=== PATIENT | male | born 1985 | race Caucasian/White ===

== ENCOUNTER → 2018-12-20 | Outpatient (CLI) | payer MEDICARE, MEDICAID ==
[~2018-12-20] MED LIST: ATEN25TA PO; CETI10TA17 PO; DEXL60CA5 PO; HYDR-3870 PO; HYDR-91 PO; ISOS30TA3 PO; LISI-556 PO; MELO-195 PO; METH-53 PO; NITR-33 PO; OLAN1CAP5 PO; ONDN4T PO; OXYC1CAP3 PO; TMSL.4C PO; ZLP5T PO
== END ==
LOC: ORTHO 08:40
PROVIDERS: ATTEND Orthopaedic Surgery
DX: S43.431A Superior glenoid labrum lesion of right shoulder, initial encounter (principal); F31.9 Bipolar disorder, unspecified
CPT/HCPCS: 99203

== ENCOUNTER 2019-09-23 09:41 | Outpatient (RCR) | payer MEDICARE, MEDICAID ==
[~2019-09-23] VITALS: Ht 180.3 cm; Wt 100.0 kg
[~2019-09-23 09:41] MED LIST changes: +ARPZ30T PO; +DEXL60CA PO; +INDO50CA82 PO; +PREG150C PO; +ZOLP10TA PO
== END 2019-09-23 15:07 | disposition home or self-care (01) ==
LOC: PREOP 09:41
PROVIDERS: ATTEND Otolaryngology Otolaryngology/Facial Plastic Surgery
DX: Z01.812 Encounter for preprocedural laboratory examination (principal); Z11.59 Encounter for screening for other viral diseases; J32.9 Chronic sinusitis, unspecified; J34.2 Deviated nasal septum; J34.3 Hypertrophy of nasal turbinates
CPT/HCPCS: 87635

== ENCOUNTER 2019-09-27 06:51 | Day surgery (SDC) | payer MEDICARE, MEDICAID ==
[2019-09-27] VITALS (11 sets, daily range): BP systolic 110–149; BP diastolic 72–97
[~2019-09-27] VITALS: Ht 180.3 cm; Wt 100.0 kg
[2019-09-27] MEDS ORDERED: LACTATED RINGERS 1,000 ML IV PRN (07:05)
--- NOTE | 2019-09-27 07:05 | Progress Note-Pre Operative ---
Pre-Operative Progress Note H&P Reviewed The H&P was reviewed, patient examined and no changes noted. Date Seen by Provider: September 27, 2019 Time Seen by Provider: 07:00 Date H&P Reviewed: September 27, 2019 Time H&P Reviewed: 07:00 Pre-Operative Diagnosis: Bilat Crhonic Sinusitis, Deviated Septum, Bilat Red ofInf Turbs FLASH DURÁN MD September 27, 2019 07:05
[2019-09-27] MEDS ORDERED: AMPICILLIN/SULBACTAM INJECTION 1.5 GM in NS (IVPB) 100 ML IV ONE (07:15)
[2019-09-27] MEDS ORDERED: MIDAZOLAM 2 MG/2 ML (VERSED) VIAL ONE ×2 (07:29→07:43)
[2019-09-27 07:31] LABS: BASOPHILS # (AUTO) 0.1 10^3/uL (0.0-0.1); BASOPHILS % (AUTO) 1 % (0-10); EOSINOPHILS # (AUTO) 0.4 10^3/uL (0.0-0.3); EOSINOPHILS % (AUTO) 8 % (0-10); HEMATOCRIT 43 % (40-54); HEMOGLOBIN 15.6 G/DL (13.3-17.7); LYMPHOCYTES # (AUTO) 1.9 X 10^3 (1.0-4.0); LYMPHOCYTES % (AUTO) 37 % (12-44); MEAN CORPUSCULAR HEMOGLOBIN 29 PG (25-34); MEAN CORPUSCULAR HGB CONC 36 G/DL (32-36); MEAN CORPUSCULAR VOLUME 80 FL (80-99); MEAN PLATELET VOLUME 9.8 FL (7.4-10.4); MONOCYTES # (AUTO) 0.4 X 10^3 (0.0-1.0); MONOCYTES % (AUTO) 8 % (0-12); NEUTROPHILS # (AUTO) 2.3 X 10^3 (1.8-7.8); NEUTROPHILS % (AUTO) 47 % (42-75); PLATELET COUNT 216 10^3/uL (130-400); RED CELL DISTRIBUTION WIDTH 13.1 % (10.0-14.5)
[2019-09-27 07:43] LABS: CHLORIDE 108 MMOL/L (98-107); POTASSIUM 4.1 MMOL/L (3.6-5.0); SODIUM 139 MMOL/L (135-145)
[2019-09-27] MEDS ORDERED: DEXAMETHASONE 10 MG/ML (DECADRON) 1 ML VIAL ONE (07:43)
[2019-09-27] MEDS ORDERED: LIDOCAINE PF 2% 5 ML (XYLOCAINE) VIAL ONE (07:43)
[2019-09-27] MEDS ORDERED: ONDANSETRON 4 MG/2 ML (SDV) Z0FRAN ONE (07:43)
[2019-09-27] MEDS ORDERED: fentaNYL INJECTION 100 MCG/2 ML AMP ONE (07:43)
[2019-09-27] MEDS ORDERED: ROCURONIUM 10 MG/ML 5 ML SYRINGE IV ONE (07:43)
[2019-09-27] MEDS ORDERED: SEVOFLURANE (ULTANE) 15 ML INHAL SOLN ONE ×2 (07:43→09:17)
[2019-09-27] MEDS ORDERED: proPOfol 200 MG/20 ML (DIPRIVAN) VIAL IV ONE (07:43)
[2019-09-27 07:44] LABS: CALCIUM 9.1 MG/DL (8.5-10.1)
[2019-09-27 07:45] LABS: GLUCOSE 133 MG/DL (70-105)
[2019-09-27 07:46] LABS: CARBON DIOXIDE 21 MMOL/L (21-32)
[2019-09-27 07:49] LABS: BUN/CREATININE RATIO 14; CREATININE SERUM 0.93 MG/DL (0.60-1.30); GFR ESTIMATED > 60
[2019-09-27] MEDS ORDERED: BSS 15 ML ONE (07:54)
[2019-09-27] MEDS ORDERED: PHENYLEPHRINE 0.5% NASAL SPR (NEO-SYNEPHRINE) REG ONE (07:54)
[2019-09-27] MEDS ORDERED: LIDOCAINE/EPI 1%-1:100,000 (XYLOCAINE) 20ML ONE (07:54)
[2019-09-27] MEDS ORDERED: COCAINE HCL 4% 2 ML SYR ONE (07:54)
[2019-09-27] MEDS ORDERED: PROM25TA14 PO (07:58)
[2019-09-27] MEDS ORDERED: RT-ALBUINH IH (07:58)
[2019-09-27] MEDS ORDERED: FLUT9.9S NS (07:58)
[2019-09-27] MEDS ORDERED: HYDROmorphone 2 MG/ML VIAL (DILAUDID) ONE (08:34)
[2019-09-27] MEDS ORDERED: GLYCOPYRROLATE 0.2 MG/ML (ROBINUL) 2 ML VIAL ONE (09:03)
[2019-09-27] MEDS ORDERED: NEOSTIGMINE 3 MG/3 ML VIAL ONE (09:03)
--- OUTSIDE RECORDS SUMMARY | 2019-09-27 09:04 | XMS REPORT | Clinical Summary ---
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 If you d o not see the information that you expected, contact Release of Information in [facility] [employer] Information Management department at [phone] for further assistan ce in locating additional records.[facility] Allergies Comments Active Allergy Reactions Severity Noted Date Prednisone AGITATION 04/16/2014 Medications End Date Status Medication Sig Dispensed Refills Start Date Active meloxicam (MOBIC) 7.5 mg Take 15 mg by 0 tablet mouth daily. Active atenolol (TENORMIN) 25 mg Take 25 mg by 0 tablet mouth daily. Active dexlansoprazole (+) Take 60 mg by 0 (DEXILANT) 60 mg capsule mouth daily. Active allopurinol (ZYLOPRIM) Take 100 mg 0 100 mg tablet by mouth daily. Active gabapentin (NEURONTIN) Take 300 mg 0 300 mg capsule by mouth three times daily. Active other medication 1 Dose twice 0 daily. Olanzaoine-fl uoxetine Active lisinopril (PRINIVIL; Take 5 mg by 0 ZESTRIL) 5 mg tablet mouth daily. Active metFORMIN (GLUCOPHAGE) Take 500 mg 0 500 mg tablet by mouth daily. Active isosorbide mononitrate SR Take 30 mg by 0 (IMDUR) 30 mg tablet mouth every morning. Active zolpidem (AMBIEN) 5 mg Take 5 mg by 0 tablet mouth at bedtime as needed. Active methocarbamol (ROBAXIN) Take 750 mg 0 750 mg tablet by mouth four times daily. Active tamsulosin (FLOMAX) 0.4 Take 0.4 mg 0 mg capsule by mouth daily. Active rizatriptan (MAXALT) 10 Take 10 mg by 0 mg tablet mouth once as needed. May repeat in 2 hours in needed Active cyclobenzaprine TAKE ONE 60 Tab 0 (FLEXERIL) 10 mg tablet TABLET BY 6 MOUTH THREE TIMES DAILY NEEDED Active Problems Not on file Social History Date Tobacco Use Types Packs/Day Years Used Never Assessed Sex Assigned at Date Recorded Not on file Industry Job Start Date Occupation Not on file Not on file Not on file Travel End Travel History Travel Start No recent travel history available. Last Filed Vital Signs Reading Time Taken Comments Vital Sign 122/70 06/18/2014 3:24 PM [employer] Blood Pressure 82 06/18/2014 3:24 PM [employer] Pulse 36.3 C (97.4 F) 06/18/2014 3:24 PM [employer]IL[employer] Temperature - - Respiratory Rate 97% 06/18/2014 3:24 PM [employer]IL[employer] Oxygen Saturation - - Inhaled Oxygen Concentration 98.4 kg (217 lb) 06/18/2014 1:43 PM [employer]IL[employer] Weight 182.9 cm (6') 06/18/2014 1:43 PM [employer]IL[employer] Height 29.43 06/18/2014 1:43 PM [employer]IL[employer] OFF[employer] Body Mass Index Plan of Treatment Health Maintenance Due Date Last Done Comments MEDICARE ANNUAL WELLNESS 1986 VISIT HIV SCREENING 2001 DTAP/TDAP VACCINES (1 - 2004 Tdap) HEPATITIS C SCREENING 2004 PHYSICAL (COMPREHENSIVE) 2004 EXAM INFLUENZA VACCINE 02/06/2020 Results Not on filefrom Last 3 Months Insurance Type Payer Benefit Subscriber ID Effective Phone Address Plan / Dates Group Medicare MEDICARE MEDICARE xxxxxxxxxx 2011-P PART A AND resent B Medicaid 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
--- OUTSIDE RECORDS SUMMARY | 2019-09-27 09:04 | XMS REPORT ---
Author Author [employer] court magistrate [email or web address] 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 Name Role Phone WANKER, MACK Unavailable Unavailable WANKER, MACK Unavailable HERBERTH OSBORNE Unavailable Unavailable NO, LOCAL PHYSICIAN Unavailable Unavailable INOCENCIA MORIN Unavailable Unavailable WANKER, MACK Unavailable WANKER, MACK Unavailable WANKER, MACK Unavailable WANKER, MACK Unavailable WANKER, MACK Unavailable WANKER, MACK Unavailable WANKER, MACK Unavailable WANKER, MACK Unavailable WANKER, MACK Unavailable WANKER, MACK Unavailable WANKER, MACK Unavailable WANKER, MACK Unavailable WANKER, MACK Unavailable WANKER, MACK Unavailable WANKER, MACK Unavailable APOORVA TAYLOR Unavailable WANKER, MACK Unavailable WANKER, MACK Unavailable WANKER, MACK Unavailable WANKER, MACK Unavailable WANKER, MACK Unavailable HANNY ALDANA Unavailable WANKER, MACK Unavailable WANKER, MACK Unavailable WANKER, MACK Unavailable WANKER, MACK Unavailable WANKER, MACK Unavailable WANKER, MACK Unavailable WANKER, MACK Unavailable WANKER, MACK Unavailable WANKER, MACK Unavailable WANKER, MACK Unavailable WANKER, MACK Unavailable WANKER, MACK Unavailable WANKER, MACK Unavailable WANKER, MACK Unavailable WANKER, MACK Unavailable WANKER, MACK Unavailable WANKER, MACK Unavailable WANKER, MACK Unavailable WANKER, MACK Unavailable WANKER, MACK Unavailable WANKER, MACK Unavailable MD Jaquan Woods MD Unavailable Unavailable Unavailable Unavailable WANKER, MACK J Unavailable Unavailable WANKER, MACK J Unavailable Unavailable WANKER, MACK Unavailable Toño Jiang Unavailable Unavailable Wanker, Mack J Unavailable Unavailable HANNY ALDANA Unavailable STEPHEN CEDILLO MD Unavailable Unavailable LEEANNA NICOLE, FLASH Elmore Unavailable Unavailable Unavailable Unavailable NO, LOCAL PHYSICIAN PCP Unavailable Unavailable Unavailable Unavailable Unavailable Unavailable Unavailable Unavailable Unavailable Unavailable Unavailable Unavailable Unavailable Unavailable Unavailable Unavailable Unavailable Unavailable Unavailable Allergies The data below is from unstructured sourcesNo Known Allergies No Known Allergies No Known Allergies No Known Allergies No Known Allergies No Known Allergies No Known Allergies Unknown Allergies Unknown AllergiesNo Known Allergies No Known Allergies No Known Allergies No Known Allergies No Known Allergies No Known Allergies No Known Allergies No Known Allergies No Known Allergies No Known Allergies No Known Allergies No Known Allergies No Known Allergies No Known Allergies No Known Allergies No Known Allergies No Known Allergies No Known Allergies No Known Allergies No Known Allergies No Known Allergies No Known Allergies No Known Allergies No Known Allergies No Known Allergies No Known Allergies No Known Allergies No Known Allergies No Known Allergies No Known Allergies No Known Allergies No Known Allergies No Known Allergies No Known Allergies No Known Allergies No Known Allergies No Known Allergies No Known Allergies No Known Allergies No Known Allergies No Known Allergies No Known Allergies No Information No Information No Information No Information No Information No Information No Information No Information No Information No Information No Information No Information No Information No Information No Information No Information No Information No Information No Information No Information No Information No Information No Information No Information No Information No Information No Information No Information No Information No Information No Information No Information No Information No Information No Information No Information No Information No Information No Information No Information No Information No Information No Information No Information No Information No Information No Information No Information No Information No Information No Information No Information No Information No Information No Information No Information No Information No Information No Information No Information No Information No Information No Information No Information No Information No Information No Information No Information No Information No Information No Information No Information Medications Current Medications Medication Ingredient Drug Dose Dates Status Sig Sig Care Class(es) (Normalized) (Original) Provid er ARIPiprazol ARIPiprazol Atypical Active no Aripiprazol e no e 30 mg e Antipsychot information Active 30 name oral tablet ic ORAL Daily (1 source.) no Diabetic no 12-20-19 Active no Diabetic no information Shoes information 18 information Shoes as name (2 directed 14 sources.) Dec, 2017 Active indomethaci Indomethaci Nonsteroida Active no Indometh acin no n 50 mg n l information Active 50 name oral Anti-inflam ORAL Daily capsule (1 matory Drug source.) pregabalin pregabalin no Active no Pregabalin no 150 mg oral information information Active 150 name capsule (1 ORAL Daily source.) QUEtiapine QUEtiapine Atypical 100 mg Active no Seroquel 100 no 100 mg oral Translation Antipsychot information MG Orally na me tablet (5 s: [ ic Once a day 1 sources.) Seroquel tablet 24h 100 MG, Active Seroquel 100 MG] suvorexant suvorexant Orexin 5 mg 03-15-20 Active no Belso mra 5 no 5 mg oral Translation Receptor 18 information mg Orally name tablet (1 s: [ Antagonist Once a day 1 source.) Belsomra 5 tablet at mg] bedtime as needed 24h Mar, 30 days Active no terbinafine Allylamine 1 % 04-28-20 Active no Lami carmen AT 1 no information Translation Antifungal 17 - information % Exter kamala name (1 source.) s: [ 05-26-19 Twice a day Lamisil AT 18 1 1 %] application to affected area 12h Apr, May, 14 days Active Completed/Discontinued Medications Medication Ingredient Drug Dose Dates Status Sig Sig Care Class(es) (Normalized) (Original) Provid er no Nitrofurant Nitrofuran 05-25-19 Complete no Nitrofura nto no information oin Antibacteri 16 d information in name (1 source.) al Macrocrystal s Discontinued 1 ORAL Twice A Day 7 May 25, 2015 no Olanzapine/ no 09-20-19 Complete no Olanzapine/F no information Fluoxetine information 20 d information pricila xetine name (1 source.) Hcl Hcl Discontinued 1 ORAL Bedtime September 20, 2019 no Oxycodone no 05-25-19 Complete no Oxycodone no information Hcl/Acetami information 16 d information Hc l/Acetamin name (1 source.) adilene navas Discontinued 1 ORAL As Needed May 25, 2015 FOR PAIN no TRUEresult no 08-13-19 no no TRUEresult no information Blood information 16 informat information Blood name (4 Glucose ion Glucose sources.) w/Device w/Device as Translation directed 24h s: [ Aug, TRUEresult Not-Taking Blood Glucose w/Device, TRUEresult Blood Glucose w/Device] Problems Problem Normalized Date Last Normalized Normalized Provider Fa cility Classification Problem(s) Recorded Problem Problem Sta tus Duration Other Bicipital Episodic Active MACK SAMANTHA Communi ty connective tendinitis, [address] [facility] tissue disease left shoulder of [facility] (20 sources.) Translations: [place] ([address]1004) [ - Biceps tendonitis on left M75.22, - Biceps tendonitis on left M75.22] Other upper Chronic 09-25-2019 - Chronic Active FLASH Ohara [facility] Via respiratory sinusitis, MD White infections (4 unspecified Hospital - sources.) Translations: [place] [ Chronic ([address]385) sinusitis] Other upper Deviated nasal 09-25-2019 - Episodic Active TIARRA DURÁN [facility] Via respiratory septum MD White disease (3 Hospital - sources.) [place] ([address]) Other upper Deviated nasal Episodic Active LOCAL NO Ascen kelsea Via respiratory septum Cindy disease (1 Hospital source.) (14784) Medical Encounter for Episodic Active MACK SINGH Com munity examination/ev general adult [address] [facility] aluation (11 medical of [facility] sources.) examination [place] ([address]84) without abnormal findings Translations: [ - Medicare annual wellness visit, initial Z00.00] Other skin Generalized Episodic Active MACK SINGH Comm unity disorders (20 hyperhidrosis [address] [facility] sources.) Translations: of [facility] [ - Excessive [place] (23632) sweating R61, - Excessive sweating R61] Other upper Hypertrophy of 09-24-2019 - Episodic Active GLORIALOLA DURÁN [facility] Via respiratory nasal , Cindy disease (3 turbinates Hospital - sources.) [place] ([address]) Other upper Hypertrophy of Episodic Active LOCAL NO Ascanthony kelsea Via respiratory nasal Cindy disease (1 turbinates Hospital source.) (42109) Other skin Ingrowing nail Episodic Active MACK SINGH C ommunity disorders (20 Translations: [address] Health Center sources.) [ - Ingrown of [place] nail L60.0, - [place] (59171) Ingrown nail of fifth toe of right foot L60.0, - Ingrown nail L60.0, - Ingrown nail of fifth toe of right foot L60.0] Other skin Nail disorder, Episodic Active MACK MCGRAWKER C ommunity disorders (20 unspecified [address] Health Center sources.) Translations: of [facility] [ - Nail [place] (26799) abnormality L60.9, - Nail abnormality L60.9] Other nervous Other chronic Chronic Active [employer] [facility] system pain [address] [place] [address] Center disorders (20 Translations: of [facility] sources.) [ - Other [place] (84434) chronic pain G89.29, - Other chronic pain G89.29] Other Pain in left Episodic Active MACK SINGH [facility] unity connective foot [id number] [place] [address] tissue disease Translations: of [facility] (20 sources.) [ - Pain of [place] (07634) left foot M79.672, - Pain of left foot M79.672] Other Pain in limb Episodic Active MACK MCGRAWPsychSignal Comm unity connective Translations: [address] [facility] tissue disease [ - Bilateral of [facility] (20 sources.) foot pain [place] (69826) 729.5, - Bilateral foot pain 729.5] Other Pain in right Episodic Active [employer] [facility] munity connective foot [address] [place] [address] tissue disease Translations: of [facility] (20 sources.) [ - Pain in [place] (81543) right foot M79.671, - Pain in right foot M79.671] Other Pain in right Episodic Active MACK MCGRAWKER [facility] munity non-traumatic hip [address] [facility] joint Translations: of [facility] disorders (20 [ - Right hip [place] (60861) sources.) pain M25.551, - Right hip pain M25.551] Other Pain in right Episodic Active MACK decker non-traumatic shoulder [address] [place] [address] Center joint Translations: [facility] disorders (20 [ - Right [place] (53683) sources.) anterior shoulder pain M25.511, - Right anterior shoulder pain M25.511, - Acute pain of right shoulder M25.511] Cardiac Palpitations Episodic Active MACK Mcdermott unity dysrhythmias Translations: [address] [place] [address] Center (20 sources.) [ - of [facility] Palpitation [place] (85715) R00.2, - Tachycardia R00.0, - Palpitation R00.2, - Tachycardia R00.0] Unclassified Primary Chronic Active MACK victoria (18 sources.) insomnia [address] [place] [address] Center Translations: [facility] [ Primary [place] (26243) insomnia, Primary insomnia] Diabetes Type 2 no information Active MACK decker mellitus with diabetes [address] [place] [address] complications mellitus with of [facility] (20 sources.) diabetic [place] (40556) neuropathy, unspecified Translations: [ - Type 2 diabetes mellitus with diabetic neuropathy, without long-term current use of insulin E11.40, - Type 2 diabetes mellitus with diabetic neuropathy, without long-term current use of insulin E11.40] Procedures Procedure Normalized Procedure Procedure Result Performer Facility Date 01-04-2018 Collection venous no information no name [facility] blood venipuncture [facility] ([id number]) 08-10-2017 Collection venous no information no name [facility] blood venipuncture [facility] (56484) 01-04-2018 Ecg routine ecg no information no name [facility] w/least 12 [facility] w/o i&r [place] (91570) 10-03-2017 Fall risk assessment no information no name [facility] (92255) 01-04-2018 FQHC visit, estab pt no information no name [facility] (56415) 09-04-2017 FQHC visit, estab pt no information no name [facility] (55074) 08-10-2017 FQHC visit, estab pt no information no name [facility] (94767) 04-28-2017 FQHC visit, estab pt no information no name [facility] (91122) 10-03-2017 FQ visit, IPPE or no information no name [facility] AWV [facility] (25006) 04-28-2017 Hemoglobin (HGB) no information no name [facility] (64474[facility] 01-04-2018 Hemoglobin no information no name [facility] glycosylated a1c [facility] (79195) 08-10-2017 Hemoglobin no information no name [facility] glycosylated a1c [facility] (77124) 01-04-2018 LAB NOT BILLED BY no information no name [facility] (54579) 08-10-2017 LAB NOT BILLED BY no information no name [facility] (48143) 10-03-2017 Pt tobacco screen rcvd no information no name [facility] tlk [facility] (91286) Immunizations Normalized Immunization Date Notes Care Provider Facili ty Immunization influenza, seasonal, 02-04-2019 no information no name [facility]able [facility] (59435) influenza, seasonal, 03-02-2018 no information no name [facility]able [facility] (66151) pneumococcal 03-05-2018 no information no name [facility] polysaccharide [facility] [address] ([address]) pneumococcal 03-02-2018 no information no name [facility] polysaccharide [facility] [address] ([address]) Results Test Name Value Interpretation Reference Range Date Time Fa cility (Normalized) (Normalized) (Medline Reference) not yet categorized on null no information (24260-2) Sex (no code) [facility] assigned at [facility] : Center (69920) NI~(NOEMAIL) : Unknown laboratory on 2019-09-23 Coronavirus Ab Negative (no code) 09-23-2019 PENDING LOC ATION Qn (S) 09:05-0400 [facility] (06354) not yet categorized on 2019-07-04 Control neg~valid (no code) [facility] (70580) Control pos~neg~valid (no code) [facility] (22039) Exp date 08/23/2021 (no code) [facility] (43630) Exp date 09/10/2021 (no code) [facility] (80247) Lot # [id number] (no code) [facility] (38509) Lot # [id number] (no code) [facility] (14446) laboratory on 2019-04-16 Basophils (Bld) 0.068 10*3/uL (N) 0 - 0.3 10*3/uL [facility] [#/Vol] [facility] (74966) Basophils/100 1.0 % (N) 0.5 - 1 % [facility] WBC (Bld) [facility] (74107) Eosinophils 0.102 10*3/uL (N) 0.05 - 0.5 [facility] He alth (Bld) [#/Vol] 10*3/uL [facility] (75155) Eosinophils/100 1.5 % (N) 1 - 4 % [facility] WBC (Bld) [facility] (86057) Erythrocyte 12.7 % (N) 11.6 - 14.6 % [facility] distribution [facility] (RBC) [facility] [Ratio] (61067) Hematocrit (Bld) 47.8 % (N) 36.1 - 50.3 % [facility] [Volume [facility]] [facility] (48093) Hemoglobin (Bld) 16.6 g/dL (N) 12.1 - 17.2 g/dL [facility] [Mass/Vol] [facility] (58526) Lymphocytes 1.931 10*3/uL (N) 0.9 - 2.9 [facility] He alth (Bld) [#/Vol] 10*3/uL [facility] (37660) Lymphocytes/100 28.4 % (N) 20 - 40 % [facility] Health WBC (Bld) [facility] (64559) MCH (RBC) 29.3 pg (N) 27 - 31 pg [facility] [Entitic mass] [facility] (62167) MCHC (RBC) 34.7 g/dL (N) 32 - 36 g/dL [facility] He alth [Mass/Vol] [facility] (88892) MCV (RBC) 84.3 fL (N) 80 - 100 fL [facility] Hea lth [Entitic vol] [facility] (13835) Monocytes (Bld) 0.422 10*3/uL (N) 0.3 - 0.9 [facility] Health [#/Vol] 10*3/uL [facility] (16952) Monocytes/100 6.2 % (N) 2 - 8 % [facility] He alth WBC (Bld) [facility] (80267) Natriuretic 20 pg/mL (N) 0 - 100 pg/mL [facility] ealth peptide B (Bld) [facility] [Mass/Vol] [facility] (22806) Neutrophils 4.277 10*3/uL (N) 1.7 - 7 10*3/uL [facility] Health (Bld) [#/Vol] [facility] (55878) Neutrophils/100 62.9 % (N) 40 - 60 % [facility] WBC (Bld) [facility] (51842) Platelet mean 10.5 fL (N) 7.2 - 11.7 fL [facility] Health volume (Bld) [facility] [Entitic vol] [facility] (76103) Platelets (Bld) 250 10*3/uL (N) 150 - 450 [facility] Health [#/Vol] 10*3/uL [facility] (12497) RBC (Bld) 5.67 10*6/uL (N) 4.2 - 6.1 [facility] Hea lth [#/Vol] 10*6/uL [facility] (95607) TSH Qn 2.50 m[IU]/L (N) 0.4 - 4 m[IU]/L [facility] (94492) WBC (Bld) 6.8 10*3/uL (N) 3.5 - 10.5 [facility] th [#/Vol] 10*3/uL [facility] (31738) not yet categorized on 2019-04-01 A:C (IN HOUSE) <30 (no code) [facility] (92190) CRE 10~200 (no code) [facility] (14547) Exp date 01/2021 (no code) [facility] (29528) Lot [id number] (no code) [facility] (95086) Lot # [id number] (no code) [facility] (15243) MICROALBUMIN normal (no code) [facility] (96179) laboratory on 2019-04-01 Color (U) 11/2019~clear~ye (no code) [facility] (68905) not yet categorized on 2018-12-05 Neurology Note NO SHOW for (no code) 12-05-2018 [facility] appt 09:53-5690 Clinic Neurology 12/04/18 3:20pm. (81005) sbm not yet categorized on 2018-10-25 Exp date 07/2020 (no code) [facility] (45781) Lot 5.8~6.1~[id number] (no code) [facility] (06535) thyroid on 2018-01-04 Thyrotropin Qn 2.36 m[IU]/L (N) 0.4 - 4 m[IU]/L [facility] (72388) other on 2018-01-04 ABSOLUTE 79 (H) no information METAMYELOCYTES Albumin/Globulin 1.8 (N) [facility] Hea lt mass ratio [facility] (87109) Globulin 2.6 (N) [facility] Calculated mass [facility] (S) [facility] (11842) metabolic panel on 2018-01-04 Albumin mass 4.7 g/dL (N) 3.4 - 5.4 g/dL [facility] (27776) ALP enzyme 50 U/L (N) 44 - 147 U/L [facility] act/[facility] (86625) ALT enzyme 12 U/L (N) 4 - 40 U/L [facility] act/[facility] (49975) AST enzyme 12 U/L (N) 10 - 34 U/L [facility] act/[facility] (58439) Bilirubin mass 0.6 mg/dL (N) 0.1 - 1.2 mg/dL [facility] (21797) Calcium mass 9.7 mg/dL (N) 8.5 - 10.2 mg/dL [facility] (01623) Chloride molar 101 mmol/L (N) 95 - 106 mmol/L [facility] (76691) CO2 molar conc 29 mmol/L (N) 23 - 29 mmol/L [facility] (40874) Creatinine mass 0.92 mg/dL (N) [facility] (00260) GFR/1.73 sq M 128 (N) 90 - 120 [facility] predicted among mL/min/{1.73_m2} mL/min/{1.73_m2} [place] [facility] MDRD [facility]/area (61810) (S/P/Bld) GFR/1.73 sq 110 (N) 90 - 120 [facility] M.predicted MDRD mL/min/{1.73_m2} mL/min/{1.73_m2} [facility] rate/[facility] (98210) Glucose mass 87 mg/dL (N) 60 - 125 mg/dL [facility] (48959) Hemoglobin 5.7 (H) no information A1c/Hemoglobin.t otal mass fraction (Bld) Potassium molar 4.2 mmol/L (N) 3.7 - 5.2 mmol/L [facility] (64350) Protein mass 7.3 g/dL (N) 6.4 - 8.3 g/dL [facility] (02335) Sodium molar 139 mmol/L (N) 135 - 145 mmol/L [facility] (22250) Urea nitrogen 13 mg/dL (N) 7 - 20 mg/dL [facility] (74351) Urea NOT APPLICABLE (no code) [facility] h nitrogen/Creatin [facility] (45443) hematology on 2018-01-04 Band form 0.237 10*3/uL (N) 0 - 0.75 10*3/uL no inf ormation neutrophils #/vol (Bld) Band form 3.0 % (N) 0 - 3 % no information neutrophils/100 WBC Manual cnt (Bld) Basophils Auto 0.079 10*3/uL (N) 0 - 0.3 10*3/uL no i nformation #/vol (Bld) Basophils/100 1.0 % (N) 0.5 - 1 % no informati on WBC Auto (Bld) Eosinophils Auto 0.079 10*3/uL (N) 0.05 - 0.5 no info rmation #/vol (Bld) 10*3/uL Eosinophils/100 1.0 % (N) 1 - 4 % no informa tion WBC Auto (Bld) Erythrocyte 12.8 % (N) 11.6 - 14.6 % no informat ion distribution width Auto Ratio (RBC) Hematocrit Auto 43.6 % (N) 36.1 - 50.3 % no info rmation Volume Fraction (Bld) Hemoglobin mass 15.3 g/dL (N) 12.1 - 17.2 g/dL no i nformation conc (Bld) Lymphocytes Auto 2.267 10*3/uL (N) 0.9 - 2.9 no info rmation #/vol (Bld) 10*3/uL Lymphocytes/100 28.7 % (N) 20 - 40 % no informa tion WBC Auto (Bld) MCH Auto Entitic 29.5 pg (N) 27 - 31 pg no inform ation mass (RBC) MCHC Auto mass 35.1 g/dL (N) 32 - 36 g/dL no inform ation conc (RBC) MCV Auto Entitic 84.0 fL (N) 80 - 100 fL no infor mation volume (RBC) Metamyelocytes/1 1.0 % (H) 0 - 0 % no inform ation 00 WBC Manual cnt (Bld) Monocytes Auto 0.308 10*3/uL (N) 0.3 - 0.9 no inform ation #/vol (Bld) 10*3/uL Monocytes/100 3.9 % (N) 2 - 8 % no informati on WBC Auto (Bld) Neutrophils Auto 4.851 10*3/uL (N) 1.7 - 7 10*3/uL no information #/vol (Bld) Neutrophils/100 61.4 % (N) 40 - 60 % no informa tion WBC Auto (Bld) Platelet mean 9.9 fL (N) 7.2 - 11.7 fL no inform ation volume Auto Entitic volume (Bld) Platelets Auto 239 10*3/uL (N) 150 - 450 no informat ion #/vol (Bld) 10*3/uL RBC Auto #/vol 5.19 10*6/uL (N) 4.2 - 6.1 no informa tion (Bld) 10*6/uL WBC Auto #/vol 7.9 10*3/uL (N) 3.5 - 10.5 no informat ion (Bld) 10*3/uL other on 2017-08-10 Albumin/Globulin 2.1 (N) On License Of [facility] lt mass ratio [facility] (53396) Globulin 2.3 (N) [facility] Calculated mass [facility] (S) [facility] (83506) Urate mass conc 7.0 mg/dL (N) 3.5 - 7.2 mg/dL [facility] (74485) metabolic panel on 2017-08-10 Albumin mass 4.8 g/dL (N) 3.4 - 5.4 g/dL [facility] (99557) ALP enzyme 50 U/L (N) 44 - 147 U/L [facility] He alth act/[facility] (01852) ALT enzyme 14 U/L (N) 4 - 40 U/L [facility] act/[facility] [facility] ([id number]) AST enzyme 22 U/L (N) 10 - 34 U/L [facility] He lt act/[facility] (88883) Bilirubin mass 0.8 mg/dL (N) 0.1 - 1.2 mg/dL [facility] (99594) Calcium mass 9.9 mg/dL (N) 8.5 - 10.2 mg/dL [facility] (53267) Chloride molar 104 mmol/L (N) 95 - 106 mmol/L [facility] (41413) CO2 molar conc 29 mmol/L (N) 23 - 29 mmol/L [facility] (62003) Creatinine mass 0.83 mg/dL (N) [facility] (12625) GFR/1.73 sq M 137 (N) 90 - 120 [facility] predicted among mL/min/{1.73_m2} mL/min/{1.73_m2} [facility] f [facility] MDRD [facility] rate/area (49670) (S/P/Bld) GFR/1.73 sq 118 (N) 90 - 120 [facility] M.predicted MDRD mL/min/{1.73_m2} mL/min/{1.73_m2} [facility] rate/[facility] (67754) Glucose mass 78 mg/dL (N) 60 - 125 mg/dL [facility] (66748) Hemoglobin 5.9 (H) [facility] h A1c/Hemoglobin.t [facility] fraction (Bld) (12576) Potassium molar 3.8 mmol/L (N) 3.7 - 5.2 mmol/L [facility] (97088) Protein mass 7.1 g/dL (N) 6.4 - 8.3 g/dL [facility] (79439) Sodium molar 141 mmol/L (N) 135 - 145 mmol/L [facility] (11790) Urea nitrogen 16 mg/dL (N) 7 - 20 mg/dL [facility] conc [facility] (42642) Urea NOT APPLICABLE (no code) [facility] Healt h nitrogen/Creatin [facility] mass ratio [facility] (95786) hematology on 2017-08-10 Basophils Auto 0.053 10*3/uL (N) 0 - 0.3 10*3/uL [facility] #/vol (Bld) [facility] (29704) Basophils/100 0.9 % (N) 0.5 - 1 % [facility] alth WBC Auto (Bld) [facility] (75575) Eosinophils Auto 0.142 10*3/uL (N) 0.05 - 0.5 [facility] #/vol (Bld) 10*3/uL [facility] (96484) Eosinophils/100 2.4 % (N) 1 - 4 % [facility] WBC Auto (Bld) [facility] (89815) Erythrocyte 14.4 % (N) 11.6 - 14.6 % [facility] ealth distribution [facility] Auto Ratio [facility] (RBC) (14199) Hematocrit Auto 41.0 % (N) 36.1 - 50.3 % [facility] Volume Fraction [facility] ([facility]) [facility] (79192) Hemoglobin mass 14.0 g/dL (N) 12.1 - 17.2 g/dL [facility] conc (Bld) [facility] (43467) Lymphocytes Auto 2.118 10*3/uL (N) 0.9 - 2.9 [facility] #/vol (Bld) 10*3/uL [facility] (94840) Lymphocytes/100 35.9 % (N) 20 - 40 % [facility] WBC Auto (Bld) [facility] (78692) MCH Auto Entitic 27.8 pg (N) 27 - 31 pg [facility] (RBC) [facility] (79044) MCHC Auto mass 34.1 g/dL (N) 32 - 36 g/dL [facility] Health conc (RBC) [facility] (83510) MCV Auto Entitic 81.5 fL (N) 80 - 100 fL [facility] volume (RBC) [facility] (05442) Monocytes Auto 0.319 10*3/uL (N) 0.3 - 0.9 [facility] Health #/vol (Bld) 10*3/uL [facility] (06551) Monocytes/100 5.4 % (N) 2 - 8 % [facility] WBC Auto (Bld) [facility] (55420) Neutrophils Auto 3.269 10*3/uL (N) 1.7 - 7 10*3/uL [facility] #/vol (Bld) [facility] (74769) Neutrophils/100 55.4 % (N) 40 - 60 % [facility] Health WBC Auto (Bld) [facility] (01520) Platelet mean 10.1 fL (N) 7.2 - 11.7 fL [facility] Health volume Auto [facility] Entitic volume [facility] (Bld) (96862) Platelets Auto 234 10*3/uL (N) 150 - 450 [facility] H ealth #/vol (Bld) 10*3/uL [facility] (55697) RBC Auto #/vol 5.03 10*6/uL (N) 4.2 - 6.1 [facility] Health (Bld) 10*6/uL [facility] (68356) WBC Auto #/vol 5.9 10*3/uL (N) 3.5 - 10.5 [facility] H ealth (Bld) 10*3/uL [facility] (52661) a1c (in house) on 2017-04-28 HbA1c 6.1 % (no code) 3.6 - 5.7 % 04-28-2017 [facility] Health 13:00-0500 [facility] (82550) HbA1c 7.1 % (no code) 3.6 - 5.7 % 04-28-2017 [facility] Health 13:00-0500 [facility] (95031) A1C (IN HOUSE) 0784 (no code) 04-28-2017 [facility] H ealth 13:00-0500 [facility] (92050) A1C (IN HOUSE) 02/2018 (no code) 04-28-2017 [facility] H ealt 13:00-0500 [facility] (98709) Vital Signs Vital Sign Value Interpretation Reference Date Time Care Prov ider Facility (Normalized) (Normalized) Range BMI (Body Mass 29.65 kg/m2 (no code) 15 - 25 kg/m2 01-04-2018 C KATARZYNAJASSI BembaFLORY Community Index) 15:40-0400 98027 [facility] (71800) BMI (Body Mass 29.3 kg/m2 (no code) 15 - 25 kg/m2 10-03-2017 MICHELLE MARILUZFLORY Community Index) 17:20-0400 06644 [facility] (04891) BMI (Body Mass 30.4 kg/m2 (no code) 15 - 25 kg/m2 09-04-2017 DINESH ALDANA Community Index) 17:40-0400 14342 [facility] (53119) BMI (Body Mass 29.83 kg/m2 (no code) 15 - 25 kg/m2 08-10-[address] [facility]) 17:00-0400 57163 [facility] (76619) BMI (Body Mass 30.46 kg/m2 (no code) 15 - 25 kg/m2 04-28-[address] [facility] Community Index) 15:20-0500 10982 [facility] (73439) Body 98.7 [degF] (no code) 97.8 - 99.0 01-04-2018 MACK CURRY Community Temperature [degF] 15:40-0400 42556 [facility] (47079) Body 98 [degF] (no code) 97.8 - 99.0 10-03-2017 MACK [facility] Community Temperature [degF] 17:20-0400 57350 [facility] (20308) Body 98.7 [degF] (no code) 97.8 - 99.0 09-04-2017 HANNY Mcghee Community Temperature [degF] 17:40-0400 73769 [facility] (02074) Body 98.2 [degF] (no code) 97.8 - 99.0 08-10-2017 [facility] Temperature [degF] 17:00-0400 06364 [facility] (68996) Height 180.34 cm (no code) cm 01-04-2018 MACK [facility] 15:400400 16170 [facility] (88385) Height 180.34 cm (no code) cm 10-03-2017 MACK [facility] 17:200400 23026 [facility] (20336) Height 180.34 cm (no code) cm 09-04-2017 HANNY Elise [facility] 17:400400 88079 [facility] (78876) Height 180.34 cm (no code) cm 08-10-2017 [facility] 17:000400 [id number] [place] [address] (49909) Height 180.34 cm (no code) cm 04-28-2017 MACK [facility] 15:200500 12882 [facility] (21042) Weight 96.44 kg (no code) kg 01-04-2018 MACK [facility] 15:40-0400 24844 [facility] (04708) Weight 95.3 kg (no code) kg 10-03-2017 [facility] 17:200400 [id number] [place] [address] (85173) Weight 98.88 kg (no code) kg 09-04-2017 HANNY Lewis [facility] 17:400400 03602 [facility] (77444) Weight 97.03 kg (no code) kg 08-10-2017 MACK [facility] 17:000400 19774 [facility] (25370) Weight 99.07 kg (no code) kg 04-28-2017 MACK [facility] 15:200500 [id number] [place] [address] (34660) Interventions No Information Plan of Treatment Normalized Care Care Detail Care Activity Date Care Provider F acility Activity (ACUTE) Acute Visit [facility] [address] [place] 05-09-2018 MACK SINGH [address] [facility] (29160) (SD) Same Day [facility] [address] [place] 03-07-2018 MACK SINGH 23760 [facility] (06711) Collection venous no information no information MACK SINGH 02092 [facility] blood venipuncture [facility] (57496) Coronavirus Ab Qn no information no information LOCAL NO As cension Via (S) [facility] (40605) Follow-up encounter [facility] [address] [place] 03-14-2018 MACK SINGH [address]27 [facility] (50576) Patient referral no information no information LOCAL NO Asc ension [facility] (73408) Goals Patient Goal Desired Goal no information no information Social History Normalized Code Original Code Date Value Tobacco smoking status Tobacco smoking status no information Never smoked tobacco NHIS NHIS (finding) no information no information 09-20-2019 Rarely Uses no information no information 05-25-2015 No no information no information 09-20-2019 Never a Smoker Sex Assigned At Sex Assigned At no information M rajesh Functional Status The data below is from unstructured sourcesNo functional status results.No Functional Status information availableNo Functional Status information available Mental Status The data below is from unstructured sourcesNo Mental Status Information Available Encounters Encounter Normalized Encounter Encounter Diagnosis Care Provi ugo Organization Date Type "" no information no name no organization name 01-04-2018 (ACUTE) Acute Visit Palpitations MACK SINGH (no [facility] [address] [place] (no phone) phone) 01-16-2018 ([facility]) Chronic Health no information MACK SINGH (no [facility] [address] [place] (no Maintenance phone) phone) 12-11-2017 [facility] no information [facility]INGH (no [facility] [place] ([facility] phone) phone) 11-20-2017 [facility] [place] no information [facility] SINGH (no [facility] (no phone) phone) 11-15-2017 [facility] [place] no information [facility]ACK SINGH (no [facility] (no phone) phone) 10-09-2017 [facility] [place] no information MACK SINGH (no [facility] (no phone) phone) 09-23-2019 Discharged Recurring no information (no phone) As cension Via [facility] (no phone) 09-23-2019 01-16-2018 Patient encounter no information no name no or ganization name 01-04-2018 Patient encounter no information no name no or ganization name 10-03-2017 Patient encounter no information no name no or ganization name 09-04-2017 Patient encounter no information no name no or ganization name 08-10-2017 Patient encounter no information no name no or ganization name 05-22-2017 Patient encounter no information no name no or ganization name Patient encounter no information no name no organizat ion name 09-27-2019 Patient encounter no information FLASH DURÁN MD (no [facility] procedure phone) [facility] (no phone) 09-23-2019 Patient encounter no information FLASH DURÁN MD (no [facility] - procedure phone) [facility] 09-23-2019 (no phone) 09-20-2019 Patient encounter no information FLASH DURÁN MD (no [facility] procedure phone) [facility] (no phone) 07-04-2019 Patient encounter no information MACK SINGH ( no [facility] phone) (no phone) [facility] (no phone) 06-17-2019 Patient encounter no information MACK SINGH ( no [facility] procedure phone) [facility] (no phone) 05-17-2019 Patient encounter no information no name no or ganization name procedure 05-09-2019 Patient encounter no information no name no or ganization name procedure 04-16-2019 Patient encounter no information no name no or ganization name procedure 04-01-2019 Patient encounter no information no name no or ganization name procedure 12-20-2018 Patient encounter no information no name no or ganization name procedure 12-20-2018 Patient encounter no information STEPHEN CEDILLO MD (no [facility] procedure phone) [facility] (no phone) 12-06-2018 Patient encounter no information no name no or ganization name procedure 11-23-2018 Patient encounter no information no name no or ganization name - procedure 11-24-2018 11-16-2018 Patient encounter no information no name no or ganization name procedure 11-06-2018 Patient encounter no information no name no or ganization name procedure 10-25-2018 Patient encounter no information no name no or ganization name procedure 10-25-2018 Patient encounter no information no name no or ganization name procedure 06-12-2018 Patient encounter no information no name no or ganization name - procedure 06-15-2018 05-17-2018 Patient encounter no information no name no or ganization name procedure 11-27-2017 Patient encounter no information no name no or ganization name - procedure 11-27-2017 05-25-2015 Patient encounter no information FLASH DURÁN MD (no [facility] phone) [facility] 05-25-2015 (no phone) 10-03-2017 [facility], initial visit no information no name no organization name 01-08-2018 Telephone encounter no information MACK SINGH ( no [facility] [place] (no phone) phone) 12-20-2017 Telephone encounter no information MACK SINGH ( no [facility] [address] [place] (no phone) phone) 12-19-2017 Telephone encounter Type 2 diabetes MACK SINGH (no [facility] [address] [place] (no mellitus with diabetic phone) phone) neuropathy, unspecified 12-15-2017 Telephone encounter no information MACK SINGH ( no [facility] [address] [place] (no phone) phone) no information Dental examination no name no organiza tion name no information Encounter for general no name no organ ization name adult medical examination without abnormal findings no information Encounter for no name (no phone) preprocedural laboratory examination Medical Equipment The data below is from unstructured sourcesNo Medical Equipment Information available Payers Normalized Payer Value Unknown no information [id number]) Private Health Insurance no information Evaluation note Note Type Note Facility Evaluation No Assessments Information Available A scension note [facility] ([id number]) Summary Purpose eClinicalWorks SubmissioneClinicalWorks SubmissioneClinicalWorks SubmissioneClinicalWorks SubmissioneClinicalWorks SubmissioneClinicalWorks SubmissioneClinicalWorks SubmissioneClinicalWorks SubmissioneClinicalWorks SubmissioneClinicalWorks SubmissioneClinicalWorks SubmissioneClinicalWorks SubmissioneClinicalWorks SubmissioneClinicalWorks SubmissioneClinicalWorks SubmissioneClinicalWorks SubmissioneClinicalWorks SubmissioneClinicalWorks SubmissioneClinicalWorks SubmissioneClinicalWorks SubmissioneClinicalWorks SubmissioneClinicalWorks SubmissioneClinicalWorks SubmissioneClinicalWorks SubmissioneClinicalWorks SubmissioneClinicalWorks Submission Advance Directives Directive Response Recor ded Date/Time Advance Directives Yes 0 05/25/15 7:00am Health Care Power of Brand Recorder No 05/25/15 7:00am Organ Donor Yes 05/25/15 7:00am Resuscitation Status Full Code 05/25/15 7:00am Advance Directive Response Recorded Date/Time Advance Directives No Jose [place] 2019 12:25pm Health Care Power of Brand Recorder No September 20, 2019 12:25pm Organ Donor Yes September 12:25pm Resuscitation Status Full Code September 20, 2019 12:25pm Discharge Instructions No hospital discharge instructions. Additional Source Comments This clinical document has been generated using [employer] software that has been certified by the Office of the National Coordinator for Health Information Technology (ONC 15.99.04.3023.Diam.31.00.0.747808) and the National Committee for Proof Tester (NCQA, as an eMeasure certified technology). FOR RECORDS PERTAINING TO PATIENTS WHO ARE OR HAVE BEEN ENROLLED IN A CHEMICAL D EPENDENCY/SUBSTANCE ABUSE PROGRAM, SOME INFORMATION MAY BE OMITTED. This clinica l summary was aggregated from multiple sources. Caution should be exercised in using it in the provision of clinical care. This summary normalizes information from multiple sources, and as a consequence, information in this document may ma terially change the coding, format and clinical context of patient data. In susannah tion, data may be omitted in some cases. CLINICAL DECISIONS SHOULD BE BASED ON T HE PRIMARY CLINICAL RECORDS. [employer] provides no warranty or guara ntee of the accuracy or completeness of information in this document.The followi ng information is based on time limited clinical information UNRECOGNIZED CONTENT PROVIDED BELOW FOR UNRECOGNIZED SECTION MEDICAL (GENERAL) HISTORY Type Description Date Medical History Hypertension Medical History Bipolar 1 disorder, manic, moderate Medical History Gout Medical History Diabetes Medical History GERD (gastroesophage al reflux disease) Surgical History Kidney stone removal Surgical History Nerve ending perera in jovanny k Surgical History lymphectomy Hospitalization History DM Hospitalization History Surgery(s) UNRECOGNIZED CONTENT PROVIDED BELOW FOR UNRECOGNIZED SECTION REASON FOR VISIT Medication refill requestRequests return calldiabetic shoesmy feetmy feetHeart r ate has been running high according to readins on watch-amorrisonlpndiabetic oli esRequests return calldo need to figure out something on my burgess Prior Authoriza tion RequestMedication questionNew Refill RequestRefill requestMedication refill requestmed refill
--- OUTSIDE RECORDS SUMMARY | 2019-09-27 09:05 | XMS REPORT ---
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 0710 Active 834305294 Problem Acute gout involving toe, unspecified cause, uns pecified laterality M10.9 Active 612320309 Problem Primary insomnia F51.01 Active 397 2004 Problem Type 2 diabetes mellitus wit h diabetic neuropathy, without long-term current use of insulin E11.40 Active 86001 006 Problem Bipolar II disorder F31.81 Active 02436920 ALLERGIES No Information ENCOUNTERS Encounter Location Date Diagnosis [facility] [address] [place] [address] [place] [phone] Dec, 19 Right anterior shoulder pain M25.511 [facility] [address] [place] [address] [place] [address] Nov, 19 [facility] [address] [place] [address] [place] [address] Nov, 19 Right anterior shoulder pain M25.511 [facility] [address] [place] [address] [place] [phone] Nov, 19 Right anterior shoulder pain M25.511 [facility] [address] [place] [address] [place] [phone] Nov, 19 Right anterior shoulder pain M25.511 [facility] [address] [place] [address] [place] [address] Nov, 19 Right anterior shoulder pain M25.511 [facility] [address] [place] [address] [place] [phone] 16 Nov, 19 [facility] [address] [place] [address] Nov, 20 19 Right anterior shoulder pain M25.511 [facility] [address] [place] [address] [place] [address] 11 Nov, 19 [facility] [address] [place] [address] [place] [address] 05 Nov, 19 Right anterior shoulder pain M25.511 [facility] [address] [place] [address] [place] [address] 02 Nov, 19 Acute pain of right shoulder M25.511 [facility] [address] [place] [address] [place] [phone] 24 Oct, 19 [facility] [address] [place] [address] [place] [address] 20 Oct, 19 Type 2 diabetes mellitus with diabetic neuropathy, without long-term current use of insulin E11.40 ; Bipolar II disorder F31.81 and Chronic gout of right foot, unspecified cause M1A.0710 [facility] [address] [place] [address] [place] [address] 12 Oct, 19 Acute gout involving toe, unspecified cause, unspecified laterality M10.9 [facility] [address] [facility] [address] [place] [phone] 16 September, 19 [facility] [address] [place] [phone] Aug, 19 [facility] [place] [address] [facility] [id number] [address] [place] [address] Jul, [facility] [address] [place] [phone] Jul, 19 [facility] [address] [place] [address] [place] [phone] Jul, 19 [facility] [address] [place] [address] [place] [address] Jun, 19 [facility] [address] [place] [address] [place] [address] Jun, 19 [facility] [address] [place] [address] [place] [address] Jun, 19 Type 2 diabetes mellitus with diabetic neuropathy, without long-term current use of insulin E11.40 [facility] [address] [place] [address] [place] [phone] Jun, 19 [facility] [address] [place] [address] May, [address] [address] May, 19 Type 2 diabetes mellitus with diabetic neuropathy, without long-term current use of insulin E11.40 and Bipolar II disorder F31.81 [facility] [address] [facility] [id number] [place] [address] Apr, [facility] [address] [facility] [id number] [address] [place] [phone] 14 Apr, [address] [address] 12 Apr, [address] [address] Apr, 18 Pain of left foot M79.672 and Pain in right foot M79.[address] [address] Apr, 18 Palpitation R00.2 [facility] [address] [place] [address] Mar, 18 [facility] [address] [place] [address] Mar, 18 Primary insomnia F51.[address] [address] 08 Mar, 18 [facility] [address] [place] [address] Mar, 18 [facility] [address] [place] [address] 07 Mar, 18 [facility] [address] [place] [address] 02 Mar, 18 Acute non- recurrent maxillary sinusitis J01.00 [facility] [address] [place] [phone] Feb, 18 [facility] [address] [place] [address] [place] [phone] 31 Oct, 20 18 Costochondritis M94.0 and Low thyroid stimulating hormone (TSH) level R79.89 [facility] [address] [place] [address] [place] [phone] 30 Feb, 20 18 [facility] [address] [place] [address] [place], [place] [address] 29 Feb, 20 18 Costochondritis M94.0 [facility] [place] [address] [place] [address] 26 Feb, 20 18 [facility] [place] [address] [place] [address] 24 Feb, 20 18 [facility] [address] [place] [address] [place] [address] 11 Feb, 20 18 [facility] [address] [place] [address] [place] [address] 11 Jan, 18 Tachycardia R00.0 [facility] [place] [address] [place] [address] 03 Jan, 18 [facility] [address] [place] [address] [place] [address] 30 Dec, 18 Palpitation R00.2 and Type 2 diabetes mellitus without complications E11.9 [facility] [address] [facility] [address] [place] [address] 15 Dec, 18 [facility] [place] [address] [place] [address] 14 Dec, 18 Type 2 diabetes mellitus with diabetic neuropathy, without long-term current use of insulin E11.40 [facility] [address] [place] [address] [place] [address] 10 Dec, 18 [facility] [place] [address] [place] [address] 06 Dec, 18 [facility] [place] [address] [place] [address] 06 Dec, 18 [facility] [place] [address] [place] [address] 16 Nov, 18 [facility] [place] [address] [place] [address] 11 Nov, 18 [facility] [place] [address] [place] [address] Oct, 18 [facility] [place] [address] [place] [address] September, 18 Medicare annual wellness visit, initial Z00.00 ; Type 2 diabetes mellitus without complication, without long-term current use of insulin E11.9 and Right anterior shoulder pain M25.511 [facility] [place] [address] [place] [address] September, 18 Primary insomnia F51.01 [facility] [place] [address] [place] [address] Aug, 18 Biceps tendonitis on left M75.22 [facility] [place] [address] [place] [address] Aug, 18 [facility] [place] [address] [place] [address] Aug, 18 [facility] [place] [address] [place] [address] Aug, 18 [facility] [place] [address] [place] [address] Aug, 18 Type 2 diabetes mellitus without complications E11.9 ; Pain of left foot M79.672 ; Pain in right foot M79.671 and Chronic gout involving toe without tophus, unspecified cause, unspecified laterality M1A.9XX0 [facility] [place] [address] [place] [address] Jun, 18 [facility] [place] [address] [place] [address] May, 18 [facility] [place] [address] [place] [address] May, 18 [facility] [place] [address] [place] [address] May, 18 [facility] [place] [address] [place] [address] May, 18 Right anterior shoulder pain M25.511 [facility] [place] [address] [place] [address] May, 18 [facility] [place] [address] [place] [address] May, 18 [facility] [address] [place] [address] Apr, Type 2 diabetes mellitus without complications E11.9 ; Costochondritis, acute M94.0 and Tinea pedis of both feet B35.3 [facility] [address] [place] [address] Mar, [address] [address] Mar, [address] [address] Feb, Acute upper respiratory infection, unspecified J06.9 ; Other viral agents as the cause of diseases classified elsewhere B97.89 and Aphthous ulcer of mouth K12.[address] [address] Jan, [address] [address] Jan, Right hip pain M25.[address] [address] Dec, Ingrown nail L60.0 ; Impetigo L01.00 and Irritant contact dermatitis due to plants, except food L24.7 [facility] [address] [place] [address] Dec, [address] [address] Dec, 17 Nail abnormality L60.9 and Ingrown nail of fifth toe of right foot L60.[address] [address] Nov, Type 2 diabetes mellitus without complications E11.[address] [address] Nov, Type 2 diabetes mellitus without complication, without long-term current use of insulin E11.9 [facility] [address] [place] [address] Nov, 17 [facility] [place] [address] [place] [address] Nov, 17 [facility] [place] [address] [place] [address] Oct, 17 [facility] [place] [address] [place] [address] 20 September, [address] [address] Aug, 17 Acute idiopathic gout of foot, unspecified laterality M10.079 [facility] [place] [address] [place] [address] Aug, 17 Acute idiopathic gout of foot, unspecified laterality M10.079 and Primary insomnia F51.[address] [address] [address] Jul, [address] [address] Jul, 17 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 [facility] [address] [address] 23 Jun, 17 [facility] [address] [address] 17 Jun, 17 Acute non- recurrent maxillary sinusitis J01.[address] [address] [address] 16 Jun, 17 Acute non- recurrent frontal sinusitis J01.[address] [address] 15 Jun, [address] [facility] [address] [address] 14 Jun, 17 Primary insomnia F51.01 [facility] [address] [address] 07 Jun, 17 Acute non- recurrent maxillary sinusitis J01.00 ; Excessive sweating R61 and 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 [facility] [address] [address] 02 Jun, 20 17 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 [facility] [place] [address] [place] [address] 10 May, 17 Type 2 diabetes mellitus without complications E11.9 ; Gout involving toe, unspecified cause, unspecified chronicity, unspecified laterality M10.9 and Primary insomnia F51.01 [facility] [place] [address] [place] [address] 27 Jan, 16 [facility] [place] [address] [place] [address] 14 Jan, 16 [facility] [place] [address] [place] [address] 13 Jan, 16 [facility] [place] [address] [place] [address] 30 Dec, 16 [facility] [place] [address] [place] [address] Dec, 16 [facility] [place] [address] [place] [address] Dec, 16 Sciatica of right side M54.31 and Acute bilateral low back pain without sciatica M54.5 [facility] [place] [address] [place] [address] Dec, 16 Type 2 diabetes mellitus without complications E11.9 [facility] [place] [address] [place] [address] Dec, 16 [facility]ila[facility] [place] [address] [place] [address] Dec, 16 [facility] [place] [address] [place] [address] Dec, 16 Sciatica of right side M54.31 ; Type 2 diabetes mellitus without complication, without long- term current use of insulin E11.9 ; Acute bilateral low back pain without sciatica M54.5 and Neuropathy G62.9 [facility] [place] [address] [place] [address] Dec, 16 Plantar fasciitis, right M72.2 and Sciatica of right side M54.31 [facility] [place] [address] [place] [address] Nov, 16 [facility] [place] [address] [place] [address] Oct, 16 Nail abnormality L60.9 [facility] [place] [address] [place] [address] 08 September, 16 [facility] [place] [address] [place] [address] Aug, 16 [facility] [place] [address] [place] [address] Aug, 16 Vertigo R42 ; Allergic rhinitis, unspecified allergic rhinitis type J30.9 and Anxiety F41.9 [facility] [place] [address] [place] [address] Aug, 16 [facility] [place] [address] [place] [address] Aug, 16 [facility] [place] [address] [place] [address] Aug, 16 [facility] [place] [address] [place] [address] Jul, 16 [facility] [place] [address] [place] [address] Jul, 16 [facility] [place] [address] [place] [address] Jul, 16 [facility] [place] [address] [place] [address] Jul, 16 [facility] [place] [address] [place] [address] Jul, 16 Lymphadenopathy R59.1 ; Type 2 diabetes mellitus without complications E11.9 ; Essential (primary) hypertension I10 and Bipolar disorder, current episode manic without psychotic features, moderate F31.12 [facility] [place] [address] [place] [address] 18 Jun, 16 [facility] [place] [address] [place] [address] 15 Jun, 16 [facility] [place] [address] [place] [address] Jun, 16 [facility] [place] [address] [place] [address] Jun, 16 [facility] [place] [address] [place] [address] May, 16 [facility] [place] [address] [place] [address] 14 May, 16 Lymphadenopathy R59.1 and Pharyngitis, acute J02.9 [facility] [place] [address] [place] [address] 11 May, 16 Pharyngitis, acute J02.9 and Eczema, unspecified type L30.9 [facility] [place] [address] [place] [address] May, 16 [facility] [place] [address] [place] [address] Apr, 15 [facility] [place] [address] [place] [address] Apr, 15 Neck strain, initial encounter S16.1XXA and Obstructive sleep apnea syndrome G47.33 [facility] [place] [address] [place] [address] 15 Apr, 15 [facility] [place] [address] [place] [address] Apr, 15 [facility] [place] [address] [place] [address] Apr, 15 [facility] [place] [address] [place] [address] Apr, 15 [facility] [place] [address] [place] [address] Mar, 15 [facility] [place] [address] [place] [address] Mar, 15 [facility] [place] [address] [place] [address] Mar, 15 Primary insomnia F51.01 [facility] [place] [address] [place] [address] Mar, 15 Primary insomnia F51.01 [facility] [place] [address] [place] [address] Mar, 15 Gout, unspecified M10.9 ; Other chronic pain G89.29 and Migraine with aura and without status migrainosus, not intractable G43.[address] [address] Mar, 15 [facility] [address] [address] Feb, 15 Restless legs syndrome G25.[address] [address] Feb, [address] [address] 16 Feb, 15 Gout, unspecified M10.9 ; Other dorsalgia M54.89 ; Restless legs syndrome G25.81 and Encounter for immunization Z23 [address] [address] Feb, [address] [address] Jan, 15 Bilateral foot pain 729.5 ; Type 2 diabetes mellitus without complications E11.9 and Gout 274.[address] [address] Jan, [address] [address] Jan, 15 DM w/o complication type II 250.[address] [address] 16 Jan, 15 Right hip pain 719.[address] [address] Dec, 15 Ins[address] [address] Dec, 15 Dysuria 788.1 and Frequency of urination 788.[address] [address] Dec, [address] [address] Dec, 15 [facility] [place] [address] [place] [address] Nov, 15 [facility] [address] [address] Nov, [address] [address] Nov, 15 Neck pain 723.[address] [address] Nov, [address] [address] Nov, [address] [address] Nov, 15 GERD (gastroesophageal reflux disease) 530.81 ; Hypertension 401.9 ; Bipolar 1 disorder, manic, moderate 296.42 ; Back pain 724.5 and Gout 274.[address] [address] Oct, 15 Dental examination V72.[address] [address] Oct, 15 Dental examination V72.[address] [address] September, 15 Dental examination V72.[address] [address] Jun, 15 [facility] [address] [facility] [id number] [place] [address] Jun, IMMUNIZATIONS No Known Immunizations SOCIAL HISTORY Never Assessed REASON FOR VISIT med refill PLAN OF CARE VITAL SIGNS MEDICATIONS Medication Instructions Dosage Frequency Start Date End Date Duration S tatus Cyclobenzaprine HCl 10MG Orally Three times a day 1 tablet 8h Active RESULTS No Results PROCEDURES No Known procedures INSTRUCTIONS MEDICATIONS ADMINISTERED No Known Medications MEDICAL (GENERAL) HISTORY Type Description Date Medical History Hypertension Medical History Bipolar 1 disorder, manic, moderate Medical History Gout Medical History Diabetes Medical History GERD (gastroesophageal reflux disease) Surgical History Kidney stone removal Surgical History Nerve ending perera in back Surgical History lymphectomy Hospitalization History DM Hospitalization History Surgery(s)
--- OUTSIDE RECORDS SUMMARY | 2019-09-27 09:05 | XMS REPORT ---
Author Author Henri SINGH Organization [facility] [address] [place] [address] Care Team Providers Care Luncheonette Operator Name Role Phone SAMANTHA ZORAIDA Unavailable PROBLEMS Type Condition ICD9-CM Code BXO22-XH Code Onset Dates Condition S tatus SNOMED Code Problem Type 2 diabetes mellitus wit h diabetic neuropathy, without long-term current use of insulin E11.40 Active 62957 006 Problem Type 2 diabetes mellitus wit hout complication, without long-term current use of insulin E11.9 Active [id number] Problem Primary insomnia F51.01 Active 397 2004 Problem Type 2 diabetes mellitus without complications E11 .9 Active [id number] ALLERGIES No Information ENCOUNTERS Encounter Location Date Diagnosis [facility] [address] [facility] [id number] [address] [place] [address] 14 Apr, 2018 [facility] [address] [place] [address] Apr, 18 [facility] [address] [place] [address] Apr, 18 Pain of left foot M79.672 and Pain in right foot M79.671 [facility] [address] [place] [address] 02 Apr, 18 Palpitation R00.2 [facility] [address] [place] [address] 16 Mar, 18 [facility] [address] [place] [address] 08 Mar, 18 Primary insomnia F51.01 [facility] [address] [place] [address] 08 Mar, 18 [facility] [address] [place] [address] 08 Mar, 18 [facility] [address] [place] [address] 07 Mar, 20 18 [facility] [address] [place] [address] 02 Mar, 20 18 Acute non- recurrent maxillary sinusitis J01.00 [facility] [address] [place] [id number] 31 Oct, 20 18 [facility] [address] [place] [address] 31 Feb, 20 18 Costochondritis M94.0 and Low thyroid stimulating hormone (TSH) level R79.89 [facility] [address] [place] [address] 30 Oct, 20 18 [facility] [address] [place] [address] 29 Oct, 20 18 Costochondritis M94.0 [facility] [place] [address] [place] [address] 26 Oct, 20 18 [facility] [place] [address] [place] [address] 24 Oct, 20 18 [facility] [address] [place] [address] 11 Feb, 20 18 [facility] [address] [place] [address] 11 Jan, 20 18 Tachycardia R00.0 [facility] [place] [address] [place] [address] 03 Jan, 18 [facility] [address] [place] [address] 30 Dec, 20 18 Palpitation R00.2 and Type 2 diabetes mellitus without complications E11.9 [facility] [address] [place] [address] 15 Dec, 20 18 [facility] [place] [address] [place] [address] 14 Dec, 20 18 Type 2 diabetes mellitus with diabetic neuropathy, without long-term current use of insulin E11.40 [facility] [address] [place] [address] 10 Dec, 20 18 [facility] [place] [address] [place] [address] 06 Dec, 20 18 [facility] [place] [address] [place] [address] Dec, 18 [facility] [place] [address] [place] [address] Nov, 18 [facility] [place] [address] [place] [address] Nov, 18 [facility] [place] [address] [place] [address] Oct, 18 [facility] [place] [address] [place] [address] September, 18 Medicare annual wellness visit, initial Z00.00 ; Type 2 diabetes mellitus without complication, without long-term current use of insulin E11.9 and Right anterior shoulder pain M25.511 [facility] [place] [address] [place] [address] September, 18 Primary insomnia F51.[address] [facility] [address] [address] 30 Aug, 18 Biceps tendonitis on left M75.22 [facility] [place] [address] [place] [address] Aug, 18 [facility] [place] [address] [place] [address] Aug, 18 [facility] [address] [place] [address] Aug, [address] [facility] [address] [address] Aug, 18 Type 2 diabetes mellitus without complications E11.9 ; Pain of left foot M79.672 ; Pain in right foot M79.671 and Chronic gout involving toe without tophus, unspecified cause, unspecified laterality M1A.9XX0 [facility] [place] [address] [place] [address] Jun, 18 [facility] [place] [address] [place] [address] May, 18 [facility] [place] [address] [place] [address] May, 18 [facility] [place] [address] [place] [address] 17 May, [address] [address] May, 18 Right anterior shoulder pain M25.[address] [address] 15 May, [address] [address] May, [address] [address] Apr, 17 Type 2 diabetes mellitus without complications E11.9 ; Costochondritis, acute M94.0 and Tinea pedis of both feet B35.[address] [address] 09 Mar, [address] [address] Mar, [address] [address] Feb, 17 Acute upper respiratory infection, unspecified J06.9 ; Other viral agents as the cause of diseases classified elsewhere B97.89 and Aphthous ulcer of mouth K12.[address] [address] 12 Jan, [address] [address] Jan, 17 Right hip pain M25.[address] [address] Dec, 17 Ingrown nail L60.0 ; Impetigo L01.00 and Irritant contact dermatitis due to plants, except food L24.[address] [address] Dec, [address] [address] Dec, 17 Nail abnormality L60.9 and Ingrown nail of fifth toe of right foot L60.0 [address] [place] [address] 17 Nov, 17 Type 2 diabetes mellitus without complications E11.9 [facility] [address] [place] [address] 17 Nov, 17 Type 2 diabetes mellitus without complication, without long-term current use of insulin E11.9 [facility] [address] [address] [place] [address] 12 Nov, 17 [facility] [place] [address] [place] [address] Nov, 17 [facility] [address] [place] [address] Oct, [address] [address] September, [address] [address] Aug, 17 Acute idiopathic gout of foot, unspecified laterality M10.079 [facility] [address] [place] [address] Aug, 17 Acute idiopathic gout of foot, unspecified laterality M10.079 and Primary insomnia F51.[address] [address] [address] Jul, [address] [address] Jul, 17 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 [address] [address] 23 Jun, [address] [facility] [address] [address] Jun, 17 Acute non- recurrent maxillary sinusitis J01.[address] [address] [address] 16 Jun, 17 Acute non- recurrent frontal sinusitis J01.10 [facility] [place] [address] [place] [address] 15 Jun, 17 [facility] [address] [address] [place] [address] 14 Jun, 17 Primary insomnia F51.01 [facility] [place] [address] [place] [address] 07 Jun, 17 Acute non- recurrent maxillary sinusitis J01.00 ; Excessive sweating R61 and 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 [facility] [address] [place] [address] 02 Jun, 17 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 [facility] [address] [place] [address] May, 17 Type 2 diabetes mellitus without complications E11.9 ; Gout involving toe, unspecified cause, unspecified chronicity, unspecified laterality M10.9 and Primary insomnia F51.01 [facility] [address] [address] 27 Jan, 16 [facility] [place] [address] [place] [address] 14 Jan, 16 [facility] [place] [address] [place] [address] 13 Jan, [address] [facility] [address] [address] [place] [address] 30 Dec, [address] [address] [address] Dec, [address] [address] Dec, 16 Sciatica of right side M54.31 and Acute bilateral low back pain without sciatica M54.5 [facility] [place] [address] [place] [address] Dec, 16 Type 2 diabetes mellitus without complications E11.9 [facility] [place] [address] [place] [address] Dec, 16 [facility] [address] [place] [address] Dec, 16 [facility] [address] [place] [address] Dec, 16 Sciatica of right side M54.31 ; Type 2 diabetes mellitus without complication, without long- term current use of insulin E11.9 ; Acute bilateral low back pain without sciatica M54.5 and Neuropathy G62.9 [facility] [place] [address] [place] [address] Dec, 16 Plantar fasciitis, right M72.2 and Sciatica of right side M54.31 [facility] [place] [address] [place] [address] Nov, 16 [facility] [place] [address] [place] [address] Oct, 16 Nail abnormality L60.9 [facility] [address] [place] [address] September, 16 [facility] [place] [address] [place] [address] Aug, 16 [facility] [place] [address] [place] [address] Aug, 16 Vertigo R42 ; Allergic rhinitis, unspecified allergic rhinitis type J30.9 and Anxiety F41.9 [facility] [place] [address] [place] [address] Aug, 16 [facility] [place] [address] [place] [address] Aug, 16 [facility] [place] [address] [place] [address] Aug, 16 [facility] [place] [address] [place] [address] Jul, 16 [facility] [place] [address] [place] [address] Jul, 16 [facility] [place] [address] [place] [address] Jul, 16 [facility] [place] [address] [place] [address] Jul, 16 [facility] [place] [address] [place] [address] Jul, 16 Lymphadenopathy R59.1 ; Type 2 diabetes mellitus without complications E11.9 ; Essential (primary) hypertension I10 and Bipolar disorder, current episode manic without psychotic features, moderate F31.12 [facility] [place] [address] [place] [address] 18 Jun, 16 [facility] [place] [address] [place] [address] 15 Jun, 16 [facility] [place] [address] [place] [address] Jun, 16 [facility] [place] [address] [place] [address] Jun, 16 [facility] [place] [address] [place] [address] May, 16 [facility] [address] [place] [address] May, 16 Lymphadenopathy R59.1 and Pharyngitis, acute J02.9 [facility] [address] [address] 11 May, 16 Pharyngitis, acute J02.9 and Eczema, unspecified type L30.9 [facility] [place] [address] [place] [address] May, 16 [facility] [place] [address] [place] [address] Apr, 15 [facility] [place] [address] [place] [address] Apr, 15 Neck strain, initial encounter S16.1XXA and Obstructive sleep apnea syndrome G47.33 [facility] [place] [address] [place] [address] 15 Apr, 15 [facility] [place] [address] [place] [address] Apr, 15 [facility] [place] [address] [place] [address] Apr, 15 [facility] [place] [address] [place] [address] Apr, 15 [facility] [place] [address] [place] [address] Mar, 15 [facility] [place] [address] [place] [address] 30 Mar, 15 [facility] [address] [place] [address] Mar, 15 [facility] insomnia F51.01 [facility] [address] [address] 24 Mar, 15 Primary insomnia F51.[address] [address] 09 Mar, 15 Gout, unspecified M10.9 ; Other chronic pain G89.29 and Migraine with aura and without status migrainosus, not intractable G43.[address] [address] Mar, 15 [facility] [address] [address] Feb, 15 Restless legs syndrome G25.[address] [address] 19 Feb, [address] [address] 16 Feb, 15 Gout, unspecified M10.9 ; Other dorsalgia M54.89 ; Restless legs syndrome G25.81 and Encounter for immunization Z23 [address] [address] 13 Feb, [address] [address] 29 Jan, 15 Bilateral foot pain 729.5 ; Type 2 diabetes mellitus without complications E11.9 and Gout 274.[address] [address] 25 Jan, 15 [facility] [address] [address] 24 Jan, 15 DM w/o complication type II 250.[address] [address] 16 Jan, 15 Right hip pain 719.[address] [address] Dec, 15 Insomnia 780.52 [facility] [address] [address] [place] [address] Dec, 15 Dysuria 788.1 and Frequency of urination 788.41 [facility] [place] [address] [place] [address] Dec, 15 [facility] [place] [address] [place] [address] Dec, 15 [facility] [place] [address] [place] [address] Nov, 15 [facility] [place] [address] [place] [address] Nov, 15 [facility] [address] [address] Nov, 15 Neck pain 723.1 [facility] [place] [address] [place] [address] Nov, 15 [facility] [address] [place] [address] Nov, 15 [facility] [address] [address] Nov, 15 GERD (gastroesophageal reflux disease) 530.81 ; Hypertension 401.9 ; Bipolar 1 disorder, manic, moderate 296.42 ; Back pain 724.5 and Gout 274.9 [facility] [address] [address] Oct, 15 Dental examination V72.[address] [address] Oct, 15 Dental examination V72.[address] [address] September, 15 Dental examination V72.[address] [address] Jun, 15 [facility] [address] [facility] [id number] [address] [place] [address] Jun, IMMUNIZATIONS No Known Immunizations SOCIAL HISTORY Never Assessed REASON FOR VISIT PLAN OF CARE VITAL SIGNS MEDICATIONS Unknown Medications RESULTS No Results PROCEDURES No Known procedures [...]
--- OUTSIDE RECORDS SUMMARY | 2019-09-27 09:05 | XMS REPORT ---
Author Author Henri SINGH [facility] [address] [place] [address] Care Team Providers Care Stonemason Helper Name Role Phone SAMANTHA ZORAIDA Unavailable PROBLEMS Type Condition ICD9-CM Code [id number] Code Onset Dates Condition S tatus SNOMED Code Problem Type 2 diabetes mellitus wit h diabetic neuropathy, without long-term current use of insulin E11.40 Active 04307 006 Problem Type 2 diabetes mellitus wit hout complication, without long-term current use of insulin E11.9 Active [id number] Problem Primary insomnia F51.01 Active 397 2004 Problem Type 2 diabetes mellitus without complications E11 .9 Active [id number] ALLERGIES No Information ENCOUNTERS Encounter Location Date Diagnosis [facility] [address] [place] [phone] May, 19 [facility] [address] [facility] [id number] [address] [place] [address] 14 Apr, 2018 [facility] [address] [place] [phone] Apr, 18 [facility] [address] [place] [phone] Apr, 18 Pain of left foot M79.672 and Pain in right foot M79.671 [facility] [address] [place] [phone] 02 Apr, 18 Palpitation R00.2 [facility] [address] [place] [id number] 16 Mar, 18 [facility] [address] [place] [phone] 08 Mar, 18 Primary insomnia F51.01 [facility] [address] [place] [id number] 08 Mar, 18 [facility] [address] [place] [phone] 08 Nov, 20 18 [facility] [address] [place] [phone] 07 Mar, 20 18 [facility] [address] [place] [phone] 02 Mar, 20 18 Acute non- recurrent maxillary sinusitis J01.00 [facility] [address] [place] [phone] 31 Oct, 20 18 [facility] [address] [place] [phone] 31 Oct, 20 18 Costochondritis M94.0 and Low thyroid stimulating hormone (TSH) level R79.89 [facility] [address] [place] [phone] 30 Oct, 20 18 [facility] [address] [place] [phone] 29 Feb, 20 18 Costochondritis M94.0 [facility] [place] [address] [place] [phone] 26 Oct, 20 18 [facility] [place] [address] [place] [phone] 24 Oct, 20 18 [facility] [place] [address] [place] [phone] 11 Feb, 20 18 [facility] [address] [address] 11 Jan, 20 18 Tachycardia R00.0 [facility] [place] [address] [place] [phone] 03 Jan, 18 [facility] [place] [address] [place] [phone] 30 Dec, 18 Palpitation R00.2 and Type 2 diabetes mellitus without complications E11.9 [facility] [address] [facility] [address] [place] [id number] 15 Dec, 18 [facility] [place] [address] [place], [place] [phone] 14 Dec, 20 18 Type 2 diabetes mellitus with diabetic neuropathy, without long-term current use of insulin E11.40 [facility] [place] [address] [place] [address] 10 Dec, 18 [facility] [place] [address] [place] [address] Dec, 18 [facility] [place] [address] [place] [phone] Dec, 18 [facility] [place] [address] [place] [phone] Nov, 18 [facility] [place] [address] [place] [phone] Nov, 18 [facility] [place] [address] [place] [address] Oct, 18 [facility] [address] [place] [id number] September, 18 Medicare annual wellness visit, initial Z00.00 ; Type 2 diabetes mellitus without complication, without long-term current use of insulin E11.9 and Right anterior shoulder pain M25.511 [facility] [address] [place] [phone] September, 18 Primary insomnia F51.[address] [address] 30 Aug, 18 Biceps tendonitis on left M75.22 [facility] [place] [address] [place] [address] Aug, [address] [address] Aug, [address] [facility] [address] [address] Aug, [address] [facility] [address] [address] Aug, 18 Type 2 diabetes mellitus without complications E11.9 ; Pain of left foot M79.672 ; Pain in right foot M79.671 and Chronic gout involving toe without tophus, unspecified cause, unspecified laterality M1A.9XX0 [facility] [place] [address] [place] [address] Jun, 18 [facility] [place] [address] [place] [address] May, 18 [facility] [address] [place] [address] May, 18 [facility] [address] [place] [address] May, [address] [address] May, 18 Right anterior shoulder pain M25.511 [facility] [address] [address] 15 May, [address] [address] May, [address] [address] Apr, Type 2 diabetes mellitus without complications E11.9 ; Costochondritis, acute M94.0 and Tinea pedis of both feet B35.[address] [address] 09 Mar, [address] [address] Mar, [address] [address] Feb, 17 Acute upper respiratory infection, unspecified J06.9 ; Other viral agents as the cause of diseases classified elsewhere B97.89 and Aphthous ulcer of mouth K12.[address] [address] 12 Jan, [address] [address] Jan, 17 Right hip pain M25.[address] [address] Dec, 17 Ingrown nail L60.0 ; Impetigo L01.00 and Irritant contact dermatitis due to plants, except food L24.[address] [address] Dec, [address] [address] Dec, 17 Nail abnormality L60.9 and Ingrown nail of fifth toe of right foot L60.0 nickPETE [address] [place] [address] Nov, 17 Type 2 diabetes mellitus without complications E11.9 [facility] [address] [address] Nov, 17 Type 2 diabetes mellitus without complication, without long-term current use of insulin E11.9 [facility] [place] [address] [place] [address] 12 Nov, [address] [address] Nov, [address] [address] Oct, 17 [facility] [address] [address] September, 17 [facility] [address] [address] Aug, 17 Acute idiopathic gout of foot, unspecified laterality M10.[address] [address] Aug, 17 Acute idiopathic gout of foot, unspecified laterality M10.079 and Primary insomnia F51.01 [facility] [address] [address] Jul, 17 [facility] [address] [address] Jul, 17 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 [facility] [address] [address] 23 Jun, 17 [facility] [address] [address] Jun, 17 Acute non- recurrent maxillary sinusitis J01.00 [facility] [address] [address] 16 Jun, 17 Acute non- recurrent frontal sinusitis J01.10 [facility] [address] [address] 15 Jun, 17 [facility] [place] [address] [place] [address] 14 Jun, 17 Primary insomnia F51.01 [facility] [place] [address] [place] [address] 07 Jun, 17 Acute non- recurrent maxillary sinusitis J01.00 ; Excessive sweating R61 and 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 [facility] [address] [place] [address] 02 Jun, 17 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 [facility] [address] [place] [address] 10 May, 17 Type 2 diabetes mellitus without complications E11.9 ; Gout involving toe, unspecified cause, unspecified chronicity, unspecified laterality M10.9 and Primary insomnia F51.01 [facility] [address] [place] [address] 27 Jan, 16 [facility] [place] [address] [place] [address] 14 Jan, 16 [facility] [place] [address] [place] [address] 13 Jan, 16 [facility] [place] [address] [place] [address] 30 Dec, 16 [facility] [place] [address] [place] [address] 26 Dec, 16 [facility] [place] [address] [place] [address] Dec, 16 Sciatica of right side M54.31 and Acute bilateral low back pain without sciatica M54.5 [facility] [place] [address] [place] [address] Dec, 16 Type 2 diabetes mellitus without complications E11.9 [facility] [place] [address] [place] [address] Dec, 16 [facility] [place] [address] [place] [address] 23 Dec, 16 [facility] [place] [address] [place] [address] Dec, 16 Sciatica of right side M54.31 ; Type 2 diabetes mellitus without complication, without long- term current use of insulin E11.9 ; Acute bilateral low back pain without sciatica M54.5 and Neuropathy G62.9 [facility] [place] [address] [place] [address] Dec, 16 Plantar fasciitis, right M72.2 and Sciatica of right side M54.31 [facility] [place] [address] [place] [address] Nov, 16 [facility] [place] [address] [place] [address] Oct, 16 Nail abnormality L60.9 [facility] [address] [place] [address] September, 16 [facility] [place] [address] [place] [address] Aug, 16 [facility] [place] [address] [place] [address] Aug, 16 Vertigo R42 ; Allergic rhinitis, unspecified allergic rhinitis type J30.9 and Anxiety F41.9 [facility] [place] [address] [place] [address] Aug, 16 [facility] [place] [address] [place] [address] Aug, 16 [facility] [place] [address] [place] [address] Aug, 16 [facility] [place] [address] [place] [address] Jul, 16 [facility] [place] [address] [place] [address] Jul, 16 [facility] [place] [address] [place] [address] Jul, 16 [facility] [place] [address] [place] [address] Jul, 16 [facility] [place] [address] [place] [address] Jul, 16 Lymphadenopathy R59.1 ; Type 2 diabetes mellitus without complications E11.9 ; Essential (primary) hypertension I10 and Bipolar disorder, current episode manic without psychotic features, moderate F31.12 [facility] [place] [address] [place] [address] 18 Jun, 16 [facility] [place] [address] [place] [address] 15 Jun, 16 [facility] [place] [address] [place] [address] Jun, 16 [facility] [place] [address] [place] [address] Jun, 16 [facility] [place] [address] [place] [address] May, 16 [facility] [place] [address] [place] [address] 14 May, 16 Lymphadenopathy R59.1 and Pharyngitis, acute J02.9 [facility] [address] [place] [address] 11 May, 16 Pharyngitis, acute J02.9 and Eczema, unspecified type L30.9 [facility] [place] [address] [place] [address] May, [address] [address] Apr, 15 [facility] [address] [address] Apr, 15 Neck strain, initial encounter S16.1XXA and Obstructive sleep apnea syndrome G47.33 [facility] [place] [address] [place] [address] Apr, [address] [address] Apr, 15 [facility] [address] [address] Apr, 15 [facility] [place] [address] [place] [address] Apr, 15 [facility] [place] [address] [place] [address] 30 Mar, 15 [facility] [address] [place] [address] Mar, 15 [facility] [address] [place] [address] Mar, 15 Primary insomnia F51.01 [facility] [address] [place] [address] 24 Mar, 15 Primary insomnia F51.[address] [address] Mar, 15 Gout, unspecified M10.9 ; Other chronic pain G89.29 and Migraine with aura and without status migrainosus, not intractable G43.[address] [address] Mar, [address] [address] 22 Feb, 15 Restless legs syndrome G25.81 [facility] [address] [place] [address] 19 Feb, [address] [address] 16 Feb, 15 Gout, unspecified M10.9 ; Other dorsalgia M54.89 ; Restless legs syndrome G25.81 and Encounter for immunization Z23 [address] [address] 13 Feb, [address] [address] 29 Jan, 20 15 Bilateral foot pain 729.5 ; Type 2 diabetes mellitus without complications E11.9 and Gout 274.[address] [address] 25 Jan, [address] [address] 24 Jan, 20 15 DM w/o complication type II 250.[address] [address] 16 Jan, 20 15 Right hip pain 719.45 [facility] [place] [address] [place] [address] Dec, 15 Insomnia 780.52 [facility] [place] [address] [place] [address] Dec, 15 Dysuria 788.1 and Frequency of urination 788.41 [facility] [place] [address] [place] [address] Dec, 15 [facility] [place] [address] [place] [address] Dec, 15 [facility] [place] [address] [place] [address] Nov, 15 [facility] [place] [address] [place] [address] Nov, 15 [facility] [address] [address] Nov, 15 Neck pain 723.1 [facility] [place] [address] [place] [address] Nov, 15 [facility] [place] [address] [place] [address] Nov, 15 [facility] [place] [address] [place] [address] Nov, 15 GERD (gastroesophageal reflux disease) 530.81 ; Hypertension 401.9 ; Bipolar 1 disorder, manic, moderate 296.42 ; Back pain 724.5 and Gout 274.9 [facility] [address] [place] [address] Oct, 15 Dental examination V72.2 [facility] [address] [place] [address] Oct, 15 Dental examination V72.2 [facility] [place] [address] [place] [address] September, 15 Dental examination V72.2 [facility] [place] [address] [place] [address] Jun, 15 [facility] [address] [facility] [id number] [address] [place] [phone] 13 Jun, 2014 IMMUNIZATIONS No Known Immunizations SOCIAL HISTORY Never Assessed REASON FOR VISIT Medication refill request PLAN OF CARE VITAL SIGNS MEDICATIONS Unknown [...]
--- OUTSIDE RECORDS SUMMARY | 2019-09-27 09:05 | XMS REPORT ---
Author Author Henri ALDANA Organization [facility] [address] Address [address] [place] [address] Care Team Providers Care Stock Control Clerk Name Role Phone HANNY ALDANA Unavailable PROBLEMS Type Condition ICD9-CM Code MZL26-AD Code Onset Dates Condition S tatus SNOMED Code Problem Acute gout involving toe, unspecified cause, uns pecified laterality M10.9 Active 333300333 Problem Obstructive sleep apnea syndrome G47.33 Active 90626185 Problem Primary insomnia F51.01 Active 397 2004 Problem Type 2 diabetes mellitus wit h diabetic neuropathy, without long-term current use of insulin E11.40 Active 96180 006 Problem Bipolar II disorder F31.81 Active 42514481 Problem Chronic gout of right foot, unspecified cause M1A. 0710 Active [id number] ALLERGIES No Information ENCOUNTERS Encounter Location Date Diagnosis [facility] [address] [place] [id number] 24 Jan, 201 9 [facility] [address] [place] [address] [id number] 17 Jan, 9 Type 2 diabetes mellitus with diabetic neuropathy, without long-term current use of insulin E11.40 [facility] [address] [place] [address] [id number] 16 Jan, 201 9 [facility] [address] [place] [address] [id number] 11 Jan, 201 9 [facility] [address] [place] [address] [id number] 10 Jan, 201 9 [facility] [address] [place] [id number] 10 Jan, 201 9 [facility] [address] [facility] [place] [address] [id number] 09 Jan, 201 9 Right anterior shoulder pain M25.511 [facility] [address] [place] [address] [id number] 03 Jan, 201 9 Tear of right glenoid labrum, subsequent encounter S43.431D [facility] [address] [place] [id number] Dec, 9 [facility] [address] [place] [id number] Dec, 9 [facility] [address] [place] [id number] Dec, 9 [facility] [address] [place] [id number] Dec, 9 Obstructive sleep apnea syndrome G47.33 [facility] [address] [place] [id number] 15 Dec, 9 [facility] [address] [place] [id number] Dec, 9 [facility] [address] [place] [id number] Dec, 9 Right anterior shoulder pain M25.511 [facility] [address] [facility] [id number] [address] [place] [address] Dec, Right anterior shoulder pain M25.511 [facility] [address] [place] [id number] Dec, 9 Right anterior shoulder pain M25.511 [facility] [address] [place] [id number] Nov, 9 [facility] [address] [place] [address] [id number] Nov, 9 Right anterior shoulder pain M25.511 [facility] [address] [place] [id number] Nov, 9 Right anterior shoulder pain M25.511 [facility] [address] [place] [id number] Nov, 9 Right anterior shoulder pain M25.511 [facility] [address] [place] [id number] Nov, 9 Right anterior shoulder pain M25.511 [facility] [address] [place] [id number] Nov, 9 [facility] [address] [place] [address] [id number] Nov, 9 Right anterior shoulder pain M25.511 [facility] [address] [place] [id number] Nov, 9 [facility] [address] [place] [id number] 05 Nov, 9 Right anterior shoulder pain M25.511 [facility] [address] [place] [id number] 02 Nov, 9 Acute pain of right shoulder M25.511 [facility] [address] [place] [id number] 24 Oct, 9 [facility] [address] [place] [id number] 20 Oct, 9 Type 2 diabetes mellitus with diabetic neuropathy, without long-term current use of insulin E11.40 ; Bipolar II disorder F31.81 and Chronic gout of right foot, unspecified cause M1A.0710 [facility] [address] [facility] [place] [address] [id number] 12 Oct, 9 Acute gout involving toe, unspecified cause, unspecified laterality M10.9 [facility] [address] [facility] [place] [address] [id number] 16 September, 9 [facility] [address] [facility] [place] [address] [id number] 12 Aug, 9 [facility] [address] [facility] [id number] [address] [place] [address] Jul, [facility] [address] [place] [address] [id number] 13 Jul, 9 [facility] [address] [place] [address] [id number] 12 Jul, 9 [facility] [address] [facility] [place] [address] [id number] Jun, 9 [facility] [address] [place] [address] [id number] Jun, 9 [facility] [address] [place] [id number] Jun, 9 Type 2 diabetes mellitus with diabetic neuropathy, without long-term current use of insulin E11.40 [facility] [address] [place] [address] [id number] 06 Jun, 9 [facility] [address] [place] [address] [id number] May, 9 [facility] [address] [place] [address] [id number] May, 9 Type 2 diabetes mellitus with diabetic neuropathy, without long-term current use of insulin E11.40 and Bipolar II disorder F31.81 [facility] [address] [facility] [id number] [address] [place] [phone] 27 Apr, 2018 [facility] [address] [facility] [id number] [address] [place] [phone] 14 Apr, 2018 [facility] [address] [place] [address] [id number] 12 Apr, 8 [facility] [address] [place] [address] [id number] 12 Apr, 8 Pain of left foot M79.672 and Pain in right foot M79.671 [facility] [address] [place] [address] 02 Apr, 18 Palpitation R00.2 [facility] [address] [place] [address] [id number] 16 Mar, 8 [facility] [address] [place] [address] [id number] Mar, 8 Primary insomnia F51.01 [facility] [address] [place] [id number] 08 Mar, 18 [facility] [address] [place] [address] [id number] Mar, 8 [facility] [address] [place] [address] [id number] Mar, 8 [facility] [address] [place] [address] [id number] Mar, 8 Acute non- recurrent maxillary sinusitis J01.00 [facility] [address] [place] [address] [id number] Feb, 8 [facility] [address] [place] [address] [id number] Feb, 8 Costochondritis M94.0 and Low thyroid stimulating hormone (TSH) level R79.89 [facility] [address] [place] [address] [id number] 30 Feb, 8 [facility] [address] [place] [address] [id number] 29 Feb, 8 Costochondritis M94.0 [facility] [place] [address] [place] [address] 26 Oct, 20 18 [facility] [place] [address] [place] [address] 24 Oct, 20 18 [facility] [address] [place] [address] [id number] 11 Feb, 201 8 [facility] [address] [place] [id number] 11 Jan, 8 Tachycardia R00.0 [facility] [place] [address] [place] [address] 03 Jan, 20 18 [facility] [address] [place] [address] [id number] 30 Dec, 8 Palpitation R00.2 and Type 2 diabetes mellitus without complications E11.9 [facility] [address] [place] [address] [id number] 15 Dec, 8 [facility] [address] [place] [address] [id number] 14 Dec, 8 Type 2 diabetes mellitus with diabetic neuropathy, without long-term current use of insulin E11.40 [facility] [address] [place] [address] [id number] 10 Dec, 8 [facility] [place] [address] [place] [address] 06 Dec, 18 [facility] [place] [address] [place] [address] 06 Dec, 20 18 [facility] [place] [address] [place] [address] 16 Nov, 18 [facility] [place] [address] [place] [address] 11 Nov, 18 [facility] [place] [address] [place] [address] 04 Oct, 18 [facility] [place] [address] [place] [address] 03 October, 18 Medicare annual wellness visit, initial Z00.00 ; Type 2 diabetes mellitus without complication, without long-term current use of insulin E11.9 and Right anterior shoulder pain M25.511 [facility] [place] [address] [place] [address] September, 18 Primary insomnia F51.01 [facility] [address] [place] [address] 30 Aug, 18 Biceps tendonitis on left M75.22 [facility] [address] [place] [id number] Aug, 18 [facility] [address] [place] [id number] Aug, 18 [facility] [address] [place] [address] Aug, 18 [facility] [address] [address] Aug, 18 Type 2 diabetes mellitus without complications E11.9 ; Pain of left foot M79.672 ; Pain in right foot M79.671 and Chronic gout involving toe without tophus, unspecified cause, unspecified laterality M1A.9XX0 [facility] [address] [address] Jun, 18 [facility] [address] [place] [address] May, 18 [facility] [address] [address] May, [address] [address] May, [address] [address] May, 18 Right anterior shoulder pain M25.511 [facility] [address] [place] [address] May, 18 [facility] [address] [place] [address] May, [address] [address] Apr, 17 Type 2 diabetes mellitus without complications E11.9 ; Costochondritis, acute M94.0 and Tinea pedis of both feet B35.3 [facility] [address] [place] [address] Mar, 17 [facility] [address] [address] Mar, [address] [address] Feb, Acute upper respiratory infection, unspecified J06.9 ; Other viral agents as the cause of diseases classified elsewhere B97.89 and Aphthous ulcer of mouth K12.[address] [address] Jan, [address] [address] Jan, Right hip pain M25.[address] [address] Dec, Ingrown nail L60.0 ; Impetigo L01.00 and Irritant contact dermatitis due to plants, except food L24.[address] [address] Dec, [address] [address] Dec, Nail abnormality L60.9 and Ingrown nail of fifth toe of right foot L60.[address] [address] Nov, Type 2 diabetes mellitus without complications E11.[address] [address] Nov, 17 Type 2 diabetes mellitus without complication, without long-term current use of insulin E11.[address] [address] Nov, [address] [address] Nov, [address] [address] Oct, [address] [address] September, [address] [address] 06 Aug, 17 Acute idiopathic gout of foot, unspecified laterality M10.[address] [address] Aug, 17 Acute idiopathic gout of foot, unspecified laterality M10.079 and Primary insomnia F51.[address] [address] Jul, [address] [address] Jul, 17 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 [address] 23 Jun, [address] [address] 17 Jun, 17 Acute non- recurrent maxillary sinusitis J01.[address] [address] 16 Jun, 17 Acute non- recurrent frontal sinusitis J01.[address] [address] 15 Jun, [address] [address] 14 Jun, 17 Primary insomnia F51.[address] [address] 07 Jun, 17 Acute non- recurrent maxillary sinusitis J01.00 ; Excessive sweating R61 and 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 [address] 02 Jun, 17 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 [address] 10 May, 17 Type 2 diabetes mellitus without complications E11.9 ; Gout involving toe, unspecified cause, unspecified chronicity, unspecified laterality M10.9 and Primary insomnia F51.[address] [address] 27 Jan, 16 [facility] [place] [address] [place] [address] 14 Jan, 16 [facility] [place] [address] [place] [address] 13 Jan, 16 [facility] [place] [address] [place] [address] Dec, 16 [facility] [place] [address] [place] [address] Dec, 16 [facility] [place] [address] [place] [address] Dec, 16 Sciatica of right side M54.31 and Acute bilateral low back pain without sciatica M54.5 [facility] [place] [address] [place] [address] Dec, 16 Type 2 diabetes mellitus without complications E11.9 [facility] [place] [address] [place] [address] Dec, 16 [facility] [place] [address] [place] [address] Dec, 16 [facility] [place] [address] [place] [address] Dec, 16 Sciatica of right side M54.31 ; Type 2 diabetes mellitus without complication, without long- term current use of insulin E11.9 ; Acute bilateral low back pain without sciatica M54.5 and Neuropathy G62.9 [facility] [place] [address] [place] [address] Dec, 16 Plantar fasciitis, right M72.2 and Sciatica of right side M54.31 [facility] [place] [address] [place] [address] Nov, 16 [facility] [place] [address] [place] [address] Oct, 16 Nail abnormality L60.9 [facility] [place] [address] [place] [address] 08 September, 16 [facility] [place] [address] [place] [address] Aug, 16 [facility] [place] [address] [place] [address] Aug, 16 Vertigo R42 ; Allergic rhinitis, unspecified allergic rhinitis type J30.9 and Anxiety F41.9 [facility] [place] [address] [place] [address] Aug, 16 [facility] [place] [address] [place] [address] Aug, 16 [facility] [place] [address] [place] [address] Aug, 16 [facility] [place] [address] [place] [address] Jul, 16 [facility] [place] [address] [place] [address] Jul, 16 [facility] [place] [address] [place] [address] Jul, 16 [facility] [place] [address] [place] [address] Jul, 16 [facility] [place] [address] [place] [address] Jul, 16 Lymphadenopathy R59.1 ; Type 2 diabetes mellitus without complications E11.9 ; Essential (primary) hypertension I10 and Bipolar disorder, current episode manic without psychotic features, moderate F31.12 [facility] [place] [address] [place] [address] 18 Jun, 16 [facility] [place] [address] [place] [address] Jun, 16 [facility] [place] [address] [place] [address] Jun, 16 [facility] [place] [address] [place] [address] Jun, 16 [facility] [place] [address] [place] [address] May, 16 [facility] [place] [address] [place] [address] May, 16 Lymphadenopathy R59.1 and Pharyngitis, acute J02.[address] [address] [place] [address] May, 16 Pharyngitis, acute J02.9 and Eczema, unspecified type L30.9 [facility] [place] [address] [place] [address] 05 May, 16 [facility] [place] [address] [place] [address] Apr, 15 [facility] [place] [place] [place] [address] [place] [address] Apr, 15 Neck strain, initial encounter S16.1XXA and Obstructive sleep apnea syndrome G47.33 [facility] [address] [place] [place] [address] 15 Apr, 15 [facility] [place] [address] [place] [address] Apr, 15 [facility] [address] [address] Apr, 15 [facility] [place] [address] [place] [address] Apr, 15 [facility] [address] [address] Mar, 15 [facility] [address] [address] Mar, 15 [facility] [place] [address] [place] [address] Mar, 15 Primary insomnia F51.01 [facility] [address] [place] [address] 24 Mar, 15 Primary insomnia F51.01 [facility] [place] [address] [place] [address] Mar, 15 Gout, unspecified M10.9 ; Other chronic pain G89.29 and Migraine with aura and without status migrainosus, not intractable G43.109 [facility] [address] [address] 04 Mar, 15 [facility] [place] [address] [place] [address] Feb, 15 Restless legs syndrome G25.81 [facility] [place] [address] [place] [address] 19 Feb, 15 [facility] [place] [address] [place] [address] 16 Feb, 15 Gout, unspecified M10.9 ; Other dorsalgia M54.89 ; Restless legs syndrome G25.81 and Encounter for immunization Z23 [facility] [place] [address] [place] [address] 13 Feb, [address] [facility] [address] [place] [address] 29 Jan, 15 Bilateral foot pain 729.5 ; Type 2 diabetes mellitus without complications E11.9 and Gout 274.9 [facility] [place] [address] [place] [address] 25 Jan, 15 [facility] [place] [address] [place] [address] 24 Jan, 15 DM w/o complication type II 250.00 [facility] [place] [address] [place] [address] 16 Jan, 15 Right hip pain 719.45 [facility] [place] [address] [place] [address] 24 Dec, 15 Insomnia 780.52 [facility] [place] [address] [place] [address] Dec, 15 Dysuria 788.1 and Frequency of urination 788.41 [facility] [place] [address] [place] [address] Dec, 15 [facility] [place] [address] [place] [address] Dec, 15 [facility] [place] [address] [place] [address] Nov, 15 [facility] [place] [address] [place] [address] Nov, 15 [facility] [place] [address] [place] [address] Nov, 15 Neck pain 723.1 [facility] [place] [address] [place] [address] Nov, 15 [facility] [address] [address] Nov, 15 [facility] [address] [address] Nov, 15 GERD (gastroesophageal reflux disease) 530.81 ; Hypertension 401.9 ; Bipolar 1 disorder, manic, moderate 296.42 ; Back pain 724.5 and Gout 274.[address] [address] Oct, 15 Dental examination V72.[address] [address] Oct, 15 Dental examination V72.[address] [address] September, 15 Dental examination V72.[address] [address] Jun, 15 [facility] [address] [facility] [id number] [address] [place] [address] Jun, IMMUNIZATIONS No Known Immunizations SOCIAL HISTORY [...]
--- OUTSIDE RECORDS SUMMARY | 2019-09-27 09:06 | XMS REPORT ---
Author Author Henri SINGH Organization [facility] [address] Address [address] [place] [address] Care Team Providers Care Outreach Worker Name Role Phone SAMANTHA ZORAIDA Unavailable PROBLEMS Type Condition ICD9-CM Code STZ52-JW Code Onset Dates Condition S tatus SNOMED Code Problem Type 2 diabetes mellitus wit h diabetic neuropathy, without long-term current use of insulin E11.40 Active 88824 006 Problem Type 2 diabetes mellitus wit hout complication, without long-term current use of insulin E11.9 Active 577770051 Problem Primary insomnia F51.01 Active 397 2004 Problem Type 2 diabetes mellitus without complications E11 .9 Active [id number] ALLERGIES No Information ENCOUNTERS Encounter Location Date Diagnosis [facility] [address] [facility] [id number] [address] [place] [address] 14 Apr, 2018 [facility] [address] [place] [phone] Apr, 18 [facility] [address] [place] [address] Apr, 18 Pain of left foot M79.672 and Pain in right foot M79.671 [facility] [address] [place] [address] 02 Apr, 18 Palpitation R00.2 [facility] [address] [place] [address] 16 Mar, 18 [facility] [address] [place] [address] 08 Mar, 18 Primary insomnia F51.01 [facility] [address] [place] [address] 08 Mar, 18 [facility] [address] [place] [address] 08 Mar, 18 [facility] [address] [place] [address] 07 Mar, 20 18 [facility] [address] [place] [address] [place] [address] 02 Mar, 20 18 Acute non- recurrent maxillary sinusitis J01.00 [facility] [address] [place] [address] 31 Oct, 20 18 [facility] [address] [place] [address] 31 Feb, 20 18 Costochondritis M94.0 and Low thyroid stimulating hormone (TSH) level R79.89 [facility] [address] [place] [address] 30 Oct, 20 18 [facility] [address] [place] [address] 29 Oct, 20 18 Costochondritis M94.0 [facility] [place] [address] [place] [address] 26 Oct, 20 18 [facility] [place] [address] [place] [address] 24 Oct, 20 18 [facility] [address] [place] [phone] 11 Feb, 20 18 [facility] [address] [place] [address] 11 Jan, 20 18 Tachycardia R00.0 [facility] [place] [address] [place] [address] 03 Jan, 18 [facility] [address] [place] [phone] 30 Dec, 20 18 Palpitation R00.2 and Type 2 diabetes mellitus without complications E11.9 [facility] [address] [address] [place] [phone] 15 Dec, 20 18 [facility] [place] [address] [place] [address] 14 Dec, 20 18 Type 2 diabetes mellitus with diabetic neuropathy, without long-term current use of insulin E11.40 [facility] [address] [address] [place] [phone] 10 Dec, 20 18 [facility] [place] [address] [place] [address] 06 Dec, 20 18 [facility] [place] [address] [place] [address] Dec, 18 [facility] [place] [address] [place] [address] Nov, 18 [facility] [place] [address] [place] [address] Nov, 18 [facility] [place] [address] [place] [address] Oct, 18 [facility] [place] [address] [place] [address] September, 18 Medicare annual wellness visit, initial Z00.00 ; Type 2 diabetes mellitus without complication, without long-term current use of insulin E11.9 and Right anterior shoulder pain M25.511 [facility] [place] [address] [place] [address] September, 18 Primary insomnia F51.[address] [facility] [address] [address] 30 Aug, 18 Biceps tendonitis on left M75.22 [facility] [place] [address] [place] [address] Aug, 18 [facility] [place] [address] [place] [address] Aug, 18 [facility] [place] [address] [place] [address] Aug, [address] [facility] [address] [address] Aug, 18 Type 2 diabetes mellitus without complications E11.9 ; Pain of left foot M79.672 ; Pain in right foot M79.671 and Chronic gout involving toe without tophus, unspecified cause, unspecified laterality M1A.9XX0 [facility] [place] [address] [place] [address] Jun, 18 [facility] [place] [address] [place] [address] May, 18 [facility] [place] [address] [place] [address] May, 18 [facility] [place] [address] [place] [address] 17 May, [address] [address] May, 18 Right anterior shoulder pain M25.[address] [address] 15 May, [address] [address] May, [address] [address] Apr, 17 Type 2 diabetes mellitus without complications E11.9 ; Costochondritis, acute M94.0 and Tinea pedis of both feet B35.[address] [address] 09 Mar, [address] [address] Mar, [address] [address] Feb, 17 Acute upper respiratory infection, unspecified J06.9 ; Other viral agents as the cause of diseases classified elsewhere B97.89 and Aphthous ulcer of mouth K12.[address] [address] 12 Jan, [address] [address] Jan, 17 Right hip pain M25.[address] [address] Dec, 17 Ingrown nail L60.0 ; Impetigo L01.00 and Irritant contact dermatitis due to plants, except food L24.[address] [address] Dec, [address] [address] Dec, 17 Nail abnormality L60.9 and Ingrown nail of fifth toe of right foot L60.0 [address] [place] [address] 17 Nov, 17 Type 2 diabetes mellitus without complications E11.9 [facility] [place] [address] [place] [address] 17 Nov, 17 Type 2 diabetes mellitus without complication, without long-term current use of insulin E11.9 [facility] [place] [address] [place] [address] 12 Nov, 17 [facility] [place] [address] [place] [address] Nov, 17 [facility] [address] [place] [address] Oct, [address] [address] [address] September, [address] [address] [address] Aug, 17 Acute idiopathic gout of foot, unspecified laterality M10.079 [facility] [address] [place] [address] Aug, 17 Acute idiopathic gout of foot, unspecified laterality M10.079 and Primary insomnia F51.[address] [facility] [address] [address] Jul, [address] [address] [address] Jul, 17 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 [facility] [address] [address] 23 Jun, 17 [facility] [address] [address] Jun, 17 Acute non- recurrent maxillary sinusitis J01.[address] [facility] [address] [address] 16 Jun, 17 Acute non- recurrent frontal sinusitis J01.10 [facility] [place] [address] [place] [address] 15 Jun, 17 [facility] [place] [address] [place] [address] 14 Jun, 17 Primary [facility] F51.01 [facility] [place] [address] [place] [address] 07 Jun, 17 Acute non- recurrent maxillary sinusitis J01.00 ; Excessive sweating R61 and 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 [facility] [place] [address] [place] [address] 02 Jun, 17 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 [facility] [address] [place] [address] May, 17 Type 2 diabetes mellitus without complications E11.9 ; Gout involving toe, unspecified cause, unspecified chronicity, unspecified laterality M10.9 and Primary insomnia F51.01 [facility] [address] [address] 27 Jan, 16 [facility] [place] [address] [place] [address] 14 Jan, 16 [facility] [place] [address] [place] [address] 13 Jan, 16 [facility] [place] [address] [place] [address] 30 Dec, [address] [address] [address] Dec, [address] [address] [address] Dec, 16 Sciatica of right side M54.31 and Acute bilateral low back pain without sciatica M54.5 [facility] [place] [address] [place] [address] Dec, 16 Type 2 diabetes mellitus without complications E11.9 [facility] [place] [address] [place] [address] Dec, 16 [facility] [address] [place] [address] Dec, 16 [facility] [address] [place] [address] Dec, 16 Sciatica of right side M54.31 ; Type 2 diabetes mellitus without complication, without long- term current use of insulin E11.9 ; Acute bilateral low back pain without sciatica M54.5 and Neuropathy G62.9 [facility] [place] [address] [place] [address] Dec, 16 Plantar fasciitis, right M72.2 and Sciatica of right side M54.31 [facility] [place] [address] [place] [address] Nov, 16 [facility] [place] [address] [place] [address] Oct, 16 Nail abnormality L60.9 [facility] [address] [place] [address] September, 16 [facility] [place] [address] [place] [address] Aug, 16 [facility] [place] [address] [place] [address] Aug, 16 Vertigo R42 ; Allergic rhinitis, unspecified allergic rhinitis type J30.9 and Anxiety F41.9 [facility] [place] [address] [place] [address] Aug, 16 [facility] [place] [address] [place] [address] Aug, 16 [facility] [place] [address] [place] [address] Aug, 16 [facility] [place] [address] [place] [address] Jul, 16 [facility] [place] [address] [place] [address] Jul, 16 [facility] [place] [address] [place] [address] Jul, 16 [facility] [place] [address] [place] [address] Jul, 16 [facility] [place] [address] [place] [address] Jul, 16 Lymphadenopathy R59.1 ; Type 2 diabetes mellitus without complications E11.9 ; Essential (primary) hypertension I10 and Bipolar disorder, current episode manic without psychotic features, moderate F31.12 [facility] [place] [address] [place] [address] 18 Jun, 16 [facility] [place] [address] [place] [address] 15 Jun, 16 [facility] [place] [address] [place] [address] Jun, 16 [facility] [place] [address] [place] [address] Jun, 16 [facility] [place] [address] [place] [address] May, 16 [facility] [place] [address] [place] [address] May, 16 Lymphadenopathy R59.1 and Pharyngitis, acute J02.9 [facility] [address] [address] 11 May, 16 Pharyngitis, acute J02.9 and Eczema, unspecified type L30.9 [facility] [place] [address] [place] [address] May, 16 [facility] [place] [address] [place] [address] Apr, 15 [facility] [place] [address] [place] [address] Apr, 15 Neck strain, initial encounter S16.1XXA and Obstructive sleep apnea syndrome G47.33 [facility] [place] [address] [place] [address] 15 Apr, 15 [facility] [place] [address] [place] [address] Apr, 15 [facility] [place] [address] [place] [address] Apr, 15 [facility] [place] [address] [place] [address] Apr, 15 [facility] [place] [address] [place] [address] Mar, 15 [facility] [place] [address] [place] [address] 30 Mar, 15 [facility] [place] [address] [place] [address] Mar, 15 Primary insomnia F51.01 [facility] [address] [address] 24 Mar, 15 Primary insomnia F51.[address] [address] 09 Mar, 15 Gout, unspecified M10.9 ; Other chronic pain G89.29 and Migraine with aura and without status migrainosus, not intractable G43.[address] [address] Mar, 15 [facility] [address] [address] Feb, 15 Restless legs syndrome G25.[address] [address] 19 Feb, [address] [address] 16 Feb, 15 Gout, unspecified M10.9 ; Other dorsalgia M54.89 ; Restless legs syndrome G25.81 and Encounter for immunization Z23 [address] [address] 13 Feb, [address] [address] 29 Jan, 15 Bilateral foot pain 729.5 ; Type 2 diabetes mellitus without complications E11.9 and Gout 274.[address] [address] 25 Jan, 15 [facility] [address] [address] 24 Jan, 15 DM w/o complication type II 250.[address] [address] 16 Jan, 15 Right hip pain 719.[address] [address] Dec, 15 Insomnia 780.52 [facility] [place] [address] [place] [address] Dec, 15 Dysuria 788.1 and Frequency of urination 788.41 [facility] [place] [address] [place] [address] Dec, 15 [facility] [place] [address] [place] [address] Dec, 15 [facility] [place] [address] [place] [address] Nov, 15 [facility] [place] [address] [place] [address] Nov, 15 [facility] [address] [address] Nov, 15 Neck pain 723.1 [facility] [place] [address] [place] [address] Nov, 15 [facility] [place] [address] [place] [address] Nov, 15 [facility] [address] [address] Nov, 15 GERD (gastroesophageal reflux disease) 530.81 ; Hypertension 401.9 ; Bipolar 1 disorder, manic, moderate 296.42 ; Back pain 724.5 and Gout 274.9 [facility] [address] [address] Oct, 15 Dental examination V72.2 [facility] [address] [place] [address] Oct, 15 Dental examination V72.[address] [address] September, 15 Dental examination V72.[address] [address] Jun, 15 [facility] [address] [facility] [id number] [address] [place] [address] Jun, IMMUNIZATIONS No Known Immunizations SOCIAL HISTORY Never Assessed REASON FOR VISIT Refill request PLAN OF CARE VITAL SIGNS MEDICATIONS [...]
--- OUTSIDE RECORDS SUMMARY | 2019-09-27 09:06 | XMS REPORT ---
Author Author Henri SINGH Organization [facility] [address] Address [address] [place] [address] Care Team Providers Care Putter In Name Role Phone SAMANTHA ZORAIDA Unavailable PROBLEMS Type Condition ICD9-CM Code [id number] Code Onset Dates Condition S tatus SNOMED Code Problem Type 2 diabetes mellitus wit h diabetic neuropathy, without long-term current use of insulin E11.40 Active 53608 006 Problem Type 2 diabetes mellitus wit hout complication, without long-term current use of insulin E11.9 Active 632932150 Problem Primary insomnia F51.01 Active 397 2004 Problem Type 2 diabetes mellitus without complications E11 .9 Active [id number] ALLERGIES No Information ENCOUNTERS Encounter Location Date Diagnosis [facility] [address] [place] [address] 08 Mar, 18 Primary insomnia F51.01 [facility] [address] [place] [address] 08 Mar, 18 [facility] [address] [place] [address] 08 Mar, 18 [facility] [address] [place] [address] 07 Mar, 18 [facility] [address] [place] [address] 02 Mar, 18 Acute non- recurrent maxillary sinusitis J01.00 [facility] [address] [place] [address] Feb, 18 [facility] [address] [place] [address] Feb, 18 Costochondritis M94.0 and Low thyroid stimulating hormone (TSH) level R79.89 [facility] [address] [place] [address] 30 Feb, 18 [facility] [address] [place] [address] 29 Feb, 20 18 Costochondritis M94.0 [facility] [place] [address] [place] [address] 26 Feb, 20 18 [facility] [place] [address] [place] [address] 24 Feb, 20 18 [facility] [place] [address] [place] [address] 11 Feb, 20 18 [facility] [address] [place] [address] [place] [address] 11 Jan, 18 Tachycardia R00.0 [facility] [place] [address] [place] [address] 03 Jan, 18 [facility] [address] [address] [place] [address] 30 Dec, 18 Palpitation R00.2 and Type 2 diabetes mellitus without complications E11.9 [facility] [address] [address] [place] [address] 15 Dec, 18 [facility] [address] [address] [place] [address] 14 Dec, 18 Type 2 diabetes mellitus with diabetic neuropathy, without long-term current use of insulin E11.40 [facility] [address] [place] [address] [place] [address] 10 Dec, 18 [facility] [place] [address] [place] [address] 06 Dec, 18 [facility] [place] [address] [place] [address] 06 Dec, 18 [facility] [place] [address] [place] [address] 16 Nov, 18 [facility] [place] [address] [place] [address] 11 Nov, 18 [facility] [place] [address] [place] [address] 04 Oct, 18 [facility] [place] [address] [place] [address] 03 October, 18 Medicare annual wellness visit, initial Z00.00 ; Type 2 diabetes mellitus without complication, without long-term current use of insulin E11.9 and Right anterior shoulder pain M25.511 [facility] [place] [address] [place] [address] September, 18 Primary insomnia F51.01 [facility] [address] [place] [address] 30 Aug, 18 Biceps tendonitis on left M75.22 [facility] [address] [place] [address] Aug, 18 [facility] [place] [address] [place] [address] Aug, 18 [facility] [address] [place] [address] Aug, 18 [facility] [address] [place] [address] Aug, 18 Type 2 diabetes mellitus without complications E11.9 ; Pain of left foot M79.672 ; Pain in right foot M79.671 and Chronic gout involving toe without tophus, unspecified cause, unspecified laterality M1A.9XX0 [facility] [address] [place] [address] Jun, 18 [facility] [place] [address] [place] [address] May, 18 [facility] [place] [address] [place] [address] May, 18 [facility] [address] [place] [address] May, 18 [facility] [place] [address] [place] [address] May, 18 Right anterior shoulder pain M25.511 [facility] [address] [place] [address] May, 18 [facility] [place] [address] [place] [address] May, 18 [facility] [place] [address] [place] [address] Apr, 17 Type 2 diabetes mellitus without complications E11.9 ; Costochondritis, acute M94.0 and Tinea pedis of both feet B35.[address] [address] Mar, [address] [address] Mar, [address] [address] Feb, Acute upper respiratory infection, unspecified J06.9 ; Other viral agents as the cause of diseases classified elsewhere B97.89 and Aphthous ulcer of mouth K12.[address] [address] Jan, [address] [address] Jan, Right hip pain M25.[address] [address] Dec, Ingrown nail L60.0 ; Impetigo L01.00 and Irritant contact dermatitis due to plants, except food L24.[address] [address] Dec, [address] [address] Dec, Nail abnormality L60.9 and Ingrown nail of fifth toe of right foot L60.[address] [address] Nov, Type 2 diabetes mellitus without complications E11.[address] [address] Nov, 17 Type 2 diabetes mellitus without complication, without long-term current use of insulin E11.[address] [address] Nov, [address] [address] Nov, [address] [address] Oct, [address] [address] 16 September, 17 [facility] [address] [place] [address] Aug, 17 Acute idiopathic gout of foot, unspecified laterality M10.[address] [address] Aug, 17 Acute idiopathic gout of foot, unspecified laterality M10.079 and Primary insomnia F51.[address] [address] Jul, [address] [address] Jul, 17 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 [address] 23 Jun, [address] [address] 17 Jun, 17 Acute non- recurrent maxillary sinusitis J01.[address] [address] 16 Jun, 17 Acute non- recurrent frontal sinusitis J01.[address] [address] 15 Jun, [address] [address] 14 Jun, 17 Primary insomnia F51.[address] [address] 07 Jun, 17 Acute non- recurrent maxillary sinusitis J01.00 ; Excessive sweating R61 and 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 [address] 02 Jun, 17 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 [address] May, 17 Type 2 diabetes mellitus without complications E11.9 ; Gout involving toe, unspecified cause, unspecified chronicity, unspecified laterality M10.9 and Primary insomnia F51.01 [facility] [place] [address] [place] [address] 27 Jan, 16 [facility] [place] [address] [place] [address] 14 Jan, 16 [facility] [place] [address] [place] [address] 13 Jan, 16 [facility] [place] [address] [place] [address] 30 Dec, 16 [facility] [place] [address] [place] [address] Dec, 16 [facility] [place] [address] [place] [address] Dec, 16 Sciatica of right side M54.31 and Acute bilateral low back pain without sciatica M54.5 [facility] [place] [address] [place] [address] Dec, 16 Type 2 diabetes mellitus without complications E11.9 [facility] [place] [address] [place] [address] Dec, 16 [facility] [place] [address] [place] [address] Dec, 16 [facility] [place] [address] [place] [address] Dec, 16 Sciatica of right side M54.31 ; Type 2 diabetes mellitus without complication, without long- term current use of insulin E11.9 ; Acute bilateral low back pain without sciatica M54.5 and Neuropathy G62.9 [facility] [place] [address] [place] [address] Dec, 16 Plantar fasciitis, right M72.2 and Sciatica of right side M54.31 [facility] [place] [address] [place] [address] Nov, 16 [facility] [place] [address] [place] [address] Oct, 16 Nail abnormality L60.9 [facility] [address] [place] [address] September, 16 [facility] [place] [address] [place] [address] Aug, 16 [facility] [place] [address] [place] [address] Aug, 16 Vertigo R42 ; Allergic rhinitis, unspecified allergic rhinitis type J30.9 and Anxiety F41.9 [facility] [place] [address] [place] [address] Aug, 16 [facility] [place] [address] [place] [address] Aug, 16 [facility] [place] [address] [place] [address] Aug, 16 [facility] [place] [address] [place] [address] Jul, 16 [facility] [place] [address] [place] [address] Jul, 16 [facility] [place] [address] [place] [address] Jul, 16 [facility] [place] [address] [place] [address] Jul, 16 [facility] [place] [address] [place] [address] Jul, 16 Lymphadenopathy R59.1 ; Type 2 diabetes mellitus without complications E11.9 ; Essential (primary) hypertension I10 and Bipolar disorder, current episode manic without psychotic features, moderate F31.12 [facility] [place] [address] [place] [address] Jun, 16 [facility] [place] [address] [place] [address] Jun, 16 [facility] [place] [address] [place] [address] Jun, 16 [facility] [place] [address] [place] [address] Jun, 16 [facility] [place] [address] [place] [address] May, 16 [facility] [place] [address] [place] [address] 14 May, 16 Lymphadenopathy R59.1 and Pharyngitis, acute J02.[address] [address] 11 May, 16 Pharyngitis, acute J02.9 and Eczema, unspecified type L30.9 [facility] [address] [place] [address] 05 May, 16 [facility] [address] [place] [address] Apr, [address] [address] 21 Apr, 15 Neck strain, initial encounter S16.1XXA and Obstructive sleep apnea syndrome G47.[address] [address] 15 Apr, [address] [address] 07 Apr, [address] [address] 03 Apr, [address] [address] Apr, [address] [address] Mar, [address] [address] 30 Mar, [address] [address] Mar, 15 Primary insomnia F51.[address] [address] 24 Mar, 15 Primary insomnia F51.[address] [address] Mar, 15 Gout, unspecified M10.9 ; Other chronic pain G89.29 and Migraine with aura and without status migrainosus, not intractable G43.[address] [address] Mar, 15 [facility] [place] [address] [place] [address] 22 Feb, 15 Restless legs syndrome G25.81 [facility] [place] [address] [place] [address] 19 Feb, 15 [facility] [place] [address] [place] [address] 16 Feb, 15 Gout, unspecified M10.9 ; Other dorsalgia M54.89 ; Restless legs syndrome G25.81 and Encounter for immunization Z23 [facility] [address] [place] [address] 13 Feb, 15 [facility] [address] [place] [address] 29 Jan, 15 Bilateral foot pain 729.5 ; Type 2 diabetes mellitus without complications E11.9 and Gout 274.9 [facility] [address] [place] [address] 25 Jan, 15 [facility] [address] [place] [address] 24 Jan, 15 DM w/o complication type II 250.00 [facility] [address] [place] [address] 16 Jan, 15 Right hip pain 719.45 [facility] [address] [place] [address] Dec, 15 Insomnia 780.52 [facility] [address] [place] [address] Dec, 15 Dysuria 788.1 and Frequency of urination 788.41 [facility] [address] [place] [address] Dec, 15 [facility] [place] [address] [place] [address] Dec, 15 [facility] [place] [address] [place] [address] Nov, 15 [facility] [address] [place] [address] Nov, 15 [facility] [address] [place] [address] Nov, 15 Neck pain 723.1 [facility] [address] [place] [address] Nov, 15 [facility] [address] [place] [address] Nov, [address] [address] Nov, 15 GERD (gastroesophageal reflux disease) 530.81 ; Hypertension 401.9 ; Bipolar 1 disorder, manic, moderate 296.42 ; Back pain 724.5 and Gout 274.[address] [address] Oct, 15 [facility] [address] [address] Oct, 15 Dental examination V72.[address] [address] September, 15 [facility]72.2 [facility] [address] [address] Jun, 15 [facility] [address] [facility] [id number] [place] [address] Jun, IMMUNIZATIONS No Known Immunizations SOCIAL HISTORY Never Assessed REASON FOR VISIT New Refill Request PLAN OF CARE VITAL SIGNS MEDICATIONS Unknown [...]
--- OUTSIDE RECORDS SUMMARY | 2019-09-27 09:06 | XMS REPORT ---
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 Name Role Phone SAMANTHA ZORAIDA Unavailable PROBLEMS Type Condition ICD9-CM Code EPB95-IB Code Onset Dates Condition S tatus SNOMED Code Problem Type 2 diabetes mellitus wit h diabetic neuropathy, without long-term current use of insulin E11.40 Active 82953 006 Problem Type 2 diabetes mellitus wit hout complication, without long-term current use of insulin E11.9 Active 071569842 Problem Primary insomnia F51.01 Active 397 2004 Problem Type 2 diabetes mellitus without complications E11 .9 Active [id number] ALLERGIES Substance Reaction Event Type Date Status PredniSONE aggitation Drug Allergy Feb, Active ENCOUNTERS Encounter Location Date Diagnosis [facility] [address] [place] [address] 08 Mar, 18 Primary insomnia F51.01 [facility] [place] [address] [place] [phone] Mar, 18 [facility] [address] [place] [phone] Mar, 18 [facility] [address] [place] [address] Mar, 18 [facility] [address] [place] [phone] Mar, 18 Acute non- recurrent maxillary sinusitis J01.00 [facility] [address] [place] [phone] Feb, 18 [facility] [address] [place] [phone] Feb, 18 Costochondritis M94.0 and Low thyroid stimulating hormone (TSH) level R79.89 [facility] [address] [place] [phone] 30 Feb, 18 [facility] [place] [address] [place] [address] 29 Oct, 20 18 Costochondritis M94.0 [facility] [place] [address] [place] [address] 26 Oct, 20 18 [facility] [place] [address] [place] [address] 24 Oct, 20 18 [facility] [address] [place] [address] [place] [phone] 11 Feb, 20 18 [facility] [address] [place] [address] [place] [address] 11 Jan, 20 18 Tachycardia R00.0 [facility] [place] [address] [place] [address] 03 Jan, 18 [facility] [address] [place] [address] [place] [address] 30 Dec, 18 Palpitation R00.2 and Type 2 diabetes mellitus without complications E11.9 [facility] [address] [place] [address] [place] [address] 15 Dec, 18 [facility] [address] [place] [address] [place] [address] 14 Dec, 18 Type 2 diabetes mellitus with diabetic neuropathy, without long-term current use of insulin E11.40 [facility] [address] [place] [address] [place] [address] 10 Dec, 18 [facility] [place] [address] [place] [address] 06 Dec, 18 [facility] [place] [address] [place] [address] 06 Dec, 18 [facility] [place] [address] [place] [address] 16 Nov, 18 [facility] [place] [address] [place] [address] 11 Nov, 18 [facility] [place] [address] [place] [address] Oct, 18 [facility] [place] [address] [place] [address] 03 October, 18 Medicare annual wellness visit, initial Z00.00 ; Type 2 diabetes mellitus without complication, without long-term current use of insulin E11.9 and Right anterior shoulder pain M25.511 [facility] [place] [address] [place] [phone] September, 18 Primary insomnia F51.01 [facility] [address] [place] [address] 30 Aug, 18 Biceps tendonitis on left M75.22 [facility] [place] [address] [place] [address] Aug, 18 [facility] [place] [address] [place] [address] Aug, 18 [facility] [place] [address] [place] [address] Aug, 18 [facility] [place] [address] [place] [address] Aug, 18 Type 2 diabetes mellitus without complications E11.9 ; Pain of left foot M79.672 ; Pain in right foot M79.671 and Chronic gout involving toe without tophus, unspecified cause, unspecified laterality M1A.9XX0 [facility] [place] [address] [place] [id number] Jun, 18 [facility] [place] [address] [place] [address] May, 18 [facility] [place] [address] [place] [address] May, 18 [facility] [place] [address] [place] [address] May, 18 [facility] [place] [address] [place] [address] May, 18 Right anterior shoulder pain M25.511 [facility] [address] [place] [id number] May, 18 [facility] [place] [address] [place] [address] May, 18 [facility] [place] [address] [place] [address] Apr, 17 Type 2 diabetes mellitus without complications E11.9 ; Costochondritis, acute M94.0 and Tinea pedis of both feet B35.[address] [address] Mar, [address] [address] Mar, [address] [address] Feb, Acute upper respiratory infection, unspecified J06.9 ; Other viral agents as the cause of diseases classified elsewhere B97.89 and Aphthous ulcer of mouth K12.[address] [address] Jan, [address] [address] Jan, Right hip pain M25.[address] [address] Dec, Ingrown nail L60.0 ; Impetigo L01.00 and Irritant contact dermatitis due to plants, except food L24.[address] [address] Dec, [address] [address] Dec, Nail abnormality L60.9 and Ingrown nail of fifth toe of right foot L60.[address] [address] Nov, Type 2 diabetes mellitus without complications E11.[address] [address] Nov, Type 2 diabetes mellitus without complication, without long-term current use of insulin E11.[address] [address] Nov, [address] [address] Nov, [address] [address] Oct, 17 [facility] [place] [address] [place] [id number] 20 September, 17 [facility] [address] [address] Aug, 17 Acute idiopathic gout of foot, unspecified laterality M10.079 [facility] [address] [address] Aug, 17 Acute idiopathic gout of foot, unspecified laterality M10.079 and Primary insomnia F51.01 [facility] [address] [address] Jul, 17 [facility] [address] [address] Jul, 17 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 [address] 23 Jun, 17 [facility] [address] [address] 17 Jun, 17 Acute non- recurrent maxillary sinusitis J01.[address] [address] 16 Jun, 17 Acute non- recurrent frontal sinusitis J01.[address] [address] 15 Jun, [address] [address] 14 Jun, 17 Primary insomnia F51.[address] [address] 07 Jun, 17 Acute non- recurrent maxillary sinusitis J01.00 ; Excessive sweating R61 and 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 [address] 02 Jun, 17 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 [address] May, 17 Type 2 diabetes mellitus without complications E11.9 ; Gout involving toe, unspecified cause, unspecified chronicity, unspecified laterality M10.9 and Primary insomnia F51.01 [facility] [place] [address] [place] [address] 27 Jan, 16 [facility] [place] [address] [place] [address] 14 Jan, 16 [facility] [place] [address] [place] [id number] 13 Jan, 16 [facility] [place] [address] [place] [address] 30 Dec, 16 [facility] [place] [address] [place] [address] Dec, 16 [facility] [place] [address] [place] [address] Dec, 16 Sciatica of right side M54.31 and Acute bilateral low back pain without sciatica M54.5 [facility] [place] [address] [place] [address] Dec, 16 Type 2 diabetes mellitus without complications E11.9 [facility] [place] [address] [place] [address] Dec, 16 [facility] [place] [address] [place] [address] Dec, 16 [facility] [place] [address] [place] [address] Dec, 16 Sciatica of right side M54.31 ; Type 2 diabetes mellitus without complication, without long- term current use of insulin E11.9 ; Acute bilateral low back pain without sciatica M54.5 and Neuropathy G62.9 [facility] [place] [address] [place] [address] Dec, 16 Plantar fasciitis, right M72.2 and Sciatica of right side M54.31 [facility] [place] [address] [place] [address] Nov, 16 [facility] [place] [address] [place] [address] Oct, 16 Nail abnormality L60.9 [facility] [address] [place] [address] September, 16 [facility] [place] [address] [place] [address] Aug, 16 [facility] [place] [address] [place] [address] Aug, 16 Vertigo R42 ; Allergic rhinitis, unspecified allergic rhinitis type J30.9 and Anxiety F41.9 [facility] [place] [address] [place] [address] Aug, 16 [facility] [place] [address] [place] [address] Aug, 16 [facility] [place] [address] [place] [address] Aug, 16 [facility] [place] [address] [place] [address] Jul, 16 [facility] [place] [address] [place] [address] Jul, 16 [facility] [place] [address] [place] [address] Jul, 16 [facility] [place] [address] [place] [address] Jul, 16 [facility] [place] [address] [place] [address] Jul, 16 Lymphadenopathy R59.1 ; Type 2 diabetes mellitus without complications E11.9 ; Essential (primary) hypertension I10 and Bipolar disorder, current episode manic without psychotic features, moderate F31.12 [facility] [place] [address] [place] [address] Jun, 16 [facility] [place] [address] [place] [address] Jun, 16 [facility] [place] [address] [place] [address] Jun, 16 [facility] [place] [address] [place] [address] Jun, 16 [facility] [place] [address] [place] [address] May, 16 [facility] [place] [address] [place] [address] 14 May, 16 Lymphadenopathy R59.1 and Pharyngitis, acute J02.[address] [address] 11 May, 16 Pharyngitis, acute J02.9 and Eczema, unspecified type L30.[address] [address] 05 May, 16 [facility] [place] [address] [place] [address] Apr, 15 [facility] [address] [address] Apr, 15 Neck strain, initial encounter S16.1XXA and Obstructive sleep apnea syndrome G47.[address] [address] 15 Apr, [address] [address] Apr, [address] [address] Apr, [address] [address] Apr, [address] [address] Mar, [address] [address] Mar, [address] [address] Mar, 15 Primary insomnia F51.[address] [address] 24 Mar, 15 Primary insomnia F51.[address] [address] Mar, 15 Gout, unspecified M10.9 ; Other chronic pain G89.29 and Migraine with aura and without status migrainosus, not intractable G43.[address] [place] [address] Mar, 15 [facility] [place] [address] [place] [address] Feb, 15 Restless legs syndrome G25.81 [facility] [place] [address] [place] [address] Feb, [address] [facility] [address] [address] Feb, 15 Gout, unspecified M10.9 ; Other dorsalgia M54.89 ; Restless legs syndrome G25.81 and Encounter for immunization Z23 [facility] [place] [address] [place] [address] Feb, 15 [facility] [address] [address] Jan, 15 Bilateral foot pain 729.5 ; Type 2 diabetes mellitus without complications E11.9 and Gout 274.9 [facility] [address] [address] Jan, 15 [facility] [address] [address] 24 Jan, 15 DM w/o complication type II 250.00 [facility] [address] [address] Jan, 15 Right hip pain 719.45 [facility] [address] [address] Dec, 15 Insomnia 780.52 [facility] [place] [address] [place] [address] Dec, 15 Dysuria 788.1 and Frequency of urination 788.41 [facility] [place] [address] [place] [address] Dec, 15 [facility] [place] [address] [place] [address] Dec, 15 [facility] [place] [address] [place] [address] Nov, 15 [facility] [place] [address] [place] [address] 17 Nov, [address] [address] 16 Nov, 15 Neck pain 723.[address] [address] Nov, [address] [address] Nov, [address] [address] Nov, 15 GERD (gastroesophageal reflux disease) 530.81 ; Hypertension 401.9 ; Bipolar 1 disorder, manic, moderate 296.42 ; Back pain 724.5 and Gout 274.[address] [address] Oct, 15 Dental examination V72.[address] [address] Oct, 15 Dental examination V72.[address] [address] September, 15 Dental examination V72.[address] [address] Jun, 15 [facility] [address] [facility] [id number] [address] [place] [address] Jun, IMMUNIZATIONS No Known Immunizations SOCIAL HISTORY Never Assessed REASON FOR VISIT dizziness; f/u, [facility] PLAN OF CARE Activity Details Follow Up prn Reason: VITAL SIGNS Height 71 in 2018-03-07 Weight 208.1 lbs 2018-03-07 Temperature 97.7 degrees Fahrenheit 2018-03-07 Heart Rate 79 bpm 2018-03-07 Respiratory Rate 16 2018-03-07 BMI 29.02 kg/m2 2018-03-07 Blood pressure systolic 122 mmHg 2018-03-07 Blood pressure diastolic 86 mmHg 2018-03-07 MEDICATIONS Medication Instructions Dosage Frequency Start Date End Date Duration S tatus Allopurinol 100MG TAKE TWO TABLETS BY MOUTH ONCE DAILY. Active Cyclobenzaprine HCl 10MG Orally Three times a day 1 tablet 8h Active Test strips ... as directed 24h Aug, Not-Taking Voltaren 1 % Transdermal 3 times a day to both toe joints 2 grams Aug, Not-Taking Indomethacin 50 mg Orally Twice a day 1 capsule with food or milk 12h 30 day(s) Active Gabapentin 600MG TAKE ONE TABLET BY MOUTH THREE TIMES DAILY Active Ambien 10MG Orally Once a day 1 tablet at bedtime 24h 30 Not-Taking Zolpidem Tartrate 10MG TAKE ONE TABLET BY MOUTH ONCE DAILY AT [facility] Active Diabetic Shoes as directed Dec, Active Lisinopril 5MG Orally Once a day 1 tablet 24h 90 Not-Taking Klonopin 1 MG Orally TID 1 tablet 8h Active Imdur 30 MG Orally Once a day 1 tablet 24h N ot-Taking Phenergan 25 MG 1 tablet May, No t-Taking TRUEresult Blood Glucose w/Device as directed 24h Aug, 16 Not-Taking Lancets ... as directed 24h Aug, Not -Taking Dexilant 60MG DR Orally Once a day 1 capsule 24h Active Olanzapine-Fluoxetine HCl 12-50 MG TAKE 1 CAPSULE BY MOUTH IN THE EVENING 30 Not-Taking Meloxicam 15MG 1 tablet by mouth 1 time a day 90 Not-Taking Abilify 30 MG Orally Once a day 1 tablet 24h Active Symbyax 12-50 MG Orally Once a day in the evening 1 capsule Not-Taking Isosorbide Mononitrate ER 30MG TAKE ONE TABLET BY MOUTH ONCE DAILY 90 days Active Atenolol 50 MG Orally Once a day 1 tablet 24h Active Seroquel 100 MG Orally Once a day 1 tablet 24h Active Flonase Allergy Relief 50 MCG/ACT Nasally Once a day 1 spray in each nostril 24h Aug, 30 day(s) Not-Taking RESULTS Name Result Date Reference Range TSH w/ FREE T4 2018-03-07 TSH 2.78 0.40-4.50 T4, FREE 1.4 0.8-1.8 CBC 2018-03-07 WHITE BLOOD CELL COUNT 6.3 3.8-10.8 RED BLOOD CELL COUNT 4.84 4.20-5.80 HEMOGLOBIN 14.1 13.2-17.1 HEMATOCRIT 40.4 38.5-50.0 MCV 83.5 80.0-100.0 MCH 29.1 27.0-33.0 MCHC 34.9 32.0-36.0 RDW 12.5 11.0-15.0 PLATELET COUNT 257 140-400 MPV 9.9 7.5-12.5 ABSOLUTE NEUTROPHILS [phone] ABSOLUTE LYMPHOCYTES 2199 850-3900 ABSOLUTE MONOCYTES 334 200-950 ABSOLUTE EOSINOPHILS 101 15-500 ABSOLUTE BASOPHILS 38 0-200 NEUTROPHILS 57.6 LYMPHOCYTES 34.9 MONOCYTES 5.3 EOSINOPHILS 1.6 BASOPHILS 0.6 PROCEDURES Procedure Date Ordered Result Body Site [facility] 2018 VENIPUNCT, ROUTINE* Mar 07, 2018 [facility] VISIT ESTABLISHED PATIENT Mar 07, 2018 INSTRUCTIONS MEDICATIONS ADMINISTERED No Known Medications MEDICAL (GENERAL) HISTORY Type Description Date Medical History Hypertension Medical History Bipolar 1 disorder, manic, moderate Medical History Gout Medical History Diabetes Medical History GERD (gastroesophageal reflux disease) Surgical History Kidney stone removal Surgical History Nerve ending perera in back Surgical History lymphectomy Hospitalization History DM Hospitalization History Surgery(s)
--- OUTSIDE RECORDS SUMMARY | 2019-09-27 09:06 | XMS REPORT ---
Author Author Henri SINGH Organization [facility] [address] [place] [address] Care Team Providers Care High Wire Artist Name Role Phone SAMANTHA ZORAIDA Unavailable PROBLEMS Type Condition ICD9-CM Code QPX35-QE Code Onset Dates Condition S tatus SNOMED Code Problem Type 2 diabetes mellitus wit h diabetic neuropathy, without long-term current use of insulin E11.40 Active 32978 006 Problem Type 2 diabetes mellitus wit hout complication, without long-term current use of insulin E11.9 Active 162229750 Problem Primary insomnia F51.01 Active 397 2004 Problem Type 2 diabetes mellitus without complications E11 .9 Active [id number] ALLERGIES No Information ENCOUNTERS Encounter Location Date Diagnosis [facility] [address] [place] [address] 08 Mar, 18 Primary insomnia F51.01 [facility] [address] [place] [address] 08 Mar, 18 [facility] [address] [place] [address] 08 Mar, 18 [facility] [address] [place] [address] 07 Mar, 18 [facility] [address] [place] [address] 02 Mar, 18 Acute non- recurrent maxillary sinusitis J01.00 [facility] [address] [place] [address] Feb, 18 [facility] [address] [place] [address] Feb, 18 Costochondritis M94.0 and Low thyroid stimulating hormone (TSH) level R79.89 [facility] [address] [place] [address] 30 Feb, 18 [facility] [address] [place] [address] 29 Feb, 20 18 Costochondritis M94.0 [facility] [place] [address] [place] [address] 26 Feb, 20 18 [facility] [place] [address] [place] [address] 24 Feb, 20 18 [facility] [place] [address] [place] [address] 11 Feb, 20 18 [facility] [address] [place] [address] [place] [address] 11 Jan, 18 Tachycardia R00.0 [facility] [place] [address] [place] [address] 03 Jan, 18 [facility] [address] [place] [address] 30 Dec, 18 Palpitation R00.2 and Type 2 diabetes mellitus without complications E11.9 [facility] [address] [place] [address] 15 Dec, 18 [facility] [address] [place] [address] 14 Dec, 18 Type 2 diabetes mellitus with diabetic neuropathy, without long-term current use of insulin E11.40 [facility] [address] [place] [address] 10 Dec, 18 [facility] [place] [address] [place] [address] 06 Dec, 18 [facility] [place] [address] [place] [address] 06 Dec, 18 [facility] [place] [address] [place] [address] 16 Nov, 18 [facility] [place] [address] [place] [address] 11 Nov, 18 [facility] [place] [address] [place] [address] 04 Oct, 18 [facility] [place] [address] [place] [address] 03 October, 18 Medicare annual wellness visit, initial Z00.00 ; Type 2 diabetes mellitus without complication, without long-term current use of insulin E11.9 and Right anterior shoulder pain M25.511 [facility] [place] [address] [place] [address] September, 18 Primary insomnia F51.01 [facility] [address] [place] [address] 30 Aug, 18 Biceps tendonitis on left M75.22 [facility] [address] [place] [address] Aug, 18 [facility] [place] [address] [place] [address] Aug, 18 [facility] [address] [place] [address] Aug, 18 [facility] [address] [place] [address] Aug, 18 Type 2 diabetes mellitus without complications E11.9 ; Pain of left foot M79.672 ; Pain in right foot M79.671 and Chronic gout involving toe without tophus, unspecified cause, unspecified laterality M1A.9XX0 [facility] [address] [place] [address] Jun, 18 [facility] [place] [address] [place] [address] May, 18 [facility] [place] [address] [place] [address] May, 18 [facility] [address] [place] [address] May, 18 [facility] [place] [address] [place] [address] May, 18 Right anterior shoulder pain M25.511 [facility] [address] [place] [address] May, 18 [facility] [place] [address] [place] [address] May, 18 [facility] [place] [address] [place] [address] Apr, 17 Type 2 diabetes mellitus without complications E11.9 ; Costochondritis, acute M94.0 and Tinea pedis of both feet B35.[address] [address] Mar, [address] [address] Mar, [address] [address] Feb, Acute upper respiratory infection, unspecified J06.9 ; Other viral agents as the cause of diseases classified elsewhere B97.89 and Aphthous ulcer of mouth K12.[address] [address] Jan, [address] [address] Jan, Right hip pain M25.[address] [address] Dec, Ingrown nail L60.0 ; Impetigo L01.00 and Irritant contact dermatitis due to plants, except food L24.[address] [address] Dec, [address] [address] Dec, Nail abnormality L60.9 and Ingrown nail of fifth toe of right foot L60.[address] [address] Nov, Type 2 diabetes mellitus without complications E11.[address] [address] Nov, 17 Type 2 diabetes mellitus without complication, without long-term current use of insulin E11.[address] [address] Nov, [address] [address] Nov, [address] [address] Oct, [facility] [address] 16 September, [address] [facility] [address] [place] [address] Aug, 17 Acute idiopathic gout of foot, unspecified laterality M10.[address] [address] Aug, 17 Acute idiopathic gout of foot, unspecified laterality M10.079 and Primary insomnia F51.[address] [address] Jul, [address] [address] Jul, 17 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 [address] 23 Jun, [address] [address] 17 Jun, 17 Acute non- recurrent maxillary sinusitis J01.[address] [address] 16 Jun, 17 Acute non- recurrent frontal sinusitis J01.[address] [address] 15 Jun, [address] [address] 14 Jun, 17 Primary insomnia F51.[address] [address] 07 Jun, 17 Acute non- recurrent maxillary sinusitis J01.00 ; Excessive sweating R61 and 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 [address] 02 Jun, 17 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 [address] May, 17 Type 2 diabetes mellitus without complications E11.9 ; Gout involving toe, unspecified cause, unspecified chronicity, unspecified laterality M10.9 and Primary insomnia F51.01 [facility] [place] [address] [place] [address] 27 Jan, 16 [facility] [place] [address] [place] [address] 14 Jan, 16 [facility] [place] [address] [place] [address] 13 Jan, 16 [facility] [place] [address] [place] [address] 30 Dec, 16 [facility] [place] [address] [place] [address] Dec, 16 [facility] [place] [address] [place] [address] Dec, 16 Sciatica of right side M54.31 and Acute bilateral low back pain without sciatica M54.5 [facility] [place] [address] [place] [address] Dec, 16 Type 2 diabetes mellitus without complications E11.9 [facility] [place] [address] [place] [address] Dec, 16 [facility] [place] [address] [place] [address] Dec, 16 [facility] [place] [address] [place] [address] Dec, 16 Sciatica of right side M54.31 ; Type 2 diabetes mellitus without complication, without long- term current use of insulin E11.9 ; Acute bilateral low back pain without sciatica M54.5 and Neuropathy G62.9 [facility] [place] [address] [place] [address] Dec, 16 Plantar fasciitis, right M72.2 and Sciatica of right side M54.31 [facility] [place] [address] [place] [address] Nov, 16 [facility] [place] [address] [place] [address] Oct, 16 Nail abnormality L60.9 [facility] [address] [place] [address] September, 16 [facility] [place] [address] [place] [address] Aug, 16 [facility] [place] [address] [place] [address] Aug, 16 Vertigo R42 ; Allergic rhinitis, unspecified allergic rhinitis type J30.9 and Anxiety F41.9 [facility] [place] [address] [place] [address] Aug, 16 [facility] [place] [address] [place] [address] Aug, 16 [facility] [place] [address] [place] [address] Aug, 16 [facility] [place] [address] [place] [address] Jul, 16 [facility] [place] [address] [place] [address] Jul, 16 [facility] [place] [address] [place] [address] Jul, 16 [facility] [place] [address] [place] [address] Jul, 16 [facility] [place] [address] [place] [address] Jul, 16 Lymphadenopathy R59.1 ; Type 2 diabetes mellitus without complications E11.9 ; Essential (primary) hypertension I10 and Bipolar disorder, current episode manic without psychotic features, moderate F31.12 [facility] [place] [address] [place] [address] Jun, 16 [facility] [place] [address] [place] [address] Jun, 16 [facility] [place] [address] [place] [address] Jun, 16 [facility] [place] [address] [place] [address] Jun, 16 [facility] [place] [address] [place] [address] May, 16 [facility] [place] [address] [place] [address] 14 May, 16 Lymphadenopathy R59.1 and Pharyngitis, acute J02.[address] [address] 11 May, 16 Pharyngitis, acute J02.9 and Eczema, unspecified type L30.[address] [facility] [address] [place] [address] 05 May, [address] [facility] [address] [place] [address] Apr, [address] [address] 21 Apr, 15 Neck strain, initial encounter S16.1XXA and Obstructive sleep apnea syndrome G47.[address] [address] 15 Apr, [address] [address] 07 Apr, [address] [address] 03 Apr, [address] [address] Apr, [address] [address] Mar, [address] [address] 30 Mar, [address] [address] Mar, 15 Primary insomnia F51.[address] [address] 24 Mar, 15 Primary insomnia F51.[address] [address] Mar, 15 Gout, unspecified M10.9 ; Other chronic pain G89.29 and Migraine with aura and without status migrainosus, not intractable G43.[address] [address] Mar, 15 [facility] [place] [address] [place] [address] 22 Feb, 15 Restless legs syndrome G25.81 [facility] [place] [address] [place] [address] 19 Feb, 15 [facility] [place] [address] [place] [address] 16 Feb, 15 Gout, unspecified M10.9 ; Other dorsalgia M54.89 ; Restless legs syndrome G25.81 and Encounter for immunization Z23 [facility] [address] [place] [address] 13 Feb, 15 [facility] [address] [place] [address] 29 Jan, 15 Bilateral foot pain 729.5 ; Type 2 diabetes mellitus without complications E11.9 and Gout 274.9 [facility] [address] [place] [address] 25 Jan, 15 [facility] [address] [place] [address] 24 Jan, 15 DM w/o complication type II 250.00 [facility] [place] [place] [address] 16 Jan, 15 Right hip pain 719.45 [facility] [address] [place] [address] Dec, 15 Insomnia 780.52 [facility] [address] [place] [address] Dec, 15 Dysuria 788.1 and Frequency of urination 788.41 [facility] [place] [place] [address] Dec, 15 [facility] [place] [address] [place] [address] Dec, 15 [facility] [place] [address] [place] [address] Nov, 15 [facility] [place] [place] [address] Nov, 15 [facility] [address] [place] [address] Nov, 15 Neck pain 723.1 [facility] [address] [place] [address] Nov, 15 [facility] [address] [place] [address] Nov, 15 [facility] [address] [address] Nov, 15 GERD (gastroesophageal reflux disease) 530.81 ; Hypertension 401.9 ; Bipolar 1 disorder, manic, moderate 296.42 ; Back pain 724.5 and Gout 274.9 [facility] [address] [address] Oct, 15 [facility]2 [facility] [address] [address] Oct, 15 Dental examination V72.[address] [address] September, 15 Dental examination V72.[address] [address] Jun, 15 [facility] [address] [facility] [id number] [address] [place] [address] Jun, IMMUNIZATIONS No Known Immunizations SOCIAL HISTORY Never Assessed REASON FOR VISIT Medication refill request PLAN OF CARE VITAL SIGNS MEDICATIONS Medication Instructions Dosage Frequency Start Date End Date Duration S tatus Zolpidem Tartrate 10MG TAKE ONE TABLET BY MOUTH ONCE DAILY AT DTIME Active RESULTS No Results PROCEDURES No Known [...]
--- OUTSIDE RECORDS SUMMARY | 2019-09-27 09:06 | XMS REPORT ---
Author Author Henri SINGH [facility] [address] Address [address] [place] [address] Care Team Providers Care Insurance Coder Name Role Phone SAMANTHA ZORAIDA Unavailable PROBLEMS Type Condition ICD9-CM Code [id number] Code Onset Dates Condition S tatus SNOMED Code Problem Type 2 diabetes mellitus wit h diabetic neuropathy, without long-term current use of insulin E11.40 Active 28445 006 Problem Type 2 diabetes mellitus wit hout complication, without long-term current use of insulin E11.9 Active [id number] Problem Primary insomnia F51.01 Active 397 2004 Problem Type 2 diabetes mellitus without complications E11 .9 Active [id number] ALLERGIES No Information ENCOUNTERS Encounter Location Date Diagnosis [facility] [address] [place] [address] 05 Apr, 18 [facility] [place] [address] [place] [address] Apr, 18 Palpitation R00.2 [facility] [address] [place] [address] [place] [phone] 16 Mar, 18 [facility] [address] [place] [address] [place] [id number] 08 Mar, 18 Primary insomnia F51.01 [facility] [address] [place] [id number] 08 Mar, 18 [facility] [address] [place] [id number] 08 Mar, 18 [facility] [address] [place] [address] 07 Mar, 18 [facility] [address] [place] [address] [place] [id number] 02 Mar, 18 Acute non- recurrent maxillary sinusitis J01.00 [facility] [address] [place] [address] [place] [phone] Feb, 18 [facility] [address] [place] [address] 31 Oct, 20 18 Costochondritis M94.0 and Low thyroid stimulating hormone (TSH) level R79.89 [facility] [address] [place] [phone] 30 Oct, 20 18 [facility] [address] [place] [id number] 29 Oct, 20 18 Costochondritis M94.0 [facility] [place] [address] [place] [id number] 26 Oct, 20 18 [facility] [place] [address] [place] [phone] 24 Oct, 20 18 [facility] [address] [place] [phone] 11 Feb, 20 18 [facility] [address] [place] [id number] 11 Jan, 20 18 Tachycardia R00.0 [facility] [place] [address] [place] [id number] 03 Jan, 18 [facility] [place] [address] [place] [id number] 30 Dec, 20 18 Palpitation R00.2 and Type 2 diabetes mellitus without complications E11.9 [facility] [address] [facility] [address] [place] [id number] 15 Dec, 20 18 [facility] [place] [address] [place] [phone] 14 Dec, 20 18 Type 2 diabetes mellitus with diabetic neuropathy, without long-term current use of insulin E11.40 [facility] [address] [address] [place] [id number] 10 Dec, 20 18 [facility] [place] [address] [place] [id number] 06 Dec, 18 [facility] [place] [address] [place] [address] 06 Dec, 18 [facility] [place] [address] [place] [phone] 16 Nov, 18 [facility] [place] [address] [place] [phone] Nov, 18 [facility] [place] [address] [place] [address] Oct, 18 [facility] [place] [address] [place] [id number] September, 18 Medicare annual wellness visit, initial Z00.00 ; Type 2 diabetes mellitus without complication, without long-term current use of insulin E11.9 and Right anterior shoulder pain M25.511 [facility] [place] [address] [place] [id number] September, 18 Primary insomnia F51.01 [facility] [address] [place] [id number] Aug, 18 Biceps tendonitis on left M75.22 [facility] [place] [address] [place] [id number] Aug, 18 [facility] [place] [address] [place] [phone] Aug, 18 [facility] [place] [address] [place] [address] Aug, 18 [facility] [place] [address] [place] [phone] Aug, 18 Type 2 diabetes mellitus without complications E11.9 ; Pain of left foot M79.672 ; Pain in right foot M79.671 and Chronic gout involving toe without tophus, unspecified cause, unspecified laterality M1A.9XX0 [facility] [place] [address] [place] [id number] Jun, 18 [facility] [place] [address] [place] [id number] May, 18 [facility] [place] [address] [place] [id number] May, 18 [facility] [place] [address] [place] [id number] May, 18 [facility] [place] [address] [place] [address] May, 18 Right anterior shoulder pain M25.511 [facility] [place] [address] [place] [address] May, [address] [address] May, [address] [address] Apr, Type 2 diabetes mellitus without complications E11.9 ; Costochondritis, acute M94.0 and Tinea pedis of both feet B35.[address] [address] 09 Mar, [address] [address] Mar, [address] [address] Feb, Acute upper respiratory infection, unspecified J06.9 ; Other viral agents as the cause of diseases classified elsewhere B97.89 and Aphthous ulcer of mouth K12.[address] [address] Jan, [address] [address] Jan, Right hip pain M25.[address] [address] Dec, Ingrown nail L60.0 ; Impetigo L01.00 and Irritant contact dermatitis due to plants, except food L24.[address] [address] Dec, [address] [address] Dec, Nail abnormality L60.9 and Ingrown nail of fifth toe of right foot L60.[address] [address] Nov, Type 2 diabetes mellitus without complications E11.[address] [address] Nov, Type 2 diabetes mellitus without complication, without long-term current use of insulin E11.9 [place] [address] [place] [address] Nov, 17 [facility] [place] [address] [place] [address] Nov, 17 [facility] [place] [address] [place] [phone] Oct, 17 [facility] [place] [address] [place] [phone] September, 17 [facility] [place] [address] [place] [address] Aug, 17 Acute idiopathic gout of foot, unspecified laterality M10.079 [facility] [place] [address] [place] [address] Aug, 17 Acute idiopathic gout of foot, unspecified laterality M10.079 and Primary insomnia F51.01 [facility] [place] [address] [place] [address] Jul, 17 [facility] [place] [address] [place] [address] Jul, 17 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 [facility] [place] [address] [place] [address] 23 Jun, 17 [facility] [place] [address] [place] [address] 17 Jun, 17 Acute non- recurrent maxillary sinusitis J01.00 [facility] [place] [address] [place] [address] 16 Jun, 17 Acute non- recurrent frontal sinusitis J01.10 [facility] [place] [address] [place] [id number] 15 Jun, 17 [facility] [place] [address] [place] [address] 14 Jun, 17 Primary insomnia F51.01 [facility] [place] [address] [place] [address] 07 Jun, 17 Acute non- recurrent maxillary sinusitis J01.00 ; Excessive sweating R61 and 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 [facility] [address] [place] [address] 02 Jun, 17 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 [facility] [place] [address] [place] [address] May, 17 Type 2 diabetes mellitus without complications E11.9 ; Gout involving toe, unspecified cause, unspecified chronicity, unspecified laterality M10.9 and Primary insomnia F51.01 [facility] [place] [address] [place] [address] 27 Jan, 16 [facility] [place] [address] [place] [address] 14 Jan, 16 [facility] [place] [address] [place] [address] 13 Jan, 16 [facility] [place] [address] [place] [address] 30 Dec, 16 [facility] [place] [address] [place] [address] Dec, 16 [facility] [place] [address] [place] [address] Dec, 16 Sciatica of right side M54.31 and Acute bilateral low back pain without sciatica M54.5 [facility] [place] [address] [place] [address] Dec, 16 Type 2 diabetes mellitus without complications E11.9 [facility] [place] [address] [place] [address] Dec, 16 [facility] [place] [address] [place] [address] Dec, 16 [facility] [place] [address] [place] [address] Dec, 16 Sciatica of right side M54.31 ; Type 2 diabetes mellitus without complication, without long- term current use of insulin E11.9 ; Acute bilateral low back pain without sciatica M54.5 and Neuropathy G62.9 [facility] [place] [address] [place] [address] Dec, 16 Plantar fasciitis, right M72.2 and Sciatica of right side M54.31 [facility] [address] [place] [address] Nov, 16 [facility] [place] [address] [place] [address] Oct, 16 Nail abnormality L60.9 [facility] [place] [address] [place] [address] 08 September, 16 [facility] [place] [address] [place] [address] Aug, 16 [facility] [place] [address] [place] [address] Aug, 16 Vertigo R42 ; Allergic rhinitis, unspecified allergic rhinitis type J30.9 and Anxiety F41.9 [facility] [address] [place] [address] Aug, 16 [facility] [place] [address] [place] [address] Aug, 16 [facility] [place] [address] [place] [address] Aug, 16 [facility] [place] [address] [place] [address] Jul, 16 [facility] [place] [address] [place] [address] Jul, 16 [facility] [place] [address] [place] [address] Jul, 16 [facility] [place] [address] [place] [address] Jul, 16 [facility] [place] [address] [place] [address] Jul, 16 Lymphadenopathy R59.1 ; Type 2 diabetes mellitus without complications E11.9 ; Essential (primary) hypertension I10 and Bipolar disorder, current episode manic without psychotic features, moderate F31.12 [facility] [place] [address] [place] [address] Jun, 16 [facility] [place] [address] [place] [address] Jun, 16 [facility] [place] [address] [place] [address] 03 Jun, 16 [facility] [address] [place] [address] Jun, 16 [facility] [address] [place] [address] May, 16 [facility] [place] [address] [place] [address] 14 May, 16 Lymphadenopathy R59.1 and Pharyngitis, acute J02.9 [facility] [address] [place] [address] 11 May, 16 Pharyngitis, acute J02.9 and Eczema, unspecified type L30.9 [facility] [address] [place] [address] May, 16 [facility] [address] [address] Apr, 15 [facility] [place] [address] [place] [address] Apr, 15 Neck strain, initial encounter S16.1XXA and Obstructive sleep apnea syndrome G47.[address] [address] Apr, [address] [address] Apr, [address] [address] Apr, 15 [facility] [address] [address] Apr, 15 [facility] [place] [address] [place] [address] Mar, 15 [facility] [address] [address] Mar, 15 [facility] [place] [address] [place] [address] Mar, 15 Primary insomnia F51.01 [facility] [place] [address] [place] [address] Mar, 15 Primary insomnia F51.01 [facility] [place] [address] [place] [address] 09 Mar, 15 Gout, unspecified M10.9 ; Other chronic pain G89.29 and Migraine with aura and without status migrainosus, not intractable G43.[address] [address] 04 Mar, [address] [address] Feb, 15 Restless legs syndrome G25.[address] [address] Feb, [address] [address] 16 Feb, 15 Gout, unspecified M10.9 ; Other dorsalgia M54.89 ; Restless legs syndrome G25.81 and Encounter for immunization Z23 [address] [address] Feb, [address] [address] Jan, 15 Bilateral foot pain 729.5 ; Type 2 diabetes mellitus without complications E11.9 and Gout 274.[address] [address] 25 Jan, [address] [address] 24 Jan, 15 DM w/o complication type II 250.[address] [address] 16 Jan, 15 Right hip pain 719.[address] [address] Dec, 15 Insomnia [address] [address] Dec, 15 Dysuria 788.1 and Frequency of urination 788.[address] [address] Dec, 15 [facility] [place] [address] [place] [address] Dec, 15 [facility] [address] [address] Nov, [address] [address] Nov, [address] [address] Nov, 15 Neck pain 723.1 [facility] [address] [place] [address] Nov, [address] [address] Nov, [address] [address] Nov, 15 GERD (gastroesophageal reflux disease) 530.81 ; Hypertension 401.9 ; Bipolar 1 disorder, manic, moderate 296.42 ; Back pain 724.5 and Gout 274.[address] [address] Oct, 15 Dental examination V72.[address] [address] Oct, 15 Dental examination V72.[address] [address] September, 15 Dental examination V72.[address] [address] Jun, 15 [facility] [address] [facility] [id number] [place] [address] Jun, IMMUNIZATIONS No Known Immunizations SOCIAL HISTORY Never Assessed REASON FOR VISIT New Refill Request PLAN OF CARE VITAL SIGNS MEDICATIONS Medication Instructions Dosage Frequency Start Date End Date Duration S tatus Atenolol 50 mg Orally Once a day 1 tablet 24h 90 day s Active RESULTS No Results PROCEDURES No Known [...]
--- OUTSIDE RECORDS SUMMARY | 2019-09-27 09:06 | XMS REPORT ---
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 Name Role Phone SAMANTHA ZORAIDA Unavailable PROBLEMS Type Condition ICD9-CM Code [id number] Code Onset Dates Condition S tatus SNOMED Code Problem Type 2 diabetes mellitus wit h diabetic neuropathy, without long-term current use of insulin E11.40 Active 88645 006 Problem Type 2 diabetes mellitus wit hout complication, without long-term current use of insulin E11.9 Active [id number] Problem Primary insomnia F51.01 Active 397 2004 Problem Type 2 diabetes mellitus without complications E11 .9 Active [id number] ALLERGIES No Information ENCOUNTERS Encounter Location Date Diagnosis [facility] [address] [place] [id number] 08 Mar, 18 Primary insomnia F51.01 [facility] [address] [place] [address] 08 Mar, 18 [facility] [address] [place] [phone] 08 Mar, 18 [facility] [address] [place] [phone] 07 Mar, 18 [facility] [address] [place] [phone] 02 Mar, 18 Acute non- recurrent maxillary sinusitis J01.00 [facility] [address] [place] [phone] Feb, 18 [facility] [address] [place] [phone] Feb, 18 Costochondritis M94.0 and Low thyroid stimulating hormone (TSH) level R79.89 [facility] [address] [place] [phone] 30 Feb, 18 [facility] [address] [place] [phone] 29 Feb, 20 18 Costochondritis M94.0 [facility] [place] [address] [place] [address] 26 Feb, 20 18 [facility] [place] [address] [place] [address] 24 Feb, 20 18 [facility] [place] [address] [place] [address] 11 Feb, 20 18 [facility] [address] [place] [address] [place] [address] 11 Jan, 18 Tachycardia R00.0 [facility] [place] [address] [place] [address] 03 Jan, 18 [facility] [address] [address] [place] [address] 30 Dec, 18 Palpitation R00.2 and Type 2 diabetes mellitus without complications E11.9 [facility] [address] [address] [place] [id number] 15 Dec, 18 [facility] [address] [place] [address] 14 Dec, 18 Type 2 diabetes mellitus with diabetic neuropathy, without long-term current use of insulin E11.40 [facility] [address] [place] [phone] 10 Dec, 18 [facility] [place] [address] [place] [address] 06 Dec, 18 [facility] [place] [address] [place] [address] 06 Dec, 18 [facility] [place] [address] [place] [address] 16 Nov, 18 [facility] [place] [address] [place] [address] 11 Nov, 18 [facility] [place] [address] [place] [address] 04 Oct, 18 [facility] [place] [address] [place] [address] 03 October, 18 Medicare annual wellness visit, initial Z00.00 ; Type 2 diabetes mellitus without complication, without long-term current use of insulin E11.9 and Right anterior shoulder pain M25.511 [facility] [place] [address] [place] [address] September, 18 Primary insomnia F51.01 [facility] [address] [place] [address] 30 Aug, 18 Biceps tendonitis on left M75.22 [facility] [address] [place] [phone] Aug, 18 [facility] [place] [address] [place] [address] Aug, 18 [facility] [address] [place] [address] Aug, 18 [facility] [address] [place] [address] Aug, 18 Type 2 diabetes mellitus without complications E11.9 ; Pain of left foot M79.672 ; Pain in right foot M79.671 and Chronic gout involving toe without tophus, unspecified cause, unspecified laterality M1A.9XX0 [facility] [address] [place] [address] Jun, 18 [facility] [place] [address] [place] [address] May, 18 [facility] [place] [address] [place] [address] May, 18 [facility] [address] [place] [address] May, 18 [facility] [place] [address] [place] [address] May, 18 Right anterior shoulder pain M25.511 [facility] [address] [place] [address] May, 18 [facility] [place] [address] [place] [address] May, 18 [facility] [place] [address] [place] [address] Apr, 17 Type 2 diabetes mellitus without complications E11.9 ; Costochondritis, acute M94.0 and Tinea pedis of both feet B35.[address] [address] Mar, [address] [address] Mar, [address] [address] Feb, Acute upper respiratory infection, unspecified J06.9 ; Other viral agents as the cause of diseases classified elsewhere B97.89 and Aphthous ulcer of mouth K12.[address] [address] Jan, [address] [address] Jan, Right hip pain M25.[address] [address] Dec, Ingrown nail L60.0 ; Impetigo L01.00 and Irritant contact dermatitis due to plants, except food L24.[address] [address] Dec, [address] [address] Dec, Nail abnormality L60.9 and Ingrown nail of fifth toe of right foot L60.[address] [address] Nov, Type 2 diabetes mellitus without complications E11.[address] [address] Nov, 17 Type 2 diabetes mellitus without complication, without long-term current use of insulin E11.[address] [address] Nov, [address] [address] Nov, [address] [address] Oct, [address] [address] 16 September, 17 [facility] [address] [place] [address] Aug, 17 Acute idiopathic gout of foot, unspecified laterality M10.[address] [address] Aug, 17 Acute idiopathic gout of foot, unspecified laterality M10.079 and Primary insomnia F51.[address] [address] Jul, [address] [address] Jul, 17 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 [address] 23 Jun, [address] [address] 17 Jun, 17 Acute non- recurrent maxillary sinusitis J01.[address] [address] 16 Jun, 17 Acute non- recurrent frontal sinusitis J01.[address] [address] 15 Jun, [address] [address] 14 Jun, 17 Primary insomnia F51.[address] [address] 07 Jun, 17 Acute non- recurrent maxillary sinusitis J01.00 ; Excessive sweating R61 and 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 [address] 02 Jun, 17 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 [address] May, 17 Type 2 diabetes mellitus without complications E11.9 ; Gout involving toe, unspecified cause, unspecified chronicity, unspecified laterality M10.9 and Primary insomnia F51.01 [facility] [place] [address] [place] [address] 27 Jan, 16 [facility] [place] [address] [place] [address] 14 Jan, 16 [facility] [place] [address] [place] [address] 13 Jan, 16 [facility] [place] [address] [place] [address] 30 Dec, 16 [facility] [place] [address] [place] [address] Dec, 16 [facility] [place] [address] [place] [address] Dec, 16 Sciatica of right side M54.31 and Acute bilateral low back pain without sciatica M54.5 [facility] [place] [address] [place] [address] Dec, 16 Type 2 diabetes mellitus without complications E11.9 [facility] [place] [address] [place] [address] Dec, 16 [facility] [place] [address] [place] [address] Dec, 16 [facility] [place] [address] [place] [address] Dec, 16 Sciatica of right side M54.31 ; Type 2 diabetes mellitus without complication, without long- term current use of insulin E11.9 ; Acute bilateral low back pain without sciatica M54.5 and Neuropathy G62.9 [facility] [place] [address] [place] [address] Dec, 16 Plantar fasciitis, right M72.2 and Sciatica of right side M54.31 [facility] [place] [address] [place] [address] Nov, 16 [facility] [place] [address] [place] [address] Oct, 16 Nail abnormality L60.9 [facility] [address] [place] [address] September, 16 [facility] [place] [address] [place] [address] Aug, 16 [facility] [place] [address] [place] [address] Aug, 16 Vertigo R42 ; Allergic rhinitis, unspecified allergic rhinitis type J30.9 and Anxiety F41.9 [facility] [place] [address] [place] [address] Aug, 16 [facility] [place] [address] [place] [address] Aug, 16 [facility] [place] [address] [place] [address] Aug, 16 [facility] [place] [address] [place] [address] Jul, 16 [facility] [place] [address] [place] [address] Jul, 16 [facility] [place] [address] [place] [address] Jul, 16 [facility] [place] [address] [place] [address] Jul, 16 [facility] [place] [address] [place] [address] Jul, 16 Lymphadenopathy R59.1 ; Type 2 diabetes mellitus without complications E11.9 ; Essential (primary) hypertension I10 and Bipolar disorder, current episode manic without psychotic features, moderate F31.12 [facility] [place] [address] [place] [address] Jun, 16 [facility] [place] [address] [place] [address] Jun, 16 [facility] [place] [address] [place] [address] Jun, 16 [facility] [place] [address] [place] [address] Jun, 16 [facility] [place] [address] [place] [address] May, 16 [facility] [place] [address] [place] [address] 14 May, 16 Lymphadenopathy R59.1 and Pharyngitis, acute J02.[address] [address] 11 May, 16 Pharyngitis, acute J02.9 and Eczema, unspecified type L30.9 [facility] [address] [place] [address] 05 May, 16 [facility] [address] [place] [address] Apr, [address] [address] 21 Apr, 15 Neck strain, initial encounter S16.1XXA and Obstructive sleep apnea syndrome G47.[address] [address] 15 Apr, [address] [address] 07 Apr, [address] [address] 03 Apr, [address] [address] Apr, [address] [address] Mar, [address] [address] 30 Mar, [address] [address] Mar, 15 Primary insomnia F51.[address] [address] 24 Mar, 15 Primary insomnia F51.[address] [address] Mar, 15 Gout, unspecified M10.9 ; Other chronic pain G89.29 and Migraine with aura and without status migrainosus, not intractable G43.[address] [address] Mar, 15 [facility] [place] [address] [place] [address] 22 Feb, 15 Restless legs syndrome G25.81 [facility] [place] [address] [place] [address] 19 Feb, 15 [facility] [place] [address] [place] [address] 16 Feb, 15 Gout, unspecified M10.9 ; Other dorsalgia M54.89 ; Restless legs syndrome G25.81 and Encounter for immunization Z23 [facility] [address] [place] [address] 13 Feb, 15 [facility] [address] [place] [address] 29 Jan, 15 Bilateral foot pain 729.5 ; Type 2 diabetes mellitus without complications E11.9 and Gout 274.9 [facility] [address] [place] [address] 25 Jan, 15 [facility] [address] [place] [address] 24 Jan, 15 DM w/o complication type II 250.00 [facility] [address] [place] [address] 16 Jan, 15 Right hip pain 719.45 [facility] [address] [place] [address] Dec, 15 Insomnia 780.52 [facility] [address] [place] [address] Dec, 15 Dysuria 788.1 and Frequency of urination 788.41 [facility] [address] [place] [address] Dec, 15 [facility] [place] [address] [place] [address] Dec, 15 [facility] [place] [address] [place] [address] Nov, 15 [facility] [address] [place] [address] Nov, 15 [facility] [address] [place] [address] Nov, 15 Neck pain 723.1 [facility] [address] [place] [address] Nov, [address] [address] [place] [address] Nov, 15 [facility] [address] [address] Nov, 15 GERD (gastroesophageal reflux disease) 530.81 ; Hypertension 401.9 ; Bipolar 1 disorder, manic, moderate 296.42 ; Back pain 724.5 and Gout 274.9 [facility] [address] [address] Oct, 15 [facility].2 [facility] [address] [address] Oct, 15 Dental examination V72.2 [facility] [address] [address] September, 15 [facility] examination V72.2 [facility] [address] [address] Jun, 15 [facility] [address] [facility] [id number] [address] [place] [address] Jun, IMMUNIZATIONS No Known Immunizations SOCIAL HISTORY Never Assessed REASON FOR VISIT PLAN OF CARE VITAL SIGNS MEDICATIONS Medication Instructions Dosage Frequency Start Date End Date Duration S tatus Belsomra 5 mg Orally Once a day 1 tablet at bedtime as needed 24h Mar, 30 days Active RESULTS No Results PROCEDURES No Known [...]
--- OUTSIDE RECORDS SUMMARY | 2019-09-27 09:07 | XMS REPORT ---
Author Author Henri SINGH Organization [facility] [address] [place] [address] Care Team Providers Care Customer Technical Services Manager Name Role Phone MARILUZZORAIDA RUTH Unavailable PROBLEMS Type Condition ICD9-CM Code IIG15-[place] Code Onset Dates Condition S tatus SNOMED Code Problem Type 2 diabetes mellitus wit h diabetic neuropathy, without long-term current use of insulin E11.40 Active 98169 006 Problem Type 2 diabetes mellitus wit hout complication, without long-term current use of insulin E11.9 Active 402925251 Problem Primary insomnia F51.01 Active 397 2004 Problem Type 2 diabetes mellitus without complications E11 .9 Active [id number] ALLERGIES No Information ENCOUNTERS Encounter Location Date Diagnosis [facility] [address] [place] [address] 07 Mar, 20 18 [facility] [address] [place] [address] 31 Feb, 20 18 [facility] [address] [place] [address] 30 Feb, 20 18 [facility] [address] [place] [address] 29 Oct, 20 18 Costochondritis M94.0 [facility] [address] [place] [address] 26 Oct, 20 18 [facility] [address] [place] [address] 24 Oct, 20 18 [facility] [address] [place] [address] 11 Feb, 20 18 [facility] [address] [place] [address] 11 Sep, 20 18 Tachycardia R00.[address] [facility] [address] [place] [address] 03 Jan, 20 18 [facility] [address] [place] [address] 30 Dec, 18 Palpitation R00.2 and Type 2 diabetes mellitus without complications E11.9 [facility] [address] [place] [address] 15 Dec, 18 [facility] [address] [place] [address] 14 Dec, 18 Type 2 diabetes mellitus with diabetic neuropathy, without long-term current use of insulin E11.40 [facility] [address] [place] [address] 10 Dec, 18 [facility] [address] [place] [address] 06 Dec, 18 [facility] [address] [place] [address] Dec, 18 [facility] [address] [place] [address] 16 Nov, 18 [facility] [address] [place] [address] Nov, 18 [facility] [address] [place] [address] 04 Oct, 18 [facility] [address] [place] [address] September, 18 Medicare annual wellness visit, initial Z00.00 ; Type 2 diabetes mellitus without complication, without long-term current use of insulin E11.9 and Right anterior shoulder pain M25.511 [facility] [address] [place] [address] September, 18 Primary insomnia F51.01 [facility] [address] [place] [address] 30 Aug, 18 Biceps tendonitis on left M75.22 [facility] [address] [place] [address] 25 Aug, 18 [facility] [address] [place] [address] 20 Aug, 18 [facility] [address] [place] [address] 13 Aug, 18 [facility] [address] [place] [address] 05 Aug, 18 Type 2 diabetes mellitus without complications E11.9 ; Pain of left foot M79.672 ; Pain in right foot M79.671 and Chronic gout involving toe without tophus, unspecified cause, unspecified laterality M1A.9XX0 [facility] [address] [place] [address] 08 Jun, 18 [facility] [address] [place] [address] May, 18 [facility] [place] [place] [address] [place] [address] May, 18 [facility] [address] [address] May, 18 [facility] [place] [address] [place] [address] May, 18 Right anterior shoulder pain M25.511 [facility] [place] [address] [place] [address] May, [address] [address] May, [address] [address] Apr, 17 Type 2 diabetes mellitus without complications E11.9 ; Costochondritis, acute M94.0 and Tinea pedis of both feet B35.[address] [address] 09 Mar, [address] [address] Mar, [address] [address] Feb, 17 Acute upper respiratory infection, unspecified J06.9 ; Other viral agents as the cause of diseases classified elsewhere B97.89 and Aphthous ulcer of mouth K12.0 [facility] [place] [address] [place] [address] Jan, [address] [address] Jan, 17 Right hip pain M25.[address] [address] Dec, Ingrown nail L60.0 ; Impetigo L01.00 and Irritant contact dermatitis due to plants, except food L24.7 [facility] [place] [address] [place] [address] Dec, [address] [address] Dec, Nail abnormality L60.9 and Ingrown nail of fifth toe of right foot L60.0 [facility] [address] [address] Nov, Type 2 diabetes mellitus without complications E11.9 [facility] [address] [address] Nov, Type 2 diabetes mellitus without complication, without long-term current use of insulin E11.[address] [address] Nov, [address] [address] Nov, [address] [address] Oct, 17 [facility] [address] [address] September, [address] [address] Aug, 17 Acute idiopathic gout of foot, unspecified laterality M10.[address] [address] Aug, 17 Acute idiopathic gout of foot, unspecified laterality M10.079 and Primary insomnia F51.[address] [address] Jul, [address] [address] Jul, 17 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 [facility] [place] [address] [place] [address] 23 Jun, 17 [facility] [place] [address] [place] [address] 17 Jun, 17 Acute non- recurrent maxillary sinusitis J01.00 [facility] [address] [place] [address] 16 Jun, 17 Acute non- recurrent frontal sinusitis J01.10 [facility] [address] [place] [address] 15 Jun, 17 [facility] [place] [address] [place] [address] 14 Jun, 17 Primary insomnia F51.01 [facility] [place] [address] [place] [address] 07 Jun, 17 Acute non- recurrent maxillary sinusitis J01.00 ; Excessive sweating R61 and 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 [facility] [place] [address] [place] [address] 02 Jun, 17 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 [facility] [address] [place] [address] May, 17 Type 2 diabetes mellitus without complications E11.9 ; Gout involving toe, unspecified cause, unspecified chronicity, unspecified laterality M10.9 and Primary insomnia F51.01 [facility] [place] [address] [place] [address] Jan, 16 [facility] [place] [address] [place] [address] 14 Jan, 16 [facility] [place] [address] [place] [address] Jan, 16 [facility] [place] [address] [place] [address] Dec, 16 [facility] [address] [place] [address] Dec, 16 [facility] [address] [place] [address] Dec, 16 Sciatica of right side M54.31 and Acute bilateral low back pain without sciatica M54.5 [facility] [address] [place] [address] Dec, 16 Type 2 diabetes mellitus without complications E11.9 [facility] [address] [place] [address] Dec, 16 [facility] [address] [place] [address] Dec, 16 [facility] [place] [address] [place] [address] Dec, 16 Sciatica of right side M54.31 ; Type 2 diabetes mellitus without complication, without long- term current use of insulin E11.9 ; Acute bilateral low back pain without sciatica M54.5 and Neuropathy G62.9 [facility] [place] [address] [place] [address] Dec, 16 Plantar fasciitis, right M72.2 and Sciatica of right side M54.31 [facility] [place] [address] [place] [address] Nov, 16 [facility] [place] [address] [place] [address] Oct, 16 Nail abnormality L60.9 [facility] [address] [place] [address] 08 September, 16 [facility] [place] [address] [place] [address] Aug, 16 [facility] [place] [address] [place] [address] Aug, 16 Vertigo R42 ; Allergic rhinitis, unspecified allergic rhinitis type J30.9 and Anxiety F41.9 [facility] [place] [address] [place] [address] Aug, 16 [facility] [place] [address] [place] [address] Aug, 16 [facility] [place] [address] [place] [address] Aug, 16 [facility] [place] [address] [place] [address] 21 Jul, 16 [facility] [address] [place] [address] Jul, 16 [facility] [place] [address] [place] [address] Jul, 16 [facility] [place] [address] [place] [address] Jul, 16 [facility] [place] [address] [place] [address] Jul, 16 Lymphadenopathy R59.1 ; Type 2 diabetes mellitus without complications E11.9 ; Essential (primary) hypertension I10 and Bipolar disorder, current episode manic without psychotic features, moderate F31.12 [facility] [place] [address] [place] [address] 18 Jun, 16 [facility] [place] [address] [place] [address] Jun, 16 [facility] [address] [address] Jun, 16 [facility] [address] [address] Jun, 16 [facility] [address] [address] May, [address] [address] [address] May, 16 Lymphadenopathy R59.1 and Pharyngitis, acute J02.9 [facility] [address] [address] May, 16 Pharyngitis, acute J02.9 and Eczema, unspecified type L30.9 [facility] [place] [address] [place] [address] May, 16 [facility] [address] [address] Apr, [address] [address] Apr, 15 Neck strain, initial encounter S16.1XXA and Obstructive sleep apnea syndrome G47.33 [facility] [place] [place] [address] 15 Apr, 15 [facility] [place] [address] [place] [address] 07 Apr, 15 [facility] [place] [address] [place] [address] 03 Apr, 15 [facility] [place] [address] [place] [address] Apr, 15 [facility] [place] [address] [place] [address] Mar, 15 [facility] [address] [place] [address] Mar, 15 [facility] [address] [place] [address] Mar, 15 Primary insomnia F51.01 [facility] [place] [address] [place] [address] 24 Mar, 15 Primary insomnia F51.01 [facility] [address] [place] [address] Mar, 15 Gout, unspecified M10.9 ; Other chronic pain G89.29 and Migraine with aura and without status migrainosus, not intractable G43.109 [facility] [place] [address] [place] [address] 04 Mar, 15 [facility] [place] [address] [place] [address] 22 Feb, 20 15 Restless legs syndrome G25.81 [facility] [place] [address] [place] [address] 19 Feb, 20 15 [facility] [place] [address] [place] [address] 16 Feb, 20 15 Gout, unspecified M10.9 ; Other dorsalgia M54.89 ; Restless legs syndrome G25.81 and Encounter for immunization Z23 [facility] [place] [address] [place] [address] 13 Feb, 20 15 [facility] [place] [address] [place] [address] 29 Jan, 15 Bilateral foot pain 729.5 ; Type 2 diabetes mellitus without complications E11.9 and [facility] 274.9 [facility] [address] [address] 25 Jan, 15 [facility] [place] [address] [place] [address] 24 Jan, 15 DM w/o complication type II 250.00 [facility] [place] [address] [place] [address] 16 Jan, 15 Right hip pain 719.45 [facility] [place] [address] [place] [address] Dec, 15 Insomnia 780.52 [facility] [address] [address] Dec, 15 Dysuria 788.1 and Frequency of urination 788.41 [facility] [address] [address] Dec, 15 [facility] [address] [address] Dec, 15 [facility] [address] [address] Nov, 15 [facility] [address] [address] Nov, 15 [facility] [address] [address] 16 Nov, 15 Neck pain 723.1 [facility] [address] [address] Nov, [address] [address] [address] Nov, [address] [address] [address] Nov, 15 GERD (gastroesophageal reflux disease) 530.81 ; Hypertension 401.9 ; Bipolar 1 disorder, manic, moderate 296.42 ; Back pain 724.5 and Gout 274.9 [facility] [place] [address] [place] [address] Oct, 15 Dental examination V72.2 [facility] [place] [address] [place] [address] Oct, 15 Dental examination V72.2 [facility] [address] [place] [address] September, 15 Dental examination V72.2 [facility] [address] [place] [address] Jun, 15 [facility] [address] [facility] [id number] [place] [address] Jun, IMMUNIZATIONS No Known Immunizations SOCIAL HISTORY Never Assessed REASON FOR VISIT Prior Authorization Request PLAN OF CARE VITAL SIGNS MEDICATIONS [...]
--- OUTSIDE RECORDS SUMMARY | 2019-09-27 09:07 | XMS REPORT ---
Author Author Henri SINGH Organization [facility] [address] Address [address] [place] [address] Care Team Providers Care Ear Specialist Name Role Phone SAMANTHAZORAIDA Unavailable PROBLEMS Type Condition ICD9-CM Code KTY22-WN Code Onset Dates Condition S tatus SNOMED Code Problem Type 2 diabetes mellitus wit h diabetic neuropathy, without long-term current use of insulin E11.40 Active 14233 006 Problem Type 2 diabetes mellitus wit hout complication, without long-term current use of insulin E11.9 Active 307948740 Problem Primary insomnia F51.01 Active 397 2004 Problem Type 2 diabetes mellitus without complications E11 .9 Active [id number] ALLERGIES No Information ENCOUNTERS Encounter Location Date Diagnosis [facility] [address] [place] [phone] 07 Mar, 18 [facility] [address] [place] [address] 31 Feb, 20 18 [facility] [address] [place] [address] 29 Feb, 18 [facility] [place] [address] [place] [address] 26 Feb, 20 18 [facility] [place] [address] [place] [address] 24 Feb, 20 18 [facility] [address] [place] [address] 11 Feb, 20 18 [facility] [address] [place] [address] 11 Jan, 18 Tachycardia R00.0 [facility] [place] [address] [place] [address] 03 Jan, 18 [facility] [address] [place] [address] 30 Dec, 20 18 Palpitation R00.2 and Type 2 diabetes mellitus without complications E11.9 [facility] [address] [place] [address] 15 Dec, 18 [facility] [address] [place] [address] 14 Dec, 18 Type 2 diabetes mellitus with diabetic neuropathy, without long-term current use of insulin E11.40 [facility] [address] [place] [address] 10 Dec, 18 [facility] [place] [address] [place] [address] Dec, 18 [facility] [place] [address] [place] [address] Dec, 18 [facility] [place] [address] [place] [address] Nov, 18 [facility] [place] [address] [place] [address] Nov, 18 [facility] [place] [address] [place] [address] Oct, 18 [facility] [place] [address] [place] [address] 03 October, 18 Medicare annual wellness visit, initial Z00.00 ; Type 2 diabetes mellitus without complication, without long-term current use of insulin E11.9 and Right anterior shoulder pain M25.511 [facility] [place] [address] [place] [address] 07 September, 18 Primary insomnia F51.01 [facility] [place] [address] [place] [address] 30 Aug, 18 Biceps tendonitis on left M75.22 [facility] [place] [address] [place] [address] 25 Aug, 18 [facility] [place] [address] [place] [address] Aug, 18 [facility] [place] [address] [place] [address] 13 Aug, 18 [facility] [place] [address] [place] [address] 05 Aug, 18 Type 2 diabetes mellitus without complications E11.9 ; Pain of left foot M79.672 ; Pain in right foot M79.671 and Chronic gout involving toe without tophus, unspecified cause, unspecified laterality M1A.9XX0 [facility] [address] [place] [address] 08 Jun, 18 [facility] [address] [address] May, [address] [address] May, 18 [facility] [address] [place] [address] May, [address] [address] May, 18 Right anterior shoulder pain M25.[address] [address] May, [address] [address] May, [address] [address] Apr, 17 Type 2 diabetes mellitus without complications E11.9 ; Costochondritis, acute M94.0 and Tinea pedis of both feet B35.[address] [address] 09 Mar, [address] [address] Mar, [address] [address] Feb, 17 Acute upper respiratory infection, unspecified J06.9 ; Other viral agents as the cause of diseases classified elsewhere B97.89 and Aphthous ulcer of mouth K12.[address] [address] Jan, [address] [address] Jan, 17 Right hip pain M25.[address] [address] Dec, Ingrown nail L60.0 ; Impetigo L01.00 and Irritant contact dermatitis due to plants, except food L24.7 [facility] [address] [place] [address] Dec, 17 [facility] [address] [address] Dec, Nail abnormality L60.9 and Ingrown nail of fifth toe of right foot L60.0 [facility] [place] [address] [place] [address] Nov, Type 2 diabetes mellitus without complications E11.9 [facility] [address] [address] Nov, Type 2 diabetes mellitus without complication, without long-term current use of insulin E11.[address] [address] Nov, 17 [facility] [address] [address] Nov, 17 [facility] [address] [address] Oct, [address] [address] September, 17 [facility] [address] [address] Aug, 17 Acute idiopathic gout of foot, unspecified laterality M10.[address] [address] Aug, 17 Acute idiopathic gout of foot, unspecified laterality M10.079 and Primary insomnia F51.[address] [address] Jul, 17 [facility] [address] [address] Jul, 17 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 [address] Jun, 17 [address] [place] [address] 17 Jun, 17 Acute non- recurrent maxillary sinusitis J01.00 [facility] [place] [address] [place] [address] 16 Jun, 17 Acute non- recurrent frontal sinusitis J01.10 [facility] [address] [place] [address] 15 Jun, 17 [facility] [place] [address] [place] [address] 14 Jun, 17 Primary insomnia F51.01 [facility] [place] [address] [place] [address] 07 Jun, 17 Acute non- recurrent maxillary sinusitis J01.00 ; Excessive sweating R61 and 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 [facility] [address] [place] [address] 02 Jun, 17 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 [address] May, 17 Type 2 diabetes mellitus without complications E11.9 ; Gout involving toe, unspecified cause, unspecified chronicity, unspecified laterality M10.9 and Primary insomnia F51.01 [facility] [address] [address] 27 Jan, 16 [facility] [place] [address] [place] [address] 14 Jan, 16 [facility] [place] [address] [place] [address] 13 Jan, 16 [facility] [place] [address] [place] [address] 30 Dec, 16 [facility] [address] [address] Dec, 16 [facility] [place] [address] [place] [address] 25 Dec, 16 Sciatica of right side M54.31 and Acute bilateral low back pain without sciatica M54.5 [facility] [address] [place] [address] Dec, 16 Type 2 diabetes mellitus without complications E11.9 [facility] [place] [address] [place] [address] Dec, 16 [facility] [place] [address] [place] [address] Dec, 16 [facility] [place] [address] [place] [address] Dec, 16 Sciatica of right side M54.31 ; Type 2 diabetes mellitus without complication, without long- term current use of insulin E11.9 ; Acute bilateral low back pain without sciatica M54.5 and Neuropathy G62.9 [facility] [address] [place] [address] Dec, 16 Plantar fasciitis, right M72.2 and Sciatica of right side M54.31 [facility] [place] [address] [place] [address] Nov, 16 [facility] [place] [address] [place] [address] Oct, 16 Nail abnormality L60.9 [facility] [address] [place] [address] September, 16 [facility] [place] [address] [place] [address] Aug, 16 [facility] [place] [address] [place] [address] Aug, 16 Vertigo R42 ; Allergic rhinitis, unspecified allergic rhinitis type J30.9 and Anxiety F41.9 [facility] [place] [address] [place] [address] Aug, 16 [facility] [place] [address] [place] [address] Aug, 16 [facility] [place] [address] [place] [address] Aug, 16 [facility] [place] [address] [place] [address] Jul, 16 [facility] [place] [address] [place] [address] Jul, 16 [facility] [place] [address] [place] [address] Jul, 16 [facility] [place] [address] [place] [address] Jul, 16 [facility] [address] [address] Jul, 16 Lymphadenopathy R59.1 ; Type 2 diabetes mellitus without complications E11.9 ; Essential (primary) hypertension I10 and Bipolar disorder, current episode manic without psychotic features, moderate F31.12 [facility] [place] [address] [place] [address] 18 Jun, 16 [facility] [place] [address] [place] [address] Jun, 16 [facility] [address] [address] Jun, 16 [facility] [place] [address] [place] [address] Jun, 16 [facility] [address] [address] May, 16 [facility] [place] [address] [place] [address] May, 16 Lymphadenopathy R59.1 and Pharyngitis, acute J02.[address] [address] May, 16 Pharyngitis, acute J02.9 and Eczema, unspecified type L30.9 [facility] [place] [address] [place] [address] May, [address] [facility] [address] [address] Apr, 15 [facility] [address] [address] Apr, 15 Neck strain, initial encounter S16.1XXA and Obstructive sleep apnea syndrome G47.[address] [address] Apr, 15 [facility] [address] [place] [address] 07 Apr, 15 [facility] [address] [place] [address] 03 Apr, 15 [facility] [place] [address] [place] [address] Apr, 15 [facility] [place] [address] [place] [address] Mar, 15 [facility] [place] [address] [place] [address] Mar, 15 [facility] [place] [address] [place] [address] Mar, 15 Primary insomnia F51.01 [facility] [address] [place] [address] 24 Mar, 15 Primary insomnia F51.01 [facility] [address] [address] Mar, 15 Gout, unspecified M10.9 ; Other chronic pain G89.29 and Migraine with aura and without status migrainosus, not intractable G43.109 [facility] [address] [place] [address] 04 Mar, 15 [facility] [address] [address] 22 Feb, 15 Restless legs syndrome G25.[address] [address] 19 Feb, 15 [facility] [address] [address] 16 Feb, 20 15 Gout, unspecified M10.9 ; Other dorsalgia M54.89 ; Restless legs syndrome G25.81 and Encounter for immunization Z23 [facility] [address] [place] [address] 13 Feb, 15 [facility] [place] [address] [place] [address] 29 Jan, 20 15 Bilateral foot pain 729.5 ; Type 2 diabetes mellitus without complications E11.9 and Gout 274.9 [facility] [place] [address] [place] [address] 25 Jan, 15 [facility] [address] [place] [address] 24 Jan, 15 DM w/o complication type II 250.00 [facility] [place] [address] [place] [address] 16 Jan, 15 Right hip pain 719.45 [facility] [place] [address] [place] [address] Dec, 15 Insomnia 780.52 [facility] [address] [address] Dec, 15 Dysuria 788.1 and Frequency of urination 788.41 [facility] [address] [address] Dec, 15 [facility] [address] [address] Dec, [address] [address] Nov, [address] [address] Nov, [address] [address] 16 Nov, 15 Neck pain 723.1 [facility] [address] [address] Nov, 15 [facility] [address] [address] Nov, [address] [address] Nov, 15 GERD (gastroesophageal reflux disease) 530.81 ; Hypertension 401.9 ; Bipolar 1 disorder, manic, moderate 296.42 ; Back pain 724.5 and Gout 274.9 [facility] [address] [address] Oct, 15 Dental examination V72.2 [facility] [address] [address] Oct, Dental examination V72.2 [facility] [address] [place] [address] September, Dental examination V72.2 [facility] [place] [address] [place] [address] Jun, 15 [facility] [address] [facility] [id number] [place] [address] Jun, IMMUNIZATIONS No Known Immunizations SOCIAL HISTORY Never Assessed REASON FOR VISIT New Refill Request PLAN OF CARE VITAL SIGNS MEDICATIONS Medication Instructions Dosage Frequency Start Date End Date Duration S tatus Allopurinol 100MG TAKE TWO TABLETS BY MOUTH ONCE DAILY. Active RESULTS No Results PROCEDURES No Known [...]
--- OUTSIDE RECORDS SUMMARY | 2019-09-27 09:07 | XMS REPORT ---
Author Author Henri SINGH Organization [facility] [address] Address [address] [place] [address] Care Team Providers Care Net Mender Name Role Phone SAMANTHAZORAIDA Unavailable PROBLEMS Type Condition ICD9-CM Code [id number] Code Onset Dates Condition S tatus SNOMED Code Problem Type 2 diabetes mellitus wit h diabetic neuropathy, without long-term current use of insulin E11.40 Active 66208 006 Problem Type 2 diabetes mellitus wit hout complication, without long-term current use of insulin E11.9 Active 407562612 Problem Primary insomnia F51.01 Active 397 2004 Problem Type 2 diabetes mellitus without complications E11 .9 Active [id number] ALLERGIES No Information ENCOUNTERS Encounter Location Date Diagnosis [facility] [address] [place] [phone] 07 Mar, 18 [facility] [address] [place] [address] 31 Feb, 18 [facility] [address] [place] [phone] 31 Feb, 20 18 Costochondritis M94.0 and Low thyroid stimulating hormone (TSH) level R79.89 [facility] [address] [place] [phone] 30 Feb, 18 [facility] [address] [place] [phone] 29 Feb, 20 18 Costochondritis M94.0 [facility] [address] [place] [address] 26 Feb, 20 [facility] [address] [place] [address] 24 Feb, 20 18 [facility] [address] [place] [address] 11 Feb, 20 18 [facility] [address] [place] [address] 11 Jan, 18 Tachycardia R00.0 [facility] [address] [place] [address] 03 Jan, 18 [facility] [address] [place] [address] 30 Dec, 18 Palpitation R00.2 and Type 2 diabetes mellitus without complications E11.9 [facility] [address] [place] [address] 15 Dec, 18 [facility] [address] [place] [address] 14 Dec, 18 Type 2 diabetes mellitus with diabetic neuropathy, without long-term current use of insulin E11.40 [facility] [address] [place] [address] 10 Dec, 18 [facility] [address] [place] [address] 06 Dec, 18 [facility] [address] [place] [address] Dec, 18 [facility] [address] [place] [address] Nov, 18 [facility] [address] [place] [address] Nov, 18 [facility] [address] [place] [address] Oct, 18 [facility] [address] [place] [address] 03 October, 18 Medicare annual wellness visit, initial Z00.00 ; Type 2 diabetes mellitus without complication, without long-term current use of insulin E11.9 and Right anterior shoulder pain M25.511 [facility] [address] [place] [address] 07 September, 18 Primary insomnia F51.01 [facility] [address] [place] [address] Aug, 18 Biceps tendonitis on left M75.22 [facility] [address] [place] [address] Aug, 18 [facility] [address] [place] [address] Aug, 18 [facility] [address] [place] [address] Aug, 18 [facility] [address] [place] [address] Aug, 18 Type 2 diabetes mellitus without complications E11.9 ; Pain of left foot M79.672 ; Pain in right foot M79.671 and Chronic gout involving toe without tophus, unspecified cause, unspecified laterality M1A.9XX0 [facility] [address] [place] [address] 08 Jun, 18 [facility] [address] [address] [place] [address] May, 18 [facility] [address] [place] [address] May, 18 [facility] [address] [place] [address] May, 18 [facility] [address] [place] [address] May, 18 Right anterior shoulder pain M25.511 [facility] [address] [place] [address] May, 18 [facility] [address] [place] [phone] May, 18 [facility] [address] [place] [address] Apr, 17 Type 2 diabetes mellitus without complications E11.9 ; Costochondritis, acute M94.0 and Tinea pedis of both feet B35.3 [facility] [address] [place] [address] 09 Mar, 17 [facility] [address] [address] Mar, 17 [facility] [address] [address] Feb, 17 Acute upper respiratory infection, unspecified J06.9 ; Other viral agents as the cause of diseases classified elsewhere B97.89 and Aphthous ulcer of mouth K12.0 [facility] [address] [address] [place] [address] 12 Jan, 17 [facility] [address] [address] 11 Jan, 17 Right hip pain M25.551 [facility] [address] [address] [place] [address] Dec, 17 Ingrown nail L60.0 ; Impetigo L01.00 and Irritant contact dermatitis due to plants, except food L24.7 [facility] [address] [address] [place] [address] Dec, 17 [facility] [address] [address] Dec, 17 Nail abnormality L60.9 and Ingrown nail of fifth toe of right foot L60.0 [facility] [address] [address] [place] [address] Nov, 17 Type 2 diabetes mellitus without complications E11.9 [facility] [address] [address] [place] [address] Nov, 17 Type 2 diabetes mellitus without complication, without long-term current use of insulin E11.[address] [address] Nov, 17 [facility] [address] [address] Nov, 17 [facility] [address] [address] Oct, 17 [facility] [address] [address] September, 17 [facility] [address] [address] Aug, 17 Acute idiopathic gout of foot, unspecified laterality M10.[address] [address] Aug, 17 Acute idiopathic gout of foot, unspecified laterality M10.079 and Primary insomnia F51.[address] [address] 20 Jul, 17 [facility] [address] [place] [address] Jul, 17 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 [facility] [address] [place] [address] 23 Jun, 17 [facility] [address] [place] [address] 17 Jun, 17 Acute non- recurrent maxillary sinusitis J01.00 [facility] [address] [place] [address] 16 Jun, 17 Acute non- recurrent frontal sinusitis J01.10 [facility] [address] [place] [address] 15 Jun, 17 [facility] [address] [address] [place] [address] 14 Jun, 17 Primary insomnia F51.01 [facility] [address] [place] [address] 07 Jun, 17 Acute non- recurrent maxillary sinusitis J01.00 ; Excessive sweating R61 and 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 [facility] [address] [place] [address] 02 Jun, 17 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 [facility] [address] [address] [place] [address] May, 17 Type 2 diabetes mellitus without complications E11.9 ; Gout involving toe, unspecified cause, unspecified chronicity, unspecified laterality M10.9 and Primary insomnia F51.01 [facility] [address] [place] [address] 27 Jan, 16 [facility] [address] [place] [address] 14 Jan, 16 [facility] [address] [place] [address] 13 Jan, 16 [facility] [address] [place] [address] Dec, 16 [facility] [address] [place] [address] Dec, 16 [facility] [address] [place] [address] Dec, 16 Sciatica of right side M54.31 and Acute bilateral low back pain without sciatica M54.5 [facility] [place] [address] [place] [address] Dec, 16 Type 2 diabetes mellitus without complications E11.9 [facility] [address] [place] [address] Dec, 16 [facility] [address] [place] [address] Dec, 16 [facility] [address] [place] [address] Dec, 16 Sciatica of right side M54.31 ; Type 2 diabetes mellitus without complication, without long- term current use of insulin E11.9 ; Acute bilateral low back pain without sciatica M54.5 and Neuropathy G62.9 [facility] [address] [place] [address] Dec, 16 Plantar fasciitis, right M72.2 and Sciatica of right side M54.31 [facility] [address] [place] [address] Nov, 16 [facility] [address] [place] [address] Oct, 16 Nail abnormality L60.9 [facility] [address] [place] [address] September, 16 [facility] [address] [place] [address] Aug, 16 [facility] [place] [address] [place] [address] Aug, 16 Vertigo R42 ; Allergic rhinitis, unspecified allergic rhinitis type J30.9 and Anxiety F41.9 [facility] [place] [address] [place] [address] Aug, 16 [facility] [place] [address] [place] [address] Aug, 16 [facility] [address] [place] [address] Aug, 16 [facility] [address] [place] [address] Jul, 16 [facility] [address] [place] [address] Jul, 16 [facility] [address] [place] [address] Jul, 16 [facility] [address] [place] [address] Jul, 16 [facility] [address] [place] [address] Jul, 16 Lymphadenopathy R59.1 ; Type 2 diabetes mellitus without complications E11.9 ; Essential (primary) hypertension I10 and Bipolar disorder, current episode manic without psychotic features, moderate F31.12 [facility] [address] [place] [address] 18 Jun, 16 [facility] [address] [place] [address] 15 Jun, 16 [facility] [address] [place] [address] Jun, 16 [facility] [address] [place] [address] Jun, 16 [facility] [address] [place] [address] May, 16 [facility] [address] [place] [address] May, 16 Lymphadenopathy R59.1 and Pharyngitis, acute J02.9 [facility] [address] [place] [address] 11 May, 16 Pharyngitis, acute J02.9 and Eczema, unspecified type L30.9 [facility] [place] [address] [place] [address] 05 May, 16 [facility] [place] [address] [place] [address] 29 Dec, 20 15 [facility] [address] [place] [address] 21 Apr, 20 15 Neck strain, initial encounter S16.1XXA and Obstructive sleep apnea syndrome G47.[address] [address] 15 Dec, [address] [address] 07 Dec, [address] [address] 03 Apr, [address] [address] Apr, [address] [address] Mar, [address] [address] 30 Mar, [address] [address] Mar, 15 Primary insomnia F51.[address] [address] 24 Mar, 15 Primary insomnia F51.[address] [address] Mar, 15 Gout, unspecified M10.9 ; Other chronic pain G89.29 and Migraine with aura and without status migrainosus, not intractable G43.[address] [address] 04 Mar, [address] [address] 22 Feb, 20 15 Restless legs syndrome G25.[address] [address] 19 Feb, [address] [address] 16 Feb, 20 15 Gout, unspecified M10.9 ; Other dorsalgia M54.89 ; Restless legs syndrome G25.81 and Encounter for immunization Z23 [facility] [address] [place] [address] Feb, 15 [facility] [place] [address] [place] [address] Jan, 15 Bilateral foot pain 729.5 ; Type 2 diabetes mellitus without complications E11.9 and Gout 274.[address] [facility] [address] [address] Jan, 15 [facility] [address] [place] [address] Jan, 15 DM w/o complication type II 250.[address] [facility] [address] [address] Jan, 15 Right hip pain 719.45 [facility] [address] [place] [address] Dec, 15 Insomnia 780.[address] [facility] [address] [address] Dec, 15 Dysuria 788.1 and Frequency of urination 788.41 [facility] [address] [address] Dec, 15 [facility] [address] [place] [address] Dec, 15 [facility] [address] [place] [address] Nov, [address] [facility] [address] [address] Nov, 15 [facility] [address] [place] [address] Nov, 15 Neck pain 723.1 [facility] [address] [place] [address] Nov, 15 [facility] [address] [place] [address] Nov, 15 [facility] [address] [place] [address] Nov, 15 GERD (gastroesophageal reflux disease) 530.81 ; Hypertension 401.9 ; Bipolar 1 disorder, manic, moderate 296.42 ; Back pain 724.5 and Gout 274.9 [facility] [address] [place] [address] Oct, 15 Dental examination V72.2 [facility] [address] [place] [address] Oct, 15 Dental examination V72.2 [facility] [address] [place] [address] September, 15 Dental examination V72.2 [facility] [address] [place] [address] Jun, 15 [facility] [address] [facility] [id number] [address] [place] [address] Jun, IMMUNIZATIONS No Known Immunizations SOCIAL HISTORY [...]
--- OUTSIDE RECORDS SUMMARY | 2019-09-27 09:07 | XMS REPORT ---
Author Author Henri SINGH Organization [facility] [address] Address [address] [place] [address] Care Team Providers Care Body Team Member Name Role Phone SAMANTHA ZORAIDA Unavailable PROBLEMS Type Condition ICD9-CM Code [id number] Code Onset Dates Condition S tatus SNOMED Code Problem Type 2 diabetes mellitus wit h diabetic neuropathy, without long-term current use of insulin E11.40 Active 29419 006 Problem Type 2 diabetes mellitus wit hout complication, without long-term current use of insulin E11.9 Active [id number] Problem Primary insomnia F51.01 Active 397 2004 Problem Type 2 diabetes mellitus without complications E11 .9 Active [id number] ALLERGIES No Information ENCOUNTERS Encounter Location Date Diagnosis [facility] [address] [place] [phone] 07 Mar, 18 [facility] [address] [place] [address] 02 Mar, 18 Acute non- recurrent maxillary sinusitis J01.00 [facility] [address] [address] 31 Feb, 20 18 [facility] [address] [place] [phone] 31 Feb, 20 18 Costochondritis M94.0 and Low thyroid stimulating hormone (TSH) level R79.89 [facility] [address] [place] [phone] 30 Feb, 20 18 [facility] [address] [place] [address] 29 Feb, 20 18 [facility]94.0 [facility] [address] [place] [address] 26 Oct, 20 18 [facility] [address] [place] [address] 24 Feb, 20 18 [facility] [address] [place] [phone] 11 Feb, 18 [facility] [address] [place] [address] 11 Jan, 18 Tachycardia R00.0 [facility] [place] [address] [place] [address] 03 Jan, 18 [facility] [address] [place] [address] [place] [address] 30 Dec, 18 Palpitation R00.2 and Type 2 diabetes mellitus without complications E11.9 [facility] [address] [place] [address] 15 Dec, 18 [facility] [address] [place] [address] 14 Dec, 18 Type 2 diabetes mellitus with diabetic neuropathy, without long-term current use of insulin E11.40 [facility] [address] [place] [address] 10 Dec, 18 [facility] [place] [address] [place] [address] 06 Dec, 18 [facility] [place] [address] [place] [address] 06 Dec, 18 [facility] [place] [address] [place] [address] 16 Nov, 18 [facility] [place] [address] [place] [address] 11 Nov, 18 [facility] [place] [address] [place] [address] Oct, 18 [facility] [place] [address] [place] [address] September, 18 Medicare annual wellness visit, initial Z00.00 ; Type 2 diabetes mellitus without complication, without long-term current use of insulin E11.9 and Right anterior shoulder pain M25.[address] [facility] [address] [address] 07 September, 18 Primary insomnia F51.01 [facility] [place] [address] [place] [address] 30 Aug, 18 Biceps tendonitis on left M75.22 [facility] [place] [address] [place] [address] 25 Aug, 18 [facility] [place] [address] [place] [address] Aug, 18 [facility] [place] [address] [place] [address] Aug, 18 [facility] [place] [address] [place] [address] Aug, 18 Type 2 diabetes mellitus without complications E11.9 ; Pain of left foot M79.672 ; Pain in right foot M79.671 and Chronic gout involving toe without tophus, unspecified cause, unspecified laterality M1A.9XX0 [facility] [place] [address] [place] [address] 08 Jun, 18 [facility] [place] [address] [place] [address] May, 18 [facility] [place] [address] [place] [address] May, 18 [facility] [place] [address] [place] [address] May, 18 [facility] [place] [address] [place] [address] May, 18 Right anterior shoulder pain M25.511 [facility] [place] [address] [place] [address] May, 18 [facility] [place] [address] [place] [address] May, 18 [facility] [place] [address] [place] [address] Apr, 17 Type 2 diabetes mellitus without complications E11.9 ; Costochondritis, acute M94.0 and Tinea pedis of both feet B35.3 [facility] [place] [address] [place] [address] Mar, 17 [facility] [place] [address] [place] [address] Mar, 17 [facility] [place] [address] [place] [address] Feb, 17 Acute upper respiratory infection, unspecified J06.9 ; Other viral agents as the cause of diseases classified elsewhere B97.89 and Aphthous ulcer of mouth K12.[address] [address] Jan, 17 [facility] [address] [address] Jan, 17 Right hip pain M25.[address] [address] Dec, 17 Ingrown nail L60.0 ; Impetigo L01.00 and Irritant contact dermatitis due to plants, except food L24.[address] [address] Dec, [address] [address] Dec, 17 Nail abnormality L60.9 and Ingrown nail of fifth toe of right foot L60.[address] [address] Nov, 17 Type 2 diabetes mellitus without complications E11.[address] [address] Nov, 17 Type 2 diabetes mellitus without complication, without long-term current use of insulin E11.[address] [address] Nov, [address] [address] Nov, [address] [address] Oct, [address] [address] September, [address] [address] Aug, 17 Acute idiopathic gout of foot, unspecified laterality M10.[address] [address] Aug, 17 Acute idiopathic gout of foot, unspecified laterality M10.079 and Primary insomnia F51.01 [facility] [address] [place] [address] Jul, 17 [facility] [address] [place] [address] Jul, 17 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 [facility] [address] [place] [address] 23 Jun, [address] [address] 17 Jun, 17 Acute non- recurrent maxillary sinusitis J01.00 [facility] [address] [address] 16 Jun, 17 Acute non- recurrent frontal sinusitis J01.[address] [address] 15 Jun, [address] [address] 14 Jun, 17 Primary insomnia F51.[address] [address] 07 Jun, 17 Acute non- recurrent maxillary sinusitis J01.00 ; Excessive sweating R61 and 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 [address] 02 Jun, 17 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 [address] May, 17 Type 2 diabetes mellitus without complications E11.9 ; Gout involving toe, unspecified cause, unspecified chronicity, unspecified laterality M10.9 and Primary insomnia F51.01 [facility] [address] [place] [address] 27 Jan, 16 [facility] [address] [address] 14 Jan, [address] [address] Jan, 16 [facility] [place] [address] [place] [address] Dec, 16 [facility] [place] [address] [place] [address] Dec, 16 [facility] [place] [address] [place] [address] Dec, 16 Sciatica of right side M54.31 and Acute bilateral low back pain without sciatica M54.5 [facility] [place] [address] [place] [address] Dec, 16 Type 2 diabetes mellitus without complications E11.9 [facility] [place] [address] [place] [address] Dec, 16 [facility] [place] [address] [place] [address] Dec, 16 [facility] [place] [address] [place] [address] Dec, 16 Sciatica of right side M54.31 ; Type 2 diabetes mellitus without complication, without long- term current use of insulin E11.9 ; Acute bilateral low back pain without sciatica M54.5 and Neuropathy G62.9 [facility] [address] [address] [place] [address] Dec, 16 Plantar fasciitis, right M72.2 and Sciatica of right side M54.31 [facility] [place] [address] [place] [address] Nov, 16 [facility] [place] [address] [place] [address] Oct, 16 Nail abnormality L60.9 [facility] [address] [place] [address] September, 16 [facility] [place] [address] [place] [address] Aug, 16 [facility] [place] [address] [place] [address] Aug, 16 Vertigo R42 ; Allergic rhinitis, unspecified allergic rhinitis type J30.9 and Anxiety F41.9 [facility] [address] [place] [address] Aug, 16 [facility] [place] [address] [place] [address] Aug, 16 [facility] [place] [address] [place] [address] Aug, 16 [facility] [place] [address] [place] [address] Jul, 16 [facility] [place] [address] [place] [address] Jul, 16 [facility] [place] [address] [place] [address] Jul, 16 [facility] [place] [address] [place] [address] Jul, 16 [facility] [place] [address] [place] [address] Jul, 16 Lymphadenopathy R59.1 ; Type 2 diabetes mellitus without complications E11.9 ; Essential (primary) hypertension I10 and Bipolar disorder, current episode manic without psychotic features, moderate F31.12 [facility] [place] [address] [place] [address] 18 Jun, 16 [facility] [place] [address] [place] [address] 15 Jun, 16 [facility] [place] [address] [place] [address] Jun, 16 [facility] [place] [address] [place] [address] Jun, 16 [facility] [place] [address] [place] [address] May, 16 [facility] [place] [address] [place] [address] May, 16 Lymphadenopathy R59.1 and Pharyngitis, acute J02.9 [facility] [place] [address] [place] [address] 11 May, 16 Pharyngitis, acute J02.9 and Eczema, unspecified type L30.9 [facility] [place] [address] [place] [address] 05 May, 16 [facility] [place] [address] [place] [address] Apr, 15 [facility] [address] [place] [address] 21 Apr, 20 15 Neck strain, initial encounter S16.1XXA and Obstructive sleep apnea syndrome G47.33 [facility] [address] [address] [place] [address] 15 Apr, 15 [facility] [place] [address] [place] [address] 07 Apr, [address] [facility] [address] [address] Apr, [address] [facility] [address] [address] Apr, [address] [facility] [address] [address] Mar, 15 [facility] [place] [address] [place] [address] 30 Mar, 15 [facility] [address] [address] [place] [address] Mar, 15 [facility] F51.01 [facility] [address] [place] [address] 24 Mar, 15 Primary insomnia F51.[address] [address] Mar, 15 Gout, unspecified M10.9 ; Other chronic pain G89.29 and Migraine with aura and without status migrainosus, not intractable G43.109 [facility] [address] [address] [place] [address] 04 Mar, 15 [facility] [place] [address] [place] [address] 22 Feb, 20 15 Restless legs syndrome G25.81 [facility] [address] [place] [address] 19 Feb, 15 [facility] [place] [address] [place] [address] 16 Feb, 15 Gout, unspecified M10.9 ; Other dorsalgia M54.89 ; Restless legs syndrome G25.81 and Encounter for immunization Z23 [facility] [place] [address] [place] [address] 13 Feb, 15 [facility] [place] [address] [place] [address] 29 Jan, 15 Bilateral foot pain 729.5 ; Type 2 diabetes mellitus without complications E11.9 and Gout 274.9 [facility] [place] [address] [place] [address] Jan, 15 [facility] [address] [place] [address] 24 Jan, 15 DM w/o complication type II 250.00 [facility] [place] [address] [place] [address] Jan, 15 Right hip pain 719.45 [facility] [place] [address] [place] [address] Dec, 15 Insomnia 780.52 [facility] [address] [place] [address] Dec, 15 Dysuria 788.1 and Frequency of urination 788.41 [facility] [address] [place] [address] Dec, 15 [facility] [place] [address] [place] [address] Dec, 15 [facility] [place] [address] [place] [address] Nov, 15 [facility] [place] [address] [place] [address] Nov, 15 [facility] [place] [address] [place] [address] Nov, 15 Neck pain 723.1 [facility] [place] [address] [place] [address] Nov, 15 [facility] [place] [address] [place] [address] Nov, 15 [facility] [place] [address] [place] [address] Nov, 15 GERD (gastroesophageal reflux disease) 530.81 ; Hypertension 401.9 ; Bipolar 1 disorder, manic, moderate 296.42 ; Back pain 724.5 and Gout 274.9 [facility] [address] [place] [address] Oct, 15 Dental examination V72.[address] [address] Oct, 15 Dental examination V72.[address] [address] September, 15 Dental examination V72.[address] [address] Jun, 15 [facility] [address] [facility] [id number] [place] [address] Jun, IMMUNIZATIONS No Known Immunizations SOCIAL HISTORY Never Assessed REASON FOR VISIT Medication question PLAN OF CARE VITAL SIGNS MEDICATIONS Medication Instructions Dosage Frequency Start Date End Date Duration S tatus Amoxicillin 500 mg Orally every 8 hrs 2 capsules 8h Mar, 8 Mar, 10 day(s) Active RESULTS No Results PROCEDURES No Known [...]
--- OUTSIDE RECORDS SUMMARY | 2019-09-27 09:07 | XMS REPORT ---
Author Author Henri SINGH Organization [facility] [address] Address [address] [place] [address] Care Team Providers Care Business And Financial Counsel Name Role Phone SAMANTHA ZORAIDA Unavailable PROBLEMS Type Condition ICD9-CM Code JPD84-EO Code Onset Dates Condition S tatus SNOMED Code Problem Type 2 diabetes mellitus wit h diabetic neuropathy, without long-term current use of insulin E11.40 Active 60730 006 Problem Type 2 diabetes mellitus wit hout complication, without long-term current use of insulin E11.9 Active 551547150 Problem Primary insomnia F51.01 Active 397 2004 Problem Type 2 diabetes mellitus without complications E11 .9 Active [id number] ALLERGIES No Information ENCOUNTERS Encounter Location Date Diagnosis [facility] [address] [place] [id number] 08 Mar, 18 Primary insomnia F51.01 [facility] [address] [place] [address] 08 Mar, 18 [facility] [address] [place] [address] 08 Mar, 18 [facility] [address] [place] [address] 07 Mar, 18 [facility] [address] [place] [address] 02 Mar, 18 Acute non- recurrent maxillary sinusitis J01.00 [facility] [address] [place] [address] Feb, 18 [facility] [address] [place] [address] Feb, 18 Costochondritis M94.0 and Low thyroid stimulating hormone (TSH) level R79.89 [facility] [address] [place] [address] 30 Feb, 18 [facility] [address] [place] [address] 29 Feb, 20 18 Costochondritis M94.0 [facility] [place] [address] [place] [address] 26 Feb, 20 18 [facility] [place] [address] [place] [address] 24 Feb, 20 18 [facility] [place] [address] [place] [address] 11 Feb, 20 18 [facility] [address] [place] [address] [place] [address] 11 Jan, 18 Tachycardia R00.0 [facility] [place] [address] [place] [address] 03 Jan, 18 [facility] [address] [address] [place] [address] 30 Dec, 18 Palpitation R00.2 and Type 2 diabetes mellitus without complications E11.9 [facility] [address] [place] [address] 15 Dec, 18 [facility] [address] [place] [address] 14 Dec, 18 Type 2 diabetes mellitus with diabetic neuropathy, without long-term current use of insulin E11.40 [facility] [address] [place] [address] 10 Dec, 18 [facility] [place] [address] [place] [address] 06 Dec, 18 [facility] [place] [address] [place] [address] 06 Dec, 18 [facility] [place] [address] [place] [address] 16 Nov, 18 [facility] [place] [address] [place] [address] 11 Nov, 18 [facility] [place] [address] [place] [address] 04 Oct, 18 [facility] [place] [address] [place] [address] 03 October, 18 Medicare annual wellness visit, initial Z00.00 ; Type 2 diabetes mellitus without complication, without long-term current use of insulin E11.9 and Right anterior shoulder pain M25.511 [facility] [place] [address] [place] [address] September, 18 Primary insomnia F51.01 [facility] [address] [place] [address] 30 Aug, 18 Biceps tendonitis on left M75.22 [facility] [address] [place] [address] Aug, 18 [facility] [place] [address] [place] [address] Aug, 18 [facility] [address] [place] [address] Aug, 18 [facility] [address] [place] [address] Aug, 18 Type 2 diabetes mellitus without complications E11.9 ; Pain of left foot M79.672 ; Pain in right foot M79.671 and Chronic gout involving toe without tophus, unspecified cause, unspecified laterality M1A.9XX0 [facility] [address] [place] [address] Jun, 18 [facility] [place] [address] [place] [address] May, 18 [facility] [place] [address] [place] [address] May, 18 [facility] [address] [place] [address] May, 18 [facility] [place] [address] [place] [address] May, 18 Right anterior shoulder pain M25.511 [facility] [address] [place] [address] May, 18 [facility] [place] [address] [place] [address] May, 18 [facility] [place] [address] [place] [address] Apr, 17 Type 2 diabetes mellitus without complications E11.9 ; Costochondritis, acute M94.0 and Tinea pedis of both feet B35.[address] [address] Mar, [address] [address] Mar, [address] [address] Feb, Acute upper respiratory infection, unspecified J06.9 ; Other viral agents as the cause of diseases classified elsewhere B97.89 and Aphthous ulcer of mouth K12.[address] [address] Jan, [address] [address] Jan, Right hip pain M25.[address] [address] Dec, Ingrown nail L60.0 ; Impetigo L01.00 and Irritant contact dermatitis due to plants, except food L24.[address] [address] Dec, [address] [address] Dec, Nail abnormality L60.9 and Ingrown nail of fifth toe of right foot L60.[address] [address] Nov, Type 2 diabetes mellitus without complications E11.[address] [address] Nov, 17 Type 2 diabetes mellitus without complication, without long-term current use of insulin E11.[address] [address] Nov, [address] [address] Nov, [address] [address] Oct, [facility] [address] 16 September, 17 [facility] [address] [place] [address] Aug, 17 Acute idiopathic gout of foot, unspecified laterality M10.[address] [address] Aug, 17 Acute idiopathic gout of foot, unspecified laterality M10.079 and Primary insomnia F51.[address] [address] Jul, [address] [address] Jul, 17 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 [address] 23 Jun, [address] [address] 17 Jun, 17 Acute non- recurrent maxillary sinusitis J01.[address] [address] 16 Jun, 17 Acute non- recurrent frontal sinusitis J01.[address] [address] 15 Jun, [address] [address] 14 Jun, 17 Primary insomnia F51.[address] [address] 07 Jun, 17 Acute non- recurrent maxillary sinusitis J01.00 ; Excessive sweating R61 and 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 [address] 02 Jun, 17 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 [address] May, 17 Type 2 diabetes mellitus without complications E11.9 ; Gout involving toe, unspecified cause, unspecified chronicity, unspecified laterality M10.9 and Primary insomnia F51.01 [facility] [place] [address] [place] [address] 27 Jan, 16 [facility] [place] [address] [place] [address] 14 Jan, 16 [facility] [place] [address] [place] [address] 13 Jan, 16 [facility] [place] [address] [place] [address] 30 Dec, 16 [facility] [place] [address] [place] [address] Dec, 16 [facility] [place] [address] [place] [address] Dec, 16 Sciatica of right side M54.31 and Acute bilateral low back pain without sciatica M54.5 [facility] [place] [address] [place] [address] Dec, 16 Type 2 diabetes mellitus without complications E11.9 [facility] [place] [address] [place] [address] Dec, 16 [facility] [place] [address] [place] [address] Dec, 16 [facility] [place] [address] [place] [address] Dec, 16 Sciatica of right side M54.31 ; Type 2 diabetes mellitus without complication, without long- term current use of insulin E11.9 ; Acute bilateral low back pain without sciatica M54.5 and Neuropathy G62.9 [facility] [place] [address] [place] [address] Dec, 16 Plantar fasciitis, right M72.2 and Sciatica of right side M54.31 [facility] [place] [address] [place] [address] Nov, 16 [facility] [place] [address] [place] [address] Oct, 16 Nail abnormality L60.9 [facility] [address] [place] [address] September, 16 [facility] [place] [address] [place] [address] Aug, 16 [facility] [place] [address] [place] [address] Aug, 16 Vertigo R42 ; Allergic rhinitis, unspecified allergic rhinitis type J30.9 and Anxiety F41.9 [facility] [place] [address] [place] [address] Aug, 16 [facility] [place] [address] [place] [address] Aug, 16 [facility] [place] [address] [place] [address] Aug, 16 [facility] [place] [address] [place] [address] Jul, 16 [facility] [place] [address] [place] [address] Jul, 16 [facility] [place] [address] [place] [address] Jul, 16 [facility] [place] [address] [place] [address] Jul, 16 [facility] [place] [address] [place] [address] Jul, 16 Lymphadenopathy R59.1 ; Type 2 diabetes mellitus without complications E11.9 ; Essential (primary) hypertension I10 and Bipolar disorder, current episode manic without psychotic features, moderate F31.12 [facility] [place] [address] [place] [address] Jun, 16 [facility] [place] [address] [place] [address] Jun, 16 [facility] [place] [address] [place] [address] Jun, 16 [facility] [place] [address] [place] [address] Jun, 16 [facility] [place] [address] [place] [address] May, 16 [facility] [place] [address] [place] [address] 14 May, 16 Lymphadenopathy R59.1 and Pharyngitis, acute J02.[address] [address] 11 May, 16 Pharyngitis, acute J02.9 and Eczema, unspecified type L30.9 [facility] [address] [place] [address] 05 May, 16 [facility] [address] [place] [address] Apr, [address] [address] 21 Apr, 15 Neck strain, initial encounter S16.1XXA and Obstructive sleep apnea syndrome G47.[address] [address] 15 Apr, [address] [address] 07 Apr, [address] [address] 03 Apr, [address] [address] Apr, [address] [address] Mar, [address] [address] 30 Mar, [address] [address] Mar, 15 Primary insomnia F51.[address] [address] 24 Mar, 15 Primary insomnia F51.[address] [address] Mar, 15 Gout, unspecified M10.9 ; Other chronic pain G89.29 and Migraine with aura and without status migrainosus, not intractable G43.[address] [address] Mar, 15 [facility] [place] [address] [place] [address] 22 Feb, 15 Restless legs syndrome G25.81 [facility] [place] [address] [place] [address] 19 Feb, 15 [facility] [place] [address] [place] [address] 16 Feb, 15 Gout, unspecified M10.9 ; Other dorsalgia M54.89 ; Restless legs syndrome G25.81 and Encounter for immunization Z23 [facility] [address] [place] [address] 13 Feb, 15 [facility] [address] [place] [address] 29 Jan, 15 Bilateral foot pain 729.5 ; Type 2 diabetes mellitus without complications E11.9 and Gout 274.9 [facility] [address] [place] [address] 25 Jan, 15 [facility] [address] [place] [address] 24 Jan, 15 DM w/o complication type II 250.00 [facility] [address] [place] [address] 16 Jan, 15 Right hip pain 719.45 [facility] [address] [place] [address] Dec, 15 Insomnia 780.52 [facility] [address] [place] [address] Dec, 15 Dysuria 788.1 and Frequency of urination 788.41 [facility] [address] [place] [address] Dec, 15 [facility] [place] [address] [place] [address] Dec, 15 [facility] [place] [address] [place] [address] Nov, 15 [facility] [address] [place] [address] Nov, 15 [facility] [address] [place] [address] Nov, 15 Neck pain 723.1 [facility] [address] [place] [address] Nov, 15 [facility] [address] [place] [address] Nov, [address] [address] Nov, 15 GERD (gastroesophageal reflux disease) 530.81 ; Hypertension 401.9 ; Bipolar 1 disorder, manic, moderate 296.42 ; Back pain 724.5 and Gout 274.[address] [address] Oct, 15 Dental examination V72.2 [facility] [address] [address] Oct, 15 [facility]72.2 [facility] [address] [address] September, 15 Dental examination V72.2 [facility] [address] [address] Jun, 15 [facility] [address] [facility] [id number] [address] [place] [address] Jun, IMMUNIZATIONS No Known Immunizations SOCIAL HISTORY Never Assessed REASON FOR VISIT Requests return call PLAN OF CARE VITAL SIGNS MEDICATIONS Unknown [...]
--- OUTSIDE RECORDS SUMMARY | 2019-09-27 09:07 | XMS REPORT ---
Author Author Henri SINGH Organization [facility] [address] Address [address] [place] [address] Care Team Providers Care Business Process Modeler Name Role Phone SAAMNTHAZORAIDA Unavailable PROBLEMS Type Condition ICD9-CM Code [id number] Code Onset Dates Condition S tatus SNOMED Code Problem Type 2 diabetes mellitus wit h diabetic neuropathy, without long-term current use of insulin E11.40 Active 41428 006 Problem Type 2 diabetes mellitus wit hout complication, without long-term current use of insulin E11.9 Active 081521210 Problem Primary insomnia F51.01 Active 397 2004 Problem Type 2 diabetes mellitus without complications E11 .9 Active [id number] ALLERGIES No Information ENCOUNTERS Encounter Location Date Diagnosis [facility] [address] [place] [phone] 07 Mar, 18 [facility] [address] [place] [phone] 31 Feb, 20 18 [facility] [address] [place] [phone] 29 Feb, 18 [facility] [address] [address] [place] [phone] 26 Feb, 20 18 [facility] [place] [address] [place] [address] 24 Feb, 20 18 [facility] [address] [place] [phone] 11 Feb, 20 18 [facility] [address] [place] [address] 11 Jan, 18 Tachycardia R00.0 [facility] [place] [address] [place] [address] 03 Jan, 18 [facility] [address] [place] [address] 30 Dec, 20 18 Palpitation R00.2 and Type 2 diabetes mellitus without complications E11.9 [facility] [address] [place] [address] 15 Dec, 18 [facility] [address] [place] [address] 14 Dec, 18 Type 2 diabetes mellitus with diabetic neuropathy, without long-term current use of insulin E11.40 [facility] [address] [place] [address] 10 Dec, 18 [facility] [address] [address] [place] [address] Dec, 18 [facility] [place] [address] [place] [address] Dec, 18 [facility] [place] [address] [place] [address] Nov, 18 [facility] [place] [address] [place] [address] Nov, 18 [facility] [place] [address] [place] [address] Oct, 18 [facility] [place] [address] [place] [phone] 03 October, 18 Medicare annual wellness visit, initial Z00.00 ; Type 2 diabetes mellitus without complication, without long-term current use of insulin E11.9 and Right anterior shoulder pain M25.511 [facility] [address] [address] [place] [address] 07 September, 18 Primary insomnia F51.01 [facility] [place] [address] [place] [address] 30 Aug, 18 Biceps tendonitis on left M75.22 [facility] [place] [address] [place] [address] 25 Aug, 18 [facility] [place] [address] [place] [address] Aug, 18 [facility] [place] [address] [place] [address] 13 Aug, 18 [facility] [place] [address] [place] [address] 05 Aug, 18 Type 2 diabetes mellitus without complications E11.9 ; Pain of left foot M79.672 ; Pain in right foot M79.671 and Chronic gout involving toe without tophus, unspecified cause, unspecified laterality M1A.9XX0 [facility] [address] [place] [address] 08 Jun, 18 [facility] [address] [address] May, [address] [address] May, 18 [facility] [address] [place] [address] May, [address] [address] May, 18 Right anterior shoulder pain M25.[address] [address] May, [address] [address] May, [address] [address] Apr, 17 Type 2 diabetes mellitus without complications E11.9 ; Costochondritis, acute M94.0 and Tinea pedis of both feet B35.[address] [address] 09 Mar, [address] [address] Mar, [address] [address] Feb, 17 Acute upper respiratory infection, unspecified J06.9 ; Other viral agents as the cause of diseases classified elsewhere B97.89 and Aphthous ulcer of mouth K12.[address] [address] Jan, [address] [address] Jan, 17 Right hip pain M25.[address] [address] Dec, Ingrown nail L60.0 ; Impetigo L01.00 and Irritant contact dermatitis due to plants, except food L24.7 [facility] [address] [place] [address] Dec, 17 [facility] [address] [address] Dec, Nail abnormality L60.9 and Ingrown nail of fifth toe of right foot L60.0 [facility] [address] [place] [address] Nov, Type 2 diabetes mellitus without complications E11.9 [facility] [address] [address] Nov, Type 2 diabetes mellitus without complication, without long-term current use of insulin E11.[address] [address] Nov, 17 [facility] [address] [address] Nov, 17 [facility] [address] [address] Oct, [address] [address] September, 17 [facility] [address] [address] Aug, 17 Acute idiopathic gout of foot, unspecified laterality M10.[address] [address] Aug, 17 Acute idiopathic gout of foot, unspecified laterality M10.079 and Primary insomnia F51.[address] [address] Jul, 17 [facility] [address] [address] Jul, 17 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 [address] Jun, 17 [address] [place] [address] 17 Jun, 17 Acute non- recurrent maxillary sinusitis J01.00 [facility] [address] [place] [address] 16 Jun, 17 Acute non- recurrent frontal sinusitis J01.10 [facility] [address] [place] [address] 15 Jun, 17 [facility] [address] [place] [address] 14 Jun, 17 Primary insomnia F51.01 [facility] [address] [place] [address] 07 Jun, 17 Acute non- recurrent maxillary sinusitis J01.00 ; Excessive sweating R61 and 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 [facility] [address] [place] [address] 02 Jun, 17 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 [address] May, 17 Type 2 diabetes mellitus without complications E11.9 ; Gout involving toe, unspecified cause, unspecified chronicity, unspecified laterality M10.9 and Primary insomnia F51.01 [facility] [address] [address] 27 Jan, 16 [facility] [address] [place] [address] 14 Jan, 16 [facility] [address] [place] [address] 13 Jan, 16 [facility] [address] [place] [address] 30 Dec, 16 [facility] [address] [address] Dec, 16 [facility] [address] [address] [place] [address] 25 Dec, 16 Sciatica of right side M54.31 and Acute bilateral low back pain without sciatica M54.5 [facility] [address] [place] [address] Dec, 16 Type 2 diabetes mellitus without complications E11.9 [facility] [place] [address] [place] [address] Dec, 16 [facility] [place] [address] [place] [address] Dec, 16 [facility] [place] [address] [place] [address] Dec, 16 Sciatica of right side M54.31 ; Type 2 diabetes mellitus without complication, without long- term current use of insulin E11.9 ; Acute bilateral low back pain without sciatica M54.5 and Neuropathy G62.9 [facility] [address] [place] [address] Dec, 16 Plantar fasciitis, right M72.2 and Sciatica of right side M54.31 [facility] [place] [address] [place] [address] Nov, 16 [facility] [place] [address] [place] [address] Oct, 16 Nail abnormality L60.9 [facility] [address] [place] [address] September, 16 [facility] [place] [address] [place] [address] Aug, 16 [facility] [place] [address] [place] [address] Aug, 16 Vertigo R42 ; Allergic rhinitis, unspecified allergic rhinitis type J30.9 and Anxiety F41.9 [facility] [place] [address] [place] [address] Aug, 16 [facility] [place] [address] [place] [address] Aug, 16 [facility] [place] [address] [place] [address] Aug, 16 [facility] [place] [address] [place] [address] Jul, 16 [facility] [place] [address] [place] [address] Jul, 16 [facility] [address] [place] [address] Jul, [address] [facility] [address] [place] [address] Jul, 16 [facility] [address] [address] Jul, 16 Lymphadenopathy R59.1 ; Type 2 diabetes mellitus without complications E11.9 ; Essential (primary) hypertension I10 and Bipolar disorder, current episode manic without psychotic features, moderate F31.12 [facility] [address] [place] [address] 18 Jun, 16 [facility] [address] [address] [place] [address] Jun, 16 [facility] [address] [address] Jun, 16 [facility] [address] [address] [place] [address] Jun, [address] [facility] [address] [address] May, 16 [facility] [address] [address] [place] [address] May, 16 Lymphadenopathy R59.1 and Pharyngitis, acute J02.[address] [address] May, 16 Pharyngitis, acute J02.9 and Eczema, unspecified type L30.9 [facility] [address] [address] [place] [address] May, [address] [facility] [address] [address] Apr, 15 [facility] [address] [address] Apr, 15 Neck strain, initial encounter S16.1XXA and Obstructive sleep apnea syndrome G47.[address] [address] Apr, 15 [facility] [address] [place] [address] 07 Apr, [address] [facility] [place] [address] [place] [address] 03 Apr, [address] [facility] [place] [address] [place] [address] Apr, [address] [facility] [place] [address] [place] [address] Mar, 15 [facility] [address] [address] [place] [address] Mar, [address] [facility] [place] [address] [place] [address] Mar, 15 Primary insomnia F51.01 [facility] [address] [place] [address] 24 Mar, 15 Primary insomnia F51.01 [facility] [address] [address] Mar, 15 Gout, unspecified M10.9 ; Other chronic pain G89.29 and Migraine with aura and without status migrainosus, not intractable G43.109 [facility] [place] [address] [place] [address] 04 Mar, 15 [facility] [address] [address] 22 Feb, 15 Restless legs syndrome G25.[address] [address] 19 Feb, 15 [facility] [address] [address] 16 Feb, 20 15 Gout, unspecified M10.9 ; Other dorsalgia M54.89 ; Restless legs syndrome G25.81 and Encounter for immunization Z23 [facility] [address] [place] [address] 13 Feb, 15 [facility] [place] [address] [place] [address] 29 Jan, 20 15 Bilateral foot pain 729.5 ; Type 2 diabetes mellitus without complications E11.9 and Gout 274.9 [facility] [address] [place] [address] 25 Jan, 15 [facility] [address] [address] [place] [address] 24 Jan, 15 DM w/o complication type II 250.[address] [facility] [place] [address] [place] [address] 16 Jan, 15 Right hip pain 719.45 [facility] [address] [place] [address] Dec, 15 Insomnia 780.52 [facility] [address] [address] Dec, 15 Dysuria 788.1 and Frequency of urination 788.41 [facility] [address] [address] Dec, 15 [facility] [address] [address] Dec, [address] [address] Nov, [address] [address] Nov, [address] [address] 16 Nov, 15 Neck pain 723.1 [facility] [address] [address] Nov, 15 [facility] [address] [address] Nov, [address] [address] Nov, 15 GERD (gastroesophageal reflux disease) 530.81 ; Hypertension 401.9 ; Bipolar 1 disorder, manic, moderate 296.42 ; Back pain 724.5 and Gout 274.9 [facility] [address] [address] Oct, 15 Dental examination V72.2 [facility] [address] [address] Oct, 15 Dental examination V72.2 [facility] [address] [place] [address] September, 15 Dental examination V72.2 [facility] [place] [address] [place] [address] Jun, 15 [facility] [address] [facility] [id number] [place] [address] Jun, IMMUNIZATIONS No Known Immunizations SOCIAL HISTORY Never Assessed REASON FOR VISIT do need to figure out something on my [place] PLAN OF CARE VITAL SIGNS MEDICATIONS Unknown [...]
--- OUTSIDE RECORDS SUMMARY | 2019-09-27 09:08 | XMS REPORT ---
Author Author Henri SINGH Organization [facility] [address] [place] [address] Care Team Providers Care Nurse Private Duty Name Role Phone SAMANTHA ZORAIDA Unavailable PROBLEMS Type Condition ICD9-CM Code CUE62-XM Code Onset Dates Condition S tatus SNOMED Code Problem Type 2 diabetes mellitus wit h diabetic neuropathy, without long-term current use of insulin E11.40 Active 15461 006 Problem Type 2 diabetes mellitus wit hout complication, without long-term current use of insulin E11.9 Active [id number] Problem Primary insomnia F51.01 Active 397 2004 Problem Type 2 diabetes mellitus without complications E11 .9 Active [id number] ALLERGIES No Information ENCOUNTERS Encounter Location Date Diagnosis [facility] [address] [place] [address] 11 Jan, 18 Tachycardia R00.0 [facility] [address] [address] [place] [address] 03 Jan, 18 [facility] [address] [place] [address] 30 Dec, 18 Palpitation R00.2 and Type 2 diabetes mellitus without complications E11.9 [facility] [address] [place] [address] 15 Dec, 18 [facility] [address] [place] [address] 14 Dec, 18 Type 2 diabetes mellitus with diabetic neuropathy, without long-term current use of insulin E11.40 [facility] [address] [place] [address] 10 Dec, 18 [facility] [place] [address] [place] [address] 06 Dec, 18 [facility] [place] [address] [place] [address] 06 Dec, 18 [facility] [place] [address] [place] [address] Nov, 18 [facility] [place] [address] [place] [address] Nov, 18 [facility] [address] [address] [place] [address] Oct, 18 [facility] [place] [address] [place] [address] 03 October, 18 Medicare annual wellness visit, initial Z00.00 ; Type 2 diabetes mellitus without complication, without long-term current use of insulin E11.9 and Right anterior shoulder pain M25.511 [facility] [address] [place] [address] September, 18 Primary insomnia F51.01 [facility] [address] [place] [address] Aug, 18 Biceps tendonitis on left M75.22 [facility] [place] [address] [place] [address] Aug, 18 [facility] [place] [address] [place] [address] Aug, 18 [facility] [place] [address] [place] [address] Aug, 18 [facility] [place] [address] [place] [address] Aug, 18 Type 2 diabetes mellitus without complications E11.9 ; Pain of left foot M79.672 ; Pain in right foot M79.671 and Chronic gout involving toe without tophus, unspecified cause, unspecified laterality M1A.9XX0 [facility] [place] [address] [place] [address] Jun, 18 [facility] [place] [address] [place] [address] May, 18 [facility] [place] [address] [place] [address] May, 18 [facility] [place] [address] [place] [address] May, 18 [facility] [place] [address] [place] [address] 15 May, 18 Right anterior shoulder pain M25.511 [facility] [address] [place] [address] May, 18 [facility] [address] [place] [address] May, 18 [facility] [address] [place] [address] Apr, Type 2 diabetes mellitus without complications E11.9 ; Costochondritis, acute M94.0 and Tinea pedis of both feet B35.3 [facility] [address] [place] [address] 09 Mar, [facility] [address] [address] Mar, [facility] [address] [address] Feb, Acute upper respiratory infection, unspecified J06.9 ; Other viral agents as the cause of diseases classified elsewhere B97.89 and Aphthous ulcer of mouth K12.0 [facility] [address] [place] [address] Jan, [address] [address] Jan, 17 Right hip pain M25.551 [facility] [address] [address] Dec, 17 Ingrown nail L60.0 ; Impetigo L01.00 and Irritant contact dermatitis due to plants, except food L24.7 [facility] [address] [place] [address] Dec, [address] [address] Dec, 17 Nail abnormality L60.9 and Ingrown nail of fifth toe of right foot L60.0 [facility] [address] [address] Nov, 17 Type 2 diabetes mellitus without complications E11.9 [place] [place] [address] 17 Nov, 17 Type 2 diabetes mellitus without complication, without long-term current use of insulin E11.9 [facility] [address] [place] [address] 12 Nov, 17 [facility] [address] [place] [address] Nov, [address] [address] Oct, 17 [facility] [address] [place] [address] September, 17 [facility] [address] [address] Aug, 17 Acute idiopathic gout of foot, unspecified laterality M10.079 [facility] [address] [address] [address] Aug, 17 Acute idiopathic gout of foot, unspecified laterality M10.079 and Primary insomnia F51.01 [facility] [address] [address] Jul, [address] [address] Jul, 17 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 [address] 23 Jun, [address] [address] 17 Jun, 17 Acute non- recurrent maxillary sinusitis J01.00 [facility] [address] [address] 16 Jun, 17 Acute non- recurrent frontal sinusitis J01.[address] [address] 15 Jun, [address] [address] 14 Jun, 17 Primary insomnia F51.01 [facility] [address] [address] 07 Jun, 17 Acute non- recurrent maxillary sinusitis J01.00 ; Excessive sweating R61 and 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 [facility] [address] [place] [address] 02 Jun, 17 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 [facility] [address] [address] May, 17 Type 2 diabetes mellitus without complications E11.9 ; Gout involving toe, unspecified cause, unspecified chronicity, unspecified laterality M10.9 and Primary insomnia F51.01 [facility] [address] [place] [address] 27 Jan, 16 [facility] [place] [place] [address] 14 Jan, 16 [facility] [address] [address] [place] [address] 13 Jan, 16 [facility] [address] [place] [address] 30 Dec, 16 [facility] [place] [address] [place] [address] Dec, [address] [address] Dec, 16 Sciatica of right side M54.31 and Acute bilateral low back pain without sciatica M54.5 [facility] [address] [place] [address] Dec, 16 Type 2 diabetes mellitus without complications E11.9 [facility] [place] [address] [place] [address] Dec, 16 [facility] [place] [address] [place] [address] Dec, 16 [facility] [place] [address] [place] [address] Dec, 16 Sciatica of right side M54.31 ; Type 2 diabetes mellitus without complication, without long- term current use of insulin E11.9 ; Acute bilateral low back pain without sciatica M54.5 and Neuropathy G62.9 [facility] [address] [place] [address] Dec, 16 Plantar fasciitis, right M72.2 and Sciatica of right side M54.31 [facility] [place] [address] [place] [address] Nov, 16 [facility] [place] [address] [place] [address] Oct, 16 Nail abnormality L60.9 [facility] [place] [address] [place] [address] September, 16 [facility] [place] [address] [place] [address] Aug, 16 [facility] [place] [address] [place] [address] Aug, 16 Vertigo R42 ; Allergic rhinitis, unspecified allergic rhinitis type J30.9 and Anxiety F41.9 [facility] [place] [place] [address] Aug, 16 [facility] [place] [address] [place] [address] Aug, 16 [facility] [place] [address] [place] [address] Aug, 16 [facility] [place] [address] [place] [address] Jul, 16 [facility] [place] [address] [place] [address] Jul, 16 [facility] [place] [address] [place] [address] Jul, 16 [facility] [place] [address] [place] [address] Jul, 16 [facility] [place] [address] [place] [address] Jul, 16 Lymphadenopathy R59.1 ; Type 2 diabetes mellitus without complications E11.9 ; Essential (primary) hypertension I10 and Bipolar disorder, current episode manic without psychotic features, moderate F31.12 [facility] [place] [address] [place] [address] Jun, 16 [facility] [place] [address] [place] [address] 15 Jun, 16 [facility] [place] [address] [place] [address] Jun, 16 [facility] [place] [address] [place] [address] Jun, 16 [facility] [place] [address] [place] [address] May, 16 [facility] [place] [address] [place] [address] 14 May, 16 Lymphadenopathy R59.1 and Pharyngitis, acute J02.9 [facility] [address] [place] [address] May, 16 Pharyngitis, acute J02.9 and Eczema, unspecified type L30.9 [facility] [place] [address] [place] [address] May, 16 [facility] [place] [address] [place] [address] Apr, 15 [facility] [place] [address] [place] [address] Apr, 15 Neck strain, initial encounter S16.1XXA and Obstructive sleep apnea syndrome G47.33 [facility] [address] [place] [address] Apr, 15 [facility] [place] [address] [place] [address] Apr, 15 [facility] [place] [address] [place] [address] Apr, 15 [facility] [place] [address] [place] [address] Apr, 15 [facility] [place] [address] [place] [address] Mar, 15 [facility] [place] [address] [place] [address] Mar, 15 [facility] [place] [address] [place] [address] Mar, 15 Primary insomnia F51.01 [facility] [address] [place] [address] 24 Mar, 15 Primary insomnia F51.[address] [address] Mar, 15 Gout, unspecified M10.9 ; Other chronic pain G89.29 and Migraine with aura and without status migrainosus, not intractable G43.[address] [address] Mar, 15 [facility] [address] [address] Feb, 15 Restless legs syndrome G25.[address] [address] Feb, [address] [address] Feb, 15 Gout, unspecified M10.9 ; Other dorsalgia M54.89 ; Restless legs syndrome G25.81 and Encounter for immunization Z23 [address] [address] Feb, [address] [address] Jan, 15 Bilateral foot pain 729.5 ; Type 2 diabetes mellitus without complications E11.9 and Gout 274.[address] [address] Jan, [address] [address] Jan, 15 DM w/o complication type II 250.[address] [address] 16 Jan, 15 Right hip pain 719.[address] [address] Dec, 15 Insomnia [address] [address] 19 Dec, 15 Dysuria 788.1 and Frequency of urination 788.41 [facility] [address] [place] [address] Dec, 15 [facility] [address] [place] [address] Dec, 15 [facility]E [address] [place] [address] Nov, 15 [facility] [address] [place] [address] Nov, 15 [facility] [address] [address] Nov, 15 Neck pain 723.1 [facility] [address] [place] [address] Nov, 15 [facility] [address] [address] Nov, 15 [facility] [address] [address] Nov, 15 GERD (gastroesophageal reflux disease) 530.81 ; Hypertension 401.9 ; Bipolar 1 disorder, manic, moderate 296.42 ; Back pain 724.5 and Gout 274.[address] [address] Oct, 15 Dental examination V72.[address] [address] Oct, 15 Dental examination V72.[address] [address] September, 15 Dental examination V72.[address] [address] Jun, 15 [facility] [address] [facility] [id number] [address] [place] [address] Jun, IMMUNIZATIONS No Known Immunizations SOCIAL HISTORY Never Assessed REASON FOR VISIT diabetic shoes PLAN OF CARE VITAL SIGNS MEDICATIONS Unknown [...]
--- OUTSIDE RECORDS SUMMARY | 2019-09-27 09:08 | XMS REPORT ---
Author Author Henri SINGH Organization [facility] [address] Address [address] [place] [address] Care Team Providers Care Professor Of German Name Role Phone SAMANTHA ZORAIDA Unavailable PROBLEMS Type Condition ICD9-CM Code PLC09-KK Code Onset Dates Condition S tatus SNOMED Code Problem Type 2 diabetes mellitus wit h diabetic neuropathy, without long-term current use of insulin E11.40 Active 26651 006 Problem Type 2 diabetes mellitus wit hout complication, without long-term current use of insulin E11.9 Active [id number] Problem Primary insomnia F51.01 Active 397 2004 Problem Type 2 diabetes mellitus without complications E11 .9 Active [id number] ALLERGIES No Information ENCOUNTERS Encounter Location Date Diagnosis [facility] [address] [place] [address] 11 Jan, 18 Tachycardia R00.0 [facility] [address] [place] [address] 03 Jan, 18 [facility] [address] [place] [address] 30 Dec, 18 Palpitation R00.2 and Type 2 diabetes mellitus without complications E11.9 [facility] [address] [place] [address] 15 Dec, 18 [facility] [address] [place] [address] 14 Dec, 18 Type 2 diabetes mellitus with diabetic neuropathy, without long-term current use of insulin E11.40 [facility] [address] [place] [address] 10 Dec, 18 [facility] [address] [place] [address] 06 Dec, 18 [facility] [address] [place] [address] 06 Dec, 18 [facility] [address] [place] [address] Nov, 18 [facility] [address] [place] [address] Nov, 18 [facility] [address] [place] [address] Oct, 18 [facility] [address] [place] [address] 03 October, 18 Medicare annual wellness visit, initial Z00.00 ; Type 2 diabetes mellitus without complication, without long-term current use of insulin E11.9 and Right anterior shoulder pain M25.511 [facility] [address] [place] [address] September, 18 Primary insomnia F51.01 [facility] [address] [place] [address] Aug, 18 Biceps tendonitis on left M75.22 [facility] [address] [place] [address] Aug, 18 [facility] [address] [place] [address] Aug, 18 [facility] [address] [place] [address] Aug, 18 [facility] [address] [place] [address] Aug, 18 Type 2 diabetes mellitus without complications E11.9 ; Pain of left foot M79.672 ; Pain in right foot M79.671 and Chronic gout involving toe without tophus, unspecified cause, unspecified laterality M1A.9XX0 [facility] [address] [place] [address] Jun, 18 [facility] [address] [place] [address] May, 18 [facility] [address] [place] [address] May, 18 [facility] [address] [place] [address] May, 18 [facility] [address] [place] [address] 15 May, 18 Right anterior shoulder pain M25.511 [facility] [address] [address] [place] [address] May, 18 [facility] [address] [place] [address] May, 18 [facility] [address] [address] [place] [address] Apr, Type 2 diabetes mellitus without complications E11.9 ; Costochondritis, acute M94.0 and Tinea pedis of both feet B35.3 [facility] [address] [place] [address] 09 Mar, [facility] [address] [address] Mar, [facility] [address] [address] Feb, Acute upper respiratory infection, unspecified J06.9 ; Other viral agents as the cause of diseases classified elsewhere B97.89 and Aphthous ulcer of mouth K12.0 [facility] [address] [place] [address] Jan, [address] [address] Jan, 17 Right hip pain M25.551 [facility] [address] [address] Dec, 17 Ingrown nail L60.0 ; Impetigo L01.00 and Irritant contact dermatitis due to plants, except food L24.7 [facility] [address] [place] [address] Dec, [address] [address] Dec, 17 Nail abnormality L60.9 and Ingrown nail of fifth toe of right foot L60.0 [facility] [address] [address] Nov, 17 Type 2 diabetes mellitus without complications E11.9 [address] [place] [address] 17 Nov, 17 Type 2 diabetes mellitus without complication, without long-term current use of insulin E11.9 [facility] [address] [place] [address] 12 Nov, 17 [facility] [address] [place] [address] Nov, [address] [address] Oct, 17 [facility] [address] [place] [address] September, 17 [facility] [address] [address] Aug, 17 Acute idiopathic gout of foot, unspecified laterality M10.079 [facility] [address] [address] Aug, 17 Acute idiopathic gout of foot, unspecified laterality M10.079 and Primary insomnia F51.01 [facility] [address] [address] Jul, [address] [address] [address] Jul, 17 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 [facility] [address] [address] 23 Jun, [address] [address] 17 Jun, 17 Acute non- recurrent maxillary sinusitis J01.00 [facility] [address] [address] 16 Jun, 17 Acute non- recurrent frontal sinusitis J01.[address] [address] [address] 15 Jun, [address] [address] 14 Jun, 17 Primary insomnia F51.01 [facility] [address] [address] 07 Jun, 17 Acute non- recurrent maxillary sinusitis J01.00 ; Excessive sweating R61 and 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 [facility] [address] [place] [address] 02 Jun, 17 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 [facility] [address] [address] May, 17 Type 2 diabetes mellitus without complications E11.9 ; Gout involving toe, unspecified cause, unspecified chronicity, unspecified laterality M10.9 and Primary insomnia F51.01 [facility] [address] [place] [address] 27 Jan, 16 [facility] [place] [address] 14 Jan, 16 [facility] [address] [place] [address] 13 Jan, 16 [facility] [address] [place] [address] 30 Dec, 16 [facility] [address] [place] [address] Dec, [address] [address] [address] Dec, 16 Sciatica of right side M54.31 and Acute bilateral low back pain without sciatica M54.5 [facility] [address] [place] [address] Dec, 16 Type 2 diabetes mellitus without complications E11.9 [facility] [address] [place] [address] Dec, 16 [facility] [address] [place] [address] Dec, 16 [facility] [address] [place] [address] Dec, 16 Sciatica of right side M54.31 ; Type 2 diabetes mellitus without complication, without long- term current use of insulin E11.9 ; Acute bilateral low back pain without sciatica M54.5 and Neuropathy G62.9 [facility] [address] [place] [address] Dec, 16 Plantar fasciitis, right M72.2 and Sciatica of right side M54.31 [facility] [place] [address] [place] [address] Nov, 16 [facility] [address] [address] [place] [address] Oct, 16 Nail abnormality L60.9 [facility] [place] [address] [place] [address] September, 16 [facility] [address] [place] [address] Aug, 16 [facility] [address] [place] [address] Aug, 16 Vertigo R42 ; Allergic rhinitis, unspecified allergic rhinitis type J30.9 and Anxiety F41.9 [facility] [address] [place] [address] Aug, 16 [facility] [address] [place] [address] Aug, 16 [facility] [address] [address] [place] [address] Aug, 16 [facility] [address] [place] [address] Jul, 16 [facility] [address] [address] [place] [address] Jul, 16 [facility] [address] [place] [address] Jul, 16 [facility] [address] [place] [address] Jul, 16 [facility] [address] [place] [address] Jul, 16 Lymphadenopathy R59.1 ; Type 2 diabetes mellitus without complications E11.9 ; Essential (primary) hypertension I10 and Bipolar disorder, current episode manic without psychotic features, moderate F31.12 [facility] [address] [place] [address] Jun, 16 [facility] [address] [place] [address] 15 Jun, 16 [facility] [address] [place] [address] Jun, 16 [facility] [address] [place] [address] Jun, 16 [facility] [address] [place] [address] May, 16 [facility] [address] [place] [address] 14 May, 16 Lymphadenopathy R59.1 and Pharyngitis, acute J02.9 [facility] [address] [place] [address] May, 16 Pharyngitis, acute J02.9 and Eczema, unspecified type L30.9 [facility] [address] [place] [address] May, 16 [facility] [address] [place] [address] Apr, 15 [facility] [address] [place] [address] Apr, 15 Neck strain, initial encounter S16.1XXA and Obstructive sleep apnea syndrome G47.33 [facility] [address] [place] [address] Apr, 15 [facility] [address] [place] [address] Apr, 15 [facility] [address] [place] [address] Apr, 15 [facility] [address] [place] [address] Apr, 15 [facility] [address] [place] [address] Mar, 15 [facility] [address] [place] [address] Mar, 15 [facility] [address] [place] [address] Mar, 15 Primary insomnia F51.01 [facility] [address] [address] [place] [address] 24 Mar, 15 Primary insomnia F51.[address] [address] Mar, 15 Gout, unspecified M10.9 ; Other chronic pain G89.29 and Migraine with aura and without status migrainosus, not intractable G43.[address] [address] Mar, 15 [facility] [address] [address] Feb, 15 Restless legs syndrome G25.[address] [address] Feb, [address] [address] Feb, 15 Gout, unspecified M10.9 ; Other dorsalgia M54.89 ; Restless legs syndrome G25.81 and Encounter for immunization Z23 [address] [address] Feb, [address] [address] Jan, 15 Bilateral foot pain 729.5 ; Type 2 diabetes mellitus without complications E11.9 and Gout 274.[address] [address] Jan, [address] [address] Jan, 15 DM w/o complication type II 250.[address] [address] 16 Jan, 15 Right hip pain 719.[address] [address] Dec, 15 Insomnia [address] [address] 19 Dec, 15 Dysuria 788.1 and Frequency of urination 788.41 [facility] [address] [place] [address] Dec, 15 [facility] [address] [place] [address] Dec, 15 [facility] [address] [place] [address] Nov, 15 [facility] [address] [place] [address] Nov, 15 [facility] [address] [address] Nov, 15 Neck pain 723.1 [facility] [address] [place] [address] Nov, [address] [address] Nov, 15 [facility] [address] [address] Nov, 15 GERD (gastroesophageal reflux disease) 530.81 ; Hypertension 401.9 ; Bipolar 1 disorder, manic, moderate 296.42 ; Back pain 724.5 and Gout 274.9 [facility] [address] [address] Oct, 15 Dental examination V72.[address] [address] Oct, 15 Dental examination V72.[address] [address] September, 15 Dental examination V72.[address] [address] Jun, 15 [facility] [address] [facility] [id number] [place] [address] Jun, IMMUNIZATIONS No Known Immunizations SOCIAL HISTORY [...]
--- OUTSIDE RECORDS SUMMARY | 2019-09-27 09:08 | XMS REPORT ---
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 Name Role Phone SAMANTHA ZORAIDA Unavailable PROBLEMS Type Condition ICD9-CM Code IAT17-GS Code Onset Dates Condition S tatus SNOMED Code Problem Type 2 diabetes mellitus wit h diabetic neuropathy, without long-term current use of insulin E11.40 Active 38900 006 Problem Type 2 diabetes mellitus wit hout complication, without long-term current use of insulin E11.9 Active [id number] Problem Primary insomnia F51.01 Active 397 2004 Problem Type 2 diabetes mellitus without complications E11 .9 Active [id number] ALLERGIES No Information ENCOUNTERS Encounter Location Date Diagnosis [facility] [address] [place] [address] 11 Jan, 18 Tachycardia R00.0 [facility] [address] [place] [address] 03 Jan, 18 [facility] [address] [place] [address] 30 Dec, 18 Palpitation R00.2 and Type 2 diabetes mellitus without complications E11.9 [facility] [address] [place] [address] 15 Dec, 18 [facility] [address] [place] [address] 14 Dec, 18 Type 2 diabetes mellitus with diabetic neuropathy, without long-term current use of insulin E11.40 [facility] [address] [place] [address] 10 Dec, 18 [facility] [place] [address] [place] [address] 06 Dec, 18 [facility] [place] [address] [place] [address] 06 Dec, 18 [facility] [place] [address] [place] [address] Nov, 18 [facility] [place] [address] [place] [address] Nov, 18 [facility] [place] [address] [place] [address] Oct, 18 [facility] [place] [address] [place] [address] 03 October, 18 Medicare annual wellness visit, initial Z00.00 ; Type 2 diabetes mellitus without complication, without long-term current use of insulin E11.9 and Right anterior shoulder pain M25.511 [facility] [address] [place] [address] September, 18 Primary insomnia F51.01 [facility] [address] [place] [address] Aug, 18 Biceps tendonitis on left M75.22 [facility] [address] [place] [address] Aug, 18 [facility] [place] [address] [place] [address] Aug, 18 [facility] [place] [address] [place] [address] Aug, 18 [facility] [place] [address] [place] [address] Aug, 18 Type 2 diabetes mellitus without complications E11.9 ; Pain of left foot M79.672 ; Pain in right foot M79.671 and Chronic gout involving toe without tophus, unspecified cause, unspecified laterality M1A.9XX0 [facility] [place] [address] [place] [address] Jun, 18 [facility] [place] [address] [place] [address] May, 18 [facility] [place] [address] [place] [address] May, 18 [facility] [place] [address] [place] [address] May, 18 [facility] [place] [address] [place] [address] 15 May, 18 Right anterior shoulder pain M25.511 [facility] [address] [place] [address] May, 18 [facility] [address] [place] [address] May, 18 [facility] [address] [place] [address] Apr, Type 2 diabetes mellitus without complications E11.9 ; Costochondritis, acute M94.0 and Tinea pedis of both feet B35.3 [facility] [address] [place] [address] 09 Mar, [facility] [address] [address] Mar, [facility] [address] [address] Feb, Acute upper respiratory infection, unspecified J06.9 ; Other viral agents as the cause of diseases classified elsewhere B97.89 and Aphthous ulcer of mouth K12.0 [facility] [address] [place] [address] Jan, [address] [address] Jan, 17 Right hip pain M25.551 [facility] [address] [address] Dec, 17 Ingrown nail L60.0 ; Impetigo L01.00 and Irritant contact dermatitis due to plants, except food L24.7 [facility] [address] [place] [address] Dec, [address] [address] Dec, 17 Nail abnormality L60.9 and Ingrown nail of fifth toe of right foot L60.0 [facility] [address] [address] Nov, 17 Type 2 diabetes mellitus without complications E11.9 [place] [place] [address] 17 Nov, 17 Type 2 diabetes mellitus without complication, without long-term current use of insulin E11.9 [facility] [address] [place] [address] 12 Nov, 17 [facility] [address] [place] [address] Nov, [address] [address] Oct, 17 [facility] [address] [place] [address] September, 17 [facility] [address] [address] Aug, 17 Acute idiopathic gout of foot, unspecified laterality M10.079 Maria EGLAD[facility] [address] [address] Aug, 17 Acute idiopathic gout of foot, unspecified laterality M10.079 and Primary insomnia F51.01 [facility] [address] [address] Jul, [address] [address] [address] Jul, 17 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 [facility] [address] [address] 23 Jun, [address] [address] 17 Jun, 17 Acute non- recurrent maxillary sinusitis J01.00 [facility] [address] [address] 16 Jun, 17 Acute non- recurrent frontal sinusitis J01.[address] [address] 15 Jun, [address] [address] 14 Jun, 17 Primary insomnia F51.01 [facility] [address] [address] 07 Jun, 17 Acute non- recurrent maxillary sinusitis J01.00 ; Excessive sweating R61 and 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 [facility] [address] [place] [address] 02 Jun, 17 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 [facility] [address] [address] May, 17 Type 2 diabetes mellitus without complications E11.9 ; Gout involving toe, unspecified cause, unspecified chronicity, unspecified laterality M10.9 and Primary insomnia F51.01 [facility] [address] [place] [address] 27 Jan, 16 [facility] [address] [place] [address] 14 Jan, 16 [facility] [address] [place] [address] 13 Jan, 16 [facility] [address] [place] [address] 30 Dec, 16 [facility] [place] [address] [place] [address] Dec, [address] [address] Dec, 16 Sciatica of right side M54.31 and Acute bilateral low back pain without sciatica M54.5 [facility] [address] [place] [address] Dec, 16 Type 2 diabetes mellitus without complications E11.9 [facility] [address] [place] [address] Dec, 16 [facility] [place] [address] [place] [address] Dec, 16 [facility] [place] [address] [place] [address] Dec, 16 Sciatica of right side M54.31 ; Type 2 diabetes mellitus without complication, without long- term current use of insulin E11.9 ; Acute bilateral low back pain without sciatica M54.5 and Neuropathy G62.9 [facility] [address] [place] [address] Dec, 16 Plantar fasciitis, right M72.2 and Sciatica of right side M54.31 [facility] [place] [address] [place] [address] Nov, 16 [facility] [place] [address] [place] [address] Oct, 16 Nail abnormality L60.9 [facility] [place] [address] [place] [address] September, 16 [facility] [place] [address] [place] [address] Aug, 16 [facility] [place] [address] [place] [address] Aug, 16 Vertigo R42 ; Allergic rhinitis, unspecified allergic rhinitis type J30.9 and Anxiety F41.9 [facility] [address] [place] [address] Aug, 16 [facility] [place] [address] [place] [address] Aug, 16 [facility] [place] [address] [place] [address] Aug, 16 [facility] [place] [address] [place] [address] Jul, 16 [facility] [place] [address] [place] [address] Jul, 16 [facility] [place] [address] [place] [address] Jul, 16 [facility] [place] [address] [place] [address] Jul, 16 [facility] [place] [address] [place] [address] Jul, 16 Lymphadenopathy R59.1 ; Type 2 diabetes mellitus without complications E11.9 ; Essential (primary) hypertension I10 and Bipolar disorder, current episode manic without psychotic features, moderate F31.12 [facility] [place] [address] [place] [address] Jun, 16 [facility] [place] [address] [place] [address] 15 Jun, 16 [facility] [place] [address] [place] [address] Jun, 16 [facility] [place] [address] [place] [address] Jun, 16 [facility] [place] [address] [place] [address] May, 16 [facility] [place] [address] [place] [address] 14 May, 16 Lymphadenopathy R59.1 and Pharyngitis, acute J02.9 [facility] [address] [place] [address] May, 16 Pharyngitis, acute J02.9 and Eczema, unspecified type L30.9 [facility] [place] [address] [place] [address] May, 16 [facility] [place] [address] [place] [address] Apr, 15 [facility] [place] [address] [place] [address] Apr, 15 Neck strain, initial encounter S16.1XXA and Obstructive sleep apnea syndrome G47.33 [facility] [address] [place] [address] Apr, 15 [facility] [place] [address] [place] [address] Apr, 15 [facility] [place] [address] [place] [address] Apr, 15 [facility] [place] [address] [place] [address] Apr, 15 [facility] [place] [address] [place] [address] Mar, 15 [facility] [place] [address] [place] [address] Mar, 15 [facility] [place] [address] [place] [address] Mar, 15 Primary insomnia F51.01 [facility] [address] [place] [address] 24 Mar, 15 Primary insomnia F51.[address] [address] Mar, 15 Gout, unspecified M10.9 ; Other chronic pain G89.29 and Migraine with aura and without status migrainosus, not intractable G43.[address] [address] Mar, 15 [facility] [address] [address] Feb, 15 Restless legs syndrome G25.[address] [address] Feb, [address] [address] Feb, 15 Gout, unspecified M10.9 ; Other dorsalgia M54.89 ; Restless legs syndrome G25.81 and Encounter for immunization Z23 [address] [address] Feb, [address] [address] Jan, 15 Bilateral foot pain 729.5 ; Type 2 diabetes mellitus without complications E11.9 and Gout 274.[address] [address] Jan, [address] [address] Jan, 15 DM w/o complication type II 250.[address] [address] 16 Jan, 15 Right hip pain 719.[address] [address] Dec, 15 Insomnia [address] [address] 19 Dec, 15 Dysuria 788.1 and Frequency of urination 788.41 [facility] [address] [place] [address] 17 Dec, 15 [facility] [address] [place] [address] Dec, 15 nickPETE [address] [place] [address] Nov, 15 [facility] [address] [place] [address] Nov, 15 [facility] [address] [address] Nov, 15 Neck pain 723.1 [facility] [address] [place] [address] Nov, 15 [facility] [address] [address] Nov, 15 [facility] [address] [address] Nov, 15 GERD (gastroesophageal reflux disease) 530.81 ; Hypertension 401.9 ; Bipolar 1 disorder, manic, moderate 296.42 ; Back pain 724.5 and Gout 274.[address] [address] Oct, 15 Dental examination V72.[address] [address] Oct, 15 Dental examination V72.[address] [address] September, 15 Dental examination V72.[address] [address] Jun, 15 [facility] [address] [facility] [id number] [place] [address] Jun, IMMUNIZATIONS No Known Immunizations SOCIAL HISTORY Never Assessed REASON FOR VISIT PLAN OF CARE VITAL SIGNS MEDICATIONS Medication Instructions Dosage Frequency Start Date End Date Duration S tatus Diabetic Shoes as directed Dec, Active RESULTS No Results PROCEDURES No Known [...]
--- OUTSIDE RECORDS SUMMARY | 2019-09-27 09:08 | XMS REPORT ---
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 Name Role Phone SAMANTHA ZORAIDA Unavailable PROBLEMS Type Condition ICD9-CM Code AQV16-CX Code Onset Dates Condition S tatus SNOMED Code Problem Type 2 diabetes mellitus wit h diabetic neuropathy, without long-term current use of insulin E11.40 Active 89394 006 Problem Type 2 diabetes mellitus wit hout complication, without long-term current use of insulin E11.9 Active [id number] Problem Primary insomnia F51.01 Active 397 2004 Problem Type 2 diabetes mellitus without complications E11 .9 Active [id number] ALLERGIES No Information ENCOUNTERS Encounter Location Date Diagnosis [facility] [address] [place] [address] 11 Jan, 18 Tachycardia R00.0 [facility] [place] [address] [place] [address] 03 Jan, 18 [facility] [address] [place] [address] 30 Dec, 18 Palpitation R00.2 and Type 2 diabetes mellitus without complications E11.9 [facility] [address] [place] [address] 15 Dec, 18 [facility] [address] [place] [address] 14 Dec, 18 Type 2 diabetes mellitus with diabetic neuropathy, without long-term current use of insulin E11.40 [facility] [address] [place] [address] 10 Dec, 18 [facility] [place] [address] [place] [address] 06 Dec, 18 [facility] [place] [address] [place] [address] 06 Dec, 18 [facility] [place] [address] [place] [address] Nov, 18 [facility] [place] [address] [place] [address] Nov, 18 [facility] [place] [address] [place] [address] Oct, 18 [facility] [place] [address] [place] [address] 03 October, 18 Medicare annual wellness visit, initial Z00.00 ; Type 2 diabetes mellitus without complication, without long-term current use of insulin E11.9 and Right anterior shoulder pain M25.511 [facility] [address] [place] [address] September, 18 Primary insomnia F51.01 [facility] [address] [place] [address] Aug, 18 Biceps tendonitis on left M75.22 [facility] [place] [address] [place] [address] Aug, 18 [facility] [place] [address] [place] [address] Aug, 18 [facility] [place] [address] [place] [address] Aug, 18 [facility] [place] [address] [place] [address] Aug, 18 Type 2 diabetes mellitus without complications E11.9 ; Pain of left foot M79.672 ; Pain in right foot M79.671 and Chronic gout involving toe without tophus, unspecified cause, unspecified laterality M1A.9XX0 [facility] [place] [address] [place] [address] Jun, 18 [facility] [place] [address] [place] [address] May, 18 [facility] [place] [address] [place] [address] May, 18 [facility] [place] [address] [place] [address] May, 18 [facility] [place] [address] [place] [address] 15 May, 18 Right anterior shoulder pain M25.511 [facility] [place] [address] [place] [address] May, 18 [facility] [place] [address] [place] [address] May, 18 [facility] [place] [address] [place] [address] Apr, Type 2 diabetes mellitus without complications E11.9 ; Costochondritis, acute M94.0 and Tinea pedis of both feet B35.3 [facility] [place] [address] [place] [address] 09 Mar, [facility] [address] [address] Mar, [facility] [address] [address] Feb, Acute upper respiratory infection, unspecified J06.9 ; Other viral agents as the cause of diseases classified elsewhere B97.89 and Aphthous ulcer of mouth K12.0 [facility] [address] [place] [address] Jan, [address] [address] Jan, 17 Right hip pain M25.551 [facility] [address] [address] Dec, 17 Ingrown nail L60.0 ; Impetigo L01.00 and Irritant contact dermatitis due to plants, except food L24.7 [facility] [address] [place] [address] Dec, [address] [address] Dec, 17 Nail abnormality L60.9 and Ingrown nail of fifth toe of right foot L60.0 [facility] [address] [address] Nov, 17 Type 2 diabetes mellitus without complications E11.[address] [place] [place] [address] 17 Nov, 17 Type 2 diabetes mellitus without complication, without long-term current use of insulin E11.9 [facility] [place] [address] [place] [address] 12 Nov, 17 [facility] [place] [address] [place] [address] Nov, [address] [address] Oct, 17 [facility] [place] [address] [place] [address] September, 17 [facility] [address] [address] Aug, 17 Acute idiopathic gout of foot, unspecified laterality M10.079 [facility] [address] [address] Aug, 17 Acute idiopathic gout of foot, unspecified laterality M10.079 and Primary insomnia F51.01 [facility] [address] [address] Jul, [address] [facility] [address] [address] Jul, 17 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 [facility] [address] [address] 23 Jun, [address] [address] 17 Jun, 17 Acute non- recurrent maxillary sinusitis J01.00 [facility] [address] [address] 16 Jun, 17 Acute non- recurrent frontal sinusitis J01.[address] [address] [address] 15 Jun, [address] [address] 14 Jun, 17 Primary insomnia F51.01 [facility] [address] [address] 07 Jun, 17 Acute non- recurrent maxillary sinusitis J01.00 ; Excessive sweating R61 and 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 [facility] [place] [address] [place] [address] 02 Jun, 17 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 [facility] [address] [address] May, 17 Type 2 diabetes mellitus without complications E11.9 ; Gout involving toe, unspecified cause, unspecified chronicity, unspecified laterality M10.9 and Primary insomnia F51.01 [facility] [place] [address] [place] [address] 27 Jan, 16 [facility] [place] [address] [place] [address] 14 Jan, 16 [facility] [place] [address] [place] [address] 13 Jan, 16 [facility] [place] [address] [place] [address] 30 Dec, 16 [facility] [place] [address] [place] [address] Dec, [address] [address] [address] Dec, 16 Sciatica of right side M54.31 and Acute bilateral low back pain without sciatica M54.5 [facility] [place] [address] [place] [address] Dec, 16 Type 2 diabetes mellitus without complications E11.9 [facility] [place] [address] [place] [address] Dec, 16 [facility] [place] [address] [place] [address] Dec, 16 [facility] [place] [address] [place] [address] Dec, 16 Sciatica of right side M54.31 ; Type 2 diabetes mellitus without complication, without long- term current use of insulin E11.9 ; Acute bilateral low back pain without sciatica M54.5 and Neuropathy G62.9 [facility] [place] [address] [place] [address] Dec, 16 Plantar fasciitis, right M72.2 and Sciatica of right side M54.31 [facility] [place] [address] [place] [address] Nov, 16 [facility] [place] [address] [place] [address] Oct, 16 Nail abnormality L60.9 [facility] [place] [address] [place] [address] September, 16 [facility] [place] [address] [place] [address] Aug, 16 [facility] [place] [address] [place] [address] Aug, 16 Vertigo R42 ; Allergic rhinitis, unspecified allergic rhinitis type J30.9 and Anxiety F41.9 [facility] [place] [address] [place] [address] Aug, 16 [facility] [place] [address] [place] [address] Aug, 16 [facility] [place] [address] [place] [address] Aug, 16 [facility] [place] [address] [place] [address] Jul, 16 [facility] [place] [address] [place] [address] Jul, 16 [facility] [place] [address] [place] [address] Jul, 16 [facility] [place] [address] [place] [address] Jul, 16 [facility] [place] [address] [place] [address] Jul, 16 Lymphadenopathy R59.1 ; Type 2 diabetes mellitus without complications E11.9 ; Essential (primary) hypertension I10 and Bipolar disorder, current episode manic without psychotic features, moderate F31.12 [facility] [place] [address] [place] [address] Jun, 16 [facility] [place] [address] [place] [address] 15 Jun, 16 [facility] [place] [address] [place] [address] Jun, 16 [facility] [place] [address] [place] [address] Jun, 16 [facility] [place] [address] [place] [address] May, 16 [facility] [place] [address] [place] [address] 14 May, 16 Lymphadenopathy R59.1 and Pharyngitis, acute J02.9 [facility] [address] [place] [address] May, 16 Pharyngitis, acute J02.9 and Eczema, unspecified type L30.9 [facility] [place] [address] [place] [address] May, 16 [facility] [place] [address] [place] [address] Apr, 15 [facility] [place] [address] [place] [address] Apr, 15 Neck strain, initial encounter S16.1XXA and Obstructive sleep apnea syndrome G47.33 [facility] [address] [place] [address] Apr, 15 [facility] [place] [address] [place] [address] Apr, 15 [facility] [place] [address] [place] [address] Apr, 15 [facility] [place] [address] [place] [address] Apr, 15 [facility] [place] [address] [place] [address] Mar, 15 [facility] [place] [address] [place] [address] Mar, 15 [facility] [place] [address] [place] [address] Mar, 15 Primary insomnia F51.01 [facility] [place] [address] [place] [address] 24 Mar, 15 Primary insomnia F51.[address] [address] Mar, 15 Gout, unspecified M10.9 ; Other chronic pain G89.29 and Migraine with aura and without status migrainosus, not intractable G43.[address] [address] Mar, 15 [facility] [address] [address] Feb, 15 Restless legs syndrome G25.[address] [address] Feb, [address] [address] Feb, 15 Gout, unspecified M10.9 ; Other dorsalgia M54.89 ; Restless legs syndrome G25.81 and Encounter for immunization Z23 [address] [address] Feb, [address] [address] Jan, 15 Bilateral foot pain 729.5 ; Type 2 diabetes mellitus without complications E11.9 and Gout 274.[address] [address] Jan, [address] [address] Jan, 15 DM w/o complication type II 250.[address] [address] 16 Jan, 15 Right hip pain 719.[address] [address] Dec, 15 Insomnia [address] [address] 19 Dec, 15 Dysuria 788.1 and Frequency [facility]ination [facility]88.41 [facility] [place] [address] [place] [address] Dec, 15 [facility] [place] [address] [place] [address] Dec, 15 [facility] [place] [address] [place] [address] Nov, 15 [facility] [place] [address] [place] [address] Nov, 15 [facility] [address] [address] Nov, 15 Neck pain 723.1 [facility] [place] [address] [place] [address] Nov, 15 [facility] [address] [address] Nov, 15 [facility] [address] [address] Nov, 15 GERD (gastroesophageal reflux disease) 530.81 ; Hypertension 401.9 ; Bipolar 1 disorder, manic, moderate 296.42 ; Back pain 724.5 and Gout 274.[address] [address] Oct, 15 Dental examination V72.[address] [address] Oct, 15 Dental examination V72.[address] [address] September, 15 Dental examination V72.[address] [address] Jun, 15 [facility] [address] [facility] [id number] [place] [address] Jun, IMMUNIZATIONS No Known Immunizations SOCIAL HISTORY [...]
--- OUTSIDE RECORDS SUMMARY | 2019-09-27 09:08 | XMS REPORT ---
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 Name Role Phone SAMANTHA ZORAIDA Unavailable PROBLEMS Type Condition ICD9-CM Code [id number] Code Onset Dates Condition S tatus SNOMED Code Problem Type 2 diabetes mellitus wit h diabetic neuropathy, without long-term current use of insulin E11.40 Active 05788 006 Problem Type 2 diabetes mellitus wit hout complication, without long-term current use of insulin E11.9 Active [id number] Problem Primary insomnia F51.01 Active 397 2004 Problem Type 2 diabetes mellitus without complications E11 .9 Active [id number] ALLERGIES Substance Reaction Event Type Date Status PredniSONE aggitation Drug Allergy Dec, Active ENCOUNTERS Encounter Location Date Diagnosis [facility] [address] [place] [phone] 11 Jan, 18 Tachycardia R00.0 [facility] [address] [address] [place] [address] 03 Jan, 18 [facility] [address] [place] [phone] 30 Dec, 18 Palpitation R00.2 and Type 2 diabetes mellitus without complications E11.9 [facility] [address] [place] [phone] 15 Dec, 18 [facility] [address] [place] [address] 14 Dec, 18 Type 2 diabetes mellitus with diabetic neuropathy, without long-term current use of insulin E11.40 [facility] [address] [place] [address] 10 Dec, 18 [facility] [address] [place] [address] Dec, 18 [facility] [address] [place] [address] Dec, 18 [facility] [place] [address] [place] [address] Nov, 18 [facility] [place] [address] [place] [address] Nov, 18 [facility] [place] [address] [place] [address] Oct, 18 [facility] [place] [address] [place] [address] September, 18 Medicare annual wellness visit, initial Z00.00 ; Type 2 diabetes mellitus without complication, without long-term current use of insulin E11.9 and Right anterior shoulder pain M25.511 [facility] [place] [address] [place] [address] September, 18 Primary insomnia F51.01 [facility] [place] [address] [place] [address] 30 Aug, 18 Biceps tendonitis on left M75.22 [facility] [place] [address] [place] [address] Aug, 18 [facility] [place] [address] [place] [address] Aug, 18 [facility] [place] [address] [place] [address] Aug, 18 [facility] [place] [address] [place] [address] Aug, 18 Type 2 diabetes mellitus without complications E11.9 ; Pain of left foot M79.672 ; Pain in right foot M79.671 and Chronic gout involving toe without tophus, unspecified cause, unspecified laterality M1A.9XX0 [facility] [place] [address] [place] [address] Jun, 18 [facility] [place] [address] [place] [address] May, 18 [facility] [place] [address] [place] [address] May, 18 [facility] [place] [address] [place] [address] May, 18 [facility] [place] [address] [place] [address] May, 18 Right anterior shoulder pain M25.[address] [address] May, [address] [address] May, 18 [facility] [address] [address] Apr, Type 2 diabetes mellitus without complications E11.9 ; Costochondritis, acute M94.0 and Tinea pedis of both feet B35.3 [facility] [address] [address] Mar, 17 [facility] [address] [address] Mar, 17 [facility] [address] [address] Feb, 17 Acute upper respiratory infection, unspecified J06.9 ; Other viral agents as the cause of diseases classified elsewhere B97.89 and Aphthous ulcer of mouth K12.0 [facility] [address] [address] Jan, [address] [address] Jan, 17 Right hip pain M25.551 [facility] [address] [address] Dec, 17 Ingrown nail L60.0 ; Impetigo L01.00 and Irritant contact dermatitis due to plants, except food L24.[address] [address] Dec, [address] [address] Dec, 17 Nail abnormality L60.9 and Ingrown nail of fifth toe of right foot L60.0 [facility] [address] [address] Nov, 17 Type 2 diabetes mellitus without complications E11.9 [facility] [address] [place] [address] Nov, 17 Type 2 diabetes mellitus without complication, without long-term current use of insulin E11.9 [facility] [address] [place] [address] 12 Nov, 17 [facility] [address] [address] [place] [address] Nov, 17 [facility] [address] [place] [address] Oct, 17 [facility] [address] [place] [address] September, 17 [facility] [address] [place] [address] Aug, 17 Acute idiopathic gout of foot, unspecified laterality M10.079 [facility] [address] [place] [address] Aug, 17 Acute idiopathic gout of foot, unspecified laterality M10.079 and Primary insomnia F51.01 [facility] [address] [place] [address] Jul, 17 [facility] [address] [address] Jul, 17 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 [address] 23 Jun, 17 [facility] [address] [place] [address] 17 Jun, 17 Acute non- recurrent maxillary sinusitis J01.00 [facility] [address] [place] [address] 16 Jun, 17 Acute non- recurrent frontal sinusitis J01.10 [facility] [address] [address] [place] [address] 15 Jun, 17 [facility] [address] [address] [place] [address] 14 Jun, 17 Primary insomnia F51.01 [facility] [address] [address] 07 Jun, 17 Acute non- recurrent maxillary sinusitis J01.00 ; Excessive sweating R61 and 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 [facility] [address] [address] 02 Jun, 17 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 [address] May, 17 Type 2 diabetes mellitus without complications E11.9 ; Gout involving toe, unspecified cause, unspecified chronicity, unspecified laterality M10.9 and Primary insomnia F51.01 [facility] [address] [address] 27 Jan, 16 [facility] [address] [address] 14 Jan, [address] [address] 13 Jan, 16 [facility] [address] [address] 30 Dec, [address] [address] Dec, [address] [address] Dec, 16 Sciatica of right side M54.31 and Acute bilateral low back pain without sciatica M54.[address] [address] Dec, 16 Type 2 diabetes mellitus without complications E11.9 [facility] [address] [address] [place] [address] Dec, 16 [facility] [address] [address] Dec, [address] [address] Dec, 16 Sciatica of right side M54.31 ; Type 2 diabetes mellitus without complication, without long- term current use of insulin E11.9 ; Acute bilateral low back pain without sciatica M54.5 and Neuropathy G62.9 [facility] [place] [address] [place] [address] Dec, 16 Plantar fasciitis, right M72.2 and Sciatica of right side M54.31 [facility] [place] [address] [place] [address] Nov, 16 [facility] [place] [address] [place] [address] Oct, 16 Nail abnormality L60.9 [facility] [place] [address] [place] [address] September, 16 [facility] [place] [address] [place] [address] Aug, 16 [facility] [place] [address] [place] [address] Aug, 16 Vertigo R42 ; Allergic rhinitis, unspecified allergic rhinitis type J30.9 and Anxiety F41.9 [facility] [address] [place] [address] Aug, 16 [facility] [place] [address] [place] [address] Aug, 16 [facility] [place] [address] [place] [address] Aug, 16 [facility] [place] [address] [place] [address] Jul, 16 [facility] [place] [address] [place] [address] Jul, 16 [facility] [place] [address] [place] [address] Jul, 16 [facility] [place] [address] [place] [address] Jul, 16 [facility] [place] [address] [place] [address] Jul, 16 Lymphadenopathy R59.1 ; Type 2 diabetes mellitus without complications E11.9 ; Essential (primary) hypertension I10 and Bipolar disorder, current episode manic without psychotic features, moderate F31.12 [facility] [place] [address] [place] [address] 18 Jun, 16 [facility] [place] [address] [place] [address] 15 Jun, 16 [facility] [place] [address] [place] [address] Jun, 16 [facility] [place] [address] [place] [address] 02 Jun, 16 [facility] [place] [address] [place] [address] May, 16 [facility] [place] [address] [place] [address] 14 May, 16 Lymphadenopathy R59.1 and Pharyngitis, acute J02.9 [facility] [address] [place] [address] May, 16 Pharyngitis, acute J02.9 and Eczema, unspecified type L30.9 [facility] [place] [address] [place] [address] May, 16 [facility] [place] [address] [place] [address] Apr, 15 [facility] [place] [address] [place] [address] Apr, 15 Neck strain, initial encounter S16.1XXA and Obstructive sleep apnea syndrome G47.33 [facility] [place] [address] [place] [address] 15 Apr, 15 [facility] [place] [address] [place] [address] Apr, 15 [facility] [place] [address] [place] [address] Apr, 15 [facility] [place] [address] [place] [address] Apr, 15 [facility] [place] [address] [place] [address] Mar, 15 [facility] [place] [address] [place] [address] Mar, 15 [facility] [place] [address] [place] [address] 25 Mar, 15 [facility] F51.01 [facility] [address] [address] 24 Mar, 15 Primary insomnia F51.[address] [address] Mar, 15 Gout, unspecified M10.9 ; Other chronic pain G89.29 and Migraine with aura and without status migrainosus, not intractable G43.109 [facility] [address] [address] 04 Mar, 15 [facility] [address] [address] Feb, 15 Restless legs syndrome G25.[address] [address] Feb, 15 [facility] [address] [address] 16 Feb, 15 Gout, unspecified M10.9 ; Other dorsalgia M54.89 ; Restless legs syndrome G25.81 and Encounter for immunization Z23 [address] [address] 13 Feb, [address] [address] Jan, 15 Bilateral foot pain 729.5 ; Type 2 diabetes mellitus without complications E11.9 and Gout 274.[address] [address] Jan, 15 [facility] [address] [address] 24 Jan, 15 DM w/o complication type II 250.[address] [address] 16 Jan, 15 Right hip pain 719.45 [facility] [address] [address] Dec, 15 Insomnia [address] [address] Dec, 15 Dysuria 788.1 and Frequency of urination 788.41 [facility] [address] [place] [address] Dec, 15 [facility] [address] [place] [address] Dec, 15 [facility] [address] [address] [place] [address] Nov, 15 [facility] [address] [place] [address] Nov, 15 [facility] [address] [place] [address] Nov, 15 Neck pain 723.1 [facility] [address] [place] [address] Nov, 15 [facility] [address] [address] [place] [address] Nov, 15 [facility] [address] [address] Nov, 15 GERD (gastroesophageal reflux disease) 530.81 ; Hypertension 401.9 ; Bipolar 1 disorder, manic, moderate 296.42 ; Back pain 724.5 and Gout 274.9 [facility] [address] [address] Oct, 15 Dental examination V72.[address] [address] Oct, 15 Dental examination V72.2 [facility] [address] [place] [address] September, 15 Dental examination V72.2 [facility] [address] [place] [address] Jun, 15 [facility] [address] [facility] [id number] [place] [address] Jun, IMMUNIZATIONS No Known Immunizations SOCIAL HISTORY Never Assessed REASON FOR VISIT Heart rate has been running high according to readins on watch-amorrisonlpn PLAN OF CARE Activity Details Follow Up prn Reason: Future/Pending Procedure EVENT MONITOR VITAL SIGNS Height 71 in 2018-01-04 Weight 212.6 lbs 2018-01-04 Temperature 98.7 degrees Fahrenheit 2018-01-04 Heart Rate 76 bpm 2018-01-04 Respiratory Rate 16 2018-01-04 BMI 29.65 kg/m2 2018-01-04 Blood pressure systolic 122 mmHg 2018-01-04 Blood pressure diastolic 70 mmHg 2018-01-04 MEDICATIONS Medication Instructions Dosage Frequency Start Date End Date Duration S tatus Diabetic Shoes as directed Dec, Active Phenergan 25 MG 1 tablet May, Ac tive Olanzapine-Fluoxetine HCl 12-50 MG TAKE 1 CAPSULE BY MOUTH IN THE EVENING 30 Not-Taking Test strips ... as directed 24h Aug, Not-Taking Zolpidem Tartrate 10MG TAKE ONE TABLET BY MOUTH ONCE DAILY AT DTIVA Active Dexilant 60MG DR Orally Once a day 1 capsule 24h Active Flonase Allergy Relief 50 MCG/ACT Nasally Once a day 1 spray in each nostril 24h Aug, 30 day(s) Not-Taking Cyclobenzaprine HCl 10MG Orally Three times a day 1 tablet 8h Active Gabapentin 600MG TAKE ONE TABLET BY MOUTH THREE TIMES DAILY Active Tizanidine HCl 2 MG TAKE 1 TABLET BY MOUTH 3 TIMES DAILY NEED ED 15 Active Atenolol 50 MG Orally Once a day 1 tablet 24h Active Imdur 30 MG Orally Once a day 1 tablet 24h N ot-Taking Symbyax 12-50 MG Orally Once a day in the evening 1 capsule Not-Taking TRUEresult Blood Glucose w/Device as directed 24h Aug, 16 Not-Taking Klonopin 2 MG Orally Twice a day 1 tablet 12h Active Meloxicam 15MG 1 tablet by mouth 1 time a day 90 Active Lancets ... as directed 24h Aug, Not -Taking Isosorbide Mononitrate ER 30MG TAKE ONE TABLET BY MOUTH ONCE DAILY 90 days Active Seroquel 100 MG Orally Once a day 1 tablet 24h Active Voltaren 1 % Transdermal 3 times a day to both toe joints 2 grams Aug, Active Allopurinol 100MG TAKE TWO TABLETS BY MOUTH ONCE DAILY. Active Lisinopril 5MG Orally Once a day 1 tablet 24h 90 Not-Taking RESULTS No Results PROCEDURES Procedure Date Ordered Result Body Site ELECTROCARDIOGRAM, TRACING Jan 04, 2018 LAB NOT BILLED BY [facility] Jan 04, 2018 [facility] VISIT ESTABLISHED PATIENT Jan 04, 2018 Hemoglobin Test Send Out 0 dollar Jan 04, 2018 VENIPUNCT, ROUTINE* Jan 04, 2018 INSTRUCTIONS MEDICATIONS ADMINISTERED No Known Medications MEDICAL (GENERAL) HISTORY Type Description Date Medical History Hypertension Medical History Bipolar 1 disorder, manic, moderate Medical History Gout Medical History Diabetes Medical History GERD (gastroesophageal reflux disease) Surgical History Kidney stone removal Surgical History Nerve ending perera in back Surgical History lymphectomy Hospitalization History DM Hospitalization History Surgery(s)
--- OUTSIDE RECORDS SUMMARY | 2019-09-27 09:08 | XMS REPORT ---
Author Author Henri SINGH Organization [facility] [address] Address [address] [place] [address] Care Team Providers Care Branch Specialist Name Role Phone SAMANTHA ZORAIDA Unavailable PROBLEMS Type Condition ICD9-CM Code ILL38-GM Code Onset Dates Condition S tatus SNOMED Code Problem Type 2 diabetes mellitus wit h diabetic neuropathy, without long-term current use of insulin E11.40 Active 43215 006 Problem Type 2 diabetes mellitus wit hout complication, without long-term current use of insulin E11.9 Active 944664748 Problem Primary insomnia F51.01 Active 397 2004 Problem Type 2 diabetes mellitus without complications E11 .9 Active [id number] ALLERGIES No Information ENCOUNTERS Encounter Location Date Diagnosis [facility] [address] [place] [address] 11 Jan, 18 Tachycardia R00.0 [facility] [place] [address] [place] [address] 03 Jan, 18 [facility] [address] [place] [address] 30 Dec, 18 Palpitation R00.2 and Type 2 diabetes mellitus without complications E11.9 [facility] [address] [place] [address] 15 Dec, 18 [facility] [address] [address] [place] [address] 14 Dec, 18 Type 2 diabetes mellitus with diabetic neuropathy, without long-term current use of insulin E11.40 [facility] [address] [place] [address] 10 Dec, 18 [facility] [place] [address] [place] [address] 06 Dec, 18 [facility] [place] [address] [place] [address] 06 Dec, 18 [facility] [place] [address] [place] [address] Nov, 18 [facility] [place] [address] [place] [address] Nov, 18 [facility] [place] [address] [place] [address] Oct, 18 [facility] [place] [address] [place] [address] 03 October, 18 Medicare annual wellness visit, initial Z00.00 ; Type 2 diabetes mellitus without complication, without long-term current use of insulin E11.9 and Right anterior shoulder pain M25.511 [facility] [address] [place] [address] September, 18 Primary insomnia F51.01 [facility] [address] [place] [address] Aug, 18 Biceps tendonitis on left M75.22 [facility] [place] [address] [place] [address] Aug, 18 [facility] [place] [address] [place] [address] Aug, 18 [facility] [place] [address] [place] [address] Aug, 18 [facility] [place] [address] [place] [address] Aug, 18 Type 2 diabetes mellitus without complications E11.9 ; Pain of left foot M79.672 ; Pain in right foot M79.671 and Chronic gout involving toe without tophus, unspecified cause, unspecified laterality M1A.9XX0 [facility] [place] [address] [place] [address] Jun, 18 [facility] [place] [address] [place] [address] May, 18 [facility] [place] [address] [place] [address] May, 18 [facility] [place] [address] [place] [address] May, 18 [facility] [place] [address] [place] [address] 15 May, 18 Right anterior shoulder pain M25.511 [facility] [address] [place] [address] May, 18 [facility] [address] [place] [address] May, 18 [facility] [address] [place] [address] Apr, Type 2 diabetes mellitus without complications E11.9 ; Costochondritis, acute M94.0 and Tinea pedis of both feet B35.3 [facility] [address] [place] [address] 09 Mar, [facility] [address] [address] Mar, [facility] [address] [address] Feb, Acute upper respiratory infection, unspecified J06.9 ; Other viral agents as the cause of diseases classified elsewhere B97.89 and Aphthous ulcer of mouth K12.0 [facility] [address] [place] [address] Jan, [address] [address] Jan, 17 Right hip pain M25.551 [facility] [address] [address] Dec, 17 Ingrown nail L60.0 ; Impetigo L01.00 and Irritant contact dermatitis due to plants, except food L24.7 [facility] [address] [place] [address] Dec, [address] [address] Dec, 17 Nail abnormality L60.9 and Ingrown nail of fifth toe of right foot L60.0 [facility] [address] [address] Nov, 17 Type 2 diabetes mellitus without complications E11.9 [place] [place] [address] 17 Nov, 17 Type 2 diabetes mellitus without complication, without long-term current use of insulin E11.9 [facility] [place] [address] [place] [address] 12 Nov, 17 [facility] [place] [address] [place] [address] Nov, [address] [address] Oct, 17 [facility] [place] [address] [place] [address] September, 17 zMaria [facility]AD[facility] [address] [address] Aug, 17 Acute idiopathic gout of foot, unspecified laterality M10.079 Maria EGLAD[facility] [address] [address] Aug, 17 Acute idiopathic gout of foot, unspecified laterality M10.079 and Primary insomnia F51.01 [facility] [address] [address] Jul, [address] [address] Jul, 17 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 [facility] [address] [address] 23 Jun, [address] [address] 17 Jun, 17 Acute non- recurrent maxillary sinusitis J01.00 [facility] [address] [address] 16 Jun, 17 Acute non- recurrent frontal sinusitis J01.[address] [address] 15 Jun, [address] [address] 14 Jun, 17 Primary insomnia F51.01 [facility] [address] [address] 07 Jun, 17 Acute non- recurrent maxillary sinusitis J01.00 ; Excessive sweating R61 and 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 [facility] [address] [place] [address] 02 Jun, 17 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 [facility] [address] [address] May, 17 Type 2 diabetes mellitus without complications E11.9 ; Gout involving toe, unspecified cause, unspecified chronicity, unspecified laterality M10.9 and Primary insomnia F51.01 [facility] [place] [address] [place] [address] 27 Jan, 16 [facility] [place] [address] [place] [address] 14 Jan, 16 [facility] [place] [address] [place] [address] 13 Jan, 16 [facility] [place] [address] [place] [address] 30 Dec, 16 [facility] [place] [address] [place] [address] Dec, [address] [address] Dec, 16 Sciatica of right side M54.31 and Acute bilateral low back pain without sciatica M54.5 [facility] [address] [place] [address] Dec, 16 Type 2 diabetes mellitus without complications E11.9 [facility] [place] [address] [place] [address] Dec, 16 [facility] [place] [address] [place] [address] Dec, 16 [facility] [place] [address] [place] [address] Dec, 16 Sciatica of right side M54.31 ; Type 2 diabetes mellitus without complication, without long- term current use of insulin E11.9 ; Acute bilateral low back pain without sciatica M54.5 and Neuropathy G62.9 [facility] [place] [address] [place] [address] Dec, 16 Plantar fasciitis, right M72.2 and Sciatica of right side M54.31 [facility] [place] [address] [place] [address] Nov, 16 [facility] [place] [address] [place] [address] Oct, 16 Nail abnormality L60.9 [facility] [place] [address] [place] [address] September, 16 [facility] [place] [address] [place] [address] Aug, 16 [facility] [place] [address] [place] [address] Aug, 16 Vertigo R42 ; Allergic rhinitis, unspecified allergic rhinitis type J30.9 and Anxiety F41.9 [facility] [place] [address] [place] [address] Aug, 16 [facility] [place] [address] [place] [address] Aug, 16 [facility] [place] [address] [place] [address] Aug, 16 [facility] [place] [address] [place] [address] Jul, 16 [facility] [place] [address] [place] [address] Jul, 16 [facility] [place] [address] [place] [address] Jul, 16 [facility] [place] [address] [place] [address] Jul, 16 [facility] [place] [address] [place] [address] Jul, 16 Lymphadenopathy R59.1 ; Type 2 diabetes mellitus without complications E11.9 ; Essential (primary) hypertension I10 and Bipolar disorder, current episode manic without psychotic features, moderate F31.12 [facility] [place] [address] [place] [address] Jun, 16 [facility] [place] [address] [place] [address] 15 Jun, 16 [facility] [place] [address] [place] [address] Jun, 16 [facility] [place] [address] [place] [address] Jun, 16 [facility] [place] [address] [place] [address] May, 16 [facility] [place] [address] [place] [address] 14 May, 16 Lymphadenopathy R59.1 and Pharyngitis, acute J02.9 [facility] [address] [place] [address] May, 16 Pharyngitis, acute J02.9 and Eczema, unspecified type L30.9 [facility] [place] [address] [place] [address] May, 16 [facility] [place] [address] [place] [address] Apr, 15 [facility] [place] [address] [place] [address] Apr, 15 Neck strain, initial encounter S16.1XXA and Obstructive sleep apnea syndrome G47.33 [facility] [address] [place] [address] Apr, 15 [facility] [place] [address] [place] [address] Apr, 15 [facility] [place] [address] [place] [address] Apr, 15 [facility] [place] [address] [place] [address] Apr, 15 [facility] [place] [address] [place] [address] Mar, 15 [facility] [place] [address] [place] [address] Mar, 15 [facility] [place] [address] [place] [address] Mar, 15 Primary insomnia F51.01 [facility] [place] [address] [place] [address] 24 Mar, 15 Primary insomnia F51.[address] [address] Mar, 15 Gout, unspecified M10.9 ; Other chronic pain G89.29 and Migraine with aura and without status migrainosus, not intractable G43.[address] [address] Mar, 15 [facility] [address] [address] Feb, 15 Restless legs syndrome G25.[address] [address] Feb, [address] [address] Feb, 15 Gout, unspecified M10.9 ; Other dorsalgia M54.89 ; Restless legs syndrome G25.81 and Encounter for immunization Z23 [address] [address] Feb, [address] [address] Jan, 15 Bilateral foot pain 729.5 ; Type 2 diabetes mellitus without complications E11.9 and Gout 274.[address] [address] Jan, [address] [address] Jan, 15 DM w/o complication type II 250.[address] [address] 16 Jan, 15 Right hip pain 719.[address] [address] Dec, 15 Insomnia [address] [address] 19 Dec, 15 Dysuria 788.1 and Frequency of urination 788.41 [facility] [address] [place] [address] Dec, 15 [facility] [address] [place] [address] Dec, 15 [facility] [address] [address] Nov, 15 [facility] [place] [address] [place] [address] Nov, 15 [facility] [address] [address] Nov, 15 Neck pain 723.1 [facility] [address] [place] [address] Nov, 15 [facility] [address] [address] Nov, [address] [address] Nov, 15 GERD (gastroesophageal reflux disease) 530.81 ; Hypertension 401.9 ; Bipolar 1 disorder, manic, moderate 296.42 ; Back pain 724.5 and Gout 274.[address] [address] Oct, 15 Dental examination V72.[address] [address] Oct, 15 Dental examination V72.[address] [address] September, 15 Dental examination V72.[address] [address] Jun, 15 [facility] [address] [facility] [id number] [address] [address] Jun, IMMUNIZATIONS No Known Immunizations SOCIAL HISTORY Never Assessed REASON FOR VISIT PLAN OF CARE VITAL SIGNS MEDICATIONS Medication Instructions Dosage Frequency Start Date End Date Duration S tatus Ambien 10 MG Orally Once a day 1 tablet at bedtime 24h 30 Active RESULTS No Results PROCEDURES No Known [...]
--- OUTSIDE RECORDS SUMMARY | 2019-09-27 09:09 | XMS REPORT ---
Author Author Henri SINGH Organization [facility] [address] Address [address] [place] [address] Care Team Providers Care Field Crop Farmer Name Role Phone MARILUZZORAIDA RUTH Unavailable PROBLEMS Type Condition ICD9-CM Code MTQ51-RB Code Onset Dates Condition S tatus SNOMED Code Problem Type 2 diabetes mellitus wit h diabetic neuropathy, without long-term current use of insulin E11.40 Active 43246 006 Problem Type 2 diabetes mellitus wit hout complication, without long-term current use of insulin E11.9 Active 980552830 Problem Primary insomnia F51.01 Active 397 2004 Problem Type 2 diabetes mellitus without complications E11 .9 Active [id number] ALLERGIES No Information ENCOUNTERS Encounter Location Date Diagnosis [facility] [address] [place] [address] 15 Dec, 18 [facility] [address] [place] [address] 14 Dec, 18 Type 2 diabetes mellitus with diabetic neuropathy, without long-term current use of insulin E11.40 [facility] [address] [address] 10 Dec, [address] [address] Dec, 18 [facility] [place] [address] [place] [address] Dec, 18 [facility] [address] [place] [address] Nov, [address] [address] Nov, [address] [address] Oct, [address] [address] 03 October, 18 Medicare annual wellness visit, initial Z00.00 ; Type 2 diabetes mellitus without complication, without long-term current use of insulin E11.9 and Right anterior shoulder pain M25.[address] [address] September, 18 Primary insomnia F51.[address] [address] 30 Aug, 18 Biceps tendonitis on left M75.[address] [address] Aug, [address] [address] Aug, [address] [address] Aug, [address] [address] Aug, 18 Type 2 diabetes mellitus without complications E11.9 ; Pain of left foot M79.672 ; Pain in right foot M79.671 and Chronic gout involving toe without tophus, unspecified cause, unspecified laterality M1A.9XX0 [address] [address] Jun, [address] [address] May, [address] [address] May, [address] [address] May, [address] [address] May, 18 Right anterior shoulder pain M25.[address] [address] May, [address] [address] May, [address] [address] Apr, 17 Type 2 diabetes mellitus without complications E11.9 ; Costochondritis, acute M94.0 and Tinea pedis of both feet B35.[address] [address] 09 Mar, [address] [address] Mar, [address] [address] Feb, 17 Acute upper respiratory infection, unspecified J06.9 ; Other viral agents as the cause of diseases classified elsewhere B97.89 and Aphthous ulcer of mouth K12.[address] [address] 12 Jan, [address] [address] Jan, 17 Right hip pain M25.[address] [address] Dec, 17 Ingrown nail L60.0 ; Impetigo L01.00 and Irritant contact dermatitis due to plants, except food L24.[address] [address] Dec, [address] [address] Dec, 17 Nail abnormality L60.9 and Ingrown nail of fifth toe of right foot L60.[address] [address] Nov, 17 Type 2 diabetes mellitus without complications E11.[address] [address] Nov, 17 Type 2 diabetes mellitus without complication, without long-term current use of insulin E11.[address] [address] Nov, [address] [address] Nov, [address] [address] Oct, [address] [address] September, [address] [address] Aug, 17 Acute idiopathic gout of foot, unspecified laterality M10.[address] [address] Aug, 17 Acute idiopathic gout of foot, unspecified laterality M10.079 and Primary insomnia F51.[address] [address] Jul, [address] [address] Jul, 17 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 [address] 23 Jun, [address] [address] 17 Jun, 17 Acute non- recurrent maxillary sinusitis J01.[address] [address] 16 Jun, 17 Acute non- recurrent frontal sinusitis J01.[address] [address] 15 Jun, [address] [address] 14 Jun, 17 Primary insomnia F51.[address] [address] 07 Jun, 17 Acute non- recurrent maxillary sinusitis J01.00 ; 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 and Excessive sweating R61 [address] [address] 02 Jun, 17 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 [address] May, 17 Type 2 diabetes mellitus without complications E11.9 ; Gout involving toe, unspecified cause, unspecified chronicity, unspecified laterality M10.9 and Primary insomnia F51.[address] [address] 27 Jan, [address] [address] 14 Jan, [address] [place] [address] 13 Jan, [address] [address] Dec, [address] [address] Dec, [address] [address] Dec, 16 Sciatica of right side M54.31 and Acute bilateral low back pain without sciatica M54.[address] [address] Dec, 16 Type 2 diabetes mellitus without complications E11.[address] [address] Dec, [address] [address] Dec, [address] [address] Dec, 16 Sciatica of right side M54.31 ; Type 2 diabetes mellitus without complication, without long-term current use of insulin E11.9 ; Acute bilateral low back pain without sciatica M54.5 and Neuropathy G62.[address] [address] Dec, 16 Plantar fasciitis, right M72.2 and Sciatica of right side M54.[address] [address] Nov, [address] [address] Oct, 16 Nail abnormality L60.[address] [address] September, [address] [address] Aug, [address] [address] Aug, 16 Vertigo R42 ; Allergic rhinitis, unspecified allergic rhinitis type J30.9 and Anxiety F41.[address] [address] Aug, 16 [facility] [address] [place] [address] Aug, [address] [address] Aug, 16 [facility] [address] [place] [address] Jul, [address] [address] Jul, [address] [address] Jul, [address] [address] Jul, [address] [address] Jul, 16 Lymphadenopathy R59.1 ; Type 2 diabetes mellitus without complications E11.9 ; Essential (primary) hypertension I10 and Bipolar disorder, current episode manic without psychotic features, moderate F31.[address] [address] Jun, [address] [address] Jun, [address] [address] Jun, [address] [address] Jun, [address] [address] May, [address] [address] May, 16 Lymphadenopathy R59.1 and Pharyngitis, acute J02.[address] [address] May, 16 Pharyngitis, acute J02.9 and Eczema, unspecified type L30.[address] [address] May, [address] [address] Apr, [address] [address] 21 Apr, 15 Neck strain, initial encounter S16.1XXA and Obstructive sleep apnea syndrome G47.[address] [address] 15 Apr, [address] [address] 07 Apr, [address] [address] 03 Apr, [address] [address] Apr, [address] [address] Mar, [address] [address] 30 Mar, [address] [address] Mar, 15 Primary insomnia F51.[address] [address] 24 Mar, 15 Primary insomnia F51.[address] [address] Mar, 15 Gout, unspecified M10.9 ; Other chronic pain G89.29 and Migraine with aura and without status migrainosus, not intractable G43.[address] [address] 04 Mar, [address] [address] 22 Feb, 15 Restless legs syndrome G25.[address] [address] 19 Feb, [address] [address] 16 Feb, 20 15 Gout, unspecified M10.9 ; Other dorsalgia M54.89 ; Restless legs syndrome G25.81 and Encounter for immunization Z23 [address] [address] 13 Feb, [address] [address] Jan, 15 Bilateral foot pain 729.5 ; Type 2 diabetes mellitus without complications E11.9 and Gout 274.[address] [address] Jan, [address] [address] 24 Jan, 15 DM w/o complication type II 250.[address] [address] 16 Jan, 15 Right hip pain 719.[address] [address] Dec, 15 Insomnia [address] [address] Dec, 15 Dysuria 788.1 and Frequency of urination 788.[address] [address] Dec, [address] [address] Dec, [address] [address] Nov, [address] [address] Nov, [address] [address] Nov, 15 Neck pain 723.[address] [address] Nov, [address] [address] Nov, [address] [address] Nov, 15 GERD (gastroesophageal reflux disease) 530.81 ; Hypertension 401.9 ; Bipolar 1 disorder, manic, moderate 296.42 ; Back pain 724.5 and Gout 274.[address] [address] Oct, 15 Dental examination V72.[address] [place] [address] Oct, 15 Dental examination V72.2 [facility] [address] [place] [address] September, 15 Dental examination V72.2 [facility] [address] [place] [address] Jun, 15 [facility] [address] [facility] [id number] [address] [place] [address] Jun, IMMUNIZATIONS No Known Immunizations SOCIAL HISTORY [...]
--- OUTSIDE RECORDS SUMMARY | 2019-09-27 09:09 | XMS REPORT ---
Author Author Henri SNIGH Organization [facility] [address] Address [address] [place] [address] Care Team Providers Care Resident Care Coordinator Name Role Phone SAMANTHA ZORAIDA Unavailable PROBLEMS Type Condition ICD9-CM Code QIU30-IR Code Onset Dates Condition S tatus SNOMED Code Problem Type 2 diabetes mellitus wit h diabetic neuropathy, without long-term current use of insulin E11.40 Active 63361 006 Problem Type 2 diabetes mellitus wit hout complication, without long-term current use of insulin E11.9 Active [id number] Problem Primary insomnia F51.01 Active 397 2004 Problem Type 2 diabetes mellitus without complications E11 .9 Active [id number] ALLERGIES No Information ENCOUNTERS Encounter Location Date Diagnosis [facility] [address] [place] [phone] 11 Jan, 18 [facility] [place] [address] [place] [phone] 03 Jan, 18 [facility] [address] [place] [id number] 30 Dec, 18 Palpitation R00.2 and Type 2 diabetes mellitus without complications E11.9 [facility] [address] [place] [id number] 15 Dec, 18 [facility] [address] [place] [id number] 14 Dec, 18 Type 2 diabetes mellitus with diabetic neuropathy, without long-term current use of insulin E11.40 [facility] [address] [place] [address] 10 Dec, 18 [facility] [place] [address] [place] [address] 06 Dec, 18 [facility] [place] [address] [place] [address] 06 Dec, 18 [facility] [place] [address] [place] [address] Nov, 18 [facility] [place] [address] [place] [address] Nov, 18 [facility] [place] [address] [place] [address] Oct, 18 [facility] [place] [address] [place] [address] September, 18 Medicare annual wellness visit, initial Z00.00 ; Type 2 diabetes mellitus without complication, without long-term current use of insulin E11.9 and Right anterior shoulder pain M25.511 [facility] [place] [address] [place] [address] September, 18 Primary insomnia F51.01 [facility] [address] [place] [address] 30 Aug, 18 Biceps tendonitis on left M75.22 [facility] [address] [place] [address] Aug, 18 [facility] [place] [address] [place] [address] Aug, 18 [facility] [place] [address] [place] [address] Aug, 18 [facility] [place] [address] [place] [address] Aug, 18 Type 2 diabetes mellitus without complications E11.9 ; Pain of left foot M79.672 ; Pain in right foot M79.671 and Chronic gout involving toe without tophus, unspecified cause, unspecified laterality M1A.9XX0 [facility] [place] [address] [place] [address] Jun, 18 [facility] [place] [address] [place] [address] May, 18 [facility] [place] [address] [place] [address] May, 18 [facility] [place] [address] [place] [address] May, 18 [facility] [place] [address] [place] [address] 15 May, 18 Right anterior shoulder pain M25.511 [facility] [address] [place] [address] May, 18 [facility] [address] [address] May, 18 [facility] [address] [address] Apr, Type 2 diabetes mellitus without complications E11.9 ; Costochondritis, acute M94.0 and Tinea pedis of both feet B35.3 [facility] [address] [address] Mar, [facility] [address] [address] Mar, [facility] [address] [address] Feb, Acute upper respiratory infection, unspecified J06.9 ; Other viral agents as the cause of diseases classified elsewhere B97.89 and Aphthous ulcer of mouth K12.[address] [address] Jan, [address] [address] Jan, 17 Right hip pain M25.551 [facility] [address] [address] Dec, 17 Ingrown nail L60.0 ; Impetigo L01.00 and Irritant contact dermatitis due to plants, except food L24.[address] [address] Dec, [address] [address] Dec, 17 Nail abnormality L60.9 and Ingrown nail of fifth toe of right foot L60.0 [facility] [address] [address] Nov, Type 2 diabetes mellitus without complications E11.[address] [address] 17 Nov, 17 Type 2 diabetes mellitus without complication, without long-term current use of insulin E11.9 [facility] [address] [place] [address] 12 Nov, 17 [facility] [address] [place] [address] Nov, [address] [address] [address] Oct, 17 [facility] [address] [address] September, 17 [facility] [address] [address] Aug, 17 Acute idiopathic gout of foot, unspecified laterality M10.079 [facility] [address] [address] Aug, 17 Acute idiopathic gout of foot, unspecified laterality M10.079 and Primary insomnia F51.01 [facility] [address] [address] 20 Jul, 17 [facility] [address] [address] Jul, 17 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 [address] 23 Jun, 17 [facility] [address] [address] 17 Jun, 17 Acute non- recurrent maxillary sinusitis J01.00 [facility] [address] [address] 16 Jun, 17 Acute non- recurrent frontal sinusitis J01.10 [facility] [address] [address] 15 Jun, 17 [facility] [address] [address] 14 Jun, 17 Primary insomnia F51.01 [facility] [address] [address] 07 Jun, 17 Acute non- recurrent maxillary sinusitis J01.00 ; Excessive sweating R61 and 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 [facility] [address] [place] [address] 02 Jun, 17 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 [facility] [address] [place] [address] May, 17 Type 2 diabetes mellitus without complications E11.9 ; Gout involving toe, unspecified cause, unspecified chronicity, unspecified laterality M10.9 and Primary insomnia F51.01 [facility] [place] [address] [place] [address] 27 Jan, 16 [facility] [place] [address] [place] [address] 14 Jan, 16 [facility] [place] [address] [place] [address] 13 Jan, 16 [facility] [address] [place] [address] 30 Dec, 16 [facility] [place] [address] [place] [address] Dec, 16 [facility] [address] [place] [address] Dec, 16 Sciatica of right side M54.31 and Acute bilateral low back pain without sciatica M54.5 [facility] [address] [place] [address] Dec, 16 Type 2 diabetes mellitus without complications E11.9 [facility] [place] [address] [place] [address] Dec, 16 [facility] [place] [address] [place] [address] Dec, 16 [facility] [place] [address] [place] [address] Dec, 16 Sciatica of right side M54.31 ; Type 2 diabetes mellitus without complication, without long- term current use of insulin E11.9 ; Acute bilateral low back pain without sciatica M54.5 and Neuropathy G62.9 [facility] [address] [place] [address] Dec, 16 Plantar fasciitis, right M72.2 and Sciatica of right side M54.31 [facility] [address] [place] [address] Nov, 16 [facility] [place] [address] [place] [address] Oct, 16 Nail abnormality L60.9 [facility] [address] [place] [address] September, 16 [facility] [place] [address] [place] [address] Aug, 16 [facility] [place] [address] [place] [address] Aug, 16 Vertigo R42 ; Allergic rhinitis, unspecified allergic rhinitis type J30.9 and Anxiety F41.9 [facility] [address] [place] [address] Aug, 16 [facility] [place] [address] [place] [address] Aug, 16 [facility] [place] [address] [place] [address] Aug, 16 [facility] [place] [address] [place] [address] Jul, 16 [facility] [place] [address] [place] [address] Jul, 16 [facility] [place] [address] [place] [address] Jul, 16 [facility] [place] [address] [place] [address] Jul, 16 [facility] [place] [address] [place] [address] Jul, 16 Lymphadenopathy R59.1 ; Type 2 diabetes mellitus without complications E11.9 ; Essential (primary) hypertension I10 and Bipolar disorder, current episode manic without psychotic features, moderate F31.12 [facility] [place] [address] [place] [address] Jun, 16 [facility] [place] [address] [place] [address] Jun, 16 [facility] [place] [address] [place] [address] Jun, 16 [facility] [place] [address] [place] [address] Jun, 16 [facility] [place] [address] [place] [address] May, 16 [facility] [place] [address] [place] [address] May, 16 Lymphadenopathy R59.1 and Pharyngitis, acute J02.9 [facility] [address] [place] [address] May, 16 Pharyngitis, acute J02.9 and Eczema, unspecified type L30.9 [facility] [address] [place] [address] May, 16 [facility] [place] [address] [place] [address] Apr, 15 [facility] [place] [address] [place] [address] Apr, 15 Neck strain, initial encounter S16.1XXA and Obstructive sleep apnea syndrome G47.33 [facility] [place] [address] [place] [address] 15 Apr, 15 [facility] [address] [place] [address] Apr, 15 [facility] [address] [place] [address] Apr, 15 [facility] [place] [address] [place] [address] Apr, 15 [facility] [place] [address] [place] [address] Mar, 15 [facility] [place] [address] [place] [address] Mar, 15 [facility] [place] [address] [place] [address] Mar, 15 Primary insomnia F51.01 [facility] [address] [place] [address] Mar, 15 Primary insomnia F51.[address] [address] Mar, 15 Gout, unspecified M10.9 ; Other chronic pain G89.29 and Migraine with aura and without status migrainosus, not intractable G43.109 [facility] [address] [place] [address] Mar, [address] [address] Feb, 15 Restless legs syndrome G25.[address] [address] Feb, [address] [address] Feb, 15 Gout, unspecified M10.9 ; Other dorsalgia M54.89 ; Restless legs syndrome G25.81 and Encounter for immunization Z23 [address] [address] Feb, [address] [address] Jan, 15 Bilateral foot pain 729.5 ; Type 2 diabetes mellitus without complications E11.9 and Gout 274.[address] [address] Jan, [address] [address] Jan, 15 DM w/o complication type II 250.[address] [address] Jan, 15 Right hip pain 719.[address] [address] Dec, 15 Insomnia [address] [address] Dec, 15 Dysuria 788.1 and Frequency of urination 788.41 [facility] [address] [place] [address] Dec, 15 [facility] [address] [place] [address] Dec, 15 [facility] [address] [place] [address] Nov, 15 [facility] [address] [place] [address] Nov, 15 [facility] [address] [place] [address] Nov, 15 Neck pain 723.1 [facility] [address] [address] Nov, 15 [facility] [address] [place] [address] Nov, [address] [address] Nov, 15 GERD (gastroesophageal reflux disease) 530.81 ; Hypertension 401.9 ; Bipolar 1 disorder, manic, moderate 296.42 ; Back pain 724.5 and Gout 274.[address] [address] Oct, 15 Dental examination V72.[address] [address] Oct, 15 Dental examination V72.[address] [address] September, 15 Dental examination V72.[address] [address] Jun, 15 [facility] [address] [facility] [id number] [place] [address] Jun, IMMUNIZATIONS No Known Immunizations SOCIAL HISTORY [...]
--- OUTSIDE RECORDS SUMMARY | 2019-09-27 09:09 | XMS REPORT ---
Author Author Henri SINGH Organization [facility] [address] Address [address] [place] [address] Care Team Providers Care Ekg Manager Name Role Phone MARILUZZORAIDA RUTH Unavailable PROBLEMS Type Condition ICD9-CM Code XKH26-IA Code Onset Dates Condition S tatus SNOMED Code Problem Type 2 diabetes mellitus wit h diabetic neuropathy, without long-term current use of insulin E11.40 Active 59202 006 Problem Type 2 diabetes mellitus wit hout complication, without long-term current use of insulin E11.9 Active [id number] Problem Primary insomnia F51.01 Active 397 2004 Problem Type 2 diabetes mellitus without complications E11 .9 Active [id number] ALLERGIES Substance Reaction Event Type Date Status PredniSONE aggitation Drug Allergy September, Active ENCOUNTERS Encounter Location Date Diagnosis [facility] [address] [place] [id number] 15 Dec, 18 [facility] [address] [place] [phone] Dec, 18 Type 2 diabetes mellitus with diabetic neuropathy, without long-term current use of insulin E11.40 [facility] [address] [place] [phone] Dec, 18 [facility] [address] [place] [phone] Dec, 18 [facility] [address] [place] [address] Dec, 18 [facility] [place] [address] [place] [id number] Nov, 18 [facility] [address] [place] [id number] Nov, 18 [facility] [address] [address] Oct, [address] [address] September, 18 Medicare annual wellness visit, initial Z00.00 ; Type 2 diabetes mellitus without complication, without long-term current use of insulin E11.9 and Right anterior shoulder pain M25.[address] [address] September, 18 Primary insomnia F51.[address] [address] 30 Aug, 18 Biceps tendonitis on left M75.[address] [address] Aug, [address] [address] Aug, [address] [address] Aug, [address] [address] Aug, 18 Type 2 diabetes mellitus without complications E11.9 ; Pain of left foot M79.672 ; Pain in right foot M79.671 and Chronic gout involving toe without tophus, unspecified cause, unspecified laterality M1A.9XX0 [address] [address] Jun, [address] [address] May, [address] [address] May, [address] [address] May, [address] [address] May, 18 Right anterior shoulder pain M25.[address] [address] May, [address] [address] May, [address] [address] Apr, 17 Type 2 diabetes mellitus without complications E11.9 ; Costochondritis, acute M94.0 and Tinea pedis of both feet B35.[address] [address] Mar, [address] [address] Mar, [address] [address] Feb, Acute upper respiratory infection, unspecified J06.9 ; Other viral agents as the cause of diseases classified elsewhere B97.89 and Aphthous ulcer of mouth K12.[address] [address] Jan, [address] [address] Jan, 17 Right hip pain M25.[address] [address] Dec, Ingrown nail L60.0 ; Impetigo L01.00 and Irritant contact dermatitis due to plants, except food L24.[address] [address] Dec, [address] [address] Dec, 17 Nail abnormality L60.9 and Ingrown nail of fifth toe of right foot L60.[address] [address] Nov, 17 Type 2 diabetes mellitus without complications E11.[address] [address] Nov, 17 Type 2 diabetes mellitus without complication, without long-term current use of insulin E11.[address] [address] Nov, [address] [address] Nov, [address] [address] Oct, [address] [address] September, [address] [place] [address] 06 Aug, 17 Acute idiopathic gout of foot, unspecified laterality M10.[address] [address] 03 Aug, 17 Acute idiopathic gout of foot, unspecified laterality M10.079 and Primary insomnia F51.[address] [address] 20 Jul, [address] [address] Jul, 17 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 [address] 23 Jun, [address] [address] 17 Jun, 17 Acute non- recurrent maxillary sinusitis J01.[address] [address] 16 Jun, 17 Acute non- recurrent frontal sinusitis J01.[address] [address] 15 Jun, [address] [address] 14 Jun, 17 Primary insomnia F51.[address] [address] 07 Jun, 17 Acute non- recurrent maxillary sinusitis J01.00 ; Excessive sweating R61 and 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 [address] 02 Jun, 17 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 [address] 10 May, 17 Type 2 diabetes mellitus without complications E11.9 ; Gout involving toe, unspecified cause, unspecified chronicity, unspecified laterality M10.9 and Primary insomnia F51.[address] [address] 27 Jan, [address] [address] 14 Jan, 16 [facility] [address] [place] [address] Jan, 16 [facility] [address] [address] Dec, [address] [address] Dec, [address] [address] Dec, 16 Sciatica of right side M54.31 and Acute bilateral low back pain without sciatica M54.[address] [address] Dec, 16 Type 2 diabetes mellitus without complications E11.[address] [address] Dec, [address] [address] Dec, [address] [address] Dec, 16 Sciatica of right side M54.31 ; Type 2 diabetes mellitus without complication, without long-term current use of insulin E11.9 ; Acute bilateral low back pain without sciatica M54.5 and Neuropathy G62.[address] [address] Dec, 16 Plantar fasciitis, right M72.2 and Sciatica of right side M54.[address] [address] Nov, [address] [address] Oct, 16 Nail abnormality L60.[address] [address] September, [address] [address] Aug, [address] [address] Aug, 16 Vertigo R42 ; Allergic rhinitis, unspecified allergic rhinitis type J30.9 and Anxiety F41.[address] [place] [address] Aug, 16 [facility] [address] [place] [address] Aug, 16 [facility] [address] [place] [address] Aug, 16 [facility] [address] [place] [address] Jul, 16 [facility] [address] [place] [address] Jul, 16 [facility] [address] [place] [address] Jul, [address] [address] Jul, [address] [address] Jul, 16 Lymphadenopathy R59.1 ; Type 2 diabetes mellitus without complications E11.9 ; Essential (primary) hypertension I10 and Bipolar disorder, current episode manic without psychotic features, moderate F31.[address] [address] 18 Jun, [address] [address] Jun, [address] [address] Jun, [address] [address] Jun, [address] [address] May, [address] [address] May, 16 Lymphadenopathy R59.1 and Pharyngitis, acute J02.[address] [address] 11 May, 16 Pharyngitis, acute J02.9 and Eczema, unspecified type L30.9 [facility] [address] [place] [address] May, [address] [place] [address] 29 Dec, [address] [address] 21 Apr, 20 15 Neck strain, initial encounter S16.1XXA and Obstructive sleep apnea syndrome G47.[address] [address] 15 Dec, [address] [address] 07 Apr, [address] [address] 03 Apr, [address] [address] Apr, [address] [address] 30 Mar, [address] [address] 30 Mar, [address] [address] Mar, 15 Primary insomnia F51.[address] [address] 24 Mar, 15 Primary insomnia F51.[address] [address] Mar, 15 Gout, unspecified M10.9 ; Other chronic pain G89.29 and Migraine with aura and without status migrainosus, not intractable G43.[address] [address] 04 Nov, [address] [address] 22 Feb, 20 15 Restless legs syndrome G25.[address] [address] 19 Feb, [address] [address] 16 Feb, 20 15 Gout, unspecified M10.9 ; Other dorsalgia M54.89 ; Restless legs syndrome G25.81 and Encounter for immunization Z23 [address] [address] Feb, [address] [address] 29 Jan, 15 Bilateral foot pain 729.5 ; Type 2 diabetes mellitus without complications E11.9 and Gout 274.[address] [address] Jan, [address] [address] 24 Jan, 15 DM w/o complication type II 250.[address] [address] 16 Jan, 15 Right hip pain 719.[address] [address] Dec, 15 [address] [address] Dec, 15 Dysuria 788.1 and Frequency of urination 788.[address] [address] Dec, [address] [address] Dec, [address] [address] Nov, [address] [address] Nov, [address] [address] Nov, 15 Neck pain 723.[address] [address] Nov, [address] [address] Nov, [address] [address] Nov, 15 GERD (gastroesophageal reflux disease) 530.81 ; Hypertension 401.9 ; Bipolar 1 disorder, manic, moderate 296.42 ; Back pain 724.5 and Gout 274.[address] [address] Oct, 15 Dental examination V72.2 [facility] [address] [place] [address] Oct, 15 Dental examination V72.2 [facility] [address] [place] [address] September, 15 Dental examination V72.2 [facility] [address] [place] [address] Jun, 15 [facility] [address] [facility] [id number] [place] [address] Jun, IMMUNIZATIONS No Known Immunizations SOCIAL HISTORY Never Assessed REASON FOR VISIT Medicare AWV - Initial Visit, [facility] PLAN OF CARE Activity Details Follow Up 1 Year Reason: VITAL SIGNS Height 71 in 2017-10-03 Weight 210.1 lbs 2017-10-03 Temperature 98. degrees Fahrenheit 2017-10-03 Heart Rate 74 bpm 2017-10-03 Respiratory Rate 18 2017-10-03 BMI 29.30 kg/m2 2017-10-03 Blood pressure systolic 117 mmHg 2017-10-03 Blood pressure diastolic 81 mmHg 2017-10-03 MEDICATIONS Medication Instructions Dosage Frequency Start Date End Date Duration S tatus Zolpidem Tartrate 10MG TAKE ONE TABLET BY [facility]TH [facility] Tizanidine HCl 2 MG TAKE 1 TABLET BY MOUTH 3 TIMES DAILY NEED ED 15 Active Allopurinol 100MG TAKE TWO TABLETS BY MOUTH ONCE DAILY. Active Atenolol 25MG Orally Once a day 1 tablet 24h Active Lisinopril 5MG Orally Once a day 1 tablet 24h 90 Not-Taking Phenergan 25 MG 1 tablet May, Ac tive Isosorbide Mononitrate ER 30MG TAKE ONE TABLET BY MOUTH ONCE DAILY 90 days Active Gabapentin 600MG TAKE ONE TABLET BY MOUTH THREE TIMES DAILY Active Lancets ... as directed 24h Aug, Not -Taking Flonase Allergy Relief 50 MCG/ACT Nasally Once a day 1 spray in each nostril 24h Aug, 30 day(s) Not-Taking Test strips ... as directed 24h Aug, Not-Taking Cyclobenzaprine HCl 10MG Orally Three times a day 1 tablet 8h Active Klonopin 2 MG Orally Twice a day 1 tablet 12h Active Ambien 10 MG Orally Once a day 1 tablet at bedtime 24h May, 30 days Active Seroquel 100 MG Orally Once a day 1 tablet 24h Active Symbyax 12-50 MG Orally Once a day in the evening 1 capsule Not-Taking Valium 5 mg Orally 2 times a day prn sciatica as directed Active Voltaren 1 % Transdermal 3 times a day to both toe joints 2 grams Aug, Active TRUEresult Blood Glucose w/Device as directed 24h Aug, 16 Not-Taking Dexilant 60MG DR Orally Once a day 1 capsule 24h Active Meloxicam 15MG 1 tablet by mouth 1 time a day 90 Active Olanzapine-Fluoxetine HCl 12-50 MG TAKE 1 CAPSULE BY MOUTH IN THE EVENING 30 Not-Taking Imdur 30 MG Orally Once a day 1 tablet 24h N ot-Taking RESULTS No Results PROCEDURES Procedure Date Ordered Result Body Site [facility] VISIT IPPE/AWV October 03, 2017 ANNUAL SOLOMON VST; PERSNL PPS INIT October 03, 2017 PT TOBACCO SCREEN RCVD TLK October 03, 2017 FALL RISK ASSESSMENT DOCD October 03, 2017 INSTRUCTIONS MEDICATIONS ADMINISTERED No Known Medications MEDICAL (GENERAL) HISTORY Type Description Date Medical History Hypertension Medical History Bipolar 1 disorder, manic, moderate Medical History Gout Medical History Diabetes Medical History GERD (gastroesophageal reflux disease) Surgical History Kidney stone removal Surgical History Nerve ending perera in back Surgical History lymphectomy Hospitalization History DM Hospitalization History Surgery(s)
--- OUTSIDE RECORDS SUMMARY | 2019-09-27 09:09 | XMS REPORT ---
Author Author Henri SINGH Organization [facility] [address] Address [address] [place] [address] Care Team Providers Care Healthcare Sales Representative Name Role Phone SAMANTHA ZORAIDA Unavailable PROBLEMS Type Condition ICD9-CM Code IRZ34-GT Code Onset Dates Condition S tatus SNOMED Code Problem Type 2 diabetes mellitus wit h diabetic neuropathy, without long-term current use of insulin E11.40 Active 35012 006 Problem Type 2 diabetes mellitus wit hout complication, without long-term current use of insulin E11.9 Active 454299638 Problem Primary insomnia F51.01 Active 397 2004 Problem Type 2 diabetes mellitus without complications E11 .9 Active [id number] ALLERGIES No Information ENCOUNTERS Encounter Location Date Diagnosis [facility] [address] [place] [address] 11 Jan, 18 Tachycardia R00.0 [facility] [address] [place] [address] 03 Jan, 18 [facility] [address] [place] [address] 30 Dec, 18 Palpitation R00.2 and Type 2 diabetes mellitus without complications E11.9 [facility] [address] [place] [address] 15 Dec, 18 [facility] [address] [place] [address] 14 Dec, 18 Type 2 diabetes mellitus with diabetic neuropathy, without long-term current use of insulin E11.40 [facility] [address] [place] [address] 10 Dec, 18 [facility] [address] [place] [address] 06 Dec, 18 [facility] [address] [place] [address] 06 Dec, 18 [facility] [address] [address] [place] [address] Nov, 18 [facility] [address] [place] [address] Nov, 18 [facility] [address] [place] [address] Oct, 18 [facility] [address] [place] [address] 03 October, 18 Medicare annual wellness visit, initial Z00.00 ; Type 2 diabetes mellitus without complication, without long-term current use of insulin E11.9 and Right anterior shoulder pain M25.511 [facility] [address] [place] [address] September, 18 Primary insomnia F51.01 [facility] [address] [place] [address] Aug, 18 Biceps tendonitis on left M75.22 [facility] [address] [place] [address] Aug, 18 [facility] [address] [place] [address] Aug, 18 [facility] [address] [place] [address] Aug, 18 [facility] [address] [place] [address] Aug, 18 Type 2 diabetes mellitus without complications E11.9 ; Pain of left foot M79.672 ; Pain in right foot M79.671 and Chronic gout involving toe without tophus, unspecified cause, unspecified laterality M1A.9XX0 [facility] [address] [place] [address] Jun, 18 [facility] [address] [place] [address] May, 18 [facility] [address] [place] [address] May, 18 [facility] [address] [place] [address] May, 18 [facility] [address] [place] [address] 15 May, 18 Right anterior shoulder pain M25.511 [facility] [address] [place] [address] May, 18 [facility] [address] [place] [address] May, 18 [facility] [address] [place] [address] Apr, Type 2 diabetes mellitus without complications E11.9 ; Costochondritis, acute M94.0 and Tinea pedis of both feet B35.3 [facility] [address] [place] [address] 09 Mar, [facility] [address] [address] Mar, [facility] [address] [address] Feb, Acute upper respiratory infection, unspecified J06.9 ; Other viral agents as the cause of diseases classified elsewhere B97.89 and Aphthous ulcer of mouth K12.0 [facility] [address] [place] [address] Jan, [address] [address] Jan, 17 Right hip pain M25.551 [facility] [address] [address] Dec, 17 Ingrown nail L60.0 ; Impetigo L01.00 and Irritant contact dermatitis due to plants, except food L24.7 [facility] [address] [place] [address] Dec, [address] [address] Dec, 17 Nail abnormality L60.9 and Ingrown nail of fifth toe of right foot L60.0 [facility] [address] [address] Nov, 17 Type 2 diabetes mellitus without complications E11.9 [place] [place] [address] 17 Nov, 17 Type 2 diabetes mellitus without complication, without long-term current use of insulin E11.9 [facility] [address] [place] [address] 12 Nov, 17 [facility] [address] [place] [address] Nov, [address] [address] Oct, 17 [address] [address] [place] [address] September, 17 [facility] [address] [address] [address] Aug, 17 Acute idiopathic gout of foot, unspecified laterality M10.079 Maria EGLAD[facility] [address] [address] Aug, 17 Acute idiopathic gout of foot, unspecified laterality M10.079 and Primary insomnia F51.01 [facility] [address] [address] Jul, [address] [address] Jul, 17 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 [address] 23 Jun, [address] [address] 17 Jun, 17 Acute non- recurrent maxillary sinusitis J01.00 [facility] [address] [address] 16 Jun, 17 Acute non- recurrent frontal sinusitis J01.[address] [address] 15 Jun, [address] [address] 14 Jun, 17 Primary insomnia F51.01 [facility] [address] [address] 07 Jun, 17 Acute non- recurrent maxillary sinusitis J01.00 ; Excessive sweating R61 and 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 [facility] [address] [place] [address] 02 Jun, 17 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 [facility] [address] [address] May, 17 Type 2 diabetes mellitus without complications E11.9 ; Gout involving toe, unspecified cause, unspecified chronicity, unspecified laterality M10.9 and Primary insomnia F51.01 [facility] [address] [place] [address] 27 Jan, 16 [facility] [address] [place] [address] 14 Jan, 16 [facility] [address] [place] [address] 13 Jan, 16 [facility] [address] [place] [address] 30 Dec, 16 [facility] [address] [place] [address] Dec, [address] [address] Dec, 16 Sciatica of right side M54.31 and Acute bilateral low back pain without sciatica M54.5 [facility] [address] [place] [address] Dec, 16 Type 2 diabetes mellitus without complications E11.9 [facility] [address] [place] [address] Dec, 16 [facility] [address] [place] [address] Dec, 16 [facility] [address] [place] [address] Dec, 16 Sciatica of right side M54.31 ; Type 2 diabetes mellitus without complication, without long- term current use of insulin E11.9 ; Acute bilateral low back pain without sciatica M54.5 and Neuropathy G62.9 [facility] [address] [place] [address] Dec, 16 Plantar fasciitis, right M72.2 and Sciatica of right side M54.31 [facility] [place] [address] [place] [address] Nov, 16 [facility] [place] [address] [place] [address] Oct, 16 Nail abnormality L60.9 [facility] [place] [place] [address] September, 16 [facility] [address] [place] [address] Aug, 16 [facility] [address] [place] [address] Aug, 16 Vertigo R42 ; Allergic rhinitis, unspecified allergic rhinitis type J30.9 and Anxiety F41.9 [facility] [address] [place] [address] Aug, 16 [facility] [address] [place] [address] Aug, 16 [facility] [address] [place] [address] Aug, 16 [facility] [address] [place] [address] Jul, 16 [facility] [address] [place] [address] Jul, 16 [facility] [address] [place] [address] Jul, 16 [facility] [address] [place] [address] Jul, 16 [facility] [address] [place] [address] Jul, 16 Lymphadenopathy R59.1 ; Type 2 diabetes mellitus without complications E11.9 ; Essential (primary) hypertension I10 and Bipolar disorder, current episode manic without psychotic features, moderate F31.12 [facility] [address] [place] [address] Jun, 16 [facility] [address] [place] [address] 15 Jun, 16 [facility] [address] [place] [address] Jun, 16 [facility] [address] [place] [address] Jun, 16 [facility] [address] [place] [address] May, 16 [facility] [address] [place] [address] 14 May, 16 Lymphadenopathy R59.1 and Pharyngitis, acute J02.9 [facility] [address] [place] [address] May, 16 Pharyngitis, acute J02.9 and Eczema, unspecified type L30.9 [facility] [address] [place] [address] May, 16 [facility] [address] [place] [address] Apr, 15 [facility] [address] [place] [address] Apr, 15 Neck strain, initial encounter S16.1XXA and Obstructive sleep apnea syndrome G47.33 [facility] [address] [place] [address] Apr, 15 [facility] [address] [place] [address] Apr, 15 [facility] [address] [place] [address] Apr, 15 [facility] [address] [place] [address] Apr, 15 [facility] [address] [place] [address] Mar, 15 [facility] [address] [place] [address] Mar, 15 [facility] [address] [place] [address] Mar, 15 Primary insomnia F51.01 [facility] [address] [place] [address] 24 Mar, 15 Primary insomnia F51.[address] [address] Mar, 15 Gout, unspecified M10.9 ; Other chronic pain G89.29 and Migraine with aura and without status migrainosus, not intractable G43.[address] [address] Mar, 15 [facility] [address] [address] Feb, 15 Restless legs syndrome G25.[address] [address] Feb, [address] [address] Feb, 15 Gout, unspecified M10.9 ; Other dorsalgia M54.89 ; Restless legs syndrome G25.81 and Encounter for immunization Z23 [address] [address] Feb, [address] [address] Jan, 15 Bilateral foot pain 729.5 ; Type 2 diabetes mellitus without complications E11.9 and Gout 274.[address] [address] Jan, [address] [address] Jan, 15 DM w/o complication type II 250.[address] [address] 16 Jan, 15 Right hip pain 719.[address] [address] Dec, 15 Insomnia [address] [address] 19 Dec, 15 Dysuria 788.1 and Frequency of urination 788.41 [facility] [address] [place] [address] Dec, 15 [facility] [address] [place] [address] Dec, 15 [facility] [address] [place] [address] Nov, 15 [facility] [address] [place] [address] Nov, 15 [facility] [address] [address] Nov, 15 Neck pain 723.1 [facility] [address] [place] [address] Nov, 15 [facility] [address] [address] Nov, 15 [facility] [address] [address] Nov, 15 GERD (gastroesophageal reflux disease) 530.81 ; Hypertension 401.9 ; Bipolar 1 disorder, manic, moderate 296.42 ; Back pain 724.5 and Gout 274.[address] [address] Oct, 15 Dental examination V72.[address] [address] Oct, 15 Dental examination V72.[address] [address] September, 15 Dental examination V72.[address] [address] Jun, 15 [facility] [address] [facility] [id number] [address] [place] [address] Jun, IMMUNIZATIONS No Known Immunizations SOCIAL HISTORY Never Assessed REASON FOR VISIT my feet PLAN OF CARE VITAL SIGNS MEDICATIONS Unknown [...]
--- OUTSIDE RECORDS SUMMARY | 2019-09-27 09:09 | XMS REPORT ---
Author Author Henri SINGH Organization [facility] [address] 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 Or Assistant Operator Name Role Phone SAMANTHA ZORAIDA Unavailable PROBLEMS Type Condition ICD9-CM Code [id number] Code Onset Dates Condition S tatus SNOMED Code Problem Type 2 diabetes mellitus wit h diabetic neuropathy, without long-term current use of insulin E11.40 Active 84480 006 Problem Type 2 diabetes mellitus wit hout complication, without long-term current use of insulin E11.9 Active 336161886 Problem Primary insomnia F51.01 Active 397 2004 Problem Type 2 diabetes mellitus without complications E11 .9 Active [id number] ALLERGIES No Information ENCOUNTERS Encounter Location Date Diagnosis [facility] [address] [place] [address] 11 Jan, 18 [facility] [address] [place] [address] 03 Jan, 18 [facility] [address] [place] [address] 30 Dec, 18 Palpitation R00.2 and Type 2 diabetes mellitus without complications E11.9 [facility] [address] [place] [address] 15 Dec, 18 [facility] [address] [place] [address] 14 Dec, 18 Type 2 diabetes mellitus with diabetic neuropathy, without long-term current use of insulin E11.40 [facility] [address] [place] [address] 10 Dec, 18 [facility] [address] [place] [address] 06 Dec, 18 [facility] [address] [place] [address] 06 Dec, 18 [facility] [address] [place] [address] 16 Nov, 18 [facility] [address] [address] Nov, 18 [facility] [address] [address] Oct, 18 [facility] [address] [address] September, 18 Medicare annual wellness visit, initial Z00.00 ; Type 2 diabetes mellitus without complication, without long-term current use of insulin E11.9 and Right anterior shoulder pain M25.[address] [address] September, 18 Primary insomnia F51.[address] [address] Aug, 18 Biceps tendonitis on left M75.22 [facility] [address] [address] Aug, 18 [facility] [address] [address] Aug, [address] [address] Aug, [address] [address] Aug, 18 Type 2 diabetes mellitus without complications E11.9 ; Pain of left foot M79.672 ; Pain in right foot M79.671 and Chronic gout involving toe without tophus, unspecified cause, unspecified laterality M1A.9XX0 [address] [address] Jun, 18 [facility] [address] [address] May, 18 [facility] [address] [address] May, 18 [facility] [address] [address] May, 18 [facility] [address] [address] May, 18 Right anterior shoulder pain M25.[address] [address] May, [address] [address] May, [address] [address] Apr, 17 Type 2 diabetes mellitus without complications E11.9 ; Costochondritis, acute M94.0 and Tinea pedis of both feet B35.[address] [address] 09 Mar, [address] [address] Mar, [address] [address] Feb, 17 Acute upper respiratory infection, unspecified J06.9 ; Other viral agents as the cause of diseases classified elsewhere B97.89 and Aphthous ulcer of mouth K12.[address] [address] Jan, [address] [address] Jan, 17 Right hip pain M25.[address] [address] Dec, 17 Ingrown nail L60.0 ; Impetigo L01.00 and Irritant contact dermatitis due to plants, except food L24.[address] [address] Dec, [address] [address] Dec, 17 Nail abnormality L60.9 and Ingrown nail of fifth toe of right foot L60.[address] [address] Nov, 17 Type 2 diabetes mellitus without complications E11.[address] [address] Nov, 17 Type 2 diabetes mellitus without complication, without long-term current use of insulin E11.[address] [address] Nov, [address] [address] 07 Nov, [address] [address] Oct, [address] [address] September, [address] [address] Aug, 17 Acute idiopathic gout of foot, unspecified laterality M10.[address] [address] Aug, 17 Acute idiopathic gout of foot, unspecified laterality M10.079 and Primary insomnia F51.[address] [address] 20 Jul, [address] [address] Jul, 17 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 [address] 23 Jun, [address] [address] 17 Jun, 17 Acute non- recurrent maxillary sinusitis J01.[address] [address] 16 Jun, 17 Acute non- recurrent frontal sinusitis J01.[address] [address] 15 Jun, [address] [address] 14 Jun, 17 Primary insomnia F51.[address] [address] 07 Jun, 17 Acute non- recurrent maxillary sinusitis J01.00 ; Excessive sweating R61 and 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 [address] 02 Jun, 17 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 [address] May, 17 Type 2 diabetes mellitus without complications E11.9 ; Gout involving toe, unspecified cause, unspecified chronicity, unspecified laterality M10.9 and Primary insomnia F51.[address] [address] 27 Jan, [address] [address] 14 Jan, [address] [address] Jan, [address] [address] Dec, [address] [address] Dec, [address] [address] Dec, 16 Sciatica of right side M54.31 and Acute bilateral low back pain without sciatica M54.[address] [address] Dec, 16 Type 2 diabetes mellitus without complications E11.[address] [address] Dec, [address] [address] Dec, [address] [address] Dec, 16 Sciatica of right side M54.31 ; Type 2 diabetes mellitus without complication, without long-term current use of insulin E11.9 ; Acute bilateral low back pain without sciatica M54.5 and Neuropathy G62.[address] [address] Dec, 16 Plantar fasciitis, right M72.2 and Sciatica of right side M54.[address] [address] Nov, [address] [address] Oct, 16 Nail abnormality L60.[address] [address] 08 September, 16 [facility] [address] [place] [address] Aug, [address] [address] Aug, 16 Vertigo R42 ; Allergic rhinitis, unspecified allergic rhinitis type J30.9 and Anxiety F41.[address] [address] Aug, [address] [address] Aug, [address] [address] Aug, [address] [address] Jul, [address] [address] Jul, [address] [address] Jul, [address] [address] Jul, [address] [address] Jul, 16 Lymphadenopathy R59.1 ; Type 2 diabetes mellitus without complications E11.9 ; Essential (primary) hypertension I10 and Bipolar disorder, current episode manic without psychotic features, moderate F31.[address] [address] Jun, [address] [address] Jun, [address] [address] Jun, [address] [address] Jun, [address] [address] May, [address] [address] May, 16 Lymphadenopathy R59.1 and Pharyngitis, acute J02.[address] [address] 11 May, 16 Pharyngitis, acute J02.9 and Eczema, unspecified type L30.[address] [address] 05 May, [address] [address] 29 Apr, [address] [address] 21 Apr, 15 Neck strain, initial encounter S16.1XXA and Obstructive sleep apnea syndrome G47.[address] [address] 15 Apr, [address] [address] 07 Apr, [address] [address] 03 Apr, [address] [address] Apr, [address] [address] 30 Mar, [address] [address] 30 Mar, [address] [address] Mar, 15 Primary insomnia F51.[address] [address] 24 Mar, 15 Primary insomnia F51.[address] [address] 09 Mar, 15 Gout, unspecified M10.9 ; Other chronic pain G89.29 and Migraine with aura and without status migrainosus, not intractable G43.[address] [address] 04 Mar, [address] [address] Feb, 15 Restless legs syndrome G25.[address] [address] 19 Feb, [address] [address] 16 Feb, 15 Gout, unspecified M10.9 ; Other dorsalgia M54.89 ; Restless legs syndrome G25.81 and Encounter for immunization Z23 [address] [address] 13 Feb, [address] [address] 29 Jan, 15 Bilateral foot pain 729.5 ; Type 2 diabetes mellitus without complications E11.9 and Gout 274.[address] [address] Jan, [address] [address] 24 Jan, 15 DM w/o complication type II 250.[address] [address] Jan, 15 Right hip pain 719.[address] [address] Dec, 15 Insomnia [address] [address] Dec, 15 Dysuria 788.1 and Frequency of urination 788.[address] [address] Dec, [address] [address] Dec, [address] [address] Nov, [address] [address] Nov, [address] [address] 16 Nov, 15 Neck pain 723.[address] [address] Nov, [address] [address] Nov, [address] [address] Nov, 15 GERD (gastroesophageal reflux disease) 530.81 ; Hypertension 401.9 ; Bipolar 1 disorder, manic, moderate 296.42 ; Back pain 724.5 and Gout 274.[address] [address] Oct, Dental examination V72.[address] [address] Oct, 15 Dental examination V72.[address] [address] September, Dental examination V72.[address] [address] Jun, 15 [facility] [address] [facility] [id number] [place] [address] Jun, IMMUNIZATIONS No Known Immunizations SOCIAL HISTORY [...]
--- OUTSIDE RECORDS SUMMARY | 2019-09-27 09:09 | XMS REPORT ---
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 Burner Name Role Phone SAMANTHA ZORAIDA Unavailable PROBLEMS Type Condition ICD9-CM Code WAR27-DQ Code Onset Dates Condition S tatus SNOMED Code Problem Type 2 diabetes mellitus wit h diabetic neuropathy, without long-term current use of insulin E11.40 Active 24282 006 Problem Type 2 diabetes mellitus wit hout complication, without long-term current use of insulin E11.9 Active [id number] Problem Primary insomnia F51.01 Active 397 2004 Problem Type 2 diabetes mellitus without complications E11 .9 Active [id number] ALLERGIES No Information ENCOUNTERS Encounter Location Date Diagnosis [facility] [address] [place] [address] 11 Jan, 18 Tachycardia R00.0 [facility] [address] [place] [address] 03 Jan, 18 [facility] [address] [place] [phone] 30 Dec, 18 Palpitation R00.2 and Type 2 diabetes mellitus without complications E11.9 [facility] [address] [place] [phone] 15 Dec, 18 [facility] [address] [place] [phone] 14 Dec, 18 Type 2 diabetes mellitus with diabetic neuropathy, without long-term current use of insulin E11.40 [facility] [address] [place] [address] 10 Dec, 18 [facility] [place] [address] [place] [address] 06 Dec, 18 [facility] [place] [address] [place] [address] 06 Dec, 18 [facility] [place] [address] [place] [address] Nov, 18 [facility] [address] [address] [place] [address] Nov, 18 [facility] [address] [address] [place] [address] Oct, 18 [facility] [place] [address] [place] [address] 03 October, 18 Medicare annual wellness visit, initial Z00.00 ; Type 2 diabetes mellitus without complication, without long-term current use of insulin E11.9 and Right anterior shoulder pain M25.511 [facility] [address] [place] [address] September, 18 Primary insomnia F51.01 [facility] [address] [place] [address] Aug, 18 Biceps tendonitis on left M75.22 [facility] [place] [address] [place] [address] Aug, 18 [facility] [place] [address] [place] [address] Aug, 18 [facility] [place] [address] [place] [address] Aug, 18 [facility] [place] [address] [place] [address] Aug, 18 Type 2 diabetes mellitus without complications E11.9 ; Pain of left foot M79.672 ; Pain in right foot M79.671 and Chronic gout involving toe without tophus, unspecified cause, unspecified laterality M1A.9XX0 [facility] [place] [address] [place] [address] Jun, 18 [facility] [place] [address] [place] [address] May, 18 [facility] [place] [address] [place] [address] May, 18 [facility] [place] [address] [place] [address] May, 18 [facility] [place] [address] [place] [address] 15 May, 18 Right anterior shoulder pain M25.511 [facility] [address] [place] [address] May, 18 [facility] [place] [address] [place] [address] May, 18 [facility] [place] [address] [place] [address] Apr, Type 2 diabetes mellitus without complications E11.9 ; Costochondritis, acute M94.0 and Tinea pedis of both feet B35.3 [facility] [place] [address] [place] [address] 09 Mar, [facility] [address] [address] Mar, [facility] [address] [address] Feb, Acute upper respiratory infection, unspecified J06.9 ; Other viral agents as the cause of diseases classified elsewhere B97.89 and Aphthous ulcer of mouth K12.0 [facility] [address] [place] [address] Jan, [address] [address] Jan, 17 Right hip pain M25.551 [facility] [address] [address] Dec, 17 Ingrown nail L60.0 ; Impetigo L01.00 and Irritant contact dermatitis due to plants, except food L24.7 [facility] [address] [place] [address] Dec, [address] [address] Dec, 17 Nail abnormality L60.9 and Ingrown nail of fifth toe of right foot L60.0 [facility] [address] [address] Nov, 17 Type 2 diabetes mellitus without complications E11.9 [place] [place] [address] 17 Nov, 17 Type 2 diabetes mellitus without complication, without long-term current use of insulin E11.9 [facility] [address] [place] [address] 12 Nov, 17 [facility] [address] [place] [address] Nov, [address] [address] Oct, 17 [facility] [address] [address] [place] [address] September, 17 [facility] [address] [address] Aug, 17 Acute idiopathic gout of foot, unspecified laterality M10.079 [facility] [address] [address] Aug, 17 Acute idiopathic gout of foot, unspecified laterality M10.079 and Primary insomnia F51.01 [facility] [address] [address] Jul, [address] [address] [address] Jul, 17 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 [facility] [address] [address] 23 Jun, [address] [address] 17 Jun, 17 Acute non- recurrent maxillary sinusitis J01.00 [facility] [address] [address] 16 Jun, 17 Acute non- recurrent frontal sinusitis J01.[address] [address] 15 Jun, [address] [address] 14 Jun, 17 Primary insomnia F51.01 [facility] [address] [address] 07 Jun, 17 Acute non- recurrent maxillary sinusitis J01.00 ; Excessive sweating R61 and 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 [facility] [place] [address] [place] [address] 02 Jun, 17 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 [facility] [address] [address] May, 17 Type 2 diabetes mellitus without complications E11.9 ; Gout involving toe, unspecified cause, unspecified chronicity, unspecified laterality M10.9 and Primary insomnia F51.01 [facility] [place] [address] [place] [address] 27 Jan, 16 [facility] [place] [address] 14 Jan, 16 [facility] [place] [address] [place] [address] 13 Jan, 16 [facility] [place] [place] [address] 30 Dec, 16 [facility] [address] [place] [address] Dec, [address] [address] Dec, 16 Sciatica of right side M54.31 and Acute bilateral low back pain without sciatica M54.5 [facility] [place] [address] [place] [address] Dec, 16 Type 2 diabetes mellitus without complications E11.9 [facility] [place] [address] [place] [address] Dec, 16 [facility] [place] [place] [address] Dec, 16 [facility] [address] [address] [place] [address] Dec, 16 Sciatica of right side M54.31 ; Type 2 diabetes mellitus without complication, without long- term current use of insulin E11.9 ; Acute bilateral low back pain without sciatica M54.5 and Neuropathy G62.9 [facility] [place] [address] [place] [address] Dec, 16 Plantar fasciitis, right M72.2 and Sciatica of right side M54.31 [facility] [place] [address] [place] [address] Nov, 16 [facility] [place] [address] [place] [address] Oct, 16 Nail abnormality L60.9 [facility] [place] [address] [place] [address] September, 16 [facility] [place] [address] [place] [address] Aug, 16 [facility] [place] [address] [place] [address] Aug, 16 Vertigo R42 ; Allergic rhinitis, unspecified allergic rhinitis type J30.9 and Anxiety F41.9 [facility] [place] [address] [place] [address] Aug, 16 [facility] [place] [address] [place] [address] Aug, 16 [facility] [place] [address] [place] [address] Aug, 16 [facility] [place] [address] [place] [address] Jul, 16 [facility] [place] [address] [place] [address] Jul, 16 [facility] [place] [address] [place] [address] Jul, 16 [facility] [place] [address] [place] [address] Jul, 16 [facility] [place] [address] [place] [address] Jul, 16 Lymphadenopathy R59.1 ; Type 2 diabetes mellitus without complications E11.9 ; Essential (primary) hypertension I10 and Bipolar disorder, current episode manic without psychotic features, moderate F31.12 [facility] [place] [address] [place] [address] Jun, 16 [facility] [address] [address] [place] [address] 15 Jun, 16 [facility] [place] [address] [place] [address] Jun, 16 [facility] [address] [address] [place] [address] Jun, 16 [facility] [place] [address] [place] [address] May, 16 [facility] [place] [address] [place] [address] 14 May, 16 Lymphadenopathy R59.1 and Pharyngitis, acute J02.9 [facility] [address] [place] [address] May, 16 Pharyngitis, acute J02.9 and Eczema, unspecified type L30.9 [facility] [place] [address] [place] [address] May, 16 [facility] [place] [address] [place] [address] Apr, 15 [facility] [place] [address] [place] [address] Apr, 15 Neck strain, initial encounter S16.1XXA and Obstructive sleep apnea syndrome G47.33 [facility] [address] [place] [address] Apr, 15 [facility] [place] [address] [place] [address] Apr, 15 [facility] [place] [address] [place] [address] Apr, 15 [facility] [place] [address] [place] [address] Apr, 15 [facility] [place] [address] [place] [address] Mar, 15 [facility] [place] [address] [place] [address] Mar, 15 [facility] [place] [address] [place] [address] Mar, 15 Primary insomnia F51.01 [facility] [place] [address] [place] [address] 24 Mar, 15 Primary insomnia F51.[address] [address] Mar, 15 Gout, unspecified M10.9 ; Other chronic pain G89.29 and Migraine with aura and without status migrainosus, not intractable G43.[address] [address] Mar, 15 [facility] [address] [address] Feb, 15 Restless legs syndrome G25.[address] [address] Feb, [address] [address] Feb, 15 Gout, unspecified M10.9 ; Other dorsalgia M54.89 ; Restless legs syndrome G25.81 and Encounter for immunization Z23 [address] [address] Feb, [address] [address] Jan, 15 Bilateral foot pain 729.5 ; Type 2 diabetes mellitus without complications E11.9 and Gout 274.[address] [address] Jan, [address] [address] Jan, 15 DM w/o complication type II 250.[address] [address] 16 Jan, 15 Right hip pain 719.[address] [address] Dec, 15 Insomnia 780.[address] [address] 19 Dec, 15 Dysuria 788.1 and Frequency of urination 788.41 [facility] [place] [address] [place] [address] Dec, 15 [facility] [address] [place] [address] Dec, 15 nick[facility]E [address] [place] [address] Nov, 15 [facility] [place] [address] [place] [address] Nov, 15 [facility] [address] [address] Nov, 15 Neck pain 723.1 [facility] [place] [address] [place] [address] Nov, 15 [facility] [address] [address] Nov, 15 [facility] [address] [address] Nov, 15 GERD (gastroesophageal reflux disease) 530.81 ; Hypertension 401.9 ; Bipolar 1 disorder, manic, moderate 296.42 ; Back pain 724.5 and Gout 274.[address] [address] Oct, 15 Dental examination V72.[address] [address] Oct, 15 Dental examination V72.[address] [address] September, 15 Dental examination V72.[address] [address] Jun, 15 [facility] [address] [facility] [id number] [place] [address] Jun, IMMUNIZATIONS No Known Immunizations SOCIAL HISTORY [...]
--- OUTSIDE RECORDS SUMMARY | 2019-09-27 09:10 | XMS REPORT ---
Author Author Henri SINGH Organization [facility] [address] [address] [place] [address] Care Team Providers Care Traveling Auditor Name Role Phone SAMANTHA ZORAIDA Unavailable PROBLEMS Type Condition ICD9-CM Code NAG39-ED Code Onset Dates Condition S tatus SNOMED Code Problem Type 2 diabetes mellitus wit hout complication, without long-term current use of insulin E11.9 Active 057066097 Problem Primary insomnia F51.01 Active 397 2004 Problem Type 2 diabetes mellitus without complications E11 .9 Active [id number] ALLERGIES No Information ENCOUNTERS Encounter Location Date Diagnosis [facility] [place] [address] [place] [phone] Nov, [facility] [place] [address] [place] [phone] Nov, [facility] [place] [address] [place] [phone] Oct, [facility] [place] [address] [place] [phone] September, Medicare annual wellness visit, initial Z00.00 ; Type 2 diabetes mellitus without complication, without long-term current use of insulin E11.9 and Right anterior shoulder pain M25.511 [facility] [place] [address] [place] [phone] September, Primary insomnia F51.01 [facility] [place] [address] [place] [phone] Aug, Biceps tendonitis on left M75.22 [facility] [place] [address] [place] [address] Aug, [facility] [place] [address] [place] [phone] Aug, [facility] [place] [address] [place] [address] Aug, [facility] [place] [address] [place] [phone] Aug, Type 2 diabetes mellitus without complications E11.9 ; Pain of left foot M79.672 ; Pain in right foot M79.671 and Chronic gout involving toe without tophus, unspecified cause, unspecified laterality M1A.9XX0 [facility] [place] [address] [place] [phone] Jun, [facility] [place] [address] [place] [phone] May, [facility] [place] [address] [place] [phone] May, [facility] [place] [address] [place] [phone] May, [facility] [place] [address] [place] [address] May, Right anterior shoulder pain M25.[address] [facility] [address] [address] May, [facility] [address] [address] May, [address] [address] Apr, Type 2 diabetes mellitus without complications E11.9 ; Costochondritis, acute M94.0 and Tinea pedis of both feet B35.[address] [address] Mar, [address] [address] Mar, [address] [address] Feb, Acute upper respiratory infection, unspecified J06.9 ; Other viral agents as the cause of diseases classified elsewhere B97.89 and Aphthous ulcer of mouth K12.[address] [address] Jan, [facility] [address] [address] Jan, Right hip pain M25.[address] [address] Dec, Ingrown nail L60.0 ; Impetigo L01.00 and Irritant contact dermatitis due to plants, except food L24.[address] [address] Dec, [address] [place] [address] Dec, Nail abnormality L60.9 and Ingrown nail of fifth toe of right foot L60.0 [facility] [place] [address] [place] [phone] Nov, Type 2 diabetes mellitus without complications E11.9 [facility] [place] [address] [place] [phone] Nov, Type 2 diabetes mellitus without complication, without long-term current use of insulin E11.9 [facility] [place] [address] [place] [phone] Nov, [facility] [place] [address] [place] [address] Nov, [facility] [address] [address] Oct, [facility] [address] [address] September, [facility] [address] [address] Aug, Acute idiopathic gout of foot, unspecified laterality M10.[address] [facility] [address] [address] Aug, Acute idiopathic gout of foot, unspecified laterality M10.079 and Primary insomnia F51.[address] [address] Jul, [facility] [address] [address] Jul, 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 [facility] [address] [address] Jun, [facility] [address] [address] Jun, Acute non-recurrent maxillary sinusitis J01.00 [facility] [address] [address] 16 Jun, 2016 Acute non-recurrent frontal sinusitis J01.[address] [facility] [address] [address] Jun, [facility] [address] [address] Jun, Primary insomnia F51.01 [facility] [address] [address] 07 Jun, 2016 Acute non-recurrent maxillary sinusitis J01.00 ; Excessive sweating R61 and 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 [facility] [address] [address] 02 Jun, 2016 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 [facility] [address] [address] 10 May, 2016 Type 2 diabetes mellitus without complications E11.9 ; Gout involving toe, unspecified cause, unspecified chronicity, unspecified laterality M10.9 and Primary insomnia F51.01 [facility] [place] [address] [place] [phone] Jan, [facility] [place] [address] [place] [address] Jan, [facility] [place] [address] [place] [phone] Jan, [facility] [address] [address] Dec, [facility] [place] [address] [place] [address] Dec, [facility] [address] [address] Dec, Sciatica of right side M54.31 and Acute bilateral low back pain without sciatica M54.5 [facility] [address] [address] Dec, Type 2 diabetes mellitus without complications E11.9 [facility] [address] [address] Dec, [facility] [address] [address] Dec, [facility] [address] [address] Dec, Sciatica of right side M54.31 ; Type 2 diabetes mellitus without complication, without long-term current use of insulin E11.9 ; Acute bilateral low back pain without sciatica M54.5 and Neuropathy G62.9 [facility] [place] [address] [place] [address] Dec, Plantar fasciitis, right M72.2 and Sciatica of right side M54.31 [facility] [place] [address] [place] [phone] Nov, [facility] [place] [address] [place] [address] Oct, Nail abnormality L60.9 [facility] [place] [address] [place] [address], [place] [address] September, [facility] [place] [address] [place] [address] Aug, [facility] [place] [address] [place] [address], [place] [address] Aug, Vertigo R42 ; Allergic rhinitis, unspecified allergic rhinitis type J30.9 and Anxiety F41.9 [facility] [place] [address] [place] [phone] Aug, [facility] [place] [address] [place] [address], [place] [address] Aug, [facility] [place] [address] [place] [address], [place] [address] Aug, [facility] [place] [address] [place] [address], [place] [address] Jul, [facility] [place] [address] [place] [address] Jul, [facility] [place] [address] [place] [address] Jul, [facility] [place] [address] [place] [phone] Jul, [facility] [place] [address] [place] [address], [place] [address] Jul, Lymphadenopathy R59.1 ; Type 2 diabetes mellitus without complications E11.9 ; Essential (primary) hypertension I10 and Bipolar disorder, current episode manic without psychotic features, moderate F31.12 [facility] [place] [address] [place] [phone] Jun, [facility] [place] [address] [place] [address] Jun, [facility] [place] [address] [place] [address] Jun, [facility] [place] [address] [place] [address], [place] [address] Jun, [facility] [place] [address] [place] [address] May, [facility] [place] [address] [place] [address] May, Lymphadenopathy R59.1 and Pharyngitis, acute J02.9 [facility] [place] [address] [place] [address] May, Pharyngitis, acute J02.9 and Eczema, unspecified type L30.9 [facility] [place] [address] [place] [address] May, [facility] [place] [address] [place] [address] Apr, [facility] [place] [address] [place] [address] Apr, Neck strain, initial encounter S16.1XXA and Obstructive sleep apnea syndrome G47.33 [facility] [address] [place] [address] Apr, [facility] [address] [address] Apr, [facility] [address] [address] Apr, [facility] [address] [address] Apr, [facility] [address] [address] Mar, [facility] [address] [address] Mar, [facility] [address] [address] Mar, Primary insomnia F51.[address] [facility] [address] [address] Mar, Primary insomnia F51.[address] [facility] [address] [address] Mar, Gout, unspecified M10.9 ; Other chronic pain G89.29 and Migraine with aura and without status migrainosus, not intractable G43.109 [facility] [address] [address] Mar, [facility] [place] [address] [place] [address] Feb, Restless legs syndrome G25.81 [facility] [address] [place] [address] Feb, [facility] [address] [address] Feb, Gout, unspecified M10.9 ; Other dorsalgia M54.89 ; Restless legs syndrome G25.81 and Encounter for immunization Z23 [facility] [place] [address] [place] [address] Feb, [facility] [place] [address] [place] [address] Jan, Bilateral foot pain 729.5 ; Type 2 diabetes mellitus without complications E11.9 and Gout 274.9 [facility] [address] [place] [phone] Jan, [facility] [address] [address] Jan, DM w/o complication type II 250.00 [facility] [address] [address] Jan, Right hip pain 719.45 [facility] [address] [address] Dec, Insomnia 780.[address] [facility] [address] [address] Dec, Dysuria 788.1 and Frequency of urination 788.41 [facility] [address] [address] Dec, [facility] [address] [address] Dec, [facility] [address] [address] Nov, [facility] [address] [address] Nov, [address] [address] Nov, Neck pain 723.1 [facility] [address] [address] Nov, [facility] [address] [address] Nov, [facility] [address] [address] Nov, GERD (gastroesophageal reflux disease) 530.81 ; Hypertension 401.9 ; Bipolar 1 disorder, manic, moderate 296.42 ; Back pain 724.5 and Gout 274.[address] [address] Oct, Dental examination V72.2 [facility] [place] [address] [place] [address] Oct, Dental examination V72.2 [facility] [address] [place] [phone] September, Dental examination V72.2 [facility] [address] [place] [address] Jun, [facility] [address] [facility] [id number] [place] [address] Jun, IMMUNIZATIONS No Known Immunizations SOCIAL HISTORY Never Assessed REASON FOR VISIT hey got a question about my other shoulder PLAN OF CARE VITAL SIGNS MEDICATIONS Unknown [...]
--- OUTSIDE RECORDS SUMMARY | 2019-09-27 09:10 | XMS REPORT ---
Author Author Henri SINGH Organization [facility] [address] [place] [address] Care Team Providers Care Mid Level Project Manager Name Role Phone SAMANTHA ZORAIDA Unavailable PROBLEMS Type Condition ICD9-CM Code GND90-KI Code Onset Dates Condition S tatus SNOMED Code Problem Type 2 diabetes mellitus wit hout complication, without long-term current use of insulin E11.9 Active 377029905 Problem Primary insomnia F51.01 Active 397 2004 Problem Type 2 diabetes mellitus without complications E11 .9 Active [id number] ALLERGIES No Information ENCOUNTERS Encounter Location Date Diagnosis [facility] [address] [place] [address] Dec, [facility] [address] [place] [phone] Dec, [facility] [address] [place] [address] Nov, [facility] [address] [address] [place] [address] Nov, [facility] [place] [address] [place] [phone] Oct, [facility] [address] [place] [address] September, Medicare annual wellness visit, initial Z00.00 ; Type 2 diabetes mellitus without complication, without long-term current use of insulin E11.9 and Right anterior shoulder pain M25.511 [facility] [address] [place] [address] September, Primary insomnia F51.01 [facility] [address] [address] [place] [address] Aug, Biceps tendonitis on left M75.22 [facility] [address] [place] [address] Aug, [facility] [place] [address] [place] [phone] Aug, [facility] [place] [address] [place] [address] Aug, [facility] [place] [address] [place] [address] Aug, Type 2 diabetes mellitus without complications E11.9 ; Pain of left foot M79.672 ; Pain in right foot M79.671 and Chronic gout involving toe without tophus, unspecified cause, unspecified laterality M1A.9XX0 [facility] [address] [place] [phone] Jun, [facility] [address] [place] [phone] May, [facility] [address] [place] [phone] May, [facility] [address] [address] May, [facility] [address] [address] May, Right anterior shoulder pain M25.511 [facility] [address] [address] May, [facility] [address] [address] May, [facility] [address] [address] Apr, Type 2 diabetes mellitus without complications E11.9 ; Costochondritis, acute M94.0 and Tinea pedis of both feet B35.[address] [address] Mar, [address] [address] Mar, [facility] [address] [address] Feb, Acute upper respiratory infection, unspecified J06.9 ; Other viral agents as the cause of diseases classified elsewhere B97.89 and Aphthous ulcer of mouth K12.0 [facility] [address] [address] Jan, [facility] [address] [address] Jan, Right hip pain M25.[address] [address] Dec, Ingrown nail L60.0 ; Impetigo L01.00 and Irritant contact dermatitis due to plants, except food L24.7 [facility] [address] [address] [place] [phone] Dec, [facility] [address] [place] [address] Dec, Nail abnormality L60.9 and Ingrown nail of fifth toe of right foot L60.0 [facility] [place] [address] [place] [phone] Nov, Type 2 diabetes mellitus without complications E11.9 [facility] [address] [address] [place] [address] Nov, Type 2 diabetes mellitus without complication, without long-term current use of insulin E11.9 [facility] [address] [place] [address] Nov, [facility] [address] [address] Nov, [facility] [address] [address] Oct, [facility] [address] [address] September, [facility] [address] [place] [address] Aug, Acute idiopathic gout of foot, unspecified laterality M10.079 [facility] [address] [address] Aug, Acute idiopathic gout of foot, unspecified laterality M10.079 and Primary insomnia F51.01 [facility] [address] [address] Jul, [facility] [address] [address] Jul, 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 [facility] [address] [place] [address] Jun, [facility] [address] [address] [place] [address] Jun, Acute non-recurrent maxillary sinusitis J01.00 [facility] [address] [place] [address] 16 Jun, 2016 Acute non-recurrent frontal sinusitis J01.10 [facility] [address] [address] Jun, [facility] [address] [place] [phone] 14 Jun, 2016 Primary insomnia F51.01 [facility] [place] [address] [place] [address] 07 Jun, 2016 Acute non-recurrent maxillary sinusitis J01.00 ; 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 and Excessive sweating R61 [facility] [place] [address] [place] [address] 02 Jun, 2016 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 [facility] [address] [address] [place] [address] May, Type 2 diabetes mellitus without complications E11.9 ; Gout involving toe, unspecified cause, unspecified chronicity, unspecified laterality M10.9 and Primary insomnia F51.01 [facility] [place] [address] [place] [address] 27 Jan, 2016 [facility] [place] [address] [place] [address] 14 Jan, 2016 [facility] [place] [address] [place] [phone] Jan, [facility] [place] [address] [place] [address] Dec, [facility] [place] [address] [place] [address] Dec, [facility] [place] [address] [place] [phone] Dec, Sciatica of right side M54.31 and Acute bilateral low back pain without sciatica M54.5 [facility] [place] [address] [place] [address] Dec, Type 2 diabetes mellitus without complications E11.9 [facility] [place] [address] [place] [phone] Dec, [facility] [place] [address] [place] [phone] Dec, [facility] [place] [address] [place] [address] Dec, Sciatica of right side M54.31 ; Type 2 diabetes mellitus without complication, without long-term current use of insulin E11.9 ; Acute bilateral low back pain without sciatica M54.5 and Neuropathy G62.9 [facility] [address] [place] [address] Dec, Plantar fasciitis, right M72.2 and Sciatica of right side M54.31 [facility] [address] [place] [address] Nov, [facility] [address] [place] [phone] Oct, Nail abnormality L60.9 [facility] [place] [address] [place] [phone] September, [facility] [address] [place] [phone] Aug, [facility] [address] [place] [phone] Aug, Vertigo R42 ; Allergic rhinitis, unspecified allergic rhinitis type J30.9 and Anxiety F41.9 [facility] [address] [place] [phone] Aug, [facility] [place] [address] [place] [phone] Aug, [facility] [place] [address] [place] [address] Aug, [facility] [place] [address] [place] [phone] Jul, [facility] [address] [address] [place] [phone] Jul, [facility] [place] [address] [place] [phone] Jul, [facility] [place] [address] [place] [address] Jul, [facility] [place] [address] [place] [address] Jul, Lymphadenopathy R59.1 ; Type 2 diabetes mellitus without complications E11.9 ; Essential (primary) hypertension I10 and Bipolar disorder, current episode manic without psychotic features, moderate F31.12 [facility] [address] [place] [address] Jun, [facility] [address] [place] [phone] Jun, [facility] [place] [address] [place] [phone] Jun, [facility] [place] [address] [place] [phone] Jun, [facility] [address] [address] [place] [phone] May, [facility] [address] [address] [place] [address] 14 May, 2015 Lymphadenopathy R59.1 and Pharyngitis, acute J02.9 [facility] [address] [place] [address] 11 May, 2015 Pharyngitis, acute J02.9 and Eczema, unspecified type L30.9 [facility] [address] [address] [place] [address] May, [facility] [place] [address] [place] [phone] Apr, [facility] [address] [address] [place] [phone] Apr, Neck strain, initial encounter S16.1XXA and Obstructive sleep apnea syndrome G47.33 [facility] [address] Apr, [facility] [address] [address] Apr, [facility] [address] [address] Apr, [facility] [address] [address] Apr, [facility] [address] [address] Mar, [facility] [address] [address] Mar, [facility] [address] [address] Mar, Primary insomnia F51.01 [facility] [address] [address] Mar, Primary insomnia F51.01 [facility] [address] [address] Mar, Gout, unspecified M10.9 ; Other chronic pain G89.29 and Migraine with aura and without status migrainosus, not intractable G43.109 [facility] [address] [address] Mar, [facility] [place] [address] [place] [address] Feb, Restless legs syndrome G25.81 [facility] [address] [address] Feb, [facility] [place] [address] [place] [address] Feb, Gout, unspecified M10.9 ; Other dorsalgia M54.89 ; Restless legs syndrome G25.81 and Encounter for immunization Z23 [facility] [address] [place] [phone] Feb, [facility] [address] [address] [place] [address] Jan, Bilateral foot pain 729.5 ; Type 2 diabetes mellitus without complications E11.9 and Gout 274.9 [facility] [place] [address] [place] [address] Jan, [facility] [place] [address] [place] [address] Jan, DM w/o complication type II 250.00 [facility] [place] [address] [place] [address] Jan, Right hip pain 719.45 [facility] [place] [address] [place] [address] Dec, Insomnia 780.52 [facility] [place] [address] [place] [address] Dec, Dysuria 788.1 and Frequency of urination 788.41 [facility] [place] [address] [place] [phone] Dec, [facility] [place] [address] [place] [phone] Dec, [facility] [place] [address] [place] [phone] Nov, [facility] [place] [address] [place] [phone] Nov, [facility] [place] [address] [place] [phone] Nov, Neck pain 723.1 [facility] [place] [address] [place] [address] Nov, [facility] [place] [address] [place] [address] Nov, [facility] [place] [address] [place] [address] Nov, GERD (gastroesophageal reflux disease) 530.81 ; Hypertension 401.9 ; Bipolar 1 disorder, manic, moderate 296.42 ; Back pain 724.5 and Gout 274.[address] [address] Oct, Dental examination V72.[address] [address] Oct, Dental examination V72.[address] [address] September, Dental examination V72.[address] [address] Jun, [facility] [address] [facility] [id number] [place] [address] Jun, IMMUNIZATIONS No Known Immunizations SOCIAL HISTORY Never Assessed REASON FOR VISIT controlled refill request PLAN OF CARE VITAL SIGNS MEDICATIONS Medication Instructions Dosage Frequency Start Date End Date Duration S tatus Ambien 10 MG Orally Once a day 1 tablet at bedtime 24h May, 30 days Active RESULTS No Results PROCEDURES [...]
--- OUTSIDE RECORDS SUMMARY | 2019-09-27 09:10 | XMS REPORT ---
Author Author Henri SINGH Organization [facility] [address] [place] Address [address] [place] [address] Care Team Providers Care Wheel Cleaner Name Role Phone SAMANTHA ZORAIDA Unavailable PROBLEMS Type Condition ICD9-CM Code [id number] Code Onset Dates Condition S tatus SNOMED Code Problem Type 2 diabetes mellitus wit hout complication, without long-term current use of insulin E11.9 Active [id number] Problem Primary insomnia F51.01 Active 397 2004 Problem Type 2 diabetes mellitus without complications E11 .9 Active [id number] ALLERGIES No Information ENCOUNTERS Encounter Location Date Diagnosis [facility] [place] [address] [place] [phone] Nov, [facility] [place] [address] [place] [phone] Nov, [facility] [place] [address] [place] [phone] Oct, [facility] [place] [address] [place] [address] September, Medicare annual wellness visit, initial Z00.00 ; Type 2 diabetes mellitus without complication, without long-term current use of insulin E11.9 and Right anterior shoulder pain M25.511 [facility] [place] [address] [place] [address] September, Primary insomnia F51.01 [facility] [place] [address] [place] [address] Aug, Biceps tendonitis on left M75.22 [facility] [place] [address] [place] [address] Aug, [facility] [place] [address] [place] [address] Aug, [facility] [place] [address] [place] [phone] Aug, [facility] [place] [address] [place] [address] Aug, Type 2 diabetes mellitus without complications E11.9 ; Pain of left foot M79.672 ; Pain in right foot M79.671 and Chronic gout involving toe without tophus, unspecified cause, unspecified laterality M1A.9XX0 [facility] [place] [address] [place] [address] Jun, [facility] [place] [address] [place] [phone] May, [facility] [place] [address] [place] [phone] May, [facility] [place] [address] [place] [phone] May, [facility] [place] [address] [place] [address] May, Right anterior shoulder pain M25.511 [facility] [address] [address] May, [facility] [address] [address] May, [address] [address] Apr, Type 2 diabetes mellitus without complications E11.9 ; Costochondritis, acute M94.0 and Tinea pedis of both feet B35.[address] [address] Mar, [address] [address] Mar, [address] [address] Feb, Acute upper respiratory infection, unspecified J06.9 ; Other viral agents as the cause of diseases classified elsewhere B97.89 and Aphthous ulcer of mouth K12.[address] [address] Jan, [facility] [address] [address] Jan, Right hip pain M25.[address] [address] Dec, Ingrown nail L60.0 ; Impetigo L01.00 and Irritant contact dermatitis due to plants, except food L24.[address] [address] Dec, [address] [place] [address] Dec, Nail abnormality L60.9 and Ingrown nail of fifth toe of right foot L60.0 [facility] [place] [address] [place] [address] Nov, Type 2 diabetes mellitus without complications E11.9 [facility] [place] [address] [place] [phone] Nov, Type 2 diabetes mellitus without complication, without long-term current use of insulin E11.9 [facility] [place] [address] [place] [address] Nov, [facility] [place] [address] [place] [phone] Nov, [facility] [address] [address] Oct, [facility] [address] [address] September, [facility] [address] [address] Aug, Acute idiopathic gout of foot, unspecified laterality M10.079 [facility] [address] [address] Aug, Acute idiopathic gout of foot, unspecified laterality M10.079 and Primary insomnia F51.[address] [address] Jul, [facility] [address] [address] Jul, 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 [facility] [address] [address] Jun, [facility] [address] [address] Jun, Acute non-recurrent maxillary sinusitis J01.00 [facility] [address] [address] 16 Jun, 2016 Acute non-recurrent frontal sinusitis J01.10 [facility] [address] [address] Jun, [facility] [address] [address] Jun, Primary insomnia F51.01 [facility] [address] [address] 07 Jun, 2016 Acute non-recurrent maxillary sinusitis J01.00 ; 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 and Excessive sweating R61 [facility] [place] [address] 02 Jun, 2016 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 [facility] [place] [address] [place] [address] 10 May, 2016 Type 2 diabetes mellitus without complications E11.9 ; Gout involving toe, unspecified cause, unspecified chronicity, unspecified laterality M10.9 and Primary insomnia F51.01 [facility] [place] [address] [place] [address] Jan, [facility] [place] [address] [place] [phone] Jan, [facility] [place] [address] [place] [address] Jan, [facility] [address] [address] Dec, [facility] [place] [address] [place] [address] Dec, [facility] [address] [address] Dec, Sciatica of right side M54.31 and Acute bilateral low back pain without sciatica M54.5 [facility] [address] [address] Dec, Type 2 diabetes mellitus without complications E11.9 [facility] [address] [address] Dec, [facility] [address] [address] Dec, [facility] [address] [address] Dec, Sciatica of right side M54.31 ; Type 2 diabetes mellitus without complication, without long-term current use of insulin E11.9 ; Acute bilateral low back pain without sciatica M54.5 and Neuropathy G62.9 [facility] [place] [address] [place] [address] Dec, Plantar fasciitis, right M72.2 and Sciatica of right side M54.31 [facility] [place] [address] [place] [address] Nov, [facility] [place] [address] [facility] [place] [address] Oct, Nail abnormality L60.9 [facility] [place] [address] [place] [address], [place] [address] September, [facility] [place] [address] [facility] [place] [address] Aug, [facility] [place] [address] [place] [address], [place] [address] Aug, Vertigo R42 ; Allergic rhinitis, unspecified allergic rhinitis type J30.9 and Anxiety F41.9 [facility] [place] [address] [place] [address] Aug, [facility] [place] [address] [place] [address], [place] [address] Aug, [facility] [place] [address] [place] [address], [place] [address] Aug, [facility] [place] [address] [place] [address], [place] [address] Jul, [facility] [place] [address] [place] [address] Jul, [facility] [place] [address] [place] [address] Jul, [facility] [place] [address] [place] [address] Jul, [facility] [place] [address] [place] [address], [place] [address] Jul, Lymphadenopathy R59.1 ; Type 2 diabetes mellitus without complications E11.9 ; Essential (primary) hypertension I10 and Bipolar disorder, current episode manic without psychotic features, moderate F31.12 [facility] [place] [address] [place] [address] Jun, [facility] [place] [address] [place] [address] Jun, [facility] [place] [address] [place] [address] Jun, [facility] [place] [address] [place] [address], [place] [address] Jun, [facility] [place] [address] [place] [address] May, [facility] [place] [address] [place] [address] May, Lymphadenopathy R59.1 and Pharyngitis, acute J02.9 [facility] [place] [address] [place] [address] May, Pharyngitis, acute J02.9 and Eczema, unspecified type L30.9 [facility] [place] [address] [place] [address] May, [facility] [place] [address] [place] [address] Apr, [facility] [place] [address] [place] [address] Apr, Neck strain, initial encounter S16.1XXA and Obstructive sleep apnea syndrome G47.33 [facility] [address] [place] [address] Apr, [facility] [address] [address] Apr, [facility] [address] [address] Apr, [facility] [address] [address] Apr, [facility] [address] [address] Mar, [facility] [address] [address] Mar, [facility] [address] [address] Mar, Primary insomnia F51.01 [facility] [address] [address] Mar, Primary insomnia F51.01 [facility] [address] [address] Mar, Gout, unspecified M10.9 ; Other chronic pain G89.29 and Migraine with aura and without status migrainosus, not intractable G43.109 [facility] [address] [address] Mar, [facility] [place] [address] [place] [address] Feb, Restless legs syndrome G25.81 [facility] [address] [place] [address] Feb, [facility] [address] [address] Feb, Gout, unspecified M10.9 ; Other dorsalgia M54.89 ; Restless legs syndrome G25.81 and Encounter for immunization Z23 [facility] [place] [address] [place] [address] Feb, [facility] [place] [address] [place] [address] Jan, Bilateral foot pain 729.5 ; Type 2 diabetes mellitus without complications E11.9 and Gout 274.9 [facility] [address] [place] [address] Jan, [facility] [place] [address] Jan, DM w/o complication type II 250.00 [facility] [address] [address] Jan, Right hip pain 719.45 [facility] [address] [address] Dec, Insomnia 780.52 [facility] [address] [address] Dec, Dysuria 788.1 and Frequency of urination 788.41 [facility] [address] [address] Dec, [facility] [address] [address] Dec, [facility] [address] [address] Nov, [facility] [address] [address] Nov, [address] [address] Nov, Neck pain 723.1 [facility] [address] [address] Nov, [facility] [address] [address] Nov, [facility] [address] [address] Nov, GERD (gastroesophageal reflux disease) 530.81 ; Hypertension 401.9 ; Bipolar 1 disorder, manic, moderate 296.42 ; Back pain 724.5 and Gout 274.[address] [address] Oct, Dental examination V72.2 [facility] [place] [address] [place] [address] Oct, Dental examination V72.2 [facility] [address] [place] [address] September, Dental examination V72.2 [facility] [address] [place] [address] Jun, [facility] [address] [facility] [id number] [place] [address] Jun, IMMUNIZATIONS No Known Immunizations SOCIAL HISTORY Never Assessed REASON FOR VISIT Referral Appointment PLAN OF CARE VITAL SIGNS MEDICATIONS Unknown [...]
--- OUTSIDE RECORDS SUMMARY | 2019-09-27 09:10 | XMS REPORT ---
Author Author Henri SINGH Organization [facility] [address] [place] [address] Care Team Providers Care Vamper Name Role Phone SAMANTHA ZORAIDA Unavailable PROBLEMS Type Condition ICD9-CM Code [id number] Code Onset Dates Condition S tatus SNOMED Code Problem Type 2 diabetes mellitus wit hout complication, without long-term current use of insulin E11.9 Active [id number] Problem Primary insomnia F51.01 Active 397 2004 Problem Type 2 diabetes mellitus without complications E11 .9 Active [id number] ALLERGIES No Information ENCOUNTERS Encounter Location Date Diagnosis [facility] [place] [address] [place] [phone] Nov, [facility] [place] [address] [place] [address] Nov, [facility] [place] [address] [place] [address] Oct, [facility] [place] [address] [place] [address] September, Medicare annual wellness visit, initial Z00.00 ; Type 2 diabetes mellitus without complication, without long-term current use of insulin E11.9 and Right anterior shoulder pain M25.511 [facility] [place] [address] [place] [address] September, Primary insomnia F51.01 [facility] [place] [address] [place] [address] Aug, Biceps tendonitis on left M75.22 [facility] [place] [address] [place] [address] Aug, [facility] [place] [address] [place] [address] Aug, [facility] [place] [address] [place] [address] Aug, [facility] [place] [address] [place] [address] Aug, Type 2 diabetes mellitus without complications E11.9 ; Pain of left foot M79.672 ; Pain in right foot M79.671 and Chronic gout involving toe without tophus, unspecified cause, unspecified laterality M1A.9XX0 [facility] [place] [address] [place] [address] Jun, [facility] [place] [address] [place] [address] May, [facility] [place] [address] [place] [address] May, [facility] [place] [address] [place] [address] May, [facility] [place] [address] [place] [address] May, Right anterior shoulder pain M25.511 [facility] [address] [address] May, [facility] [address] [address] May, [address] [address] Apr, Type 2 diabetes mellitus without complications E11.9 ; Costochondritis, acute M94.0 and Tinea pedis of both feet B35.[address] [address] Mar, [address] [address] Mar, [address] [address] Feb, Acute upper respiratory infection, unspecified J06.9 ; Other viral agents as the cause of diseases classified elsewhere B97.89 and Aphthous ulcer of mouth K12.[address] [address] Jan, [facility] [address] [address] Jan, Right hip pain M25.[address] [address] Dec, Ingrown nail L60.0 ; Impetigo L01.00 and Irritant contact dermatitis due to plants, except food L24.[address] [address] Dec, [address] [place] [address] Dec, Nail abnormality L60.9 and Ingrown nail of fifth toe of right foot L60.0 [facility] [place] [address] [place] [address] Nov, Type 2 diabetes mellitus without complications E11.9 [facility] [place] [address] [place] [address] Nov, Type 2 diabetes mellitus without complication, without long-term current use of insulin E11.9 [facility] [place] [address] [place] [address] Nov, [facility] [place] [address] [place] [address] Nov, [facility] [address] [address] Oct, [facility] [address] [address] September, [facility] [address] [address] Aug, Acute idiopathic gout of foot, unspecified laterality M10.079 [facility] [address] [address] Aug, Acute idiopathic gout of foot, unspecified laterality M10.079 and Primary insomnia F51.[address] [address] Jul, [facility] [address] [address] Jul, 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 [facility] [address] [address] Jun, [facility] [address] [address] Jun, Acute non-recurrent maxillary sinusitis J01.00 [facility] [address] [address] 16 Jun, 2016 Acute non-recurrent frontal sinusitis J01.10 [facility] [address] [address] Jun, [facility] [address] [address] Jun, Primary insomnia F51.01 [facility] [address] [address] 07 Jun, 2016 Acute non-recurrent maxillary sinusitis J01.00 ; Excessive sweating R61 and 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 [facility] [address] [address] 02 Jun, 2016 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 [facility] [address] [address] 10 May, 2016 Type 2 diabetes mellitus without complications E11.9 ; Gout involving toe, unspecified cause, unspecified chronicity, unspecified laterality M10.9 and Primary insomnia F51.01 [facility] [place] [address] [place] [address] Jan, [facility] [place] [address] [place] [address] Jan, [facility] [place] [address] [place] [address] Jan, [facility] [address] [address] Dec, [facility] [place] [address] [place] [address] Dec, [facility] [address] [address] Dec, Sciatica of right side M54.31 and Acute bilateral low back pain without sciatica M54.5 [facility] [address] [address] Dec, Type 2 diabetes mellitus without complications E11.9 [facility] [address] [address] Dec, [facility] [address] [address] Dec, [facility] [address] [address] Dec, Sciatica of right side M54.31 ; Type 2 diabetes mellitus without complication, without long-term current use of insulin E11.9 ; Acute bilateral low back pain without sciatica M54.5 and Neuropathy G62.9 [facility] [place] [address] [place] [address] Dec, Plantar fasciitis, right M72.2 and Sciatica of right side M54.31 [facility] [place] [address] [place] [address] Nov, [facility] [place] [address] [facility] [place] [address] Oct, Nail abnormality L60.9 [facility] [place] [address] [place] [address], [place] [address] September, [facility] [place] [address] [facility] [place] [address] Aug, [facility] [place] [address] [place] [address], [place] [address] Aug, Vertigo R42 ; Allergic rhinitis, unspecified allergic rhinitis type J30.9 and Anxiety F41.9 [facility] [place] [address] [place] [address] Aug, [facility] [place] [address] [place] [address], [place] [address] Aug, [facility] [place] [address] [place] [address], [place] [address] Aug, [facility] [place] [address] [place] [address], [place] [address] Jul, [facility] [place] [address] [place] [address] Jul, [facility] [place] [address] [place] [address] Jul, [facility] [place] [address] [place] [address] Jul, [facility] [place] [address] [place] [address], [place] [address] Jul, Lymphadenopathy R59.1 ; Type 2 diabetes mellitus without complications E11.9 ; Essential (primary) hypertension I10 and Bipolar disorder, current episode manic without psychotic features, moderate F31.12 [facility] [place] [address] [place] [address] Jun, [facility] [place] [address] [place] [address] Jun, [facility] [place] [address] [place] [address] Jun, [facility] [place] [address] [place] [address], [place] [address] Jun, [facility] [place] [address] [place] [address] May, [facility] [place] [address] [place] [address] May, Lymphadenopathy R59.1 and Pharyngitis, acute J02.9 [facility] [place] [address] [place] [address] May, Pharyngitis, acute J02.9 and Eczema, unspecified type L30.9 [facility] [place] [address] [place] [address] May, [facility] [place] [address] [place] [address] Apr, [facility] [place] [address] [place] [address] Apr, Neck strain, initial encounter S16.1XXA and Obstructive sleep apnea syndrome G47.33 [facility] [address] [place] [address] Apr, [facility] [address] [address] Apr, [facility] [address] [address] Apr, [facility] [address] [address] Apr, [facility] [address] [address] Mar, [facility] [address] [address] Mar, [facility] [address] [address] Mar, Primary insomnia F51.01 [facility] [address] [address] Mar, Primary insomnia F51.01 [facility] [address] [address] Mar, Gout, unspecified M10.9 ; Other chronic pain G89.29 and Migraine with aura and without status migrainosus, not intractable G43.109 [facility] [address] [address] Mar, [facility] [place] [address] [place] [address] Feb, Restless legs syndrome G25.81 [facility] [address] [place] [address] Feb, [facility] [address] [address] Feb, Gout, unspecified M10.9 ; Other dorsalgia M54.89 ; Restless legs syndrome G25.81 and Encounter for immunization Z23 [facility] [place] [address] [place] [address] Feb, [facility] [place] [address] [place] [address] Jan, Bilateral foot pain 729.5 ; Type 2 diabetes mellitus without complications E11.9 and Gout 274.9 [facility] [address] [place] [address] Jan, [facility] [address] [address] Jan, DM w/o complication type II 250.00 [facility] [address] [address] Jan, Right hip pain 719.45 [facility] [address] [address] Dec, Insomnia 780.52 [facility] [address] [address] Dec, Dysuria 788.1 and Frequency of urination 788.41 [facility] [address] [address] Dec, [facility] [address] [address] Dec, [facility] [address] [address] Nov, [facility] [address] [address] Nov, [address] [address] Nov, Neck pain 723.1 [facility] [address] [address] Nov, [facility] [address] [address] Nov, [facility] [address] [address] Nov, GERD (gastroesophageal reflux disease) 530.81 ; Hypertension 401.9 ; Bipolar 1 disorder, manic, moderate 296.42 ; Back pain 724.5 and Gout 274.[address] [address] Oct, Dental examination V72.2 [facility] [place] [address] [place] [address] Oct, Dental examination V72.2 [facility] [address] [place] [address] September, Dental examination V72.2 [facility] [address] [place] [address] Jun, [facility] [address] [facility] [id number] [address] [place] [address] Jun, IMMUNIZATIONS No Known Immunizations SOCIAL HISTORY [...]
--- OUTSIDE RECORDS SUMMARY | 2019-09-27 09:10 | XMS REPORT ---
Author Author Henri SINGH Organization [facility] [address] [place] [address] [address] Care [address] Patcher Name Role Phone SAMANTHA ZORAIDA Unavailable PROBLEMS Type Condition ICD9-CM Code [id number] Code Onset Dates Condition S tatus SNOMED Code Problem Type 2 diabetes mellitus wit hout complication, without long-term current use of insulin E11.9 Active 585320002 Problem Primary insomnia F51.01 Active 397 2004 Problem Type 2 diabetes mellitus without complications E11 .9 Active [id number] ALLERGIES Substance Reaction Event Type Date Status PredniSONE aggitation Drug Allergy Aug, Active ENCOUNTERS Encounter Location Date Diagnosis [facility] [place] [address] [place] [address] Nov, [facility] [place] [address] [place] [address] Nov, [facility] [place] [address] [place] [address] Oct, [facility] [place] [address] [place] [address] September, Medicare annual wellness visit, initial Z00.00 ; Type 2 diabetes mellitus without complication, without long-term current use of insulin E11.9 and Right anterior shoulder pain M25.511 [facility] [place] [address] [place] [address] September, Primary insomnia F51.01 [facility] [place] [address] [place] [address] Aug, Biceps tendonitis on left M75.22 [facility] [place] [address] [place] [address] Aug, [facility] [place] [address] [place] [address] Aug, [facility] [place] [address] [place] [address] Aug, [facility] [place] [address] [place] [address] Aug, Type 2 diabetes mellitus without complications E11.9 ; Pain of left foot M79.672 ; Pain in right foot M79.671 and Chronic gout involving toe without tophus, unspecified cause, unspecified laterality M1A.9XX0 [address] [address] Jun, [facility] [address] [address] May, [facility] [address] [address] May, [facility] [address] [address] May, [facility] [address] [address] May, Right anterior shoulder pain M25.[address] [address] May, [address] [address] May, [address] [address] Apr, Type 2 diabetes mellitus without complications E11.9 ; Costochondritis, acute M94.0 and Tinea pedis of both feet B35.[address] [address] Mar, [address] [address] Mar, [address] [address] Feb, Acute upper respiratory infection, unspecified J06.9 ; Other viral agents as the cause of diseases classified elsewhere B97.89 and Aphthous ulcer of mouth K12.[address] [address] Jan, [address] [address] Jan, Right hip pain M25.[address] [address] Dec, Ingrown nail L60.0 ; Impetigo L01.00 and Irritant contact dermatitis due to plants, except food L24.[address] [address] Dec, [facility] [place] [address] [place] [address] Dec, Nail abnormality L60.9 and Ingrown nail of fifth toe of right foot L60.0 [facility] [place] [address] [place] [address] Nov, Type 2 diabetes mellitus without complications E11.9 [facility] [place] [address] [place] [address] Nov, Type 2 diabetes mellitus without complication, without long-term current use of insulin E11.9 [facility] [place] [address] [place] [address] Nov, [facility] [place] [address] [place] [address] Nov, [facility] [place] [address] [place] [address] Oct, [facility] [place] [address] [place] [address] September, [facility] [place] [address] [place] [address] Aug, Acute idiopathic gout of foot, unspecified laterality M10.079 [facility] [place] [address] [place] [address] Aug, Acute idiopathic gout of foot, unspecified laterality M10.079 and Primary insomnia F51.01 [facility] [place] [address] [place] [address] Jul, [facility] [place] [address] [place] [address] Jul, 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 [facility] [place] [address] [place] [address] Jun, [facility] [place] [address] [place] [address] Jun, Acute non-recurrent maxillary sinusitis J01.00 [facility] [place] [address] [place] [phone] 16 Jun, 2016 Acute non-recurrent frontal sinusitis J01.10 [facility] [place] [address] [place] [address] 15 Jun, 2016 [facility] [place] [address] [place] [phone] 14 Jun, 2016 Primary insomnia F51.01 [facility] [place] [address] [place] [address] 07 Jun, 2016 Acute non-recurrent maxillary sinusitis J01.00 ; Excessive sweating R61 and 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 [facility] [place] [address] [place] [address] 02 Jun, 2016 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 [facility] [place] [address] [place] [address] May, Type 2 diabetes mellitus without complications E11.9 ; Gout involving toe, unspecified cause, unspecified chronicity, unspecified laterality M10.9 and Primary insomnia F51.01 [facility] [place] [address] [place] [address] Jan, [facility] [place] [address] [place] [address] 14 Jan, 2016 [facility] [place] [address] [place] [address] Jan, [facility] [place] [address] [place] [address] Dec, [facility] [place] [address] [place] [address] Dec, [facility] [place] [address] [place] [address] Dec, Sciatica of right side M54.31 and Acute bilateral low back pain without sciatica M54.5 [facility] [place] [address] [place] [address] Dec, Type 2 diabetes mellitus without complications E11.9 [facility] [place] [address] [place] [address] Dec, [facility] [place] [address] [place] [address] Dec, [facility] [place] [address] [place] [address] Dec, Sciatica of right side M54.31 ; Type 2 diabetes mellitus without complication, without long-term current use of insulin E11.9 ; Acute bilateral low back pain without sciatica M54.5 and Neuropathy G62.9 [facility] [place] [address] [place] [address] Dec, Plantar fasciitis, right M72.2 and Sciatica of right side M54.31 [facility] [place] [address] [place] [address], [place] [address] Nov, [facility] [place] [address] [place] [address] Oct, Nail abnormality L60.9 [facility] [place] [address] [place] [address], [place] [address] September, [facility] [place] [address] [facility] [place] [address] Aug, [facility] [place] [address] [place] [address] Aug, Vertigo R42 ; Allergic rhinitis, unspecified allergic rhinitis type J30.9 and Anxiety F41.9 [facility] [place] [address] [place] [address], [place] [address] Aug, [facility] [place] [address] [place] [address], [place] [address] Aug, [facility] [place] [address] [place] [address] Aug, [facility] [place] [address] [place] [address] Jul, [facility] [place] [address] [place] [address] Jul, [facility] [place] [address] [place] [address] Jul, [facility] [place] [address] [place] [address] Jul, [facility] [place] [address] [place] [address] Jul, Lymphadenopathy R59.1 ; Type 2 diabetes mellitus without complications E11.9 ; Essential (primary) hypertension I10 and Bipolar disorder, current episode manic without psychotic features, moderate F31.12 [facility] [place] [address] [place] [address] Jun, [facility] [place] [address] [place] [address] Jun, [facility] [place] [address] [place] [address] Jun, [facility] [place] [address] [place] [address] Jun, [facility] [place] [address] [place] [address] May, [facility] [place] [address] [place] [address] May, Lymphadenopathy R59.1 and Pharyngitis, acute J02.9 [facility] [place] [address] [place] [address] 11 May, 2015 Pharyngitis, acute J02.9 and Eczema, unspecified type L30.9 [facility] [place] [address] [place] [address] 05 May, 2015 [facility] [place] [address] [place] [address] Apr, [facility] [place] [address] [place] [address] Apr, Neck strain, initial encounter S16.1XXA and Obstructive sleep apnea syndrome G47.33 [facility] [address] [address] Apr, [facility] [address] [address] Apr, [facility] [address] [address] Apr, [facility] [address] [address] Apr, [facility] [address] [address] Mar, [facility] [address] [address] Mar, [facility] [address] [address] Mar, Primary insomnia F51.[address] [address] Mar, Primary insomnia F51.[address] [address] Mar, Gout, unspecified M10.9 ; Other chronic pain G89.29 and Migraine with aura and without status migrainosus, not intractable G43.109 [facility] [address] [address] Mar, [facility] [address] [address] Feb, Restless legs syndrome G25.81 [facility] [address] [address] Feb, [facility] [address] [address] Feb, Gout, unspecified M10.9 ; Other dorsalgia M54.89 ; Restless legs syndrome G25.81 and Encounter for immunization Z23 [facility] [place] [address] [place] [address] Feb, [facility] [place] [address] [place] [address] Jan, Bilateral foot pain 729.5 ; Type 2 diabetes mellitus without complications E11.9 and Gout 274.9 [facility] [place] [address] [place] [address] Jan, [facility] [place] [address] [place] [address] Jan, DM w/o complication type II 250.00 [facility] [address] [address] Jan, Right hip pain 719.45 [facility] [address] [address] Dec, Insomnia 780.52 [facility] [address] [address] Dec, Dysuria 788.1 and Frequency of urination 788.41 [facility] [address] [address] Dec, [facility] [address] [address] Dec, [facility] [address] [address] Nov, [facility] [address] [address] Nov, [facility] [address] [address] Nov, Neck pain 723.1 [facility] [address] [address] Nov, [facility] [address] [address] Nov, [facility] [address] [address] Nov, GERD (gastroesophageal reflux disease) 530.81 ; Hypertension 401.9 ; Bipolar 1 disorder, manic, moderate 296.42 ; Back pain 724.5 and Gout 274.9 [facility] [address] [address] Oct, Dental examination V72.2 [facility] [place] [address] [place] [address] Oct, Dental examination V72.2 [facility] [address] [place] [address] September, Dental examination V72.2 [facility] [address] [place] [address] Jun, [facility] [address] [facility] [id number] [place] [address] Jun, IMMUNIZATIONS No Known Immunizations SOCIAL HISTORY Never Assessed REASON FOR VISIT Pain (acute)- Foot pain big toes Tiesha Wilkins RN PLAN OF CARE Activity Details Follow Up 4 Months Reason:recheck diab etes Future/Pending Procedure ROUTINE VENIPUNCTURE VITAL SIGNS Height 71 in 2017-08-10 Weight 213.9 lbs 2017-08-10 Temperature 98.2 degrees Fahrenheit 2017-08-10 Heart Rate 78 bpm 2017-08-10 Respiratory Rate 18 2017-08-10 BMI 29.83 kg/m2 2017-08-10 Blood pressure systolic 116 mmHg 2017-08-10 Blood pressure diastolic 70 mmHg 2017-08-10 MEDICATIONS Medication Instructions Dosage Frequency Start Date End Date Duration S tatus Phenergan 25 MG 1 tablet May, No t-Taking Zolpidem Tartrate 10MG TAKE ONE TABLET BY MOUTH ONCE DAILY AT BE DTIME Active Olanzapine-Fluoxetine HCl 12-50 MG TAKE 1 CAPSULE BY MOUTH IN THE EVENING 30 Not-Taking Symbyax 12-50 MG Orally Once a day in the evening 1 capsule Not-Taking Gabapentin 600MG TAKE ONE TABLET BY MOUTH THREE TIMES DAILY Active Valium 5 mg Orally 2 times a day prn sciatica as directed Not-Taking Ambien 10 MG Orally Once a day 1 tablet at bedtime 24h May, 30 days Not-Taking Dexilant 60MG DR Orally Once a day 1 capsule 24h Active Meloxicam 15MG 1 tablet by mouth 1 time a day 90 Active Atenolol 25 MG Orally Once a day 1 tablet 24h Active Isosorbide Mononitrate ER 30MG TAKE ONE TABLET BY MOUTH ONCE YARELY LY Active Flonase Allergy Relief 50 MCG/ACT Nasally Once a day 1 spray in each nostril 24h Aug, 30 day(s) Not-Taking Lisinopril 5MG Orally Once a day 1 tablet 24h 90 Not-Taking Voltaren 1 % Transdermal 3 times a day to both toe joints 2 grams Aug, Active Tizanidine HCl 2 MG TAKE 1 TABLET BY MOUTH 3 TIMES DAILY NEED ED 15 Active Cyclobenzaprine HCl 10MG Orally Three times a day 1 tablet 8h 30 Not-Taking TRUEresult Blood Glucose w/Device as directed 24h Aug, 16 Not-Taking Imdur 30 MG Orally Once a day 1 tablet 24h N ot-Taking Allopurinol 100MG TAKE TWO TABLETS BY MOUTH ONCE DAILY. 30 Active Test strips ... as directed 24h Aug, Not-Taking Lancets ... as directed 24h Aug, Not -Taking Seroquel 100 MG Orally Once a day 1 tablet 24h Active Klonopin 2 MG Orally Twice a day 1 tablet 12h Not-Taking RESULTS No Results PROCEDURES Procedure Date Ordered Result Body Site LAB NOT BILLED BY [facility] August 10, 2017 Hemoglobin Test Send Out 0 dollar August 10, 2017 [facility] VISIT ESTABLISHED PATIENT August 10, 2017 YUE, ROUTINE* August 10, 2017 INSTRUCTIONS MEDICATIONS ADMINISTERED No Known Medications MEDICAL (GENERAL) HISTORY Type Description Date Medical History Hypertension Medical History Bipolar 1 disorder, manic, moderate Medical History Gout Medical History Diabetes Medical History GERD (gastroesophageal reflux disease) Surgical History Kidney stone removal Surgical History Nerve ending perera in back Surgical History lymphectomy Hospitalization History DM Hospitalization History Surgery(s)
--- OUTSIDE RECORDS SUMMARY | 2019-09-27 09:10 | XMS REPORT ---
Author Author Henri ALDANA Organization [facility] [address] [place] [address] Care Team Providers Care Pre Planning Advisor Name Role Phone HANNY ALDANA Unavailable PROBLEMS Type Condition ICD9-CM Code EIO45-DP Code Onset Dates Condition S tatus SNOMED Code Problem Type 2 diabetes mellitus wit hout complication, without long-term current use of insulin E11.9 Active 617623741 Problem Primary insomnia F51.01 Active 397 2004 Problem Type 2 diabetes mellitus without complications E11 .9 Active [id number] ALLERGIES Substance Reaction Event Type Date Status PredniSONE aggitation Drug Allergy Aug, Active ENCOUNTERS Encounter Location Date Diagnosis [facility] [place] [address] [place] [address] Dec, [facility] [place] [address] [place] [phone] Dec, [facility] [place] [address] [place] [phone] Nov, [facility] [place] [address] [place] [phone] Nov, [facility] [place] [address] [place] [phone] Oct, [facility] [place] [address] [place] [phone] September, Medicare annual wellness visit, initial Z00.00 ; Type 2 diabetes mellitus without complication, without long-term current use of insulin E11.9 and Right anterior shoulder pain M25.511 [facility] [place] [address] [place] [address] September, Primary insomnia F51.01 [facility] [place] [address] [place] [phone] Aug, Biceps tendonitis on left M75.22 [facility] [place] [address] [place] [address] Aug, [facility] [place] [address] [place] [phone] Aug, [facility] [place] [address] [place] [phone] Aug, [facility] [place] [address] [place] [phone] Aug, Type 2 diabetes mellitus without complications E11.9 ; Pain of left foot M79.672 ; Pain in right foot M79.671 and Chronic gout involving toe without tophus, unspecified cause, unspecified laterality M1A.9XX0 [facility] [place] [address] [place] [phone] Jun, [facility] [place] [address] [place] [phone] May, [facility] [place] [address] [place] [phone] May, [facility] [place] [address] [place] [phone] May, [facility] [place] [address] [place] [phone] May, Right anterior shoulder pain M25.511 [facility] [place] [address] [place] [phone] May, [facility] [place] [address] [place] [phone] May, [facility] [place] [address] [place] [phone] Apr, Type 2 diabetes mellitus without complications E11.9 ; Costochondritis, acute M94.0 and Tinea pedis of both feet B35.3 [facility] [address] [place] [phone] Mar, [facility] [place] [address] [place] [phone] Mar, [facility] [place] [address] Feb, Acute upper respiratory infection, unspecified J06.9 ; Other viral agents as the cause of diseases classified elsewhere B97.89 and Aphthous ulcer of mouth K12.0 [facility] [place] [address] [place] [phone] Jan, [facility] [place] [address] [place] [phone] Jan, Right hip pain M25.551 [facility] [place] [address] [place] [phone] Dec, Ingrown nail L60.0 ; Impetigo L01.00 and Irritant contact dermatitis due to plants, except food L24.7 [facility] [place] [address] [place] [phone] Dec, [facility] [place] [address] [place] [phone] Dec, Nail abnormality L60.9 and Ingrown nail of fifth toe of right foot L60.0 [facility] [place] [address] [place] [phone] Nov, Type 2 diabetes mellitus without complications E11.9 [facility] [place] [address] [place] [phone] Nov, Type 2 diabetes mellitus without complication, without long-term current use of insulin E11.9 [facility] [address] [address] Nov, [facility] [address] [address] Nov, [facility] [address] [address] Oct, [facility] [address] [phone] September, [facility] [place] [address] Aug, Acute idiopathic gout of foot, unspecified laterality M10.079 [facility] [address] [address] Aug, Acute idiopathic gout of foot, unspecified laterality M10.079 and Primary insomnia F51.01 [facility] [address] [address] Jul, [facility] [place] [address] Jul, 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 [facility] [address] [address] Jun, [facility] [place] [address] Jun, Acute non-recurrent maxillary sinusitis J01.00 [facility] [place] [address] 16 Jun, 2016 Acute non-recurrent frontal sinusitis J01.10 [facility] [address] [place] [address] 15 Jun, 2016 [facility] [place] [address] [place] [phone] 14 Jun, 2016 Primary insomnia F51.01 [facility] [place] [address] [place] [phone] 07 Jun, 2016 Acute non-recurrent maxillary sinusitis J01.00 ; Excessive sweating R61 and 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 [facility] [place] [address] [place] [address] 02 Jun, 2016 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 [facility] [place] [address] [place] [phone] 10 May, 2016 Type 2 diabetes mellitus without complications E11.9 ; Gout involving toe, unspecified cause, unspecified chronicity, unspecified laterality M10.9 and Primary insomnia F51.01 [facility] [place] [address] [place] [phone] 27 Jan, 2016 [facility] [place] [address] [place] [phone] 14 Jan, 2016 [facility] [place] [address] [place] [phone] Jan, [facility] [place] [address] [place] [phone] Dec, [facility] [place] [address] [place] [phone] Dec, [facility] [place] [address] [place] [phone] Dec, Sciatica of right side M54.31 and Acute bilateral low back pain without sciatica M54.5 [facility] [place] [address] [place] [phone] Dec, Type 2 diabetes mellitus without complications E11.9 [facility] [place] [address] [place] [phone] Dec, [facility] [place] [address] [place] [phone] Dec, [facility] [place] [address] [place] [phone] Dec, Sciatica of right side M54.31 ; Type 2 diabetes mellitus without complication, without long-term current use of insulin E11.9 ; Acute bilateral low back pain without sciatica M54.5 and Neuropathy G62.9 [facility] [place] [address] [place] [phone] Dec, Plantar fasciitis, right M72.2 and Sciatica of right side M54.31 [facility] [place] [address] [place] [phone] Nov, [facility] [place] [address] [place] [phone] Oct, Nail abnormality L60.9 [facility] [place] [address] [place] [phone] September, [facility] [place] [address] [place] [phone] Aug, [facility] [place] [address] [place] [phone] Aug, Vertigo R42 ; Allergic rhinitis, unspecified allergic rhinitis type J30.9 and Anxiety F41.9 [facility] [place] [address] [place] [phone] Aug, [facility] [place] [address] [place] [phone] Aug, [facility] [place] [address] [place] [phone] Aug, [facility] [place] [address] [place] [phone] Jul, [facility] [place] [address] [place] [phone] Jul, [facility] [place] [address] [place] [phone] Jul, [facility] [place] [address] [place] [phone] Jul, [facility] [place] [address] [place] [phone] Jul, Lymphadenopathy R59.1 ; Type 2 diabetes mellitus without complications E11.9 ; Essential (primary) hypertension I10 and Bipolar disorder, current episode manic without psychotic features, moderate F31.12 [facility] [place] [address] [place] [phone] Jun, [facility] [place] [address] [place] [phone] Jun, [facility] [place] [address] [place] [phone] Jun, [facility] [place] [address] [place] [phone] Jun, [facility] [place] [address] [place] [phone] May, [facility] [place] [address] [place] [phone] May, Lymphadenopathy R59.1 and Pharyngitis, acute J02.9 [facility] [place] [address] [place] [phone] 11 May, 2015 Pharyngitis, acute J02.9 and Eczema, unspecified type L30.9 [facility] [place] [address] [place] [phone] May, [facility] [place] [address] [place] [phone] Apr, [facility] [place] [address] [place] [phone] Apr, Neck strain, initial encounter S16.1XXA and Obstructive sleep apnea syndrome G47.33 [facility] [address] [place] [phone] Apr, [facility] [place] [address] [place] [phone] Apr, [facility] [place] [address] [place] [phone] Apr, [facility] [place] [address] [place] [phone] Apr, [facility] [place] [address] [place] [phone] Mar, [facility] [place] [address] [place] [phone] Mar, [facility] [place] [address] [place] [phone] Mar, Primary insomnia F51.01 [facility] [place] [address] [place] [address] Mar, Primary insomnia F51.01 [facility] [place] [address] [place] [phone] Mar, Gout, unspecified M10.9 ; Other chronic pain G89.29 and Migraine with aura and without status migrainosus, not intractable G43.109 [facility] [place] [address] [place] [phone] Mar, [facility] [place] [address] [place] [phone] Feb, Restless legs syndrome G25.81 [facility] [place] [address] [place] [phone] Feb, [facility] [place] [address] [place] [phone] Feb, Gout, unspecified M10.9 ; Other dorsalgia M54.89 ; Restless legs syndrome G25.81 and Encounter for immunization Z23 [facility] [place] [address] [place] [phone] Feb, [facility] [place] [address] [place] [phone] Jan, Bilateral foot pain 729.5 ; Type 2 diabetes mellitus without complications E11.9 and Gout 274.9 [facility] [place] [address] [place] [phone] Jan, [facility] [place] [address] [place] [phone] Jan, DM w/o complication type II 250.00 [facility] [place] [address] [place] [address] Jan, Right hip pain 719.45 [facility] [place] [address] [place] [phone] Dec, Insomnia 780.52 [facility] [place] [address] [place] [address] Dec, Dysuria 788.1 and Frequency of urination 788.41 [facility] [place] [address] [place] [phone] Dec, [facility] [place] [address] [place] [phone] Dec, [facility] [place] [address] [place] [phone] Nov, [facility] [place] [address] [place] [phone] Nov, [facility] [place] [address] [place] [phone] Nov, Neck pain 723.1 [facility] [place] [address] [place] [phone] Nov, [facility] [place] [address] [place] [phone] Nov, [facility] [place] [address] [place] [phone] Nov, GERD (gastroesophageal reflux disease) 530.81 ; Hypertension 401.9 ; Bipolar 1 disorder, manic, moderate 296.42 ; Back pain 724.5 and Gout 274.[address] [address] Oct, Dental examination V72.2 [facility] [address] [place] [phone] Oct, Dental examination V72.[address] [address] September, Dental examination V72.[address] [address] Jun, [facility] [address] [facility] [id number] [place] [address] Jun, IMMUNIZATIONS No Known Immunizations SOCIAL HISTORY Never Assessed REASON FOR VISIT Pain (acute) Barbara Wilkins RN PLAN OF CARE Activity Details Follow Up prn Reason: VITAL SIGNS Height 71 in 2017-09-04 Weight 218 lbs 2017-09-04 Temperature 98.7 degrees Fahrenheit 2017-09-04 Heart Rate 80 bpm 2017-09-04 Respiratory Rate 18 2017-09-04 BMI 30.40 kg/m2 2017-09-04 Blood pressure systolic 134 mmHg 2017-09-04 Blood pressure diastolic 82 mmHg 2017-09-04 MEDICATIONS Medication Instructions Dosage Frequency Start Date End Date Duration S tatus Atenolol 25MG Orally Once a day 1 tablet 24h Active Tizanidine HCl 2 MG TAKE 1 TABLET BY MOUTH 3 TIMES DAILY NEED ED 15 Active Symbyax 12-50 MG Orally Once a day in the evening 1 capsule Not-Taking Lancets ... as directed 24h Aug, Not -Taking Meloxicam 15MG 1 tablet by mouth 1 time a day 90 Active Test strips ... as directed 24h Aug, Not-Taking Phenergan 25 MG 1 tablet May, Ac tive Dexilant 60MG DR Orally Once a day 1 capsule 24h Active Ambien 10 MG Orally Once a day 1 tablet at bedtime 24h May, 30 days Not-Taking Allopurinol 100MG TAKE TWO TABLETS BY MOUTH ONCE DAILY. 30 Active Lisinopril 5MG Orally Once a day 1 tablet 24h 90 Not-Taking TRUEresult Blood Glucose w/Device as directed 24h Aug, 16 Not-Taking Imdur 30 MG Orally Once a day 1 tablet 24h N ot-Taking Valium 5 mg Orally 2 times a day prn sciatica as directed Active Zolpidem Tartrate 10MG TAKE ONE TABLET BY MOUTH ONCE DAILY AT BE DTIME Active Olanzapine-Fluoxetine HCl 12-50 MG TAKE 1 CAPSULE BY MOUTH IN THE EVENING 30 Not-Taking Isosorbide Mononitrate ER 30MG TAKE ONE TABLET BY MOUTH ONCE YARELY LY Active Cyclobenzaprine HCl 10MG Orally Three times a day 1 tablet 8h Active Klonopin 2 MG Orally Twice a day 1 tablet 12h Active Gabapentin 600MG TAKE ONE TABLET BY MOUTH THREE TIMES DAILY Active Voltaren 1 % Transdermal 3 times a day to both toe joints 2 grams Aug, Active Seroquel 100 MG Orally Once a day 1 tablet 24h Active Flonase Allergy Relief 50 MCG/ACT Nasally Once a day 1 spray in each nostril 24h Aug, 30 day(s) Not-Taking RESULTS No Results PROCEDURES Procedure Date Ordered Result Body Site [facility] VISIT ESTABLISHED PATIENT September 04, 2017 INSTRUCTIONS MEDICATIONS ADMINISTERED No Known Medications MEDICAL (GENERAL) HISTORY Type Description Date Medical History Hypertension Medical History Bipolar 1 disorder, manic, moderate Medical History Gout Medical History Diabetes Medical History GERD (gastroesophageal reflux disease) Surgical History Kidney stone removal Surgical History Nerve ending perera in back Surgical History lymphectomy Hospitalization History DM Hospitalization History Surgery(s)
--- OUTSIDE RECORDS SUMMARY | 2019-09-27 09:11 | XMS REPORT ---
Author Henri Jones [facility] eClinical[employer] Address Unknown Phone Unavailable Care Team Providers Care Online Banking Specialist Name Role Phone HERBERTH OSBORNE Unavailable Allergies No Known Allergies Problems Problem Type Condition Code Onset Dates Condition Statu s Problem DM w/o complication type II 250.00 Active Problem GERD (gastroesophageal reflux disease) 530.81 Active Problem Type 2 diabetes mellitus without complications E11.9 Active Problem Back pain 724.5 Active Problem Gout 274.9 Active Problem Hypertension 401.9 Active Problem Bipolar 1 disorder, manic, moderate 296.42 Active Medications Medication Code System Code Instructions Start Date End Date Status Dosage Symbyax [facility] [address]-15 12-50 MG Orally Once a day in the evening November 25, 2014 1 capsule Results No Known Results Summary Purpose eClinicalWorks Submission
--- OUTSIDE RECORDS SUMMARY | 2019-09-27 09:11 | XMS REPORT ---
Author Author Henri SINGH [facility] Address [address] [place] [address] Care Team Providers Care Aircraft Structural Design Engineer Name Role Phone ZORAIDA SINGH Unavailable PROBLEMS Type Condition ICD9-CM Code CCE13-RW Code Onset Dates Condition S tatus SNOMED Code Problem Type 2 diabetes mellitus wit hout complication, without long-term current use of insulin E11.9 Active 657214985 Problem Primary insomnia F51.01 Active 397 2004 Problem Type 2 diabetes mellitus without complications E11 .9 Active 037916048 ALLERGIES Substance Reaction Event Type Date Status PredniSONE aggitation Drug Allergy Jul, Active SOCIAL HISTORY Never Assessed PLAN OF CARE Activity Details Follow Up prn Reason: VITAL SIGNS Height 71 in 2016-07-08 Weight 234.4 lbs 2016-07-08 Temperature 98.6 degrees Fahrenheit 2016-07-08 Heart Rate 82 bpm 2016-07-08 Respiratory Rate 18 2016-07-08 BMI 32.69 kg/m2 2016-07-08 Blood pressure systolic 118 mmHg 2016-07-08 Blood pressure diastolic 70 mmHg 2016-07-08 MEDICATIONS Medication Instructions Dosage Frequency Start Date End Date Duration S tatus Valium 5 mg Orally 2 times a day prn sciatica as directed Active Olanzapine-Fluoxetine HCl 12-50 MG TAKE 1 CAPSULE BY MOUTH IN THE EVENING 30 Active Flector 1.3 % Transdermal Twice a day 1 patch to skin 12h Dec, 16 Active Phenergan 25 MG 1 tablet May, Ac tive Lisinopril 5 mg Orally Once a day 1 tablet 24h Active Imdur 30 MG Orally Once a day 1 tablet 24h A ctive Lancets ... as directed 24h Aug, Act silas Dexilant 60MG DR Orally Once a day 1 capsule 24h 30 Active Ambien 5 mg Orally Once a day 1 tablet at bedtime 24h 10 May, 2016 28 days Active Atenolol 25 MG Orally Once a day 1 tablet 24h Active Meloxicam 15 MG 1 tablet by mouth 1 time a day Active Flonase Allergy Relief 50 MCG/ACT Nasally Once a day 1 spray in each nostril 24h Aug, 30 day(s) Active Dexilant 60 MG Orally Once a day 1 capsule 24h Active Allopurinol 100MG TAKE TWO TABLETS BY MOUTH ONCE DAILY. 30 Active Symbyax 12-50 MG Orally Once a day in the evening 1 capsule Active TRUEresult Blood Glucose w/Device as directed 24h Aug, 16 Active Gabapentin 600MG TAKE ONE TABLET BY MOUTH THREE TIMES DAILY 90 Active Test strips ... as directed 24h Aug, Active Cyclobenzaprine HCl 10MG Orally Three times a day 1 tablet 8h 30 Active RESULTS No Results PROCEDURES Procedure Date Ordered Result Body Site [facility] VISIT ESTABLISHED PATIENT July 08, 2016 IMMUNIZATIONS No Known Immunizations MEDICAL (GENERAL) HISTORY Type Description Date Medical History Hypertension Medical History Bipolar 1 disorder, manic, moderate Medical History Gout Medical History Diabetes Medical History GERD (gastroesophageal reflux disease) Surgical History Kidney stone removal Surgical History Nerve ending perera in back Surgical History lymphectomy Hospitalization History DM Hospitalization History Surgery(s)
--- OUTSIDE RECORDS SUMMARY | 2019-09-27 09:11 | XMS REPORT ---
Author Author Henri SINGH Organization [facility] [place] Address [address] [place] [address] Care Team Providers Care Cellar Pumper Name Role Phone ZORAIDA SINGH Unavailable PROBLEMS Type Condition ICD9-CM Code QDQ63-WQ Code Onset Dates Condition S tatus SNOMED Code Problem Type 2 diabetes mellitus wit hout complication, without long-term current use of insulin E11.9 Active [id number] Problem Primary insomnia F51.01 Active 397 2004 Problem Type 2 diabetes mellitus without complications E11 .9 Active [id number] ALLERGIES No Information ENCOUNTERS Encounter Location Date Diagnosis [facility] [place] [address] [facility] [address] [id number] [place] [address] 554667 Jun, [facility] [place] [address] [facility] [address] [id number] [place] [address] 840876 May, [facility] [place] [address] [facility] [address] [id number] [place] [address] 959806 May, [facility] [place] [address] [facility] [address] [id number] [place] [address] 241562 May, [facility] [place] [address] [facility] [address] [id number] [place] [address] 556625 May, Right anterior shoulder pain M25.511 [facility] [place] [address] [facility] [address] [id number] [place] [address] 572392 May, [facility] [place] [address] [facility] [address] [id number] [place] [address] 530837 May, [facility] [place] [address] [facility] [address] [id number] [place] [address] 143179 Apr, Type 2 diabetes mellitus without complications E11.9 ; Costochondritis, acute M94.0 and Tinea pedis of both feet B35.3 [facility] [place] [address] [facility] [address] [id number] [place] [address] 582788 Mar, [facility] [place] [address] [facility] [address] [id number] [place] [address] 741250 Mar, [facility] [place] [address] [facility] [address] [id number] [place] [address] 778730 Feb, Acute upper respiratory infection, unspecified J06.9 ; Other viral agents as the cause of diseases classified elsewhere B97.89 and Aphthous ulcer of mouth K12.0 [facility] [place] [address] [place] [address] C [id number] [place] [address] 120980 Jan, [facility] [place] [address] [place] [address] C [id number] [place] [address] 878259 Jan, Right hip pain M25.551 [facility] [place] [address] [place] [address] C [id number] [place] [address] 103810 Dec, Ingrown nail L60.0 ; Impetigo L01.00 and Irritant contact dermatitis due to plants, except food L24.7 [facility] [place] [address] [place] [address] C [id number] [place] [address] 707825 Dec, [facility] [place] [address] [place] [address] C [id number] [place] [address] 981726 Dec, Nail abnormality L60.9 and Ingrown nail of fifth toe of right foot L60.0 [facility] [place] [address] [facility] [address] [id number] [place] [address] 379312 Nov, Type 2 diabetes mellitus without complications E11.9 [facility] [place] [address] [place] [address] C [id number] [place] [address] 146918 Nov, Type 2 diabetes mellitus without complication, without long-term current use of insulin E11.9 [facility] [place] [address] [place] [address] C [id number] [place] [address] 968362 Nov, [facility] [place] [address] [facility] [address] [id number] [place] [address] 973138 Nov, [facility] [place] [address] [facility] [address] [id number] [place] [address] 228464 Oct, [facility] [place] [address] [place] [address] C [id number] [place] [address] 924770 September, [facility] [place] [address] [facility] [address] [id number] [place] [address] 330055 Aug, Acute idiopathic gout of foot, unspecified laterality M10.079 [facility] [place] [address] [facility] [address] [id number] [place] [address] 983655 Aug, Acute idiopathic gout of foot, unspecified laterality M10.079 and Primary insomnia F51.01 [facility] [place] [address] [place] [address] [address] [id number] [place] [address] 065867 Jul, [facility] [place] [address] [place] [address] C [id number] [place] [address] 335264 Jul, 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 [facility] [place] [address] [place] [address] C [id number] [place] [address] 695910 Jun, [facility] [place] [address] [place] [address] C [id number] [place] [address] 921525 17 Jun, 2016 Acute non-recurrent maxillary sinusitis J01.00 [facility] [place] [address] [place] [address] C [id number] [place] [address] 086244 16 Jun, 2016 Acute non-recurrent frontal sinusitis J01.10 [facility] [place] [address] [place] [address] [address] [id number] [place] [address] 996924 15 Jun, 2016 [facility] [place] [address] [place] [address] C [id number] [place] [address] 204860 14 Jun, 2016 Primary insomnia F51.01 [facility] [place] [address] [place] [address] C [id number] [place] [address] 832612 07 Jun, 2016 Acute non-recurrent maxillary sinusitis J01.00 ; 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 and Excessive sweating R61 [facility] [place] [address] [facility] [address] [id number] [place] [address] 843400 02 Jun, 2016 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 [facility] [place] [address] [place] [address] C [id number] [place] [address] 631028 10 May, 2016 Type 2 diabetes mellitus without complications E11.9 ; Gout involving toe, unspecified cause, unspecified chronicity, unspecified laterality M10.9 and Primary insomnia F51.01 [facility] [place] [address] [facility] [address] [id number] [place] [address] 436938 27 Jan, 2016 [facility] [place] [address] [facility] [address] [id number] [place] [address] 383821 14 Jan, 2016 [facility] [place] [address] [facility] [address] [id number] [place] [address] 971943 13 Jan, 2016 [facility] [place] [address] [facility] [address] [id number] [place] [address] 206599 30 Dec, 2015 [facility] [place] [address] [facility] [address] [id number] [place] [address] 613724 Dec, [facility] [place] [address] [facility] [address] [id number] [place] [address] 626104 Dec, Sciatica of right side M54.31 and Acute bilateral low back pain without sciatica M54.5 [facility] [place] [address] [facility] [address] [id number] [place] [address] 975901 Dec, Type 2 diabetes mellitus without complications E11.9 [facility] [place] [address] [facility] [address] [id number] [place] [address] 104709 Dec, [facility] [place] [address] [facility] [address] [id number] [place] [address] 051189 Dec, [facility] [place] [address] [facility] [address] [id number] [place] [address] 839183 Dec, Sciatica of right side M54.31 ; Type 2 diabetes mellitus without complication, without long-term current use of insulin E11.9 ; Acute bilateral low back pain without sciatica M54.5 and Neuropathy G62.9 [facility] [place] [address] [facility] [address] [id number] [place] [address] 423424 Dec, Plantar fasciitis, right M72.2 and Sciatica of right side M54.31 [facility] [place] [address] [facility] [address] [id number] [place] [address] 044573 Nov, [facility] [place] [address] [facility] [address] [id number] [place] [address] 513930 Oct, Nail abnormality L60.9 [facility] [place] [address] [facility] [address] [id number] [place] [address] 014822 September, [facility] [place] [address] [facility] [address] [id number] [place] [address] 627335 Aug, [facility] [place] [address] [facility] [address] [id number] [place] [address] 164960 Aug, Vertigo R42 ; Allergic rhinitis, unspecified allergic rhinitis type J30.9 and Anxiety F41.9 [facility] [place] [address] [facility] [address] [id number] [place] [address] 402783 Aug, [facility] [place] [address] [facility] [address] [id number] [place] [address] 752183 Aug, [facility] [place] [address] [facility] [address] [id number] [place] [address] 082530 Aug, [facility] [place] [address] [facility] [address] [id number] [place] [address] 858853 Jul, [facility] [place] [address] [facility] [address] [id number] [place] [address] 084321 Jul, [facility] [place] [address] [facility] [address] [id number] [place] [address] 515832 Jul, [facility] [place] [address] [facility] [address] [id number] [place] [address] 747904 Jul, [facility] [place] [address] [facility] [address] [id number] [place] [address] 662947 Jul, Lymphadenopathy R59.1 ; Type 2 diabetes mellitus without complications E11.9 ; Essential (primary) hypertension I10 and Bipolar disorder, current episode manic without psychotic features, moderate F31.12 [facility] [place] [address] [facility] [address] [id number] [place] [address] 608069 Jun, [facility] [place] [address] [facility] [address] [id number] [place] [address] 966018 Jun, [facility] [place] [address] [facility] [address] [id number] [place] [address] 730886 Jun, [facility] [place] [address] [facility] [address] [id number] [place] [address] 900677 Jun, [facility] [place] [address] [facility] [address] [id number] [place] [address] 985186 May, [facility] [place] [address] [facility] [address] [id number] [place] [address] 474640 14 May, 2015 Lymphadenopathy R59.1 and Pharyngitis, acute J02.9 [facility] [place] [address] [facility] [address] [id number] [place] [address] 115665 11 May, 2015 Pharyngitis, acute J02.9 and Eczema, unspecified type L30.9 [facility] [place] [address] [facility] [address] [id number] [place] [address] 636964 05 May, 2015 [facility] [place] [address] [facility] [address] [id number] [place] [address] 489983 Apr, [facility] [place] [address] [facility] [address] [id number] [place] [address] 141895 Apr, Neck strain, initial encounter S16.1XXA and Obstructive sleep apnea syndrome G47.33 [facility] [place] [address] [facility] [address] [id number] [place] [address] 594226 Apr, [facility] [place] [address] [facility] [address] [id number] [place] [address] 613834 Apr, [facility] [place] [address] [facility] [address] [id number] [place] [address] 846628 Apr, [facility] [place] [address] [place] [address] [address] [id number] [place] [address] 744131 Apr, [facility] [place] [address] [facility] [address] [id number] [place] [address] 111761 Mar, [facility] [place] [address] [facility] [address] [id number] [place] [address] 983874 Mar, [facility] [place] [address] [facility] [address] [id number] [place] [address] 444790 Mar, Primary insomnia F51.01 [facility] [place] [address] [facility] [address] [id number] [place] [address] 120893 Mar, Primary insomnia F51.01 [facility] [place] [address] [facility] [address] [id number] [place] [address] 093241 Mar, Gout, unspecified M10.9 ; Other chronic pain G89.29 and Migraine with aura and without status migrainosus, not intractable G43.109 [facility] [place] [address] [facility] [address] [id number] [place] [address] 165823 Mar, [facility] [place] [address] [facility] [address] [id number] [place] [address] 964476 Feb, Restless legs syndrome G25.81 [facility] [place] [address] [facility] [address] [id number] [place] [address] 194566 Feb, [facility] [place] [address] [place] [address] [address] [id number] [place] [address] 146152 Feb, Gout, unspecified M10.9 ; Other dorsalgia M54.89 ; Restless legs syndrome G25.81 and Encounter for immunization Z23 [facility] [place] [address] [place] [address] [address] [id number] [place] [address] 583224 Feb, [facility] [place] [address] [place] [address] [address] [id number] [place] [address] 421016 Jan, Bilateral foot pain 729.5 ; Type 2 diabetes mellitus without complications E11.9 and Gout 274.9 [facility] [place] [address] [place] [address] [address] [id number] [place] [address] 177650 Jan, [facility] [place] [address] [place] [address] [address] [id number] [place] [address] 152514 Jan, DM w/o complication type II 250.00 [facility] [place] [address] [place] [address] [address] [id number] [place] [address] 091999 Jan, Right hip pain 719.45 [facility] [place] [address] [place] [address] [address] [id number] [place] [address] 524148 Dec, Insomnia 780.52 [facility] [place] [address] [place] [address] [address] [id number] [place] [address] 211955 Dec, Dysuria 788.1 and Frequency of urination 788.41 [facility] [place] [address] [facility] [address] [id number] [place] [address] 615026 Dec, [facility] [place] [address] [facility] [address] [id number] [place] [address] 850495 Dec, [facility] [place] [address] [place] [address] [address] [id number] [place] [address] 604729 Nov, [facility] [place] [address] [facility] [address] [id number] [place] [address] 045672 Nov, [facility] [place] [address] [facility] [address] [id number] [place] [address] 326553 Nov, Neck pain 723.1 [facility] [place] [address] [facility] [address] [id number] [place] [address] 679844 Nov, [facility] [place] [address] [facility] [address] [id number] [place] [address] 132867 Nov, [facility] [place] [address] [facility] [address] [id number] [place] [address] 916260 Nov, GERD (gastroesophageal reflux disease) 530.81 ; Hypertension 401.9 ; Bipolar 1 disorder, manic, moderate 296.42 ; Back pain 724.5 and Gout 274.9 [facility] [place] [address] [place] [address] [address] [id number] [place] [address] 320388 Oct, Dental examination V72.2 [facility] [place] [address] [facility] [address] [id number] [place] [address] 136526 Oct, Dental examination V72.2 [facility] [place] [address] [place] [address] [address] [id number] [place] [address] 832784 September, Dental examination V72.2 [facility] [place] [address] [place] [address] [address] [id number] [place] [address] 228654 Jun, [facility] [address] [facility] [id number] [address] [place] [address] Jun, IMMUNIZATIONS No Known Immunizations SOCIAL HISTORY Never Assessed REASON FOR VISIT A1C 7.[address] Taniya Fiore PLAN OF CARE Activity Details Follow Up prn Reason: VITAL SIGNS MEDICATIONS Unknown Medications RESULTS Name Result Date Reference Range A1C (IN HOUSE) 2016-11-21 A1C IN HOUSE 7.1 4.3 - 5.6 % Previous A1c 6.2 Lot [id number] Exp date 08/2018 PROCEDURES Procedure Date Ordered Result Body Site GLYCATED HEMOGLOBIN TEST November 21, 2016 INSTRUCTIONS MEDICATIONS ADMINISTERED No Known Medications MEDICAL (GENERAL) HISTORY Type Description Date Medical History Hypertension Medical History Bipolar 1 disorder, manic, moderate Medical History Gout Medical History Diabetes Medical History GERD (gastroesophageal reflux disease) Surgical History Kidney stone removal Surgical History Nerve ending perera in back Surgical History lymphectomy Hospitalization History DM Hospitalization History Surgery(s)
--- OUTSIDE RECORDS SUMMARY | 2019-09-27 09:11 | XMS REPORT ---
Author Henri Chauhan [facility] e[employer] Address Unknown Phone Unavailable Care Team Providers Care Size Roller Operator Name Role Phone ZORAIDA SINGH CP Unavailable Allergies, Adverse Reactions, Alerts Substance Reaction Event Type PredniSONE aggitation Drug Allergy Problems Problem Type Condition Code Onset Dates Condition Statu s Assessment Pharyngitis, acute J02.9 Active Assessment Eczema, unspecified type L30.9 Act silas Problem DM w/o complication type II 250.00 Active Problem GERD (gastroesophageal reflux disease) 530.81 Active Problem Type 2 diabetes mellitus without complications E11.9 Active Problem Back pain 724.5 Active Problem Gout 274.9 Active Problem Hypertension 401.9 Active Problem Bipolar 1 disorder, manic, moderate 296.42 Active Medications Medication Code System Code Instructions Start Date End Date Status Dosage Dexilant [facility] [address]-07 60 MG Orally Once a day 1 capsule Meloxicam [facility] [address]-27 15 MG Orally Once a day 1 tablet Diclofenac Sodium [facility] [address]-99 75 MG Orally 3 times a day as needed November 21, 2014 1 tablet Gabapentin [facility] [address]-89 600 MG Orally Three times a day 1 capsule Triamcinolone Acetonide [facility] [address]-02 0.1 % Ex ternally Twice a day for up to 14 days. Do not use on face, genitals, groin, axilla, inner thigh May 18, 2015 1 application to affected ar ea Atenolol [facility] [address]-87 25 MG Orally Once a day 1 tablet Ondansetron [facility] [address]-39 4 MG Orally every 8 hrs 1 tablet on the tongue and allow to dissolve Symbyax [facility] [address]-85 12-50 MG Orally Once a day in the evening November 25, 2014 1 capsule Ceftin [facility] [address]-49 250 MG Orally Twice a day May 18, 2015 May 28, 2015 1 tablet Flonase [facility] [address]-46 50 MCG/ACT Nasally 2 times a day November 17, 2014 1 spray in each nostril Sudafed 12 Hour [facility] [address]-99 120 MG Orally every 12 hrs November 1 tablet as needed Imdur [facility] [address]-31 30 MG Orally Once a day 1 tablet Allopurinol [facility] [address]-51 100 MG Orally Once a day 2 tablets Lisinopril [facility] [address]-08 5 MG Orally Once a day 1 tablet Cyclobenzaprine HCl [facility] [address]-32 10 MG Orally Three times a day 1 tablet Procedures Procedure Coding System Code Date LAB NOT BILLED BY [facility] CPT-4 NOBLL May 18, 2015 [facility] VISIT ESTABLISHED PATIENT CPT-4 G0467 an 2015 STREP A ASSAY W/OPTIC CPT-4 05298 May 18 16 Office Visit, Est Pt., Level 4 CPT-4 06719 2015 Vital Signs Date/Time: May 18, 2015 Temperature 97.6 F Weight 230.3 lbs Height 71 in BMI 32.12 Index Blood Pressure Diastolic 72 mmHg Blood Pressure Systolic 116 mmHg Cardiac Monitoring Heart Rate 86 bpm Results Name Result Date Reference Range Unit Abnormali ty Flag STREP A (IN HOUSE) ----STREP A negative [id number] ----Control valid [id number] ----Lot # [id number] ----Exp date 09/11/1620150518 Summary Purpose eClinicalWorks Submission
--- OUTSIDE RECORDS SUMMARY | 2019-09-27 09:11 | XMS REPORT ---
Author Author Henri SINGH Organization [facility] [place] Address [address] [place] [address] Care Team Providers Care Electronic Operator Name Role Phone ZORAIDA SINGH Unavailable PROBLEMS Type Condition ICD9-CM Code TDS57-DT Code Onset Dates Condition S tatus SNOMED Code Problem Type 2 diabetes mellitus wit hout complication, without long-term current use of insulin E11.9 Active 233570517 Problem Primary insomnia F51.01 Active 397 2004 Problem Type 2 diabetes mellitus without complications E11 .9 Active [id number] ALLERGIES No Information ENCOUNTERS Encounter Location Date Diagnosis [facility] [place] [address] [facility] [address] [id number] [place], [place] [address] 085121 September, [facility] [place] [address] [facility] [address] [id number] [place] [address] 884316 Aug, [facility] [place] [address] [facility] [address] [id number] [place] [address] 945541 Aug, [facility] [place] [address] [facility] [address] [id number] [place] [address] 749621 Aug, Type 2 diabetes mellitus without complications E11.9 ; Pain of left foot M79.672 ; Pain in right foot M79.671 and Chronic gout involving toe without tophus, unspecified cause, unspecified laterality M1A.9XX0 [facility] [place] [address] [facility] [address] [id number] [place] [address] 341711 Jun, [facility] [place] [address] [facility] [address] [id number] [place] [address] 155099 May, [facility] [place] [address] [facility] [address] [id number] [place] [address] 147717 May, [facility] [place] [address] [facility] [address] [id number] [place] [address] 346776 May, [facility] [place] [address] [facility] [address] [id number] [place] [address] 370626 May, Right anterior shoulder pain M25.511 [facility] [place] [address] [facility] [address] [id number] [place] [address] 494152 May, [facility] [place] [address] [facility] [address] [id number] [place] [address] 446521 May, [facility] [place] [address] [facility] [address] [id number] [place] [address] 936318 Apr, Type 2 diabetes mellitus without complications E11.9 ; Costochondritis, acute M94.0 and Tinea pedis of both feet B35.3 [facility] [place] [address] [facility] [address] [id number] [place] [address] 409491 Mar, [facility] [place] [address] [place] [address] [address] [id number] [place] [address] 442871 Mar, [facility] [place] [address] [place] [address] [address] [id number] [place] [address] 038810 Feb, Acute upper respiratory infection, unspecified J06.9 ; Other viral agents as the cause of diseases classified elsewhere B97.89 and Aphthous ulcer of mouth K12.0 [facility] [place] [address] [place] [address] [address] [id number] [place] [address] 533202 Jan, [facility] [place] [address] [place] [address] [address] [id number] [place] [address] 395178 Jan, Right hip pain M25.551 [facility] [place] [address] [place] [address] [address] [id number] [place] [address] 175284 Dec, Ingrown nail L60.0 ; Impetigo L01.00 and Irritant contact dermatitis due to plants, except food L24.7 [facility] [place] [address] [facility] [address] [id number] [place] [address] 965728 Dec, [facility] [place] [address] [facility] [address] [id number] [place] [address] 619422 Dec, Nail abnormality L60.9 and Ingrown nail of fifth toe of right foot L60.0 [facility] [place] [address] [facility] [address] [id number] [place] [address] 265709 Nov, Type 2 diabetes mellitus without complications E11.9 [facility] [place] [address] [facility] [address] [id number] [place] [address] 653189 Nov, Type 2 diabetes mellitus without complication, without long-term current use of insulin E11.9 [facility] [place] [address] [facility] [address] [id number] [place] [address] 280783 Nov, [facility] [place] [address] [facility] [address] [id number] [place] [address] 792830 Nov, [facility] [place] [address] [facility] [address] [id number] [place] [address] 902683 Oct, [facility] [place] [address] [facility] [address] [id number] [place] [address] 922126 September, [facility] [place] [address] [facility] [address] [id number] [place] [address] 228274 Aug, Acute idiopathic gout of foot, unspecified laterality M10.079 [facility] [place] [address] [facility] [address] [id number] [place] [address] 710437 Aug, Acute idiopathic gout of foot, unspecified laterality M10.079 and Primary insomnia F51.01 [facility] [place] [address] [facility] [address] [id number] [place] [address] 281778 Jul, [facility] [place] [address] [facility] [address] [id number] [place] [address] 944724 Jul, 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 [facility] [place] [address] [facility] [address] [id number] [place] [address] 451167 Jun, [facility] [place] [address] [facility] [address] [id number] [place] [address] 026233 Jun, Acute non-recurrent maxillary sinusitis J01.00 [facility] [place] [address] [facility] [address] [id number] [place] [address] 969105 16 Jun, 2016 Acute non-recurrent frontal sinusitis J01.10 [facility] [place] [address] [facility] [address] [id number] [place] [address] 642165 15 Jun, 2016 [facility] [place] [address] [facility] [address] [id number] [place] [address] 542475 14 Jun, 2016 Primary insomnia F51.01 [facility] [place] [address] [facility] [address] [id number] [place] [address] 444749 07 Jun, 2016 Acute non-recurrent maxillary sinusitis J01.00 ; Excessive sweating R61 and 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 [facility] [place] [address] [facility] [address] [id number] [place] [address] 983602 02 Jun, 2016 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 [facility] [place] [address] [facility] [address] [id number] [place] [address] 587940 10 May, 2016 Type 2 diabetes mellitus without complications E11.9 ; Gout involving toe, unspecified cause, unspecified chronicity, unspecified laterality M10.9 and Primary insomnia F51.01 [facility] [place] [address] [facility] [address] [id number] [place] [address] 134596 27 Jan, 2016 [facility] [place] [address] [facility] [address] [id number] [place] [address] 964198 14 Jan, 2016 [facility] [place] [address] [facility] [address] [id number] [place] [address] 859990 Jan, [facility] [place] [address] [facility] [address] [id number] [place] [address] 737653 30 Dec, 2015 [facility] [place] [address] [facility] [address] [id number] [place] [address] 999538 Dec, [facility] [place] [address] [facility] [address] [id number] [place] [address] 516346 Dec, Sciatica of right side M54.31 and Acute bilateral low back pain without sciatica M54.5 [facility] [place] [address] [facility] [address] [id number] [place] [address] 538925 Dec, Type 2 diabetes mellitus without complications E11.9 [facility] [place] [address] [facility] [address] [id number] [place] [address] 679089 Dec, [facility] [place] [address] [facility] [address] [id number] [place] [address] 958900 Dec, [facility] [place] [address] [facility] [address] [id number] [place] [address] 304839 Dec, Sciatica of right side M54.31 ; Type 2 diabetes mellitus without complication, without long-term current use of insulin E11.9 ; Acute bilateral low back pain without sciatica M54.5 and Neuropathy G62.9 [facility] [place] [address] [facility] [address] [id number] [place] [address] 625015 Dec, Plantar fasciitis, right M72.2 and Sciatica of right side M54.31 [facility] [place] [address] [facility] [address] [id number] [place] [address] 513053 Nov, [facility] [place] [address] [facility] [address] [id number] [place] [address] 411673 Oct, Nail abnormality L60.9 [facility] [place] [address] [facility] [address] [id number] [place] [address] 761448 September, [facility] [place] [address] [facility] [address] [id number] [place] [address] 605815 Aug, [facility] [place] [address] [facility] [address] [id number] [place] [address] 575362 Aug, Vertigo R42 ; Allergic rhinitis, unspecified allergic rhinitis type J30.9 and Anxiety F41.9 [facility] [place] [address] [facility] [address] [id number] [place] [address] 915004 Aug, [facility] [place] [address] [facility] [address] [id number] [place] [address] 394284 Aug, [facility] [place] [address] [facility] [address] [id number] [place] [address] 904961 Aug, [facility] [place] [address] [facility] [address] [id number] [place] [address] 337462 Jul, [facility] [place] [address] [facility] [address] [id number] [place] [address] 251465 Jul, [facility] [place] [address] [facility] [address] [id number] [place] [address] 217333 Jul, [facility] [place] [address] [facility] [address] [id number] [place] [address] 588960 Jul, [facility] [place] [address] [facility] [address] [id number] [place] [address] 377499 Jul, Lymphadenopathy R59.1 ; Type 2 diabetes mellitus without complications E11.9 ; Essential (primary) hypertension I10 and Bipolar disorder, current episode manic without psychotic features, moderate F31.12 [facility] [place] [address] [facility] [address] [id number] [place] [address] 108762 18 Jun, 2015 [facility] [place] [address] [facility] [address] [id number] [place] [address] 091208 Jun, [facility] [place] [address] [facility] [address] [id number] [place] [address] 780073 Jun, [facility] [place] [address] [facility] [address] [id number] [place] [address] 492271 Jun, [facility] [place] [address] [facility] [address] [id number] [place] [address] 129984 May, [facility] [place] [address] [place] [address] [address] [id number] [place] [address] 942709 May, Lymphadenopathy R59.1 and Pharyngitis, acute J02.9 [facility] [place] [address] [place] [address] [address] [id number] [place] [address] 372605 May, Pharyngitis, acute J02.9 and Eczema, unspecified type L30.9 [facility] [place] [address] [facility] [address] [id number] [place] [address] 702980 May, [facility] [place] [address] [place] [address] [address] [id number] [place] [address] 381398 Apr, [facility] [place] [address] [place] [address] [address] [id number] [place] [address] 262207 Apr, Neck strain, initial encounter S16.1XXA and Obstructive sleep apnea syndrome G47.33 [facility] [place] [address] [facility] [address] [id number] [place] [address] 289989 Apr, [facility] [place] [address] [facility] [address] [id number] [place] [address] 244648 Apr, [facility] [place] [address] [facility] [address] [id number] [place] [address] 698419 Apr, [facility] [place] [address] [facility] [address] [id number] [place] [address] 709706 Apr, [facility] [place] [address] [facility] [address] [id number] [place] [address] 426679 Mar, [facility] [place] [address] [facility] [address] [id number] [place] [address] 324536 Mar, [facility] [place] [address] [place] [address] [address] [id number] [place] [address] 474400 Mar, Primary insomnia F51.01 [facility] [place] [address] [place] [address] [address] [id number] [place] [address] 795717 Mar, Primary insomnia F51.01 [facility] [place] [address] [place] [address] [address] [id number] [place] [address] 463231 Mar, Gout, unspecified M10.9 ; Other chronic pain G89.29 and Migraine with aura and without status migrainosus, not intractable G43.109 [facility] [place] [address] [place] [address] [address] [id number] [place] [address] 189077 Mar, [facility] [place] [address] [place] [address] [address] [id number] [place] [address] 284832 Feb, Restless legs syndrome G25.81 [facility] [place] [address] [place] [address] [address] [id number] [place] [address] 668992 Feb, [facility] [place] [address] [place] [address] [address] [id number] [place] [address] 757758 Feb, Gout, unspecified M10.9 ; Other dorsalgia M54.89 ; Restless legs syndrome G25.81 and Encounter for immunization Z23 [facility] [place] [address] [place] [address] [address] [id number] [place] [address] 617152 Feb, [facility] [place] [address] [place] [address] [address] [id number] [place] [address] 746549 Jan, Bilateral foot pain 729.5 ; Type 2 diabetes mellitus without complications E11.9 and Gout 274.9 [facility] [place] [address] [place] [address] [address] [id number] [place] [address] 798749 Jan, [facility] [place] [address] [facility] [address] [id number] [place] [address] 678065 Jan, DM w/o complication type II 250.00 [facility] [place] [address] [place] [address] [address] [id number] [place] [address] 842207 Jan, Right hip pain 719.45 [facility] [place] [address] [facility] [address] [id number] [place] [address] 139648 Dec, Insomnia 780.52 [facility] [place] [address] [facility] [address] [id number] [place] [address] 798968 Dec, Dysuria 788.1 and Frequency of urination 788.41 [facility] [place] [address] [facility] [address] [id number] [place] [address] 080736 Dec, [facility] [place] [address] [facility] [address] [id number] [place] [address] 422598 Dec, [facility] [place] [address] [facility] [address] [id number] [place] [address] 826264 Nov, [facility] [place] [address] [facility] [address] [id number] [place] [address] 639716 Nov, [facility] [place] [address] [facility] [address] [id number] [place] [address] 466309 Nov, Neck pain 723.1 [facility] [place] [address] [facility] [address] [id number] [place] [address] 708831 Nov, [facility] [place] [address] [facility] [address] [id number] [place] [address] 793682 Nov, [facility] [place] [address] [facility] [address] [id number] [place] [address] 321872 Nov, GERD (gastroesophageal reflux disease) 530.81 ; Hypertension 401.9 ; Bipolar 1 disorder, manic, moderate 296.42 ; Back pain 724.5 and Gout 274.9 [facility] [place] [address] [facility] [address] [id number] [place] [address] 167041 Oct, Dental examination V72.2 [facility] [place] [address] [facility] [address] [id number] [place] [address] 684408 Oct, Dental examination V72.2 [facility] [place] [address] [facility] [address] [id number] [place] [address] 158094 September, Dental examination V72.2 [facility] [place] [address] [facility] [address] [id number] [place] [address] 055524 Jun, [facility] [address] [facility] [id number] [address] [place] [address] Jun, IMMUNIZATIONS No Known Immunizations SOCIAL HISTORY Never Assessed REASON FOR VISIT school note PLAN OF CARE VITAL SIGNS MEDICATIONS Unknown [...]
--- OUTSIDE RECORDS SUMMARY | 2019-09-27 09:11 | XMS REPORT ---
Author Henri Chauhan Organization [employer] Address Unknown Phone Unavailable Care Team Providers Care Director Immunology Name Role Phone ZORAIDA SINGH CP Unavailable Allergies No Known Allergies Problems Problem Type Condition Code Onset Dates Condition Statu s Assessment Primary insomnia F51.01 Active Problem DM w/o complication type II 250.00 Active Problem GERD (gastroesophageal reflux disease) 530.81 Active Problem Type 2 diabetes mellitus without complications E11.9 Active Problem Back pain 724.5 Active Problem Gout 274.9 Active Problem Hypertension 401.9 Active Problem Bipolar 1 disorder, manic, moderate 296.42 Active Medications Medication Code System Code Instructions Start Date End Date Status Dosage Lunesta [facility] [address]-01 1 MG Orally Once a day Apr 01, 2015 1 tablet immediately before bedtime Results No Known Results Summary Purpose [employer] Submission
--- OUTSIDE RECORDS SUMMARY | 2019-09-27 09:11 | XMS REPORT ---
Author Henri Chauhan Organization [employer] Address Unknown Phone Unavailable Care Team Providers Care Agriculture Department Chair Name Role Phone ZORAIDA SINGH CP Unavailable [...] 1 disorder, manic, moderate 296.42 Active Medications No Known Medications Results No Known Results Summary Purpose [employer] Submission
--- OUTSIDE RECORDS SUMMARY | 2019-09-27 09:11 | XMS REPORT ---
Author Henri Chauhan Organization [employer] Address Unknown Phone Unavailable Care Team Providers Care [employer] Name Role Phone ZORAIDA SINGH CP Unavailable [...]
--- OUTSIDE RECORDS SUMMARY | 2019-09-27 09:11 | XMS REPORT ---
Author Henri Chauhan [facility] [employer] Address Unknown Phone Unavailable Care Team Providers Care Combination Presser Name Role Phone ZORAIDA SINGH CP Unavailable Allergies, Adverse Reactions, Alerts Substance Reaction Event Type PredniSONE aggitation Drug Allergy Problems Problem Type Condition Code Onset Dates Condition Statu s Assessment Migraine with aura and without status mi grainosus, not intractable G43.109 Active Assessment Gout, unspecified M10.9 Active Assessment Other chronic pain G89.29 Active Problem DM w/o complication type II 250.00 Active Problem GERD (gastroesophageal reflux disease) 530.81 Active Problem Type 2 diabetes mellitus without complications E11.9 Active Problem Back pain 724.5 Active Problem Gout 274.9 Active Problem Hypertension 401.9 Active Problem Bipolar 1 disorder, manic, moderate 296.42 Active Medications Medication Code System Code Instructions Start Date End Date Status Dosage Lisinopril [facility] [address]-30 5 MG Orally Once a day 1 tablet Atenolol [facility] [address]-37 25 MG Orally Once a day 1 tablet Sudafed 12 Hour [facility] [address]-92 120 MG Orally every 12 hrs November 1 tablet as needed Diclofenac Sodium [facility] [address]-54 75 MG Orally 3 times a day as needed November 21, 2014 1 tablet Flonase [facility] [address]-04 50 MCG/ACT Nasally 2 times a day November 17, 2014 1 spray in each nostril Meloxicam [facility] [address]-83 15 MG Orally Once a day 1 tablet Dexilant [facility] [address]-30 60 MG Orally Once a day 1 capsule Ambien [facility] [address]-18 5 MG Orally Once a day 1 tablet at bedtime Ondansetron [facility] [address]-84 4 MG Orally every 8 hrs 1 tablet on the tongue and allow to dissolve Symbyax [facility] [address]-91 12-50 MG Orally Once a day in the evening November 25, 2014 1 capsule Imdur [facility] [address]-11 30 MG Orally Once a day 1 tablet Gabapentin [facility] [address]-61 600 MG Orally Three times a day 1 capsule Cyclobenzaprine HCl [facility] [address]-40 10 MG Orally Three times a day 1 tablet Allopurinol [facility] [address]-07 100 MG Orally Once a day 2 tablets Procedures Procedure Coding System Code Date Office Visit, Est Pt., Level 3 CPT-4 21096 N 2014 [facility] VISIT ESTABLISHED PATIENT CPT-4 G0467 N 2014 Vital Signs Date/Time: Mar 16, 2015 Temperature 98.3 F Weight 219.5 lbs Height 71 in BMI 30.61 Index Blood Pressure Diastolic 70 mmHg Blood Pressure Systolic 116 mmHg Cardiac Monitoring Heart Rate 78 bpm Results No Known Results Summary Purpose [employer] Submission
--- OUTSIDE RECORDS SUMMARY | 2019-09-27 09:11 | XMS REPORT ---
Author Author Henri SINGH [facility] [employer] Address Unknown Phone Unavailable Care Team Providers Care Billing Clinician Name Role Phone ZORAIDA SINGH CP Unavailable Allergies No Known Allergies Problems Problem Type Condition Code Onset Dates Condition Statu s Assessment Type 2 diabetes mellitus without complications E11.9 Active Problem DM w/o complication type II 250.00 Active Problem GERD (gastroesophageal reflux disease) 530.81 Active Problem Type 2 diabetes mellitus without complications E11.9 Active Problem Back pain 724.5 Active Problem Gout 274.9 Active Problem Hypertension 401.9 Active Problem Bipolar 1 disorder, manic, moderate 296.42 Active Medications No Known Medications Procedures Procedure Coding System Code Date LAB NOT [facility] CPT-4 NOBLL Dec 31, 2015 GLYCATED HEMOGLOBIN TEST CPT-4 26076 Dec 31, 2015 MICROALBUMIN, SEMIQUANT CPT-4 23990 Dec 31, 2015 VENIPUNCT, ROUTINE* CPT-4 61723 Dec 31, 2015 Results Name Result Date Reference Range Unit Abnormali ty Flag LIPID PANEL ----HDL Cholesterol 33 92458115 >39 mg/dL L ----VLDL Cholesterol Glynn 32 80820985 5-40 mg/dL ----LDL Cholesterol Calc 79 19580147 0-99 mg/dL ----Cholesterol, Total 144 19517471 100-199 mg/dL ----Triglycerides 162 08688252 0-149 mg/dL H CMP ----Globulin, Total 2.4 27989211 1.5-4.5 g/dL ----eGFR If Africn Am 139 61069603 >59 mL/min/1.73 ----eGFR If NonAfricn Am 120 56522536 >59 mL/min/1.73 ----Albumin, Serum 4.4 87615616 3.5-5.5 g/dL ----Sodium, Serum 143 79100877 134-144 mmol/L ----Protein, Total, Serum 6.8 15362620 6.0-8.5 g/dL ----BUN/Creatinine Ratio 22 20151231 8-19 H ----Calcium, Serum 9.2 20151231 8.7-10.2 mg/dL ----AST (SGOT) 25 20151231 0-40 IU/L ----Glucose, Serum 113 20151231 65-99 mg/dL H ----Alkaline Phosphatase, S 58 20151231 39-117 IU/L ----Bilirubin, Total 0.8 20151231 0.0-1.2 mg/dL ----Creatinine, Serum 0.81 20151231 0.76-1.27 mg/dL ----A/G Ratio 1.8 20151231 1.1-2.5 ----BUN 18 20151231 6-20 mg/dL ----Carbon Dioxide, Total 25 20151231 18-29 mmol/L ----ALT (SGPT) 21 20151231 0-44 IU/L ----Potassium, Serum 4.6 20151231 3.5-5.2 mmol/L ----Chloride, Serum 101 20151231 97-108 mmol/L HEP B SURFACE ANTIBODY ----Hep B Surface Ab, Qual Reactive 20151231 A1C ----Hemoglobin A1c 6.2 20151231 4.8-5.6 % H MICROALBUMIN, URINE (IN HOUSE) ----A:C (IN HOUSE) <30 mg/g 20151231 ----CRE 300 mg/dL 20151231 ----ALB 30 mg/L 20151231 ----Color yellow 20151231 ----Clarity clear 20151231 ----Exp date 20151231 ----Lot # [id number] 20151231 ----MICROALBUMIN Normal 20151231 ROUTINE VENIPUNCTURE Summary Purpose [employer] Submission
--- OUTSIDE RECORDS SUMMARY | 2019-09-27 09:11 | XMS REPORT ---
Author Author Henri SINGH Organization [facility] Address [address] [place] [address] Care Team Providers Care Executive Director Of Marketing Name Role Phone ZORAIDA SINGH Unavailable PROBLEMS Type Condition ICD9-CM Code FVS99-HI Code Onset Dates Condition S tatus SNOMED Code Problem Type 2 diabetes mellitus wit hout complication, without long-term current use of insulin E11.9 Active 390836872 Problem Primary insomnia F51.01 Active 397 2004 Problem Type 2 diabetes mellitus without complications E11 .9 Active [id number] ALLERGIES No Information SOCIAL HISTORY Never Assessed PLAN OF CARE VITAL SIGNS MEDICATIONS Unknown Medications RESULTS No Results PROCEDURES No Known procedures IMMUNIZATIONS No Known Immunizations MEDICAL (GENERAL) HISTORY Type Description Date Medical History Hypertension Medical History Bipolar 1 disorder, manic, moderate Medical History Gout Medical History Diabetes Medical History GERD (gastroesophageal reflux disease) Surgical History Kidney stone removal Surgical History Nerve ending perera in back Surgical History lymphectomy Hospitalization History DM Hospitalization History Surgery(s)
--- OUTSIDE RECORDS SUMMARY | 2019-09-27 09:11 | XMS REPORT ---
Author Henri Chauhan Organization [employer] Address Unknown Phone Unavailable Care Team Providers Care Certified Corporate Travel Executive Name Role Phone ZORAIDA SINGH CP Unavailable [...] Instructions Start Date End Date Status Dosage Cyclobenzaprine HCl [facility] 2001 [id number] 10 mg Orally Three times a day 1 tablet Results No Known Results Summary Purpose eClinicalWorks Submission
--- OUTSIDE RECORDS SUMMARY | 2019-09-27 09:11 | XMS REPORT ---
Author Henri Elizondo [facility] eClinicalWorks Address Unknown Phone Unavailable Care Team Providers Care Freezer Person Name Role Phone INOCENCIA MORIN CP Unavailable Allergies, Adverse Reactions, Alerts Substance Reaction Event Type PredniSONE aggitation Drug Allergy Problems Problem Type Condition ICD-9 Code Onset Dates Condition Statu s Problem Hypertension 401.9 Active Problem Bipolar 1 disorder, manic, moderate 296.42 Active Problem GERD (gastroesophageal reflux disease) 530.81 Active Assessment Dysuria 788.1 Active Assessment Frequency of urination 788.41 Activ e Problem Back pain 724.5 Active Problem Gout 274.9 Active Medications Medication Code System Code Instructions Start Date End Date Status Dosage Cyclobenzaprine HCl [facility] [address]-89 10 MG Orally Three times a day 1 tablet Sudafed 12 Hour [facility] [address]-19 120 MG Orally every 12 hrs November 1 tablet as needed Dexilant [facility] [address]-27 60 MG Orally Once a day 1 capsule Symbyax [facility] [address]-49 12-50 MG Orally Once a day in the evening November 25, 2014 1 capsule Flonase [facility] [address]-80 50 MCG/ACT Nasally 2 times a day November 17, 2014 1 spray in each nostril Lisinopril [facility] [address]-05 5 MG Orally Once a day 1 tablet Meloxicam [facility] [address]-61 15 MG Orally Once a day 1 tablet Imdur [facility] [address]-76 30 MG Orally Once a day 1 tablet Gabapentin [facility] [address]-20 300 MG Orally Three times a day 1 capsule Diclofenac Sodium [facility] [address]-67 75 MG Orally 3 times a day as needed November 21, 2014 1 tablet Atenolol [facility] [address]-40 25 MG Orally Once a day 1 tablet Allopurinol [facility] [address]-72 100 MG Orally Once a day 1 tablet Procedures Procedure Coding System Code Date [facility] VISIT ESTABLISHED PATIENT CPT-4 G0467 A 2014 Office Visit, Est Pt., Level 3 CPT-4 50766 A 2014 URINALYSIS, AUTO, W/O SCOPE CPT-4 18116 Dec 24, 2014 Vital Signs Date/Time: Dec 24, 2014 Cardiac Monitoring Heart Rate 80 bpm Temperature 98.5 F Weight 214.3 lbs Blood Pressure Diastolic 80 mmHg Blood Pressure Systolic 142 mmHg Results Name Result Date Reference Range Unit Abnormali ty Flag UA LONG DIP (IN HOUSE) Summary Purpose eClinicalWorks Submission
--- OUTSIDE RECORDS SUMMARY | 2019-09-27 09:11 | XMS REPORT ---
Author Author Henri SINGH Organization [facility] Address [address] [place] [address] Care Team Providers Care Skein Yard Drier Name Role Phone ZORAIDA SINGH Unavailable PROBLEMS Type Condition ICD9-CM Code UBD93-FW Code Onset Dates Condition S tatus SNOMED Code Problem Type 2 diabetes mellitus wit hout complication, without long-term current use of insulin E11.9 Active 033945130 Problem Primary insomnia F51.01 Active 397 2004 Problem Type 2 diabetes mellitus without complications E11 .9 Active [id number] ALLERGIES No Information SOCIAL HISTORY Never Assessed PLAN OF CARE VITAL SIGNS MEDICATIONS Medication Instructions Dosage Frequency Start Date End Date Duration S tatus Augmentin 875-125 MG Orally every 12 hrs 1 tablet 12h Jun, 2 017 27 Jun, 2016 10 day(s) Active RESULTS No Results PROCEDURES [...]
--- OUTSIDE RECORDS SUMMARY | 2019-09-27 09:11 | XMS REPORT ---
Author Author Henri SINGH Organization [facility] [place] Address [address] [place] [address] Care Team Providers Care Elementary Tutor Name Role Phone MARILUZZORAIDA RUTH Unavailable PROBLEMS Type Condition ICD9-CM Code WYB55-BC Code Onset Dates Condition S tatus SNOMED Code Problem Type 2 diabetes mellitus wit hout complication, without long-term current use of insulin E11.9 Active 192051979 Problem Primary insomnia F51.01 Active 397 2004 Problem Type 2 diabetes mellitus without complications E11 .9 Active [id number] ALLERGIES No Information ENCOUNTERS Encounter Location Date Diagnosis [facility] [place] [address] [facility] [address] [id number] [place] [address] 765597 Oct, [facility] [place] [address] [place] [address] C [id number] [place] [address] 610087 September, Medicare annual wellness visit, initial Z00.00 ; Type 2 diabetes mellitus without complication, without long-term current use of insulin E11.9 and Right anterior shoulder pain M25.511 [facility] [place] [address] [facility] [address] [id number] [place] [address] 248488 September, Primary insomnia F51.01 [facility] [place] [address] [facility] [address] [id number] [place] [address] 548256 Aug, Biceps tendonitis on left M75.22 [facility] [place] [address] [facility] [address] [id number] [place] [address] 911278 Aug, [facility] [place] [address] [id number] [place] [address] 947808 Aug, [facility] [place] [address] [facility] [address] [id number] [place] [address] 741623 Aug, [facility] [place] [address] [facility] [address] [id number] [place] [address] 062080 Aug, Type 2 diabetes mellitus without complications E11.9 ; Pain of left foot M79.672 ; Pain in right foot M79.671 and Chronic gout involving toe without tophus, unspecified cause, unspecified laterality M1A.9XX0 [facility] [place] [address] [facility] [address] [id number] [place] [address] 663214 08 Jun, 2017 [facility] [place] [address] [facility] [address] [id number] [place] [address] 176985 May, [facility] [place] [address] [facility] [address] [id number] [place] [address] 207880 May, [facility] [place] [address] [facility] [address] [id number] [place] [address] 206001 May, [facility] [place] [address] [facility] [address] [id number] [place] [address] 154532 May, Right anterior shoulder pain M25.511 [facility] [place] [address] [facility] [address] [id number] [place] [address] 793104 May, [facility] [place] [address] [facility] [address] [id number] [place] [address] 259633 May, [facility] [place] [address] [facility] [address] [id number] [place] [address] 209208 Apr, Type 2 diabetes mellitus without complications E11.9 ; Costochondritis, acute M94.0 and Tinea pedis of both feet B35.3 [facility] [place] [address] [facility] [address] [id number] [place] [address] 680005 09 Mar, 2017 [facility] [place] [address] [place] [address] [address] [id number] [place] [address] 129986 Mar, [facility] [place] [address] [place] [address] [address] [id number] [place] [address] 364793 Feb, Acute upper respiratory infection, unspecified J06.9 ; Other viral agents as the cause of diseases classified elsewhere B97.89 and Aphthous ulcer of mouth K12.0 [facility] [place] [address] [facility] [address] [id number] [place] [address] 255430 Jan, [facility] [place] [address] [facility] [address] [id number] [place] [address] 649657 Jan, Right hip pain M25.551 [facility] [place] [address] [facility] [address] [id number] [place] [address] 175361 Dec, Ingrown nail L60.0 ; Impetigo L01.00 and Irritant contact dermatitis due to plants, except food L24.7 [facility] [place] [address] [facility] [address] [id number] [place] [address] 700874 Dec, [facility] [place] [address] [facility] [address] [id number] [place] [address] 215782 Dec, Nail abnormality L60.9 and Ingrown nail of fifth toe of right foot L60.0 [facility] [place] [address] [facility] [address] [id number] [place] [address] 158360 Nov, Type 2 diabetes mellitus without complications E11.9 [facility] [place] [address] [facility] [address] [id number] [place] [address] 170989 Nov, Type 2 diabetes mellitus without complication, without long-term current use of insulin E11.9 [facility] [place] [address] [facility] [address] [id number] [place] [address] 117500 Nov, [facility] [place] [address] [place] [address] [address] [id number] [place] [address] 319689 Nov, [facility] [place] [address] [facility] [address] [id number] [place] [address] 277634 Oct, [facility] [place] [address] [place] [address] C [id number] [place] [address] 233045 September, [facility] [place] [address] [place] [address] C [id number] [place] [address] 423531 Aug, Acute idiopathic gout of foot, unspecified laterality M10.079 [facility] [place] [address] [facility] [address] [id number] [place] [address] 141045 Aug, Acute idiopathic gout of foot, unspecified laterality M10.079 and Primary insomnia F51.01 [facility] [place] [address] [facility] [address] [id number] [place] [address] 812763 Jul, [facility] [place] [address] 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 [address] [id number] [place] [address] 630246 23 Jun, 2016 [facility] [place] [address] [facility] [address] [id number] [place] [address] 738163 17 Jun, 2016 Acute non-recurrent maxillary sinusitis J01.00 [facility] [place] [address] [facility] [address] [id number] [place] [address] 934142 16 Jun, 2016 Acute non-recurrent frontal sinusitis J01.10 [facility] [place] [address] [facility] [address] [id number] [place] [address] 212487 15 Jun, 2016 [facility] [place] [address] [facility] [address] [id number] [place] [address] 857809 14 Jun, 2016 Primary insomnia F51.01 [facility] [place] [address] 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 [address] [id number] [place] [address] 336702 Jan, [facility] [place] [address] [facility] [address] [id number] [place] [address] 490854 Jan, [facility] [place] [address] [facility] [address] [id number] [place] [address] 758051 Jan, [facility] [place] [address] [facility] [address] [id number] [place] [address] 178177 Dec, [facility] [place] [address] [facility] [address] [id number] [place] [address] 471270 Dec, [facility] [place] [address] [facility] [address] [id number] [place] [address] 301818 Dec, Sciatica of right side M54.31 and Acute bilateral low back pain without sciatica M54.5 [facility] [place] [address] [facility] [address] [id number] [place] [address] 379473 Dec, Type 2 diabetes mellitus without complications E11.9 [facility] [place] [address] [facility] [address] [id number] [place] [address] 219726 Dec, [facility] [place] [address] [facility] [address] [id number] [place] [address] 177854 Dec, [facility] [place] [address] [facility] [address] [id number] [place] [address] 392346 Dec, Sciatica of right side M54.31 ; Type 2 diabetes mellitus without complication, without long-term current use of insulin E11.9 ; Acute bilateral low back pain without sciatica M54.5 and Neuropathy G62.9 [facility] [place] [address] [facility] [address] [id number] [place] [address] 175439 Dec, Plantar fasciitis, right M72.2 and Sciatica of right side M54.31 [facility] [place] [address] [facility] [address] [id number] [place] [address] 586225 Nov, [facility] [place] [address] [facility] [address] [id number] [place] [address] 983367 Oct, Nail abnormality L60.9 [facility] [place] [address] [place] [address] [address] [id number] [place] [address] 170794 September, [facility] [place] [address] [facility] [address] [id number] [place] [address] 876159 Aug, [facility] [place] [address] [facility] [address] [id number] [place] [address] 970516 Aug, Vertigo R42 ; Allergic rhinitis, unspecified allergic rhinitis type J30.9 and Anxiety F41.9 [facility] [place] [address] [facility] [address] [id number] [place] [address] 770131 Aug, [facility] [place] [address] [facility] [address] [id number] [place] [address] 266924 Aug, [facility] [place] [address] [facility] [address] [id number] [place] [address] 797746 Aug, [facility] [place] [address] [facility] [address] [id number] [place] [address] 551780 Jul, [facility] [place] [address] [facility] [address] [id number] [place] [address] 217703 Jul, [facility] [place] [address] [facility] [address] [id number] [place] [address] 206761 Jul, [facility] [place] [address] [facility] [address] [id number] [place] [address] 462629 Jul, [facility] [place] [address] [facility] [address] [id number] [place] [address] 133814 Jul, Lymphadenopathy R59.1 ; Type 2 diabetes mellitus without complications E11.9 ; Essential (primary) hypertension I10 and Bipolar disorder, current episode manic without psychotic features, moderate F31.12 [facility] [place] [address] [facility] [address] [id number] [place] [address] 954213 Jun, [facility] [place] [address] [facility] [address] [id number] [place] [address] 490050 Jun, [facility] [place] [address] [facility] [address] [id number] [place] [address] 662350 Jun, [facility] [place] [address] [facility] [address] [id number] [place] [address] 243401 Jun, [facility] [place] [address] [facility] [address] [id number] [place] [address] 920280 May, [facility] [place] [address] [facility] [address] [id number] [place] [address] 040266 May, Lymphadenopathy R59.1 and Pharyngitis, acute J02.9 [facility] [place] [address] [facility] [address] [id number] [place] [address] 527568 11 May, 2015 Pharyngitis, acute J02.9 and Eczema, unspecified type L30.9 [facility] [place] [address] [facility] [address] [id number] [place] [address] 704831 May, [facility] [place] [address] [facility] [address] [id number] [place] [address] 462956 Apr, [facility] [place] [address] [facility] [address] [id number] [place] [address] 576687 Apr, Neck strain, initial encounter S16.1XXA and Obstructive sleep apnea syndrome G47.33 [facility] [place] [address] [facility] [address] [id number] [place] [address] 700318 Apr, [facility] [place] [address] [facility] [address] [id number] [place] [address] 313677 Apr, [facility] [place] [address] [facility] [address] [id number] [place] [address] 828553 Apr, [facility] [place] [address] [facility] [address] [id number] [place] [address] 241771 Apr, [facility] [place] [address] [facility] [address] [id number] [place] [address] 696256 Mar, [facility] [place] [address] [facility] [address] [id number] [place] [address] 341324 Mar, [facility] [place] [address] [facility] [address] [id number] [place] [address] 495809 Mar, Primary insomnia F51.01 [facility] [place] [address] [facility] [address] [id number] [place] [address] 577387 Mar, Primary insomnia F51.01 [facility] [place] [address] [facility] [address] [id number] [place] [address] 709540 Mar, Gout, unspecified M10.9 ; Other chronic pain G89.29 and Migraine with aura and without status migrainosus, not intractable G43.109 [facility] [place] [address] [facility] [address] [id number] [place] [address] 017079 Mar, [facility] [place] [address] [facility] [address] [id number] [place] [address] 336762 Feb, Restless legs syndrome G25.81 [facility] [place] [address] [facility] [address] [id number] [place] [address] 160891 Feb, [facility] [place] [address] [facility] [address] [id number] [place] [address] 882274 Feb, Gout, unspecified M10.9 ; Other dorsalgia M54.89 ; Restless legs syndrome G25.81 and Encounter for immunization Z23 [facility] [place] [address] [facility] [address] [id number] [place] [address] 166015 Feb, [facility] [place] [address] [facility] [address] [id number] [place] [address] 398553 Jan, Bilateral foot pain 729.5 ; Type 2 diabetes mellitus without complications E11.9 and Gout 274.9 [facility] [place] [address] [facility] [address] [id number] [place] [address] 841400 Jan, [facility] [place] [address] [facility] [address] [id number] [place] [address] 237161 Jan, DM w/o complication type II 250.00 [facility] [place] [address] [facility] [address] [id number] [place] [address] 686822 Jan, Right hip pain 719.45 [facility] [place] [address] [place] [address] [address] [id number] [place] [address] 785195 Dec, Insomnia 780.52 [facility] [place] [address] [place] [address] [address] [id number] [place] [address] 901827 Dec, Dysuria 788.1 and Frequency of urination 788.41 [facility] [place] [address] [place] [address] [address] [id number] [place] [address] 479674 Dec, [facility] [place] [address] [place] [address] [address] [id number] [place] [address] 202386 Dec, [facility] [place] [address] [facility] [address] [id number] [place] [address] 186779 Nov, [facility] [place] [address] [facility] [address] [id number] [place] [address] 700457 Nov, [facility] [place] [address] [facility] [address] [id number] [place] [address] 444576 Nov, Neck pain 723.1 [facility] [place] [address] [facility] [address] [id number] [place] [address] 374754 Nov, [facility] [place] [address] [facility] [address] [id number] [place] [address] 594978 Nov, [facility] [place] [address] [facility] [address] [id number] [place] [address] 049839 Nov, GERD (gastroesophageal reflux disease) 530.81 ; Hypertension 401.9 ; Bipolar 1 disorder, manic, moderate 296.42 ; Back pain 724.5 and Gout 274.9 [facility] [address] [place] [address] C [id number] [place], [place] [address] 800450 Oct, Dental examination V72.2 [facility] [address] [place] [address] C [id number] [place] [address] 508554 Oct, Dental examination V72.2 [facility] [address] [place] [address] C [id number] [place] [address] 486683 September, Dental examination V72.2 [facility] [address] [place] [address] C [id number] [place] [address] 611900 Jun, [facility] [address] [facility] [id number] [address] [place] [address] Jun, IMMUNIZATIONS No Known Immunizations SOCIAL HISTORY Never Assessed REASON FOR VISIT Papers PLAN OF CARE VITAL SIGNS MEDICATIONS Unknown [...]
--- OUTSIDE RECORDS SUMMARY | 2019-09-27 09:12 | XMS REPORT ---
Author Henri Chauhan [facility] eClinicalWorks Address Unknown Phone Unavailable Care Team Providers Care Lead Java J2Ee Developer Name Role Phone ZORAIDA SINGH CP Unavailable Allergies, Adverse Reactions, Alerts Substance Reaction Event Type PredniSONE aggitation Drug Allergy Problems Problem Type Condition Code Onset Dates Condition Statu s Assessment Anxiety F41.9 Active Assessment Vertigo R42 Active Assessment Allergic rhinitis, unspecified allergic rhinitis type J30.9 Active Problem DM w/o complication type II 250.00 Active Problem GERD (gastroesophageal reflux disease) 530.81 Active Problem Type 2 diabetes mellitus without complications E11.9 Active Problem Back pain 724.5 Active Problem Gout 274.9 Active Problem Hypertension 401.9 Active Problem Bipolar 1 disorder, manic, moderate 296.42 Active Medications Medication Code System Code Instructions Start Date End Date Status Dosage Allopurinol FORMERLY NAMED [facility] [id number] 100MG TAKE TWO TABLETS BY MOUTH ONCE DAILY. Dexilant FORMERLY NAMED [facility] [address]-91 60 MG Orally Once a day 1 capsule Lisinopril FORMERLY NAMED [facility] [address]-74 5 MG Orally Once a day 1 tablet Lancets ND 0 ... Once a day August 13, 2015 a s directed Atenolol FORMERLY NAMED [facility] [address]-86 25 MG Orally Once a day 1 tablet Flonase FORMERLY NAMED [facility] [address]-51 50 MCG/ACT Nasally 2 times a day November 17, 2014 1 spray in each nostril Imdur FORMERLY NAMED [facility] [address]-76 30 MG Orally Once a day 1 tablet Phenergan FORMERLY NAMED [facility] [address]-05 25 MG every 6 hrs PRN n/v May 28, 2015 1 tablet Triamcinolone Acetonide FORMERLY NAMED [facility] [address]-10 0.1 % Ex ternally Twice a day for up to 14 days. Do not use on face, genitals, groin, axilla, inner thigh May 18, 2015 1 application to affected ar ea Test strips NDC 0 ... Once a day August 13, 2015 as directed Cyclobenzaprine HCl FORMER[facility] NAMED [facility] [address]-18 10 mg Orally Three times a day 1 tablet Meclizine HCl FORMER[facility] NAMED [facility] [address]-76 25 MG Orally every 4-6 cahrlene rs as needed September 01, 2015 1 tablet as needed Flonase Allergy Relief FORMERLY NAMED [facility] [address]-23 50 MCG/ACT Nasall y Once a day September 01, 2015 1 spray in each nost ril TRUEresult Blood Glucose FORMERLY NAMED [facility] 28[address]-35342 w/Device Once a day Ap ril 2015 as directed Diclofenac Sodium FORMERLY NAMED [facility] [address]-10 75 MG Orally 3 times a day as needed November 21, 2014 1 tablet Gabapentin FORMERLY NAMED [facility] 99964258796 600MG TAKE ONE TABLET BY MOUTH THREE TIMES DAILY Symbyax FORMERLY NAMED [facility] [address]-17 12-50 MG Orally Once a day in the evening November 25, 2014 1 capsule Meloxicam FORMERLY NAMED [facility] [address]-52 15 MG 1 tablet by mouth 1 time a day Procedures Procedure Coding System Code Date Office Visit, Est Pt., Level 4 CPT-4 32539 A [facility] 2015 FORMERLY [facility] VISIT ESTABLISHED PATIENT CPT-4 G0467 A [facility] 2015 Vital Signs Date/Time: September 01, 2015 Temperature 98.6 F Weight 221.8 lbs Height 71 in BMI 30.93 Index Blood Pressure Diastolic 94 mmHg Blood Pressure Systolic 144 mmHg Cardiac Monitoring Heart Rate 90 bpm Results No Known Results Summary Purpose eClinicalWorks Submission
--- OUTSIDE RECORDS SUMMARY | 2019-09-27 09:12 | XMS REPORT ---
Author Author Henri SINGH [facility] Address [address] [place] [address] Care Team Providers Care Manager Completions Name Role Phone ZORAIDA SINGH Unavailable PROBLEMS Type Condition ICD9-CM Code [id number] Code Onset Dates Condition S tatus SNOMED Code Problem Type 2 diabetes mellitus wit hout complication, without long-term current use of insulin E11.9 Active 361939215 Problem Primary insomnia F51.01 Active 397 2004 Problem Type 2 diabetes mellitus without complications E11 .9 Active [id number] ALLERGIES No Information SOCIAL HISTORY Never Assessed [...]
--- OUTSIDE RECORDS SUMMARY | 2019-09-27 09:12 | XMS REPORT ---
Author Henri Elizondo [facility] eClinicalWorks Address Unknown Phone Unavailable Care Team Providers Care Creative Developer Name Role Phone INOCENCIA MORIN CP Unavailable Allergies, Adverse Reactions, Alerts Substance Reaction Event Type PredniSONE aggitation Drug Allergy Problems Problem Type Condition ICD-9 Code Onset Dates Condition Statu s Problem Hypertension 401.9 Active Problem Bipolar 1 disorder, manic, moderate 296.42 Active Problem GERD (gastroesophageal reflux disease) 530.81 Active Assessment Insomnia 780.52 Active Problem Back pain 724.5 Active Problem Gout 274.9 Active Medications Medication Code System Code Instructions Start Date End Date Status Dosage Imdur [facility] [address]-54 30 MG Orally Once a day 1 tablet Meloxicam [facility] [address]-92 15 MG Orally Once a day 1 tablet Cyclobenzaprine HCl [facility] [address]-99 10 MG Orally Three times a day 1 tablet Atenolol [facility] [address]-11 25 MG Orally Once a day 1 tablet Symbyax [facility] [address]-08 12-50 MG Orally Once a day in the evening November 25, 2014 1 capsule Lisinopril [facility] [address]-57 5 MG Orally Once a day 1 tablet Sudafed 12 Hour [facility] [address]-70 120 MG Orally every 12 hrs November 1 tablet as needed Allopurinol [facility] [address]-42 100 MG Orally Once a day 1 tablet Gabapentin [facility] [address]-39 300 MG Orally Three times a day 1 capsule Diclofenac Sodium [facility] [address]-30 75 MG Orally 3 times a day as needed November 21, 2014 1 tablet Flonase [facility] [address]-72 50 MCG/ACT Nasally 2 times a day November 17, 2014 1 spray in each nostril Dexilant [facility] [address]-55 60 MG Orally Once a day 1 capsule Procedures Procedure Coding System Code Date Office Visit, Est Pt., Level 3 CPT-4 14438 A 2014 [facility] VISIT ESTABLISHED PATIENT CPT-4 G0467 A 2014 Vital Signs Date/Time: Dec 29, 2014 Cardiac Monitoring Heart Rate 76 bpm Temperature 98.1 F Weight 214.8 lbs Blood Pressure Diastolic 78 mmHg Blood Pressure Systolic 118 mmHg Results No Known Results Summary Purpose eClinicalWorks Submission
--- OUTSIDE RECORDS SUMMARY | 2019-09-27 09:12 | XMS REPORT ---
Author Henri Chauhan Organization eClinicalWorks Address Unknown Phone Unavailable Care Team Providers Care Lathing Supervisor Name Role Phone ZORAIDA SINGH CP Unavailable Allergies No Known Allergies Problems Problem Type Condition Code Onset Dates Condition Statu s Assessment Restless legs syndrome G25.81 Activ e Problem DM w/o complication type II 250.00 Active Problem GERD (gastroesophageal reflux disease) 530.81 Active Problem Type 2 diabetes mellitus without complications E11.9 Active Problem Back pain 724.5 Active Problem Gout 274.9 Active Problem Hypertension 401.9 Active Problem Bipolar 1 disorder, manic, moderate 296.42 Active Medications No Known Medications Procedures Procedure Coding System Code Date VENIPUNCT, ROUTINE* CPT-4 15439 Feb 26, 2015 [facility] C[facility]-4 NOBLL Feb 26, 2015 Results Name Result Date Reference Range Unit Abnormali ty Flag ROUTINE VENIPUNCTURE Summary Purpose eClinicalWorks Submission
--- OUTSIDE RECORDS SUMMARY | 2019-09-27 09:12 | XMS REPORT ---
Author Henri Chauhan [facility] eClinicalWorks Address Unknown Phone Unavailable Care Team Providers Care Shipping Hand Name Role Phone ZORAIDA SINGH CP Unavailable Allergies, Adverse Reactions, Alerts Substance Reaction Event Type PredniSONE aggitation Drug Allergy Problems Problem Type Condition Code Onset Dates Condition Statu s Assessment Lymphadenopathy R59.1 Active Assessment Pharyngitis, acute J02.9 Active Problem DM w/o complication type II 250.00 Active Problem GERD (gastroesophageal reflux disease) 530.81 Active Problem Type 2 diabetes mellitus without complications E11.9 Active Problem Back pain 724.5 Active Problem Gout 274.9 Active Problem Hypertension 401.9 Active Problem Bipolar 1 disorder, manic, moderate 296.42 Active Medications Medication Code System Code Instructions Start Date End Date Status Dosage Imdur [facility] [address]-38 30 MG Orally Once a day 1 tablet Cyclobenzaprine HCl [facility] [address]-55 10 MG Orally Three times a day 1 tablet Atenolol [facility] [address]-44 25 MG Orally Once a day 1 tablet Flonase [facility] [address]-98 50 MCG/ACT Nasally 2 times a day November 17, 2014 1 spray in each nostril Lisinopril [facility] [address]-43 5 MG Orally Once a day 1 tablet Symbyax [facility] [address]-34 12-50 MG Orally Once a day in the evening November 25, 2014 1 capsule Augmentin [facility] [address]-51 875-125 MG Orally every 12 hrs Ja 2015May 31, 2015 1 tablet Allopurinol [facility] [address]-81 100 MG Orally Once a day 2 tablets Ondansetron [facility] [address]-96 4 MG Orally every 8 hrs 1 tablet on the tongue and allow to dissolve Diclofenac Sodium [facility] [address]-41 75 MG Orally 3 times a day as needed November 21, 2014 1 tablet Meloxicam [facility] [address]-37 15 MG Orally Once a day 1 tablet Gabapentin [facility] [address]-09 600 MG Orally Three times a day 1 capsule Triamcinolone Acetonide [facility] [address]-55 0.1 % Ex ternally Twice a day for up to 14 days. Do not use on face, genitals, groin, axilla, inner thigh May 18, 2015 1 application to affected ar ea Dexilant [facility] [address]-31 60 MG Orally Once a day 1 capsule Procedures Procedure Coding System Code Date Office Visit, Est Pt., Level 4 CPT-4 48911 [facility] 2015 [facility] VISIT ESTABLISHED PATIENT CPT-4 G0467 [facility] 2015 Vital Signs Date/Time: May 21, 2015 Temperature 98.4 F Weight 223.5 lbs Height 71 in BMI 31.17 Index Blood Pressure Diastolic 74 mmHg Blood Pressure Systolic 120 mmHg Cardiac Monitoring Heart Rate 76 bpm Results Name Result Date Reference Range Unit Abnormali ty Flag Ultrasound : Soft Tissue (specify location) Summary Purpose eClinicalWorks Submission
--- OUTSIDE RECORDS SUMMARY | 2019-09-27 09:12 | XMS REPORT ---
Author Henri Chauhan Organization eClinicalWorks Address Unknown Phone Unavailable Care Team Providers Care Investigator Operator Name Role Phone ZORAIDA SINGH CP [...] Start Date End Date Status Dosage Lisinopril [facility] [address]-15 5 mg Orally Once a day 1 tablet Results No Known Results Summary Purpose eClinicalWorks Submission
--- OUTSIDE RECORDS SUMMARY | 2019-09-27 09:12 | XMS REPORT ---
Author Henri Jones [facility] eClinicalWorks Address Unknown Phone Unavailable Care Team Providers Care Settlement Technician Name Role Phone HERBERTH OSBORNE Unavailable Allergies [...]
--- OUTSIDE RECORDS SUMMARY | 2019-09-27 09:12 | XMS REPORT ---
Author Henri Chauhan [facility] eClinicalWorks Address Unknown Phone Unavailable Care Team Providers Care Commodity Lead Name Role Phone ZORAIDA SINGH CP Unavailable Allergies, Adverse Reactions, Alerts Substance Reaction Event Type PredniSONE aggitation Drug Allergy Problems Problem Type Condition Code Onset Dates Condition Statu s Assessment Neck strain, initial encounter S16.1XXA Active Assessment Obstructive sleep apnea syndrome G47.33 Active Problem DM w/o complication type II 250.00 Active Problem GERD (gastroesophageal reflux disease) 530.81 Active Problem Type 2 diabetes mellitus without complications E11.9 Active Problem Back pain 724.5 Active Problem Gout 274.9 Active Problem Hypertension 401.9 Active Problem Bipolar 1 disorder, manic, moderate 296.42 Active Medications Medication Code System Code Instructions Start Date End Date Status Dosage Diclofenac Sodium [facility] [address]-97 75 MG Orally 3 times a day as needed November 21, 2014 1 tablet Sudafed 12 Hour [facility] [address]-85 120 MG Orally every 12 hrs November 1 tablet as needed Symbyax [facility] [address]-42 12-50 MG Orally Once a day in the evening November 25, 2014 1 capsule Atenolol [facility] [address]-30 25 MG Orally Once a day 1 tablet Dexilant [facility] [address]-52 60 MG Orally Once a day 1 capsule Allopurinol [facility] [address]-10 100 MG Orally Once a day 2 tablets Gabapentin [facility] [address]-03 600 MG Orally Three times a day 1 capsule Cyclobenzaprine HCl [facility] [address]-94 10 MG Orally Three times a day 1 tablet Lisinopril [facility] [address]-52 5 MG Orally Once a day 1 tablet Ondansetron [facility] [address]-47 4 MG Orally every 8 hrs 1 tablet on the tongue and allow to dissolve Flonase [facility] [address]-66 50 MCG/ACT Nasally 2 times a day November 17, 2014 1 spray in each nostril Imdur [facility] [address]-29 30 MG Orally Once a day 1 tablet Meloxicam [facility] [address]-81 15 MG Orally Once a day 1 tablet Procedures Procedure Coding System Code Date Office Visit, Est Pt., Level 3 CPT-[address] [facility] VISIT ESTABLISHED PATIENT CPT-4 G0467 D 2014 Vital Signs Date/Time: Apr 27, 2015 Temperature 98.2 F Weight 223.2 lbs Height 71 in BMI 31.13 Index Blood Pressure Diastolic 80 mmHg Blood Pressure Systolic 122 mmHg Cardiac Monitoring Heart Rate 72 bpm Results No Known Results Summary Purpose eClinicalWorks Submission
--- OUTSIDE RECORDS SUMMARY | 2019-09-27 09:12 | XMS REPORT ---
Author Author Henri SINGH [facility] Address [address] [place] [address] Care Team Providers Care Fermenter Helper Name Role Phone ZORAIDA SINGH Unavailable PROBLEMS Type Condition ICD9-CM Code [id number] Code Onset Dates Condition S tatus SNOMED Code Problem Gout 274.9 Active 13462035 Problem Type 2 diabetes mellitus without complications E11 .9 Active 143748981 Problem DM w/o complication type II 250.00 Ac tive 57323114 Problem Bipolar 1 disorder, manic, moderate 296.42 Active 71844780 Problem Back pain 724.5 Active 957244597 Problem GERD (gastroesophageal reflux disease) 530.81 Active 776159025 Problem Hypertension 401.9 Active 3963454 3 ALLERGIES Unknown Allergies SOCIAL HISTORY No smoking Hx information available PLAN OF CARE VITAL SIGNS MEDICATIONS Medication Instructions Dosage Frequency Start Date End Date Duration S tatus Cyclobenzaprine HCl 10MG Orally Three times a day 1 tablet 8h Active RESULTS No Results PROCEDURES No Known procedures IMMUNIZATIONS No Known Immunizations
--- OUTSIDE RECORDS SUMMARY | 2019-09-27 09:12 | XMS REPORT ---
Author Henri Chauhan Organization eClinicalWorks Address Unknown Phone Unavailable Care Team Providers Care Nurses Supervisor Name Role Phone ZORAIDA SINGH CP [...]
--- OUTSIDE RECORDS SUMMARY | 2019-09-27 09:12 | XMS REPORT ---
Author Author Henri SINGH Organization [facility] [place] Address [address] [place] [address] Care Team Providers Care Entry Level Installation Technician Name Role Phone MARILUZZORAIDA RUTH Unavailable PROBLEMS Type Condition ICD9-CM Code LEE29-WL Code Onset Dates Condition S tatus SNOMED Code Problem Type 2 diabetes mellitus wit hout complication, without long-term current use of insulin E11.9 Active 758678972 Problem Primary insomnia F51.01 Active 397 2004 Problem Type 2 diabetes mellitus without complications E11 .9 Active [id number] ALLERGIES No Information ENCOUNTERS Encounter Location Date Diagnosis [facility] [place] [address] [facility] [address] [id number] [place] [address] 673124 Oct, [facility] [place] [address] [place] [address] C [id number] [place] [address] 580966 September, Medicare annual wellness visit, initial Z00.00 ; Type 2 diabetes mellitus without complication, without long-term current use of insulin E11.9 and Right anterior shoulder pain M25.511 [facility] [place] [address] [facility] [address] [id number] [place] [address] 943314 September, Primary insomnia F51.01 [facility] [place] [address] [facility] [address] [id number] [place] [address] 572872 Aug, Biceps tendonitis on left M75.22 [facility] [place] [address] [facility] [address] [id number] [place] [address] 655009 Aug, [facility] [place] [address] [id number] [place] [address] 455349 Aug, [facility] [place] [address] [facility] [address] [id number] [place] [address] 616662 Aug, [facility] [place] [address] [facility] [address] [id number] [place] [address] 697237 Aug, Type 2 diabetes mellitus without complications E11.9 ; Pain of left foot M79.672 ; Pain in right foot M79.671 and Chronic gout involving toe without tophus, unspecified cause, unspecified laterality M1A.9XX0 [facility] [place] [address] [facility] [address] [id number] [place] [address] 748294 08 Jun, 2017 [facility] [place] [address] [facility] [address] [id number] [place] [address] 321558 May, [facility] [place] [address] [facility] [address] [id number] [place] [address] 006139 May, [facility] [place] [address] [facility] [address] [id number] [place] [address] 021818 May, [facility] [place] [address] [facility] [address] [id number] [place] [address] 508432 May, Right anterior shoulder pain M25.511 [facility] [place] [address] [facility] [address] [id number] [place] [address] 895770 May, [facility] [place] [address] [facility] [address] [id number] [place] [address] 425566 May, [facility] [place] [address] [facility] [address] [id number] [place] [address] 364147 Apr, Type 2 diabetes mellitus without complications E11.9 ; Costochondritis, acute M94.0 and Tinea pedis of both feet B35.3 [facility] [place] [address] [facility] [address] [id number] [place] [address] 091008 09 Mar, 2017 [facility] [place] [address] [place] [address] [address] [id number] [place] [address] 961768 Mar, [facility] [place] [address] [place] [address] [address] [id number] [place] [address] 354883 Feb, Acute upper respiratory infection, unspecified J06.9 ; Other viral agents as the cause of diseases classified elsewhere B97.89 and Aphthous ulcer of mouth K12.0 [facility] [place] [address] [facility] [address] [id number] [place] [address] 954806 Jan, [facility] [place] [address] [facility] [address] [id number] [place] [address] 299146 Jan, Right hip pain M25.551 [facility] [place] [address] [facility] [address] [id number] [place] [address] 561995 Dec, Ingrown nail L60.0 ; Impetigo L01.00 and Irritant contact dermatitis due to plants, except food L24.7 [facility] [place] [address] [facility] [address] [id number] [place] [address] 630097 Dec, [facility] [place] [address] [facility] [address] [id number] [place] [address] 156374 Dec, Nail abnormality L60.9 and Ingrown nail of fifth toe of right foot L60.0 [facility] [place] [address] [facility] [address] [id number] [place] [address] 783559 Nov, Type 2 diabetes mellitus without complications E11.9 [facility] [place] [address] [facility] [address] [id number] [place] [address] 966399 Nov, Type 2 diabetes mellitus without complication, without long-term current use of insulin E11.9 [facility] [place] [address] [facility] [address] [id number] [place] [address] 361096 Nov, [facility] [place] [address] [place] [address] [address] [id number] [place] [address] 349912 Nov, [facility] [place] [address] [facility] [address] [id number] [place] [address] 720084 Oct, [facility] [place] [address] [place] [address] C [id number] [place] [address] 951710 September, [facility] [place] [address] [place] [address] C [id number] [place] [address] 534535 Aug, Acute idiopathic gout of foot, unspecified laterality M10.079 [facility] [place] [address] [facility] [address] [id number] [place] [address] 523754 Aug, Acute idiopathic gout of foot, unspecified laterality M10.079 and Primary insomnia F51.01 [facility] [place] [address] [facility] [address] [id number] [place] [address] 249598 Jul, [facility] [place] [address] [facility] [address] [id number] [place] [address] 272942 Jul, 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 [facility] [place] [address] [facility] [address] [id number] [place] [address] 559302 23 Jun, 2016 [facility] [place] [address] [facility] [address] [id number] [place] [address] 185777 17 Jun, 2016 Acute non-recurrent maxillary sinusitis J01.00 [facility] [place] [address] [facility] [address] [id number] [place] [address] 909386 16 Jun, 2016 Acute non-recurrent frontal sinusitis J01.10 [facility] [place] [address] [facility] [address] [id number] [place] [address] 738855 15 Jun, 2016 [facility] [place] [address] [facility] [address] [id number] [place] [address] 539998 14 Jun, 2016 Primary insomnia F51.01 [facility] [place] [address] [facility] [address] [id number] [place] [address] 547252 07 Jun, 2016 Acute non-recurrent maxillary sinusitis J01.00 ; Excessive sweating R61 and 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 [facility] [place] [address] [facility] [address] [id number] [place] [address] 913188 02 Jun, 2016 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 [facility] [place] [address] [place] [address] [address] [id number] [place] [address] 618683 10 May, 2016 Type 2 diabetes mellitus without complications E11.9 ; Gout involving toe, unspecified cause, unspecified chronicity, unspecified laterality M10.9 and Primary insomnia F51.01 [facility] [place] [address] [facility] [address] [id number] [place] [address] 302338 Jan, [facility] [place] [address] [facility] [address] [id number] [place] [address] 274952 Jan, [facility] [place] [address] [facility] [address] [id number] [place] [address] 425685 Jan, [facility] [place] [address] [facility] [address] [id number] [place] [address] 047353 Dec, [facility] [place] [address] [facility] [address] [id number] [place] [address] 402129 Dec, [facility] [place] [address] [facility] [address] [id number] [place] [address] 491143 Dec, Sciatica of right side M54.31 and Acute bilateral low back pain without sciatica M54.5 [facility] [place] [address] [facility] [address] [id number] [place] [address] 534254 Dec, Type 2 diabetes mellitus without complications E11.9 [facility] [place] [address] [facility] [address] [id number] [place] [address] 286690 Dec, [facility] [place] [address] [facility] [address] [id number] [place] [address] 866202 Dec, [facility] [place] [address] [facility] [address] [id number] [place] [address] 298356 Dec, Sciatica of right side M54.31 ; Type 2 diabetes mellitus without complication, without long-term current use of insulin E11.9 ; Acute bilateral low back pain without sciatica M54.5 and Neuropathy G62.9 [facility] [place] [address] [facility] [address] [id number] [place] [address] 774723 Dec, Plantar fasciitis, right M72.2 and Sciatica of right side M54.31 [facility] [place] [address] [facility] [address] [id number] [place] [address] 267307 Nov, [facility] [place] [address] [facility] [address] [id number] [place] [address] 997258 Oct, Nail abnormality L60.9 [facility] [place] [address] [place] [address] [address] [id number] [place] [address] 917156 September, [facility] [place] [address] [facility] [address] [id number] [place] [address] 460066 Aug, [facility] [place] [address] [facility] [address] [id number] [place] [address] 414522 Aug, Vertigo R42 ; Allergic rhinitis, unspecified allergic rhinitis type J30.9 and Anxiety F41.9 [facility] [place] [address] [facility] [address] [id number] [place] [address] 192304 Aug, [facility] [place] [address] [facility] [address] [id number] [place] [address] 595820 Aug, [facility] [place] [address] [facility] [address] [id number] [place] [address] 969684 Aug, [facility] [place] [address] [facility] [address] [id number] [place] [address] 265116 Jul, [facility] [place] [address] [facility] [address] [id number] [place] [address] 515533 Jul, [facility] [place] [address] [facility] [address] [id number] [place] [address] 520035 Jul, [facility] [place] [address] [facility] [address] [id number] [place] [address] 819926 Jul, [facility] [place] [address] [facility] [address] [id number] [place] [address] 499817 Jul, Lymphadenopathy R59.1 ; Type 2 diabetes mellitus without complications E11.9 ; Essential (primary) hypertension I10 and Bipolar disorder, current episode manic without psychotic features, moderate F31.12 [facility] [place] [address] [facility] [address] [id number] [place] [address] 190764 Jun, [facility] [place] [address] [facility] [address] [id number] [place] [address] 048674 Jun, [facility] [place] [address] [facility] [address] [id number] [place] [address] 172672 Jun, [facility] [place] [address] [facility] [address] [id number] [place] [address] 197467 Jun, [facility] [place] [address] [facility] [address] [id number] [place] [address] 086557 May, [facility] [place] [address] [facility] [address] [id number] [place] [address] 044620 May, Lymphadenopathy R59.1 and Pharyngitis, acute J02.9 [facility] [place] [address] [facility] [address] [id number] [place] [address] 278409 11 May, 2015 Pharyngitis, acute J02.9 and Eczema, unspecified type L30.9 [facility] [place] [address] [facility] [address] [id number] [place] [address] 611853 May, [facility] [place] [address] [facility] [address] [id number] [place] [address] 722711 Apr, [facility] [place] [address] [facility] [address] [id number] [place] [address] 070625 Apr, Neck strain, initial encounter S16.1XXA and Obstructive sleep apnea syndrome G47.33 [facility] [place] [address] [facility] [address] [id number] [place] [address] 667167 Apr, [facility] [place] [address] [facility] [address] [id number] [place] [address] 386610 Apr, [facility] [place] [address] [facility] [address] [id number] [place] [address] 231696 Apr, [facility] [place] [address] [facility] [address] [id number] [place] [address] 028580 Apr, [facility] [place] [address] [facility] [address] [id number] [place] [address] 588196 Mar, [facility] [place] [address] [facility] [address] [id number] [place] [address] 841007 Mar, [facility] [place] [address] [facility] [address] [id number] [place] [address] 989258 Mar, Primary insomnia F51.01 [facility] [place] [address] [facility] [address] [id number] [place] [address] 640169 Mar, Primary insomnia F51.01 [facility] [place] [address] [facility] [address] [id number] [place] [address] 112899 Mar, Gout, unspecified M10.9 ; Other chronic pain G89.29 and Migraine with aura and without status migrainosus, not intractable G43.109 [facility] [place] [address] [facility] [address] [id number] [place] [address] 401836 Mar, [facility] [place] [address] [facility] [address] [id number] [place] [address] 990907 Feb, Restless legs syndrome G25.81 [facility] [place] [address] [facility] [address] [id number] [place] [address] 628072 Feb, [facility] [place] [address] [facility] [address] [id number] [place] [address] 595132 Feb, Gout, unspecified M10.9 ; Other dorsalgia M54.89 ; Restless legs syndrome G25.81 and Encounter for immunization Z23 [facility] [place] [address] [facility] [address] [id number] [place] [address] 887332 Feb, [facility] [place] [address] [facility] [address] [id number] [place] [address] 656449 Jan, Bilateral foot pain 729.5 ; Type 2 diabetes mellitus without complications E11.9 and Gout 274.9 [facility] [place] [address] [facility] [address] [id number] [place] [address] 359199 Jan, [facility] [place] [address] [facility] [address] [id number] [place] [address] 825634 Jan, DM w/o complication type II 250.00 [facility] [place] [address] [facility] [address] [id number] [place] [address] 617086 Jan, Right hip pain 719.45 [facility] [place] [address] [place] [address] [address] [id number] [place] [address] 672890 Dec, Insomnia 780.52 [facility] [place] [address] [place] [address] [address] [id number] [place] [address] 440763 Dec, Dysuria 788.1 and Frequency of urination 788.41 [facility] [place] [address] [place] [address] [address] [id number] [place] [address] 155526 Dec, [facility] [place] [address] [place] [address] [address] [id number] [place] [address] 216955 Dec, [facility] [place] [address] [facility] [address] [id number] [place] [address] 302738 Nov, [facility] [place] [address] [facility] [address] [id number] [place] [address] 826542 Nov, [facility] [place] [address] [facility] [address] [id number] [place] [address] 261884 Nov, Neck pain 723.1 [facility] [place] [address] [facility] [address] [id number] [place] [address] 133843 Nov, [facility] [place] [address] [facility] [address] [id number] [place] [address] 026883 Nov, [facility] [place] [address] [facility] [address] [id number] [place] [address] 116047 Nov, GERD (gastroesophageal reflux disease) 530.81 ; Hypertension 401.9 ; Bipolar 1 disorder, manic, moderate 296.42 ; Back pain 724.5 and Gout 274.9 [facility] [address] [place] [address] C [id number] [place] [address] 674997 Oct, Dental examination V72.2 [facility] [address] [place] [address] C [id number] [place] [address] 316819 Oct, Dental examination V72.2 [facility] [address] [place] [address] C [id number] [place] [address] 359796 September, Dental examination V72.[address] C [id number] [place] [address] 588604 Jun, [facility] [address] [facility]NOTE 3] [id number] [address] [place] [address] Jun, IMMUNIZATIONS No Known Immunizations SOCIAL HISTORY [...]
--- OUTSIDE RECORDS SUMMARY | 2019-09-27 09:12 | XMS REPORT ---
Author Henri Chauhan Organization [employer] Address Unknown Phone Unavailable Care Team Providers Care Shovel Loader Operator Name Role Phone ZORAIDA SINGH CP [...]
--- OUTSIDE RECORDS SUMMARY | 2019-09-27 09:12 | XMS REPORT ---
Author Henri Chauhan Organization [employer] Address Unknown Phone Unavailable Care Team Providers Care Traffic Signal Repairer Name Role Phone ZORAIDA SINGH CP Unavailable [...]
--- OUTSIDE RECORDS SUMMARY | 2019-09-27 09:12 | XMS REPORT ---
Author Author Henri SINGH Organization [facility] [place] Address [address] [place] [address] Care Team Providers Care Ssis Architect Name Role Phone MARILUZZORAIDA RUTH Unavailable PROBLEMS Type Condition ICD9-CM Code HYK90-AG Code Onset Dates Condition S tatus SNOMED Code Problem Type 2 diabetes mellitus wit hout complication, without long-term current use of insulin E11.9 Active 454925659 Problem Primary insomnia F51.01 Active 397 2004 Problem Type 2 diabetes mellitus without complications E11 .9 Active [id number] ALLERGIES No Information ENCOUNTERS Encounter Location Date Diagnosis [facility] [place] [address] [facility] [address] [id number] [place] [address] 123476 Oct, [facility] [place] [address] [place] [address] [address] [id number] [place] [address] 909670 September, Medicare annual wellness visit, initial Z00.00 ; Type 2 diabetes mellitus without complication, without long-term current use of insulin E11.9 and Right anterior shoulder pain M25.511 [facility] [place] [address] [facility] [address] [id number] [place] [address] 850586 September, Primary insomnia F51.01 [facility] [place] [address] [facility] [address] [id number] [place] [address] 161036 Aug, Biceps tendonitis on left M75.22 [facility] [place] [address] [facility] [address] [id number] [place] [address] 247292 Aug, [facility] [place] [address] [id number] [place] [address] 309967 Aug, [facility] [place] [address] [facility] [address] [id number] [place] [address] 269620 Aug, [facility] [place] [address] [facility] [address] [id number] [place] [address] 921748 Aug, Type 2 diabetes mellitus without complications E11.9 ; Pain of left foot M79.672 ; Pain in right foot M79.671 and Chronic gout involving toe without tophus, unspecified cause, unspecified laterality M1A.9XX0 [facility] [place] [address] [facility] [address] [id number] [place] [address] 877362 08 Jun, 2017 [facility] [place] [address] [facility] [address] [id number] [place] [address] 113182 May, [facility] [place] [address] [facility] [address] [id number] [place] [address] 586752 May, [facility] [place] [address] [facility] [address] [id number] [place] [address] 229290 May, [facility] [place] [address] [facility] [address] [id number] [place] [address] 537272 May, Right anterior shoulder pain M25.511 [facility] [place] [address] [facility] [address] [id number] [place] [address] 090336 May, [facility] [place] [address] [facility] [address] [id number] [place] [address] 558110 May, [facility] [place] [address] [facility] [address] [id number] [place] [address] 562094 Apr, Type 2 diabetes mellitus without complications E11.9 ; Costochondritis, acute M94.0 and Tinea pedis of both feet B35.3 [facility] [place] [address] [facility] [address] [id number] [place] [address] 216352 09 Mar, 2017 [facility] [place] [address] [place] [address] [address] [id number] [place] [address] 540695 Mar, [facility] [place] [address] [place] [address] [address] [id number] [place] [address] 278045 Feb, Acute upper respiratory infection, unspecified J06.9 ; Other viral agents as the cause of diseases classified elsewhere B97.89 and Aphthous ulcer of mouth K12.0 [facility] [place] [address] [facility] [address] [id number] [place] [address] 121247 Jan, [facility] [place] [address] [facility] [address] [id number] [place] [address] 055929 Jan, Right hip pain M25.551 [facility] [place] [address] [facility] [address] [id number] [place] [address] 984329 Dec, Ingrown nail L60.0 ; Impetigo L01.00 and Irritant contact dermatitis due to plants, except food L24.7 [facility] [place] [address] [facility] [address] [id number] [place] [address] 930110 Dec, [facility] [place] [address] [facility] [address] [id number] [place] [address] 417465 Dec, Nail abnormality L60.9 and Ingrown nail of fifth toe of right foot L60.0 [facility] [place] [address] [facility] [address] [id number] [place] [address] 794256 Nov, Type 2 diabetes mellitus without complications E11.9 [facility] [place] [address] [facility] [address] [id number] [place] [address] 380087 Nov, Type 2 diabetes mellitus without complication, without long-term current use of insulin E11.9 [facility] [place] [address] [facility] [address] [id number] [place] [address] 746206 Nov, [facility] [place] [address] [place] [address] [address] [id number] [place] [address] 463141 Nov, [facility] [place] [address] [facility] [address] [id number] [place] [address] 565848 Oct, [facility] [place] [address] [place] [address] C [id number] [place] [address] 759805 September, [facility] [place] [address] [place] [address] C [id number] [place] [address] 520409 Aug, Acute idiopathic gout of foot, unspecified laterality M10.079 [facility] [place] [address] [facility] [address] [id number] [place] [address] 195317 Aug, Acute idiopathic gout of foot, unspecified laterality M10.079 and Primary insomnia F51.01 [facility] [place] [address] [facility] [address] [id number] [place] [address] 618069 Jul, [facility] [place] [address] [facility] [address] [id number] [place] [address] 823862 Jul, 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 [facility] [place] [address] [facility] [address] [id number] [place] [address] 913769 23 Jun, 2016 [facility] [place] [address] [facility] [address] [id number] [place] [address] 654121 17 Jun, 2016 Acute non-recurrent maxillary sinusitis J01.00 [facility] [place] [address] [facility] [address] [id number] [place] [address] 293376 16 Jun, 2016 Acute non-recurrent frontal sinusitis J01.10 [facility] [place] [address] [facility] [address] [id number] [place] [address] 481124 15 Jun, 2016 [facility] [place] [address] [facility] [address] [id number] [place] [address] 270915 14 Jun, 2016 Primary insomnia F51.01 [facility] [place] [address] [facility] [address] [id number] [place] [address] 565789 07 Jun, 2016 Acute non-recurrent maxillary sinusitis J01.00 ; Excessive sweating R61 and 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 [facility] [place] [address] [facility] [address] [id number] [place] [address] 846530 02 Jun, 2016 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 [facility] [place] [address] [place] [address] [address] [id number] [place] [address] 745696 10 May, 2016 Type 2 diabetes mellitus without complications E11.9 ; Gout involving toe, unspecified cause, unspecified chronicity, unspecified laterality M10.9 and Primary insomnia F51.01 [facility] [place] [address] [facility] [address] [id number] [place] [address] 162237 Jan, [facility] [place] [address] [facility] [address] [id number] [place] [address] 731209 Jan, [facility] [place] [address] [facility] [address] [id number] [place] [address] 835299 Jan, [facility] [place] [address] [facility] [address] [id number] [place] [address] 443555 Dec, [facility] [place] [address] [facility] [address] [id number] [place] [address] 770180 Dec, [facility] [place] [address] [facility] [address] [id number] [place] [address] 565096 Dec, Sciatica of right side M54.31 and Acute bilateral low back pain without sciatica M54.5 [facility] [place] [address] [facility] [address] [id number] [place] [address] 077498 Dec, Type 2 diabetes mellitus without complications E11.9 [facility] [place] [address] [facility] [address] [id number] [place] [address] 967503 Dec, [facility] [place] [address] [facility] [address] [id number] [place] [address] 671268 Dec, [facility] [place] [address] [facility] [address] [id number] [place] [address] 417734 Dec, Sciatica of right side M54.31 ; Type 2 diabetes mellitus without complication, without long-term current use of insulin E11.9 ; Acute bilateral low back pain without sciatica M54.5 and Neuropathy G62.9 [facility] [place] [address] [facility] [address] [id number] [place] [address] 324643 Dec, Plantar fasciitis, right M72.2 and Sciatica of right side M54.31 [facility] [place] [address] [facility] [address] [id number] [place] [address] 194106 Nov, [facility] [place] [address] [facility] [address] [id number] [place] [address] 468000 Oct, Nail abnormality L60.9 [facility] [place] [address] [place] [address] [address] [id number] [place] [address] 986038 September, [facility] [place] [address] [facility] [address] [id number] [place] [address] 269964 Aug, [facility] [place] [address] [facility] [address] [id number] [place] [address] 418087 Aug, Vertigo R42 ; Allergic rhinitis, unspecified allergic rhinitis type J30.9 and Anxiety F41.9 [facility] [place] [address] [facility] [address] [id number] [place] [address] 716601 Aug, [facility] [place] [address] [facility] [address] [id number] [place] [address] 048604 Aug, [facility] [place] [address] [facility] [address] [id number] [place] [address] 067525 Aug, [facility] [place] [address] [facility] [address] [id number] [place] [address] 237110 Jul, [facility] [place] [address] [facility] [address] [id number] [place] [address] 732277 Jul, [facility] [place] [address] [facility] [address] [id number] [place] [address] 751147 Jul, [facility] [place] [address] [facility] [address] [id number] [place] [address] 735428 Jul, [facility] [place] [address] [facility] [address] [id number] [place] [address] 227937 Jul, Lymphadenopathy R59.1 ; Type 2 diabetes mellitus without complications E11.9 ; Essential (primary) hypertension I10 and Bipolar disorder, current episode manic without psychotic features, moderate F31.12 [facility] [place] [address] [facility] [address] [id number] [place] [address] 992851 Jun, [facility] [place] [address] [facility] [address] [id number] [place] [address] 214144 Jun, [facility] [place] [address] [facility] [address] [id number] [place] [address] 362485 Jun, [facility] [place] [address] [facility] [address] [id number] [place] [address] 445666 Jun, [facility] [place] [address] [facility] [address] [id number] [place] [address] 304947 May, [facility] [place] [address] [facility] [address] [id number] [place] [address] 865880 May, Lymphadenopathy R59.1 and Pharyngitis, acute J02.9 [facility] [place] [address] [facility] [address] [id number] [place] [address] 903197 11 May, 2015 Pharyngitis, acute J02.9 and Eczema, unspecified type L30.9 [facility] [place] [address] [facility] [address] [id number] [place] [address] 812343 May, [facility] [place] [address] [facility] [address] [id number] [place] [address] 752432 Apr, [facility] [place] [address] [facility] [address] [id number] [place] [address] 276747 Apr, Neck strain, initial encounter S16.1XXA and Obstructive sleep apnea syndrome G47.33 [facility] [place] [address] [facility] [address] [id number] [place] [address] 093518 Apr, [facility] [place] [address] [facility] [address] [id number] [place] [address] 966411 Apr, [facility] [place] [address] [facility] [address] [id number] [place] [address] 035856 Apr, [facility] [place] [address] [facility] [address] [id number] [place] [address] 917365 Apr, [facility] [place] [address] [facility] [address] [id number] [place] [address] 013510 Mar, [facility] [place] [address] [facility] [address] [id number] [place] [address] 636288 Mar, [facility] [place] [address] [facility] [address] [id number] [place] [address] 726516 Mar, Primary insomnia F51.01 [facility] [place] [address] [facility] [address] [id number] [place] [address] 521374 Mar, Primary insomnia F51.01 [facility] [place] [address] [facility] [address] [id number] [place] [address] 468230 Mar, Gout, unspecified M10.9 ; Other chronic pain G89.29 and Migraine with aura and without status migrainosus, not intractable G43.109 [facility] [place] [address] [facility] [address] [id number] [place] [address] 592459 Mar, [facility] [place] [address] [facility] [address] [id number] [place] [address] 047730 Feb, Restless legs syndrome G25.81 [facility] [place] [address] [facility] [address] [id number] [place] [address] 160254 Feb, [facility] [place] [address] [facility] [address] [id number] [place] [address] 837686 Feb, Gout, unspecified M10.9 ; Other dorsalgia M54.89 ; Restless legs syndrome G25.81 and Encounter for immunization Z23 [facility] [place] [address] [facility] [address] [id number] [place] [address] 827936 Feb, [facility] [place] [address] [facility] [address] [id number] [place] [address] 607715 Jan, Bilateral foot pain 729.5 ; Type 2 diabetes mellitus without complications E11.9 and Gout 274.9 [facility] [place] [address] [facility] [address] [id number] [place] [address] 063325 Jan, [facility] [place] [address] [facility] [address] [id number] [place] [address] 888082 Jan, DM w/o complication type II 250.00 [facility] [place] [address] [facility] [address] [id number] [place] [address] 724696 Jan, Right hip pain 719.45 [facility] [place] [address] [place] [address] [address] [id number] [place] [address] 177285 Dec, Insomnia 780.52 [facility] [place] [address] [place] [address] [address] [id number] [place] [address] 654305 Dec, Dysuria 788.1 and Frequency of urination 788.41 [facility] [place] [address] [place] [address] [address] [id number] [place] [address] 874432 Dec, [facility] [place] [address] [place] [address] [address] [id number] [place] [address] 490547 Dec, [facility] [place] [address] [facility] [address] [id number] [place] [address] 385033 Nov, [facility] [place] [address] [facility] [address] [id number] [place] [address] 150792 Nov, [facility] [place] [address] [facility] [address] [id number] [place] [address] 442301 Nov, Neck pain 723.1 [facility] [place] [address] [facility] [address] [id number] [place] [address] 432413 Nov, [facility] [place] [address] [facility] [address] [id number] [place] [address] 347711 Nov, [facility] [place] [address] [facility] [address] [id number] [place] [address] 963931 Nov, GERD (gastroesophageal reflux disease) 530.81 ; Hypertension 401.9 ; Bipolar 1 disorder, manic, moderate 296.42 ; Back pain 724.5 and Gout 274.9 [facility] [address] [place] [address] C [id number] [place], [place] [address] 693301 Oct, Dental examination V72.2 [facility] [address] [place] [address] C [id number] [place] [address] 559299 Oct, Dental examination V72.2 [facility] [address] [place] [address] C [id number] [place] [address] 057651 September, Dental examination V72.[address] [id number] [place], [place] [address] 784234 Jun, [facility] [address] [facility] [id number] [address] [place] [address] Jun, IMMUNIZATIONS No Known Immunizations SOCIAL HISTORY Never Assessed REASON FOR VISIT do I need to set up an appointment PLAN OF CARE VITAL SIGNS MEDICATIONS Unknown [...]
--- OUTSIDE RECORDS SUMMARY | 2019-09-27 09:12 | XMS REPORT ---
Author Henri Jones [facility] [employer] Address Unknown Phone Unavailable Care Team Providers Care Senior Oracle Applications Developer Name Role Phone HERBERTH OSBORNE Unavailable Allergies [...] Instructions Start Date End Date Status Dosage Phenergan [facility] [address]-58 25 MG every 6 hrs PRN n/v May 28, 2015 1 tablet Results No Known Results Summary Purpose [employer] Submission
--- OUTSIDE RECORDS SUMMARY | 2019-09-27 09:12 | XMS REPORT ---
Author Henri Chauhan Organization [employer] Address Unknown Phone Unavailable Care Team Providers Care Lacing String Cutter Name Role Phone ZORAIDA SINGH CP Unavailable [...]
--- OUTSIDE RECORDS SUMMARY | 2019-09-27 09:12 | XMS REPORT ---
Author Author Henri SINGH Organization [facility] Address [address] [place] [address] Care Team Providers Care Lance Crewmember/Mlrs Sergeant Name Role Phone ZORAIDA SINGH Unavailable PROBLEMS Type Condition ICD9-CM Code SIR97-AF Code Onset Dates Condition S tatus SNOMED Code Problem Type 2 diabetes mellitus wit hout complication, without long-term current use of insulin E11.9 Active 212982235 Problem Primary insomnia F51.01 Active 397 2004 Problem Type 2 diabetes mellitus without complications E11 .9 Active 382714681 ALLERGIES No Information SOCIAL HISTORY Never Assessed [...]
--- OUTSIDE RECORDS SUMMARY | 2019-09-27 09:12 | XMS REPORT ---
Author Author Henri SINGH Organization [facility] [place] Address [address] [place] [address] Care Team Providers Care Tie Loader Name Role Phone ZORAIDA SINGH Unavailable PROBLEMS Type Condition ICD9-CM Code JLA37-RV Code Onset Dates Condition S tatus SNOMED Code Problem Type 2 diabetes mellitus wit hout complication, without long-term current use of insulin E11.9 Active 099407230 Problem Primary insomnia F51.01 Active 397 2004 Problem Type 2 diabetes mellitus without complications E11 .9 Active 216484700 ALLERGIES No Information SOCIAL HISTORY Never Assessed PLAN OF CARE VITAL SIGNS MEDICATIONS Medication Instructions Dosage Frequency Start Date End Date Duration S tatus Ambien 5 mg Orally Once a day 1 tablet at bedtime 24h May, 28 days Active RESULTS No Results PROCEDURES No [...]
--- OUTSIDE RECORDS SUMMARY | 2019-09-27 09:12 | XMS REPORT ---
Author Henri Jones [facility] [employer] Address Unknown Phone Unavailable Care Team Providers Care Detective Sergeant Name Role Phone HERBERTH OSBORNE Unavailable Allergies [...]
--- OUTSIDE RECORDS SUMMARY | 2019-09-27 09:12 | XMS REPORT ---
Author Author Henri SINGH Organization [facility] Address [address] [place] [address] Care Team Providers Care Fish Housekeeper Name Role Phone ZORAIDA SINGH Unavailable PROBLEMS Type Condition ICD9-CM Code HMU20-IC Code Onset Dates Condition S tatus SNOMED Code Problem Gout 274.9 Active 44155251 Problem Type 2 diabetes mellitus without complications E11 .9 Active 980891398 Problem DM w/o complication type II 250.00 Ac tive 19721630 Problem Bipolar 1 disorder, manic, moderate 296.42 Active 18454407 Problem Back pain 724.5 Active 470839206 Problem GERD (gastroesophageal reflux disease) 530.81 Active 538006836 Problem Hypertension 401.9 Active 7208587 3 ALLERGIES Unknown Allergies SOCIAL HISTORY No smoking Hx information available PLAN OF CARE VITAL SIGNS MEDICATIONS Medication Instructions Dosage Frequency Start Date End Date Duration S tatus Imdur 30 MG Orally Once a day 1 tablet 24h A ctive RESULTS No Results PROCEDURES No Known procedures IMMUNIZATIONS No Known Immunizations
--- OUTSIDE RECORDS SUMMARY | 2019-09-27 09:13 | XMS REPORT ---
Author Henri Chauhan Organization [employer] Address Unknown Phone Unavailable Care Team Providers Care Recreation Leader Name Role Phone ZORAIDA SINGH CP Unavailable [...]
--- OUTSIDE RECORDS SUMMARY | 2019-09-27 09:13 | XMS REPORT ---
Author Author Henri SINGH Organization [facility] [place] Address [address] [place] [address] Care Team Providers Care Edge Worker Name Role Phone ZORAIDA SINGH Unavailable PROBLEMS Type Condition ICD9-CM Code [id number] Code Onset Dates Condition S tatus SNOMED Code Problem Type 2 diabetes mellitus wit hout complication, without long-term current use of insulin E11.9 Active 488286614 Problem Primary insomnia F51.01 Active 397 2004 Problem Type 2 diabetes mellitus without complications E11 .9 Active [id number] ALLERGIES No Information ENCOUNTERS Encounter Location Date Diagnosis [facility] [place] [address] [facility] [address] [id number] [place] [address] 989569 Jun, [facility] [place] [address] [facility] [address] [id number] [place] [address] 902492 May, [facility] [place] [address] [facility] [address] [id number] [place] [address] 436656 May, [facility] [place] [address] [facility] [address] [id number] [place] [address] 560995 May, [facility] [place] [address] [facility] [address] [id number] [place] [address] 625992 May, Right anterior shoulder pain M25.511 [facility] [place] [address] [facility] [address] [id number] [place] [address] 834674 May, [facility] [place] [address] [facility] [address] [id number] [place] [address] 115536 May, [facility] [place] [address] [facility] [address] [id number] [place] [address] 462263 Apr, Type 2 diabetes mellitus without complications E11.9 ; Costochondritis, acute M94.0 and Tinea pedis of both feet B35.3 [facility] [place] [address] [facility] [address] [id number] [place] [address] 753667 Mar, [facility] [place] [address] [facility] [address] [id number] [place] [address] 781174 Mar, [facility] [place] [address] [facility] [address] [id number] [place] [address] 253724 Feb, Acute upper respiratory infection, unspecified J06.9 ; Other viral agents as the cause of diseases classified elsewhere B97.89 and Aphthous ulcer of mouth K12.0 [facility] [place] [address] [place] [address] C [id number] [place] [address] 700244 Jan, [facility] [place] [address] [place] [address] C [id number] [place] [address] 133022 Jan, Right hip pain M25.551 [facility] [place] [address] [place] [address] C [id number] [place] [address] 203839 Dec, Ingrown nail L60.0 ; Impetigo L01.00 and Irritant contact dermatitis due to plants, except food L24.7 [facility] [place] [address] [place] [address] C [id number] [place] [address] 740630 Dec, [facility] [place] [address] [place] [address] C [id number] [place] [address] 465430 Dec, Nail abnormality L60.9 and Ingrown nail of fifth toe of right foot L60.0 [facility] [place] [address] [facility] C [id number] [place] [address] 468198 Nov, Type 2 diabetes mellitus without complications E11.9 [facility] [place] [address] [place] [address] C [id number] [place] [address] 168236 Nov, Type 2 diabetes mellitus without complication, without long-term current use of insulin E11.9 [facility] [place] [address] [place] [address] C [id number] [place] [address] 855842 Nov, [facility] [place] [address] [facility] C [id number] [place] [address] 953755 Nov, [facility] [place] [address] [facility] C [id number] [place] [address] 557079 Oct, [facility] [place] [address] [place] [address] C [id number] [place] [address] 612458 September, [facility] [place] [address] [facility] [address] [id number] [place] [address] 962291 Aug, Acute idiopathic gout of foot, unspecified laterality M10.079 [facility] [place] [address] [facility] [address] [id number] [place] [address] 372048 Aug, Acute idiopathic gout of foot, unspecified laterality M10.079 and Primary insomnia F51.01 [facility] [place] [address] [place] [address] [address] [id number] [place] [address] 539803 Jul, [facility] [place] [address] [place] [address] C [id number] [place] [address] 219550 Jul, 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 [facility] [place] [address] [place] [address] C [id number] [place] [address] 481313 Jun, [facility] [place] [address] [place] [address] C [id number] [place] [address] 260281 17 Jun, 2016 Acute non-recurrent maxillary sinusitis J01.00 [facility] [place] [address] [place] [address] C [id number] [place] [address] 255984 16 Jun, 2016 Acute non-recurrent frontal sinusitis J01.10 [facility] [place] [address] [place] [address] [address] [id number] [place] [address] 786544 15 Jun, 2016 [facility] [place] [address] [place] [address] C [id number] [place] [address] 305543 14 Jun, 2016 Primary insomnia F51.01 [facility] [place] [address] [place] [address] C [id number] [place] [address] 989676 07 Jun, 2016 Acute non-recurrent maxillary sinusitis J01.00 ; 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 and Excessive sweating R61 [facility] [place] [address] [facility] [address] [id number] [place] [address] 558250 02 Jun, 2016 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 [facility] [place] [address] [place] [address] C [id number] [place] [address] 697597 10 May, 2016 Type 2 diabetes mellitus without complications E11.9 ; Gout involving toe, unspecified cause, unspecified chronicity, unspecified laterality M10.9 and Primary insomnia F51.01 [facility] [place] [address] [facility] [address] [id number] [place] [address] 853041 27 Jan, 2016 [facility] [place] [address] [facility] [address] [id number] [place] [address] 311954 14 Jan, 2016 [facility] [place] [address] [facility] [address] [id number] [place] [address] 824768 13 Jan, 2016 [facility] [place] [address] [facility] [address] [id number] [place] [address] 932880 30 Dec, 2015 [facility] [place] [address] [facility] [address] [id number] [place] [address] 011506 Dec, [facility] [place] [address] [facility] [address] [id number] [place] [address] 236201 Dec, Sciatica of right side M54.31 and Acute bilateral low back pain without sciatica M54.5 [facility] [place] [address] [facility] [address] [id number] [place] [address] 017982 Dec, Type 2 diabetes mellitus without complications E11.9 [facility] [place] [address] [facility] [address] [id number] [place] [address] 597553 Dec, [facility] [place] [address] [facility] [address] [id number] [place] [address] 294275 Dec, [facility] [place] [address] [facility] [address] [id number] [place] [address] 248934 Dec, Sciatica of right side M54.31 ; Type 2 diabetes mellitus without complication, without long-term current use of insulin E11.9 ; Acute bilateral low back pain without sciatica M54.5 and Neuropathy G62.9 [facility] [place] [address] [facility] [address] [id number] [place] [address] 332394 Dec, Plantar fasciitis, right M72.2 and Sciatica of right side M54.31 [facility] [place] [address] [facility] [address] [id number] [place] [address] 816435 Nov, [facility] [place] [address] [facility] [address] [id number] [place] [address] 429967 Oct, Nail abnormality L60.9 [facility] [place] [address] [facility] [address] [id number] [place] [address] 126079 September, [facility] [place] [address] [facility] [address] [id number] [place] [address] 439177 Aug, [facility] [place] [address] [facility] [address] [id number] [place] [address] 745665 Aug, Vertigo R42 ; Allergic rhinitis, unspecified allergic rhinitis type J30.9 and Anxiety F41.9 [facility] [place] [address] [facility] [address] [id number] [place] [address] 540965 Aug, [facility] [place] [address] [facility] [address] [id number] [place] [address] 003299 Aug, [facility] [place] [address] [facility] [address] [id number] [place] [address] 221200 Aug, [facility] [place] [address] [facility] [address] [id number] [place] [address] 381609 Jul, [facility] [place] [address] [facility] [address] [id number] [place] [address] 302743 Jul, [facility] [place] [address] [facility] [address] [id number] [place] [address] 525579 Jul, [facility] [place] [address] [facility] [address] [id number] [place] [address] 328879 Jul, [facility] [place] [address] [facility] [address] [id number] [place] [address] 813043 Jul, Lymphadenopathy R59.1 ; Type 2 diabetes mellitus without complications E11.9 ; Essential (primary) hypertension I10 and Bipolar disorder, current episode manic without psychotic features, moderate F31.12 [facility] [place] [address] [facility] [address] [id number] [place] [address] 039227 Jun, [facility] [place] [address] [facility] [address] [id number] [place] [address] 300897 Jun, [facility] [place] [address] [facility] [address] [id number] [place] [address] 485482 Jun, [facility] [place] [address] [facility] [address] [id number] [place] [address] 290827 Jun, [facility] [place] [address] [facility] [address] [id number] [place] [address] 228332 May, [facility] [place] [address] [facility] [address] [id number] [place] [address] 224201 14 May, 2015 Lymphadenopathy R59.1 and Pharyngitis, acute J02.9 [facility] [place] [address] [facility] [address] [id number] [place] [address] 603694 11 May, 2015 Pharyngitis, acute J02.9 and Eczema, unspecified type L30.9 [facility] [place] [address] [facility] [address] [id number] [place] [address] 757137 05 May, 2015 [facility] [place] [address] [facility] [address] [id number] [place] [address] 184738 Apr, [facility] [place] [address] [facility] [address] [id number] [place] [address] 058978 Apr, Neck strain, initial encounter S16.1XXA and Obstructive sleep apnea syndrome G47.33 [facility] [place] [address] [facility] [address] [id number] [place] [address] 292886 Apr, [facility] [place] [address] [facility] [address] [id number] [place] [address] 516740 Apr, [facility] [place] [address] [facility] [address] [id number] [place] [address] 026451 Apr, [facility] [place] [address] [place] [address] [address] [id number] [place] [address] 853902 Apr, [facility] [place] [address] [facility] [address] [id number] [place] [address] 877780 Mar, [facility] [place] [address] [facility] [address] [id number] [place] [address] 424349 Mar, [facility] [place] [address] [facility] [address] [id number] [place] [address] 378980 Mar, Primary insomnia F51.01 [facility] [place] [address] [facility] [address] [id number] [place] [address] 966213 Mar, Primary insomnia F51.01 [facility] [place] [address] [facility] [address] [id number] [place] [address] 205155 Mar, Gout, unspecified M10.9 ; Other chronic pain G89.29 and Migraine with aura and without status migrainosus, not intractable G43.109 [facility] [place] [address] [facility] [address] [id number] [place] [address] 325939 Mar, [facility] [place] [address] [facility] [address] [id number] [place] [address] 231088 Feb, Restless legs syndrome G25.81 [facility] [place] [address] [facility] [address] [id number] [place] [address] 907733 Feb, [facility] [place] [address] [place] [address] [address] [id number] [place] [address] 669803 Feb, Gout, unspecified M10.9 ; Other dorsalgia M54.89 ; Restless legs syndrome G25.81 and Encounter for immunization Z23 [facility] [place] [address] [place] [address] [address] [id number] [place] [address] 335759 Feb, [facility] [place] [address] [place] [address] [address] [id number] [place] [address] 094499 Jan, Bilateral foot pain 729.5 ; Type 2 diabetes mellitus without complications E11.9 and Gout 274.9 [facility] [place] [address] [place] [address] [address] [id number] [place] [address] 838129 Jan, [facility] [place] [address] [place] [address] [address] [id number] [place] [address] 481170 Jan, DM w/o complication type II 250.00 [facility] [place] [address] [place] [address] [address] [id number] [place] [address] 137379 Jan, Right hip pain 719.45 [facility] [place] [address] [place] [address] [address] [id number] [place] [address] 859151 Dec, Insomnia 780.52 [facility] [place] [address] [place] [address] [address] [id number] [place] [address] 059547 Dec, Dysuria 788.1 and Frequency of urination 788.41 [facility] [place] [address] [facility] [address] [id number] [place] [address] 943276 Dec, [facility] [place] [address] [facility] [address] [id number] [place] [address] 796331 Dec, [facility] [place] [address] [place] [address] [address] [id number] [place] [address] 257119 Nov, [facility] [place] [address] [facility] [address] [id number] [place] [address] 750088 Nov, [facility] [place] [address] [facility] [address] [id number] [place] [address] 708416 Nov, Neck pain 723.1 [facility] [place] [address] [facility] [address] [id number] [place] [address] 947221 Nov, [facility] [place] [address] [facility] [address] [id number] [place] [address] 957015 Nov, [facility] [place] [address] [facility] [address] [id number] [place] [address] 946366 Nov, GERD (gastroesophageal reflux disease) 530.81 ; Hypertension 401.9 ; Bipolar 1 disorder, manic, moderate 296.42 ; Back pain 724.5 and Gout 274.9 [facility] [place] [address] [facility] [address] [id number] [place] [address] 571147 Oct, Dental examination V72.2 [facility] [place] [address] [facility] [address] [id number] [place] [address] 212240 Oct, Dental examination V72.2 [facility] [place] [address] [facility] [address] [id number] [place] [address] 464079 September, Dental examination V72.2 [facility] [place] [address] [place] [address] [address] [id number] [place] [address] 768396 Jun, [facility] [address] [facility] [id number] [address] [place] [address] Jun, IMMUNIZATIONS No Known Immunizations SOCIAL HISTORY Never Assessed REASON FOR VISIT Triage PLAN OF CARE VITAL SIGNS MEDICATIONS Unknown [...]
--- OUTSIDE RECORDS SUMMARY | 2019-09-27 09:13 | XMS REPORT ---
Author Henri Chauhan [facility] eClinicalWorks Address Unknown Phone Unavailable Care Team Providers Care Internal Audit Manager Name Role Phone ZORAIDA SINGH CP Unavailable Allergies, Adverse Reactions, Alerts Substance Reaction Event Type PredniSONE aggitation Drug Allergy Problems Problem Type Condition Code Onset Dates Condition Statu s Assessment Sciatica of right side M54.31 Activ e Assessment Acute bilateral low back pain without sciatica M54.5 Active Problem DM w/o complication type II 250.00 Active Problem GERD (gastroesophageal reflux disease) 530.81 Active Problem Type 2 diabetes mellitus without complications E11.9 Active Problem Back pain 724.5 Active Problem Gout 274.9 Active Problem Hypertension 401.9 Active Problem Bipolar 1 disorder, manic, moderate 296.42 Active Medications Medication Code System Code Instructions Start Date End Date Status Dosage Valium [facility] [address]-32 5 mg Orally 2 times a day prn sciatica as directed Cyclobenzaprine HCl [facility] 76552746220 10MG Orally Three times a day 1 tablet Dexilant [facility] [address]-41 60 MG Orally Once a day 1 capsule Atenolol [facility] [address]-89 25 MG Orally Once a day 1 tablet Test strips ND 0 ... Once a day August 13, 2015 as directed Meloxicam [facility] [address]-36 15 MG 1 tablet by mouth 1 time a day Symbyax [facility] 95401497296 12-50 MG Orally Once a day in the evening 1 capsule Flonase [facility] [address]-19 50 MCG/ACT Nasally 2 times a day November 17, 2014 1 spray in each nostril Gabapentin ND 54677429428 600MG TAKE ONE TABLET BY MOUTH THREE TIMES DAILY Flector [facility] [address]-22 1.3 % Transdermal Twice a day Dec 31, 2015 1 patch to skin Fluticasone Propionate [facility] 24340756507 0.05% USE ONE SPRAY(S) IN EACH NOSTRIL TWICE DAILY. Lancets ND 0 ... Once a day August 13, 2015 a s directed Meloxicam [facility] 17677004352 15MG 1 tablet b y mouth 1 time a day Lisinopril [facility] [address]-40 5 mg Orally Once a day 1 tablet Flonase Allergy Relief [facility] [address]-15 50 MCG/ACT Nasall y Once a day September 01, 2015 1 spray in each nost ril Imdur [facility] [address]-83 30 MG Orally Once a day 1 tablet Cyclobenzaprine HCl [facility] [address]-89 10 mg Orally Three times a day 1 tablet Celebrex [facility] [address]-78 200 mg Orally Once a day 1 capsule Meclizine HCl [facility] [address]-28 25 MG Orally every 4-6 charlene rs as needed September 01, 2015 1 tablet as needed Dexilant [facility] 69170306980 60MG DR Orally Once a day 1 capsule Phenergan [facility] [address]-24 25 MG every 6 hrs PRN n/v May 28, 2015 1 tablet Allopurinol [facility] 98127940050 100MG TAKE TWO TABLETS BY MOUTH ONCE DAILY. TRUEresult Blood Glucose [facility] 220[address]408 w/Device Once a day Ap 2015 as directed Triamcinolone Acetonide [facility] [address]-28 0.1 % Ex ternally Twice a day for up to 14 days. Do not use on face, genitals, groin, axilla, inner thigh May 18, 2015 1 application to affected ar ea Procedures Procedure Coding System Code Date Office Visit, Est Pt., Level 3 CPT-4 94355 A 2015 [facility] VISIT ESTABLISHED PATIENT CPT-4 G0467 A 2015 Vital Signs Date/Time: Dec 31, 2015 Cardiac Monitoring Heart Rate 80 bpm Weight 221.3 lbs Height 71 in BMI 30.86 Index Blood Pressure Diastolic 70 mmHg Blood Pressure Systolic 100 mmHg Results No Known Results Summary Purpose eClinicalWorks Submission
--- OUTSIDE RECORDS SUMMARY | 2019-09-27 09:13 | XMS REPORT ---
Author Henri Jones [facility] eClinicalWorks Address Unknown Phone Unavailable Care Team Providers Care Automotive Brake Adjuster Name Role Phone HERBERTH OSBORNE Unavailable Allergies [...]
--- OUTSIDE RECORDS SUMMARY | 2019-09-27 09:13 | XMS REPORT ---
Author Author Henri SINGH Organization [facility] [employer] Address [address] [place] [address] Care Team Providers Care Application Development Team Lead Name Role Phone ZORAIDA SINGH Unavailable PROBLEMS Type Condition ICD9-CM Code NEN11-TT Code Onset Dates Condition S tatus SNOMED Code Problem Type 2 diabetes mellitus wit hout complication, without long-term current use of insulin E11.9 Active 180742967 Problem Primary insomnia F51.01 Active 397 2004 Problem Type 2 diabetes mellitus without complications E11 .9 Active [id number] ALLERGIES No Information SOCIAL HISTORY Never Assessed [...]
--- OUTSIDE RECORDS SUMMARY | 2019-09-27 09:13 | XMS REPORT ---
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 Pump Station Operator Chief Name Role Phone ZORAIDA SINGH Unavailable PROBLEMS Type Condition ICD9-CM Code HPG08-CV Code Onset Dates Condition S tatus SNOMED Code Problem Type 2 diabetes mellitus wit hout complication, without long-term current use of insulin E11.9 Active 133986810 Problem Primary insomnia F51.01 Active 397 2004 Problem Type 2 diabetes mellitus without complications E11 .9 Active 181576011 ALLERGIES Substance Reaction Event Type Date Status PredniSONE aggitation Drug Allergy Jan, Active ENCOUNTERS Encounter Location Date Diagnosis [facility] [place] [address] [facility] [address] [id number] [place] [address] 044[address] September, [facility] [place] [address] [place] [address] [address] [id number] [place] [address] 658602 Aug, [facility] [place] [address] [facility] [address] [id number] [place] [address] 187240 Aug, [facility] [place] [address] [facility] [address] [id number] [place] [address] 859946 Aug, [facility] [place] [address] [facility] [address] [id number] [place] [address] 972997 Aug, Type 2 diabetes mellitus without complications E11.9 ; Pain of left foot M79.672 ; Pain in right foot M79.671 and Chronic gout involving toe without tophus, unspecified cause, unspecified laterality M1A.9XX0 [facility] [place] [address] [facility] [address] [id number] [place] [address] 721276 Jun, [facility] [place] [address] [facility] [address] [id number] [place] [address] 856742 May, [facility] [place] [address] [facility] [address] [id number] [place] [address] 907208 May, [facility] [place] [address] [facility] [address] [id number] [place] [address] 985807 May, [facility] [place] [address] [facility] [address] [id number] [place] [address] 523647 May, Right anterior shoulder pain M25.511 [facility] [place] [address] [place] [address] [address] [id number] [place] [address] 312492 May, [facility] [place] [address] [place] [address] [address] [id number] [place] [address] 039468 May, [facility] [place] [address] [place] [address] [address] [id number] [place] [address] 585136 Apr, Type 2 diabetes mellitus without complications E11.9 ; Costochondritis, acute M94.0 and Tinea pedis of both feet B35.3 [facility] [place] [address] [place] [address] [address] [id number] [place] [address] 992660 Mar, [facility] [place] [address] [place] [address] [address] [id number] [place] [address] 335509 Mar, [facility] [place] [address] [place] [address] [address] [id number] [place] [address] 172816 Feb, Acute upper respiratory infection, unspecified J06.9 ; Other viral agents as the cause of diseases classified elsewhere B97.89 and Aphthous ulcer of mouth K12.0 [facility] [place] [address] [place] [address] [address] [id number] [place] [address] 231713 Jan, [facility] [place] [address] [place] [address] [address] [id number] [place] [address] 009415 Jan, Right hip pain M25.551 [facility] [place] [address] [place] [address] [address] [id number] [place] [address] 064182 Dec, Ingrown nail L60.0 ; Impetigo L01.00 and Irritant contact dermatitis due to plants, except food L24.7 [facility] [place] [address] [facility] [address] [id number] [place] [address] 708873 Dec, [facility] [place] [address] [place] [address] [address] [id number] [place] [address] 021233 Dec, Nail abnormality L60.9 and Ingrown nail of fifth toe of right foot L60.0 [facility] [place] [address] [facility] [address] [id number] [place] [address] 930606 Nov, Type 2 diabetes mellitus without complications E11.9 [facility] [place] [address] [facility] [address] [id number] [place] [address] 235200 Nov, Type 2 diabetes mellitus without complication, without long-term current use of insulin E11.9 [facility] [place] [address] [facility] [address] [id number] [place] [address] 428394 Nov, [facility] [place] [address] [facility] [address] [id number] [place] [address] 313017 Nov, [facility] [place] [address] [place] [address] [address] [id number] [place] [address] 187415 Oct, [facility] [place] [address] [facility] [address] [id number] [place] [address] 923804 September, [facility] [place] [address] [place] [address] [address] [id number] [place] [address] 966709 Aug, Acute idiopathic gout of foot, unspecified laterality M10.079 [facility] [place] [address] [place] [address] [address] [id number] [place] [address] 055649 Aug, Acute idiopathic gout of foot, unspecified laterality M10.079 and Primary insomnia F51.01 [facility] [place] [address] [facility] [address] [id number] [place] [address] 042099 Jul, [facility] [place] [address] [place] [address] [address] [id number] [place] [address] 543591 Jul, 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 [facility] [place] [address] [facility] [address] [id number] [place] [address] 502468 Jun, [facility] [place] [address] [facility] [address] [id number] [place] [address] 227774 Jun, Acute non-recurrent maxillary sinusitis J01.00 [facility] [place] [address] [facility] [address] [id number] [place] [address] 927885 16 Jun, 2016 Acute non-recurrent frontal sinusitis J01.10 [facility] [place] [address] [facility] [address] [id number] [place] [address] 886226 15 Jun, 2016 [facility] [place] [address] [facility] [address] [id number] [place] [address] 868495 14 Jun, 2016 Primary insomnia F51.01 [facility] [place] [address] [facility] [address] [id number] [place] [address] 429993 07 Jun, 2016 Acute non-recurrent maxillary sinusitis J01.00 ; 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 and Excessive sweating R61 [facility] [place] [address] [facility] [address] [id number] [place] [address] 910757 02 Jun, 2016 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 [facility] [place] [address] [facility] [address] [id number] [place] [address] 857186 10 May, 2016 Type 2 diabetes mellitus without complications E11.9 ; Gout involving toe, unspecified cause, unspecified chronicity, unspecified laterality M10.9 and Primary insomnia F51.01 [facility] [place] [address] [facility] [address] [id number] [place] [address] 932975 27 Jan, 2016 [facility] [place] [address] [facility] [address] [id number] [place] [address] 997025 14 Jan, 2016 [facility] [place] [address] [facility] [address] [id number] [place] [address] 051869 13 Jan, 2016 [facility] [place] [address] [facility] [address] [id number] [place] [address] 586397 30 Dec, 2015 [facility] [place] [address] [facility] [address] [id number] [place] [address] 474415 Dec, [facility] [place] [address] [facility] [address] [id number] [place] [address] 065739 Dec, Sciatica of right side M54.31 and Acute bilateral low back pain without sciatica M54.5 [facility] [place] [address] [facility] [address] [id number] [place] [address] 262237 Dec, Type 2 diabetes mellitus without complications E11.9 [facility] [place] [address] [facility] [address] [id number] [place] [address] 467669 Dec, [facility] [place] [address] [facility] [address] [id number] [place] [address] 174831 Dec, [facility] [place] [address] [facility] [address] [id number] [place] [address] 285785 Dec, Sciatica of right side M54.31 ; Type 2 diabetes mellitus without complication, without long-term current use of insulin E11.9 ; Acute bilateral low back pain without sciatica M54.5 and Neuropathy G62.9 [facility] [place] [address] [facility] [address] [id number] [place] [address] 348945 Dec, Plantar fasciitis, right M72.2 and Sciatica of right side M54.31 [facility] [place] [address] [facility] [address] [id number] [place] [address] 481439 Nov, [facility] [place] [address] [facility] [address] [id number] [place] [address] 479588 Oct, Nail abnormality L60.9 [facility] [place] [address] [facility] [address] [id number] [place] [address] 939887 September, [facility] [place] [address] [facility] [address] [id number] [place] [address] 593492 Aug, [facility] [place] [address] [facility] [address] [id number] [place] [address] 784916 Aug, Vertigo R42 ; Allergic rhinitis, unspecified allergic rhinitis type J30.9 and Anxiety F41.9 [facility] [place] [address] [facility] [address] [id number] [place] [address] 263035 Aug, [facility] [place] [address] [facility] [address] [id number] [place] [address] 646425 Aug, [facility] [place] [address] [facility] [address] [id number] [place] [address] 341071 Aug, [facility] [place] [address] [facility] [address] [id number] [place] [address] 675100 Jul, [facility] [place] [address] [facility] [address] [id number] [place] [address] 679650 Jul, [facility] [place] [address] [facility] [address] [id number] [place] [address] 698111 Jul, [facility] [place] [address] [facility] [address] [id number] [place] [address] 607062 Jul, [facility] [place] [address] [facility] [address] [id number] [place] [address] 574487 Jul, Lymphadenopathy R59.1 ; Type 2 diabetes mellitus without complications E11.9 ; Essential (primary) hypertension I10 and Bipolar disorder, current episode manic without psychotic features, moderate F31.12 [facility] [place] [address] [facility] [address] [id number] [place] [address] 312322 Jun, [facility] [place] [address] [facility] [address] [id number] [place] [address] 005852 Jun, [facility] [place] [address] [facility] [address] [id number] [place] [address] 760926 Jun, [facility] [place] [address] [facility] [address] [id number] [place] [address] 455533 Jun, [facility] [place] [address] [facility] [address] [id number] [place] [address] 269957 May, [facility] [place] [address] [facility] [address] [id number] [place] [address] 120872 May, Lymphadenopathy R59.1 and Pharyngitis, acute J02.9 [facility] [place] [address] [place] [address] [address] [id number] [place] [address] 349345 11 May, 2015 Pharyngitis, acute J02.9 and Eczema, unspecified type L30.9 [facility] [place] [address] [facility] [address] [id number] [place] [address] 264665 May, [facility] [place] [address] [facility] [address] [id number] [place] [address] 632726 Apr, [facility] [place] [address] [facility] [address] [id number] [place] [address] 806029 Apr, Neck strain, initial encounter S16.1XXA and Obstructive sleep apnea syndrome G47.33 [facility] [place] [address] [facility] [address] [id number] [place] [address] 438789 Apr, [facility] [place] [address] [facility] [address] [id number] [place] [address] 918815 Apr, [facility] [place] [address] [facility] [address] [id number] [place] [address] 032192 Apr, [facility] [place] [address] [facility] [address] [id number] [place] [address] 062201 Apr, [facility] [place] [address] [facility] [address] [id number] [place] [address] 214083 Mar, [facility] [place] [address] [facility] [address] [id number] [place] [address] 329811 Mar, [facility] [place] [address] [facility] [address] [id number] [place] [address] 517031 Mar, Primary insomnia F51.01 [facility] [place] [address] [facility] [address] [id number] [place] [address] 678805 Mar, Primary insomnia F51.01 [facility] [place] [address] [place] [address] [address] [id number] [place] [address] 450370 Mar, Gout, unspecified M10.9 ; Other chronic pain G89.29 and Migraine with aura and without status migrainosus, not intractable G43.109 [facility] [place] [address] [place] [address] [address] [id number] [place] [address] 298347 Mar, [facility] [place] [address] [place] [address] [address] [id number] [place] [address] 946343 Feb, Restless legs syndrome G25.81 [facility] [place] [address] [place] [address] [address] [id number] [place] [address] 131503 Feb, [facility] [place] [address] [place] [address] [address] [id number] [place] [address] 529262 Feb, Gout, unspecified M10.9 ; Other dorsalgia M54.89 ; Restless legs syndrome G25.81 and Encounter for immunization Z23 [facility] [place] [address] [facility] [address] [id number] [place] [address] 048638 Feb, [facility] [place] [address] [facility] [address] [id number] [place] [address] 691183 Jan, Bilateral foot pain 729.5 ; Type 2 diabetes mellitus without complications E11.9 and Gout 274.9 [facility] [place] [address] [facility] [address] [id number] [place] [address] 506949 Jan, [facility] [place] [address] [facility] [address] [id number] [place] [address] 902732 Jan, DM w/o complication type II 250.00 [facility] [place] [address] [facility] [address] [id number] [place] [address] 889212 Jan, Right hip pain 719.45 [facility] [place] [address] [facility] [address] [id number] [place] [address] 124702 Dec, Insomnia 780.52 [facility] [place] [address] [facility] [address] [id number] [place] [address] 440077 Dec, Dysuria 788.1 and Frequency of urination 788.41 [facility] [place] [address] [facility] [address] [id number] [place] [address] 138551 Dec, [facility] [place] [address] [facility] [address] [id number] [place] [address] 289709 Dec, [facility] [place] [address] [facility] [address] [id number] [place] [address] 791073 Nov, [facility] [place] [address] [facility] [address] [id number] [place] [address] 241387 Nov, [facility] [place] [address] [facility] [address] [id number] [place] [address] 416906 Nov, Neck pain 723.1 [facility] [place] [address] [place] [address] [address] [id number] [place] [address] 049472 Nov, [facility] [place] [address] [facility] [address] [id number] [place] [address] 875110 Nov, [facility] [place] [address] [facility] [address] [id number] [place] [address] 941410 Nov, GERD (gastroesophageal reflux disease) 530.81 ; Hypertension 401.9 ; Bipolar 1 disorder, manic, moderate 296.42 ; Back pain 724.5 and Gout 274.9 [facility] [place] [address] [facility] [address] [id number] [place] [address] 755700 Oct, Dental examination V72.2 [facility] [place] [address] [facility] [address] [id number] [place] [address] 585786 Oct, Dental examination V72.2 [facility] [place] [address] [facility] [address] [id number] [place], [place] [address] 547106 September, Dental examination V72.2 [facility] [place] [address] [facility] [id number] [place] [address] 297329 Jun, [facility] [address] [facility] [id number] [address] [place] [address] Jun, IMMUNIZATIONS No Known Immunizations SOCIAL HISTORY Never Assessed REASON FOR VISIT Pain (acute) - right hip starting just above joint, radiating around lower back; no known recent injuries; feels like "pins/needles" in feet; pain because worse yesterday, rated 12-17/02; currentlly rates pain at 12/15......lwileyrn PLAN OF CARE Activity Details Follow Up prn Reason: VITAL SIGNS Height 71 in 2017-01-16 Weight 228 lbs 2017-01-16 Temperature 99.0 degrees Fahrenheit 2017-01-16 Heart Rate 80 bpm 2017-01-16 Respiratory Rate 18 2017-01-16 BMI 31.80 kg/m2 2017-01-16 Blood pressure systolic 132 mmHg 2017-01-16 Blood pressure diastolic 78 mmHg 2017-01-16 MEDICATIONS Medication Instructions Dosage Frequency Start Date End Date Duration S tatus Symbyax 12-50 MG Orally Once a day in the evening 1 capsule Active TRUEresult Blood Glucose w/Device as directed 24h Aug, 16 Active Ambien 10 MG Orally Once a day 1 tablet at bedtime 24h May, 30 days Active Flonase Allergy Relief 50 MCG/ACT Nasally Once a day 1 spray in each nostril 24h Aug, 30 day(s) Active Valium 5 mg Orally 2 times a day prn sciatica as directed Active Meloxicam 15MG 1 tablet by mouth 1 time a day 90 Active Phenergan 25 MG 1 tablet May, Ac tive Isosorbide Mononitrate ER 30MG ER TAKE ONE TABLET BY MOUTH O NCE DAILY 30 Active Lisinopril 5MG Orally Once a day 1 tablet 24h 90 Active Imdur 30 MG Orally Once a day 1 tablet 24h A ctive Olanzapine-Fluoxetine HCl 12-50 MG TAKE 1 CAPSULE BY MOUTH IN THE EVENING 30 Active Allopurinol 100MG TAKE TWO TABLETS BY MOUTH ONCE DAILY. 30 Active Test strips ... as directed 24h Aug, Active Klonopin 2 MG Orally Twice a day 1 tablet 12h Active Atenolol 25 MG Orally Once a day 1 tablet 24h Active Lancets ... as directed 24h Aug, Act silas Gabapentin 600MG TAKE ONE TABLET BY MOUTH THREE TIMES DAILY 90 Active Dexilant 60 MG Orally Once a day 1 capsule 24h Active Tizanidine HCl 2 MG Orally Three times a day 1 tablet as needed 8h Jan, Active RESULTS No Results PROCEDURES Procedure Date Ordered Result Body Site [facility] VISIT ESTABLISHED PATIENT Jan 16, 2017 INSTRUCTIONS MEDICATIONS ADMINISTERED No Known Medications MEDICAL (GENERAL) HISTORY Type Description Date Medical History Hypertension Medical History Bipolar 1 disorder, manic, moderate Medical History Gout Medical History Diabetes Medical History GERD (gastroesophageal reflux disease) Surgical History Kidney stone removal Surgical History Nerve ending perera in back Surgical History lymphectomy Hospitalization History DM Hospitalization History Surgery(s)
--- OUTSIDE RECORDS SUMMARY | 2019-09-27 09:13 | XMS REPORT ---
Author Author Henri SINGH Organization [facility] Address [address] [place] [address] Care Team Providers Care Mainspring Former Arbor End Name Role Phone ZORAIDA SINGH Unavailable PROBLEMS Type Condition ICD9-CM Code NBB08-MJ Code Onset Dates Condition S tatus SNOMED Code Problem Type 2 diabetes mellitus wit hout complication, without long-term current use of insulin E11.9 Active 918025098 Problem Primary insomnia F51.01 Active 397 2004 Problem Type 2 diabetes mellitus without complications E11 .9 Active 425667902 ALLERGIES Substance Reaction Event Type Date Status PredniSONE aggitation Drug Allergy Jun, Active SOCIAL HISTORY Never Assessed PLAN OF CARE Activity Details Follow Up prn Reason: VITAL SIGNS Height 71 in 2016-06-14 Weight 232.2 lbs 2016-06-14 Temperature 97.8 degrees Fahrenheit 2016-06-14 Heart Rate 78 bpm 2016-06-14 Respiratory Rate 18 2016-06-14 BMI 32.38 kg/m2 2016-06-14 Blood pressure systolic 128 mmHg 2016-06-14 Blood pressure diastolic 90 mmHg 2016-06-14 MEDICATIONS Medication Instructions Dosage Frequency Start Date End Date Duration S tatus Flonase Allergy Relief 50 MCG/ACT Nasally Once a day 1 spray in each nostril 24h Aug, 30 day(s) Active Lancets ... as directed 24h Aug, Act silas Allopurinol 100MG TAKE TWO TABLETS BY MOUTH ONCE DAILY. 30 Active Meloxicam 15 MG 1 tablet by mouth 1 time a day Active Dexilant 60 MG Orally Once a day 1 capsule 24h Active Imdur 30 MG Orally Once a day 1 tablet 24h A ctive Lisinopril 5 mg Orally Once a day 1 tablet 24h Active Valium 5 mg Orally 2 times a day prn sciatica as directed Active Dexilant 60MG DR Orally Once a day 1 capsule 24h 30 Active TRUEresult Blood Glucose w/Device as directed 24h Aug, 16 Active Test strips ... as directed 24h Aug, Active Atenolol 25 MG Orally Once a day 1 tablet 24h Active Phenergan 25 MG 1 tablet May, Ac tive Cyclobenzaprine HCl 10MG Orally Three times a day 1 tablet 8h 30 Active Ambien 5 mg Orally Once a day 1 tablet at bedtime 24h 10 May, 2016 Active Flector 1.3 % Transdermal Twice a day 1 patch to skin 12h 25 Dec, 16 Active Amoxicillin 500 MG Orally 3 times a day 2 capsules 8h Jun, 017 Jun, 10 day(s) Active Symbyax 12-50 MG Orally Once a day in the evening 1 capsule Active RESULTS Name Result Date Reference Range TSH 2016-06-14 TSH 2.900 0.450-4.500 CBC 2016-06-14 WBC 9.3 3.4-10.8 RBC 4.96 4.14-5.80 Hemoglobin 14.1 12.6-17.7 Hematocrit 41.5 37.5-51.0 MCV 84 79-97 MCH 28.4 26.6-33.0 MCHC 34.0 31.5-35.7 RDW 13.8 12.3-15.4 Platelets 253 150-379 Neutrophils 63 Lymphs 27 Monocytes 8 Eos 2 Basos 0 Immature Cells Neutrophils (Absolute) 5.8 1.4-7.0 Lymphs (Absolute) 2.5 0.7-3.1 Monocytes(Absolute) 0.8 0.1-0.9 Eos (Absolute) 0.1 0.0-0.4 Baso (Absolute) 0.0 0.0-0.2 Immature Granulocytes 0 Immature Grans (Abs) 0.0 0.0-0.1 NRBC Hematology Comments: PROCEDURES Procedure Date Ordered Result Body Site ROUTINE VENIPUNCTURE 2016-06-14 N/A [facility] VISIT ESTABLISHED PATIENT Jun 14, 2016 [facility], 2016 IMMUNIZATIONS No Known Immunizations MEDICAL (GENERAL) HISTORY Type Description Date Medical History Hypertension Medical History Bipolar 1 disorder, manic, moderate Medical History Gout Medical History Diabetes Medical History GERD (gastroesophageal reflux disease) Surgical History Kidney stone removal Surgical History Nerve ending peerra in back Surgical History lymphectomy Hospitalization History DM Hospitalization History Surgery(s)
--- OUTSIDE RECORDS SUMMARY | 2019-09-27 09:13 | XMS REPORT ---
Author Henri Chauhan Organization [employer] Address Unknown Phone Unavailable Care Team Providers Care Exchange Mechanic Name Role Phone ZORAIDA SINGH CP Unavailable [...]
--- OUTSIDE RECORDS SUMMARY | 2019-09-27 09:13 | XMS REPORT ---
Author Henri Jones [facility] [employer] Address Unknown Phone Unavailable Care Team Providers Care Aging Room Operator Name Role Phone HERBERTH OSBORNE Unavailable Allergies [...]
--- OUTSIDE RECORDS SUMMARY | 2019-09-27 09:13 | XMS REPORT ---
Author Henri Jones [facility] [employer] Address Unknown Phone Unavailable Care Team Providers Care Paying Teller Name Role Phone HERBERTH OSBORNE Unavailable Allergies [...] Start Date End Date Status Dosage Imdur [facility] [address]-40 30 MG Orally Once a day 1 tablet Cyclobenzaprine HCl [facility] [address]-97 10 MG Orally Three times a day 1 tablet Results No Known Results Summary Purpose [employer] Submission
--- OUTSIDE RECORDS SUMMARY | 2019-09-27 09:13 | XMS REPORT ---
Author Henri Chauhan [facility] eClinicalWorks Address Unknown Phone Unavailable Care Team Providers Care Delivery Engineer Name Role Phone ZORAIDA SINGH CP Unavailable Allergies, Adverse Reactions, Alerts Substance Reaction Event Type PredniSONE aggitation Drug Allergy Problems Problem Type Condition Code Onset Dates Condition Statu s Assessment Plantar fasciitis, right M72.2 Act silas Assessment Sciatica of right side M54.31 Activ e Problem DM w/o complication type II 250.00 Active Problem GERD (gastroesophageal reflux disease) 530.81 Active Problem Type 2 diabetes mellitus without complications E11.9 Active Problem Back pain 724.5 Active Problem Gout 274.9 Active Problem Hypertension 401.9 Active Problem Bipolar 1 disorder, manic, moderate 296.42 Active Medications Medication Code System Code Instructions Start Date End Date Status Dosage Triamcinolone Acetonide [facility] [address]-44 0.1 % Ex ternally Twice a day for up to 14 days. Do not use on face, genitals, groin, axilla, inner thigh May 18, 2015 1 application to affected ar ea Diclofenac Sodium [facility] [address]-59 75 MG Orally 3 times a day as needed November 21, 2014 1 tablet Valium [facility] [address]-97 5 mg Orally 2 times a day prn sciati ca Dec 25, 2015 as directed Meloxicam [facility] 43859803178 15MG 1 tablet b y mouth 1 time a day Imdur [facility] [address]-57 30 MG Orally Once a day 1 tablet Lancets ND 0 ... Once a day August 13, 2015 a s directed Cyclobenzaprine HCl [facility] 90168227833 10MG Orally Three times a day 1 tablet Meloxicam [facility] [address]-62 15 MG 1 tablet by mouth 1 time a day Meclizine HCl [facility] [address]-00 25 MG Orally every 4-6 charlene rs as needed September 01, 2015 1 tablet as needed Test strips NDC 0 ... Once a day August 13, 2015 as directed Fluticasone Propionate [facility] 36504241685 0.05% USE ONE SPRAY(S) IN EACH NOSTRIL TWICE DAILY. Dexilant [facility] [address]-86 60 MG Orally Once a day 1 capsule TRUEresult Blood Glucose [facility] 78713-24983 w/Device Once a day Ap [facility] 2015 as directed Dexilant [facility] 83076851050 60MG [address] Orally Once a day 1 capsule Allopurinol [facility] 21273419335 100MG TAKE TWO TABLETS BY MOUTH ONCE DAILY. Flonase Allergy Relief [facility] [address]-67 50 MCG/ACT Nasall y Once a day September 01, 2015 1 spray in each nost ril Flonase [facility] [address]-57 50 MCG/ACT Nasally 2 times a day November 17, 2014 1 spray in each nostril Atenolol [facility] [address]-90 25 MG Orally Once a day 1 tablet Cyclobenzaprine HCl [facility] [address]-37 10 mg Orally Three times a day 1 tablet Symbyax [facility] 44266546616 12-50 MG Orally Once a day in the evening 1 capsule Phenergan [facility] [address]-64 25 MG every 6 hrs PRN n/v May 28, 2015 1 tablet Lisinopril [facility] [address]-81 5 mg Orally Once a day 1 tablet Gabapentin [facility] 33912796631 600MG TAKE ONE TABLET BY MOUTH THREE TIMES DAILY Procedures Procedure Coding System Code Date Office Visit, Est Pt., Level 4 CPT-4 24245 A 2015 [facility] VISIT ESTABLISHED PATIENT CPT-4 G0467 A 2015 Vital Signs Date/Time: Dec 25, 2015 Cardiac Monitoring Heart Rate 80 bpm Weight 219.0 lbs Height 71 in BMI 30.54 Index Blood Pressure Diastolic 88 mmHg Blood Pressure Systolic 120 mmHg Results No Known Results Summary Purpose eClinicalWorks Submission
--- OUTSIDE RECORDS SUMMARY | 2019-09-27 09:13 | XMS REPORT ---
Author Henri Chauhan [facility] eClinicalWorks Address Unknown Phone Unavailable Care Team Providers Care Colorer Name Role Phone ZORAIDA SINGH CP Unavailable Allergies, Adverse Reactions, Alerts Substance Reaction Event Type PredniSONE aggitation Drug Allergy Problems Problem Type Condition Code Onset Dates Condition Statu s Assessment Acute bilateral low back pain without sciatica M54.5 Active Assessment Sciatica of right side M54.31 Activ e Assessment Type 2 diabetes mellitus wit hout complication, without long-term current use of insulin E11.9 Active Assessment Neuropathy G62.9 Active Problem DM w/o complication type II 250.00 Active Problem GERD (gastroesophageal reflux disease) 530.81 Active Problem Type 2 diabetes mellitus without complications E11.9 Active Problem Back pain 724.5 Active Problem Gout 274.9 Active Problem Hypertension 401.9 Active Problem Bipolar 1 disorder, manic, moderate 296.42 Active Medications Medication Code System Code Instructions Start Date End Date Status Dosage Imdur [facility] [address]-13 30 MG Orally Once a day 1 tablet Meclizine HCl [facility] [address]-97 25 MG Orally every 4-6 charlene rs as needed September 01, 2015 1 tablet as needed Symbyax [facility] 35910147016 12-50 MG Orally Once a day in the evening 1 capsule Lisinopril [facility] [address]-59 5 mg Orally Once a day 1 tablet Cyclobenzaprine HCl [facility] 37260231121 10MG Orally Three times a day 1 tablet Celebrex [facility] [address]-44 200 mg Orally Once a day Dec 28, 2015 Jan 06, 2016 1 capsule Phenergan [facility] [address]-62 25 MG every 6 hrs PRN n/v May 28, 2015 1 tablet Cyclobenzaprine HCl [facility] [address]-37 10 mg Orally Three times a day 1 tablet Flonase Allergy Relief [facility] [address]-65 50 MCG/ACT Nasall y Once a day September 01, 2015 1 spray in each nost ril Dexilant [facility] 57102887748 60MG [address] Orally Once a day 1 capsule Triamcinolone Acetonide [facility] [address]-82 0.1 % Ex ternally Twice a day for up to 14 days. Do not use on face, genitals, groin, axilla, inner thigh May 18, 2015 1 application to affected ar ea Allopurinol [facility] 21120919339 100MG TAKE TWO TABLETS BY MOUTH ONCE DAILY. Meloxicam [facility] [address]-10 15 MG 1 tablet by mouth 1 time a day TRUEresult Blood Glucose [facility] [address]3835[address] w/Device Once a day Ap ril 2015 as directed Lancets NDC 0 ... Once a day August 13, 2015 a s directed Meloxicam [facility] 06793666774 15MG 1 tablet b y mouth 1 time a day Valium [facility] [address]-63 5 mg Orally 2 times a day prn sciatica as directed Test strips ND 0 ... Once a day August 13, 2015 as directed Flonase [facility] [address]-86 50 MCG/ACT Nasally 2 times a day November 17, 2014 1 spray in each nostril Atenolol [facility] [address]-10 25 MG Orally Once a day 1 tablet Fluticasone Propionate [facility] 61493057611 0.05% USE ONE SPRAY(S) IN EACH NOSTRIL TWICE DAILY. Gabapentin [facility] 75699532931 600MG TAKE ONE TABLET BY MOUTH THREE TIMES DAILY Dexilant [facility] [address]-17 60 MG Orally Once a day 1 capsule Procedures Procedure Coding System Code Date Office Visit, Est Pt., Level 4 CPT-4 65893 A 2015 [facility] VISIT ESTABLISHED PATIENT CPT-4 G0467 A 2015 Vital Signs Date/Time: Dec 28, 2015 Cardiac Monitoring Heart Rate 92 bpm Weight 229.0 lbs Height 71 in BMI 31.94 Index Blood Pressure Diastolic 86 mmHg Blood Pressure Systolic 138 mmHg Results No Known Results Summary Purpose eClinicalWorks Submission
--- OUTSIDE RECORDS SUMMARY | 2019-09-27 09:13 | XMS REPORT ---
Author Henri Chauhan Organization eClinicalWorks Address Unknown Phone Unavailable Care Team Providers Care Supervisor Beet End Name Role Phone ZORAIDA SINGH CP Unavailable [...]
--- OUTSIDE RECORDS SUMMARY | 2019-09-27 09:13 | XMS REPORT ---
Author Henri Jones [facility] eClinicalWorks Address Unknown Phone Unavailable Care Team Providers Care Waxed Bag Machine Operator Name Role Phone HERBERTH OSBORNE Unavailable [...]
--- OUTSIDE RECORDS SUMMARY | 2019-09-27 09:14 | XMS REPORT ---
Author Author Henri SINGH Organization [facility] [place] Address [address] [place] [address] Care Team Providers Care Correction Warden Name Role Phone ZORAIDA SINGH Unavailable PROBLEMS Type Condition ICD9-CM Code [id number] Code Onset Dates Condition S tatus SNOMED Code Problem Type 2 diabetes mellitus wit hout complication, without long-term current use of insulin E11.9 Active 852555368 Problem Primary insomnia F51.01 Active 397 2004 Problem Type 2 diabetes mellitus without complications E11 .9 Active [id number] ALLERGIES Substance Reaction Event Type Date Status PredniSONE aggitation Drug Allergy Feb, Active ENCOUNTERS Encounter Location Date Diagnosis [facility] [place] [address] [facility] [address] [id number] [place] [address] [id number] September, [facility] [place] [address] [place] [address] C [id number] [place] [address] 403489 September, Primary insomnia F51.[address] [facility] [place] [address] [facility] [address] [id number] [place] [address] 680729 Aug, Biceps tendonitis on left M75.[address] [facility] [place] [address] [facility] [address] [id number] [place] [address] 194078 Aug, [facility] [place] [address] [facility] [address] [id number] [place] [address] 444778 Aug, [facility] [place] [address] [facility] [address] [id number] [place] [address] 137135 Aug, [facility] [place] [address] [facility] [address] [id number] [place] [address] 114917 Aug, Type 2 diabetes mellitus without complications E11.9 ; Pain of left foot M79.672 ; Pain in right foot M79.671 and Chronic gout involving toe without tophus, unspecified cause, unspecified laterality M1A.9XX0 [facility] [place] [address] [facility] [address] [id number] [place] [address] 630019 08 Jun, [address] [facility] [place] [address] [facility] [address] [id number] [place] [address] 698688 May, [facility] [place] [address] [facility] [address] [id number] [place] [address] 195552 May, [facility] [place] [address] [facility] [address] [id number] [place] [address] 565313 May, [facility] [place] [address] [facility] [address] [id number] [place] [address] 177897 May, Right anterior shoulder pain M25.[address] [facility] [place] [address] [facility] [address] [id number] [place] [address] 348352 May, [facility] [place] [address] [facility] [address] [id number] [place] [address] 347813 May, [facility] [place] [address] [facility] [address] [id number] [place] [address] 669565 Apr, Type 2 diabetes mellitus without complications E11.9 ; Costochondritis, acute M94.0 and Tinea pedis of both feet B35.[address] [facility] [place] [address] [facility] [address] [id number] [place] [address] 159750 Mar, [facility] [place] [address] [facility] [address] [id number] [place] [address] 121120 Mar, [facility] [place] [address] [facility] [address] [id number] [place] [address] 006038 Feb, Acute upper respiratory infection, unspecified J06.9 ; Other viral agents as the cause of diseases classified elsewhere B97.89 and Aphthous ulcer of mouth K12.[address] [facility] [place] [address] [facility] [address] [id number] [place] [address] 212338 Jan, [facility] [place] [address] [facility] [address] [id number] [place] [address] 781319 Jan, Right hip pain M25.[address] [facility] [place] [address] [facility] [address] [id number] [place] [address] 980470 Dec, Ingrown nail L60.0 ; Impetigo L01.00 and Irritant contact dermatitis due to plants, except food L24.[address] [facility] [place] [address] [facility] [address] [id number] [place] [address] 849976 Dec, [facility] [place] [address] [facility] [address] [id number] [place] [address] 316168 Dec, Nail abnormality L60.9 and Ingrown nail of fifth toe of right foot L60.[address] [facility] [place] [address] [facility] [address] [id number] [place] [address] 051769 Nov, Type 2 diabetes mellitus without complications E11.[address] [facility] [place] [address] [facility] [address] [id number] [place] [address] 665603 Nov, Type 2 diabetes mellitus without complication, without long-term current use of insulin E11.[address] [facility] [place] [address] [facility] [address] [id number] [place] [address] 897793 Nov, [facility] [place] [address] [facility] [address] [id number] [place] [address] 604481 Nov, [facility] [place] [address] [place] [address] [address] [id number] [place] [address] 945681 Oct, [facility] [place] [address] [facility] [address] [id number] [place] [address] 227391 September, [facility] [place] [address] [facility] [address] [id number] [place] [address] 264522 Aug, Acute idiopathic gout of foot, unspecified laterality M10.[address] [facility] [place] [address] [facility] [address] [id number] [place] [address] 275051 Aug, Acute idiopathic gout of foot, unspecified laterality M10.079 and Primary insomnia F51.[address] [facility] [place] [address] [facility] [address] [id number] [place] [address] 739325 Jul, [facility] [place] [address] [facility] [address] [id number] [place] [address] 602246 Jul, 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 [facility] [place] [address] [facility] [address] [id number] [place] [address] 282789 Jun, [facility] [place] [address] [facility] [address] [id number] [place] [address] 393667 Jun, Acute non-recurrent maxillary sinusitis J01.[address] [facility] [place] [address] [facility] [address] [id number] [place] [address] 987502 16 Jun, 2016 Acute non-recurrent frontal sinusitis J01.[address] [facility] [place] [address] [facility] [address] [id number] [place] [address] 012963 15 Jun, [address] [facility] [place] [address] [facility] [address] [id number] [place] [address] 702855 14 Jun, 2016 Primary insomnia F51.[address] [facility] [place] [address] [facility] [address] [id number] [place] [address] 548585 07 Jun, 2016 Acute non-recurrent maxillary sinusitis J01.00 ; Excessive sweating R61 and 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 [facility] [place] [address] 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 [address] [id number] [place] [address] 665511 27 Jan, 2016 [facility] [place] [address] [place] [address] [address] [id number] [place] [address] 461647 Jan, [facility] [place] [address] [place] [address] [address] [id number] [place] [address] 786542 Jan, [facility] [place] [address] [place] [address] [address] [id number] [place] [address] 811127 Dec, [facility] [place] [address] [facility] [address] [id number] [place] [address] 169400 Dec, [facility] [place] [address] [place] [address] [address] [id number] [place] [address] 392443 Dec, Sciatica of right side M54.31 and Acute bilateral low back pain without sciatica M54.[address] [facility] [place] [address] [facility] [address] [id number] [place] [address] 775388 Dec, Type 2 diabetes mellitus without complications E11.[address] [facility] [place] [address] [facility] [address] [id number] [place] [address] 608988 Dec, [facility] [place] [address] [facility] [address] [id number] [place] [address] 936866 Dec, [facility] [place] [address] [facility] [address] [id number] [place] [address] 044514 Dec, Sciatica of right side M54.31 ; Type 2 diabetes mellitus without complication, without long-term current use of insulin E11.9 ; Acute bilateral low back pain without sciatica M54.5 and Neuropathy G62.[address] [facility] [place] [address] [facility] [address] [id number] [place] [address] 975509 Dec, Plantar fasciitis, right M72.2 and Sciatica of right side M54.[address] [facility] [place] [address] [facility] [address] [id number] [place] [address] 756612 Nov, [facility] [place] [address] [facility] [address] [id number] [place] [address] 010309 Oct, Nail abnormality L60.[address] [facility] [place] [address] [facility] [address] [id number] [place] [address] 586858 September, [facility] [place] [address] [facility] [address] [id number] [place] [address] 009127 Aug, [facility] [place] [address] [facility] [address] [id number] [place] [address] 298904 Aug, Vertigo R42 ; Allergic rhinitis, unspecified allergic rhinitis type J30.9 and Anxiety F41.[address] [facility] [place] [address] [facility] [address] [id number] [place] [address] 090153 Aug, [facility] [place] [address] [facility] [address] [id number] [place] [address] 457980 Aug, [facility] [place] [address] [facility] [address] [id number] [place] [address] 892876 Aug, [facility] [place] [address] [facility] [address] [id number] [place] [address] 520455 Jul, [facility] [place] [address] [facility] [address] [id number] [place] [address] 778051 Jul, [facility] [place] [address] [facility] [address] [id number] [place] [address] 614232 Jul, [facility] [place] [address] [facility] [address] [id number] [place] [address] 771774 Jul, [facility] [place] [address] [facility] [address] [id number] [place] [address] 518573 Jul, Lymphadenopathy R59.1 ; Type 2 diabetes mellitus without complications E11.9 ; Essential (primary) hypertension I10 and Bipolar disorder, current episode manic without psychotic features, moderate F31.[address] [facility] [place] [address] [facility] [address] [id number] [place] [address] 116489 Jun, [facility] [place] [address] [facility] [address] [id number] [place] [address] 750291 Jun, [facility] [place] [address] [facility] [address] [id number] [place] [address] 237889 Jun, [facility] [place] [address] [facility] [address] [id number] [place] [address] 013667 Jun, [facility] [place] [address] [facility] [address] [id number] [place] [address] 523165 May, [facility] [place] [address] [facility] [address] [id number] [place] [address] 697362 May, Lymphadenopathy R59.1 and Pharyngitis, acute J02.9 [facility] [place] [address] [place] [address] [address] [id number] [place] [address] 156614 May, Pharyngitis, acute J02.9 and Eczema, unspecified type L30.[address] [facility] [place] [address] [facility] [address] [id number] [place] [address] 074329 May, [facility] [place] [address] [facility] [address] [id number] [place] [address] 010264 Apr, [facility] [place] [address] [facility] [address] [id number] [place] [address] 287148 Apr, Neck strain, initial encounter S16.1XXA and Obstructive sleep apnea syndrome G47.[address] [facility] [place] [address] [facility] [address] [id number] [place] [address] 945601 Apr, [facility] [place] [address] [facility] [address] [id number] [place] [address] 899275 Apr, [facility] [place] [address] [facility] [address] [id number] [place] [address] 486235 Apr, [facility] [place] [address] [facility] [address] [id number] [place] [address] 299018 Apr, [facility] [place] [address] [facility] [address] [id number] [place] [address] 871399 Mar, [facility] [place] [address] [facility] [address] [id number] [place] [address] 692528 Mar, [facility] [place] [address] [place] [address] [address] [id number] [place] [address] 267786 Mar, Primary insomnia F51.01 [facility] [place] [address] [place] [address] [address] [id number] [place] [address] 804223 Mar, Primary insomnia F51.01 [facility] [place] [address] [place] [address] [address] [id number] [place] [address] 550614 Mar, Gout, unspecified M10.9 ; Other chronic pain G89.29 and Migraine with aura and without status migrainosus, not intractable G43.[address] [facility] [place] [address] [facility] [address] [id number] [place] [address] 721325 Mar, [facility] [place] [address] [facility] [address] [id number] [place] [address] 293887 Feb, Restless legs syndrome G25.[address] [facility] [place] [address] [facility] [address] [id number] [place] [address] 927021 Feb, [facility] [place] [address] [facility] [address] [id number] [place] [address] 813559 Feb, Gout, unspecified M10.9 ; Other dorsalgia M54.89 ; Restless legs syndrome G25.81 and Encounter for immunization Z23 [facility] [place] [address] [facility] [address] [id number] [place] [address] 721482 Feb, [facility] [place] [address] [facility] [address] [id number] [place] [address] 234423 Jan, Bilateral foot pain 729.5 ; Type 2 diabetes mellitus without complications E11.9 and Gout 274.[address] [facility] [place] [address] [facility] [address] [id number] [place] [address] 317244 Jan, [facility] [place] [address] [facility] [address] [id number] [place] [address] 511524 Jan, DM w/o complication type II 250.[address] [facility] [place] [address] [facility] [address] [id number] [place] [address] 675149 Jan, Right hip pain 719.45 [facility] [place] [address] [place] [address] [address] [id number] [place] [address] 093315 Dec, Insomnia 780.52 [facility] [place] [address] [place] [address] [address] [id number] [place] [address] 619994 Dec, Dysuria 788.1 and Frequency of urination 788.41 [facility] [place] [address] [place] [address] [address] [id number] [place] [address] 082559 Dec, [facility] [place] [address] [facility] [address] [id number] [place] [address] 599251 Dec, [facility] [place] [address] [place] [address] [address] [id number] [place] [address] 994988 Nov, [facility] [place] [address] [place] [address] [address] [id number] [place] [address] 679437 Nov, [facility] [place] [address] [facility] [address] [id number] [place] [address] 272226 Nov, Neck pain 723.[address] [facility] [place] [address] [facility] [address] [id number] [place] [address] 808246 Nov, [facility] [place] [address] [facility] [address] [id number] [place] [address] 446028 Nov, [facility] [place] [address] [facility] [address] [id number] [place] [address] 412470 Nov, GERD (gastroesophageal reflux disease) 530.81 ; Hypertension 401.9 ; Bipolar 1 disorder, manic, moderate 296.42 ; Back pain 724.5 and Gout 274.[address] [facility] [place] [address] [facility] [address] [id number] [place] [address] 766712 Oct, Dental examination V72.2 [facility] [place] [address] [id number] [place] [address] 363928 Oct, Dental examination V72.2 [facility] [place] [address] [id number] [place] [address] 905179 September, [facility]72.2 [facility] [place] [address] [facility] [address] [id number] [place] [address] 800510 Jun, [facility] [address] [facility] [id number] [address] [place] [address] Jun, IMMUNIZATIONS No Known Immunizations SOCIAL HISTORY Never Assessed REASON FOR VISIT cold symtoms, [facility] PLAN OF CARE Activity Details Follow Up prn Reason: VITAL SIGNS Height 71 in 2017-03-02 Weight 219.0 lbs 2017-03-02 Temperature 97.4 degrees Fahrenheit 2017-03-02 Heart Rate 94 bpm 2017-03-02 Respiratory Rate 18 2017-03-02 Oximetry 98 % 2017-03-02 BMI 30.54 kg/m2 2017-03-02 Blood pressure systolic 120 mmHg 2017-03-02 Blood pressure diastolic 73 mmHg 2017-03-02 MEDICATIONS Medication Instructions Dosage Frequency Start Date End Date Duration S tatus Acyclovir 400 mg Orally Twice a day 1 tablet 12h Feb, 05 days Active RESULTS Name Result Date Reference Range INFLUENZA A & B (IN HOUSE) INFLUENZA A neg INFLUENZA B neg Control valid Lot # [id number] Exp date 01/19/2018 PROCEDURES Procedure Date Ordered Result Body Site MEASURE BLOOD OXYGEN LEVEL Mar 02, 2017 INFLUENZA ASSAY W/OPTIC Mar 02, 2017 [facility] VISIT ESTABLISHED PATIENT Mar 02, 2017 INSTRUCTIONS MEDICATIONS ADMINISTERED No Known Medications MEDICAL (GENERAL) HISTORY Type Description Date Medical History Hypertension Medical History Bipolar 1 disorder, manic, moderate Medical History Gout Medical History Diabetes Medical History GERD (gastroesophageal reflux disease) Surgical History Kidney stone removal Surgical History Nerve ending perera in back Surgical History lymphectomy Hospitalization History DM Hospitalization History Surgery(s)
--- OUTSIDE RECORDS SUMMARY | 2019-09-27 09:14 | XMS REPORT ---
Author Henri Chauhan Organization [employer] Address Unknown Phone Unavailable Care Team Providers Care Receptionist Secretary Name Role Phone ZORAIDA SINGH CP Unavailable [...]
--- OUTSIDE RECORDS SUMMARY | 2019-09-27 09:14 | XMS REPORT ---
Author Henri Chahuan Organization [employer] Address Unknown Phone Unavailable Care Team Providers Care Telegraph Mechanic Name Role Phone ZORAIDA SINGH CP Unavailable Allergies No Known Allergies Problems Problem Type Condition Code Onset Dates Condition Statu s Problem GERD (gastroesophageal reflux disease) 530.81 Active Problem Hypertension 401.9 Active Problem DM w/o complication type II 250.00 Active Problem Gout 274.9 Active Assessment DM w/o complication type II 250.00 Active Problem Bipolar 1 disorder, manic, moderate 296.42 Active Problem Back pain 724.5 Active Medications No Known Medications Procedures Procedure Coding System Code Date GLYCATED HEMOGLOBIN TEST CPT-4 18943 Jan VENIPUNCT, ROUTINE* CPT-4 69830 Jan 29 5 [facility] C[facility] NOBLL Jan Results Name Result Date Reference Range Unit Abnormali ty Flag ROUTINE VENIPUNCTURE A1C Summary Purpose [employer] Submission
--- OUTSIDE RECORDS SUMMARY | 2019-09-27 09:14 | XMS REPORT ---
Author Author Henri SINGH Organization [facility] [place] Address [address] [place] [address] Care Team Providers Care Longitudinal Float Operator Name Role Phone ZORAIDA SINGH Unavailable PROBLEMS Type Condition ICD9-CM Code [id number] Code Onset Dates Condition S tatus SNOMED Code Problem Type 2 diabetes mellitus wit hout complication, without long-term current use of insulin E11.9 Active 050464293 Problem Primary insomnia F51.01 Active 397 2004 Problem Type 2 diabetes mellitus without complications E11 .9 Active [id number] ALLERGIES Substance Reaction Event Type Date Status PredniSONE aggitation Drug Allergy Apr, Active ENCOUNTERS Encounter Location Date Diagnosis [facility] [place] [address] [facility] [address] [id number] [place] [address] 835478 Oct, [facility] [place] [address] [facility] [address] [id number] [place] [address] 853214 September, Medicare annual wellness visit, initial Z00.00 ; Type 2 diabetes mellitus without complication, without long-term current use of insulin E11.9 and Right anterior shoulder pain M25.511 [facility] [place] [address] [facility] [address] [id number] [place] [address] 136460 September, Primary insomnia F51.01 [facility] [place] [address] [facility] [address] [id number] [place] [address] 166923 Aug, Biceps tendonitis on left M75.22 [facility] [place] [address] [id number] [place] [address] 724435 Aug, [facility] [place] [address] [id number] [place] [address] 862684 Aug, [facility] [place] [address] [id number] [place] [address] 558166 Aug, [facility] [place] [address] [facility] [address] [id number] [place] [address] 308428 Aug, Type 2 diabetes mellitus without complications E11.9 ; Pain of left foot M79.672 ; Pain in right foot M79.671 and Chronic gout involving toe without tophus, unspecified cause, unspecified laterality M1A.9XX0 [facility] [place] [address] [facility] [address] [id number] [place] [address] 806430 08 Jun, 2017 [facility] [place] [address] [facility] [address] [id number] [place] [address] 113249 May, [facility] [place] [address] [facility] [address] [id number] [place] [address] 857551 May, [facility] [place] [address] [facility] [address] [id number] [place] [address] 946511 May, [facility] [place] [address] [facility] [address] [id number] [place] [address] 903563 May, Right anterior shoulder pain M25.511 [facility] [place] [address] [facility] [address] [id number] [place] [address] 825624 May, [facility] [place] [address] [facility] [address] [id number] [place] [address] 037550 May, [facility] [place] [address] [facility] [address] [id number] [place] [address] 798188 Apr, Type 2 diabetes mellitus without complications E11.9 ; Costochondritis, acute M94.0 and Tinea pedis of both feet B35.3 [facility] [place] [address] [facility] [address] [id number] [place] [address] 343006 Mar, [facility] [place] [address] [place] [address] [address] [id number] [place] [address] 110086 Mar, [facility] [place] [address] [facility] [address] [id number] [place] [address] 626742 Feb, Acute upper respiratory infection, unspecified J06.9 ; Other viral agents as the cause of diseases classified elsewhere B97.89 and Aphthous ulcer of mouth K12.0 [facility] [place] [address] [facility] [address] [id number] [place] [address] 576334 Jan, [facility] [place] [address] [facility] [address] [id number] [place] [address] 093312 Jan, Right hip pain M25.551 [facility] [place] [address] [facility] [address] [id number] [place] [address] 396388 Dec, Ingrown nail L60.0 ; Impetigo L01.00 and Irritant contact dermatitis due to plants, except food L24.7 [facility] [place] [address] [facility] [address] [id number] [place] [address] 606567 Dec, [facility] [place] [address] [facility] [address] [id number] [place] [address] 289641 Dec, Nail abnormality L60.9 and Ingrown nail of fifth toe of right foot L60.0 [facility] [place] [address] [facility] [address] [id number] [place] [address] 516981 Nov, Type 2 diabetes mellitus without complications E11.9 [facility] [place] [address] [place] [address] C [id number] [place] [address] 264381 Nov, Type 2 diabetes mellitus without complication, without long-term current use of insulin E11.9 [facility] [place] [address] [place] [address] [address] [id number] [place] [address] 795453 Nov, [facility] [place] [address] [facility] [address] [id number] [place] [address] 768637 Nov, [facility] [place] [address] [place] [address] [address] [id number] [place] [address] 009508 Oct, [facility] [place] [address] [facility] [address] [id number] [place] [address] 126892 September, [facility] [place] [address] [place] [address] C [id number] [place] [address] 025333 Aug, Acute idiopathic gout of foot, unspecified laterality M10.079 [facility] [place] [address] [facility] [address] [id number] [place] [address] 814485 Aug, Acute idiopathic gout of foot, unspecified laterality M10.079 and Primary insomnia F51.01 [facility] [place] [address] [facility] [address] [id number] [place] [address] 171588 Jul, [facility] [place] [address] [facility] [address] [id number] [place] [address] 197692 Jul, 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 [facility] [place] [address] [facility] [address] [id number] [place] [address] 703091 23 Jun, 2016 [facility] [place] [address] [facility] [address] [id number] [place] [address] 294762 17 Jun, 2016 Acute non-recurrent maxillary sinusitis J01.00 [facility] [place] [address] [facility] [address] [id number] [place] [address] 980413 16 Jun, 2016 Acute non-recurrent frontal sinusitis J01.10 [facility] [place] [address] [facility] [address] [id number] [place] [address] 425118 15 Jun, 2016 [facility] [place] [address] [facility] [address] [id number] [place] [address] 496149 14 Jun, 2016 Primary insomnia F51.01 [facility] [place] [address] [facility] [address] [id number] [place] [address] 012248 07 Jun, 2016 Acute non-recurrent maxillary sinusitis J01.00 ; Excessive sweating R61 and 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 [facility] [place] [address] [facility] [address] [id number] [place] [address] 829302 02 Jun, 2016 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 [facility] [place] [address] [facility] [address] [id number] [place] [address] 516887 10 May, 2016 Type 2 diabetes mellitus without complications E11.9 ; Gout involving toe, unspecified cause, unspecified chronicity, unspecified laterality M10.9 and Primary insomnia F51.01 [facility] [place] [address] [facility] [address] [id number] [place] [address] 729928 Jan, [facility] [place] [address] [facility] [address] [id number] [place] [address] 021325 Jan, [facility] [place] [address] [facility] [address] [id number] [place] [address] 832835 Jan, [facility] [place] [address] [facility] [address] [id number] [place] [address] 064274 Dec, [facility] [place] [address] [facility] [address] [id number] [place] [address] 291097 Dec, [facility] [place] [address] [place] [address] [address] [id number] [place] [address] 342121 Dec, Sciatica of right side M54.31 and Acute bilateral low back pain without sciatica M54.5 [facility] [place] [address] [facility] [address] [id number] [place] [address] 966441 Dec, Type 2 diabetes mellitus without complications E11.9 [facility] [place] [address] [facility] [address] [id number] [place] [address] 798481 Dec, [facility] [place] [address] [place] [address] [address] [id number] [place] [address] 332806 Dec, [facility] [place] [address] [facility] [address] [id number] [place] [address] 790455 Dec, Sciatica of right side M54.31 ; Type 2 diabetes mellitus without complication, without long-term current use of insulin E11.9 ; Acute bilateral low back pain without sciatica M54.5 and Neuropathy G62.9 [facility] [place] [address] [place] [address] [address] [id number] [place] [address] 799585 Dec, Plantar fasciitis, right M72.2 and Sciatica of right side M54.31 [facility] [place] [address] [facility] [address] [id number] [place] [address] 107685 Nov, [facility] [place] [address] [place] [address] [address] [id number] [place] [address] 745179 Oct, Nail abnormality L60.9 [facility] [place] [address] [place] [address] [address] [id number] [place] [address] 631098 September, [facility] [place] [address] [place] [address] [address] [id number] [place] [address] 138448 Aug, [facility] [place] [address] [facility] [address] [id number] [place] [address] 358543 Aug, Vertigo R42 ; Allergic rhinitis, unspecified allergic rhinitis type J30.9 and Anxiety F41.9 [facility] [place] [address] [facility] [address] [id number] [place] [address] 925280 Aug, [facility] [place] [address] [facility] [address] [id number] [place] [address] 338216 Aug, [facility] [place] [address] [facility] [address] [id number] [place] [address] 564269 Aug, [facility] [place] [address] [facility] [address] [id number] [place] [address] 932386 Jul, [facility] [place] [address] [facility] [address] [id number] [place] [address] 974473 Jul, [facility] [place] [address] [facility] [address] [id number] [place] [address] 616672 Jul, [facility] [place] [address] [facility] [address] [id number] [place] [address] 116463 Jul, [facility] [place] [address] [facility] [address] [id number] [place] [address] 228390 Jul, Lymphadenopathy R59.1 ; Type 2 diabetes mellitus without complications E11.9 ; Essential (primary) hypertension I10 and Bipolar disorder, current episode manic without psychotic features, moderate F31.12 [facility] [place] [address] [place] [address] [address] [id number] [place] [address] 552405 Jun, [facility] [place] [address] [facility] [address] [id number] [place] [address] 131500 Jun, [facility] [place] [address] [facility] [address] [id number] [place] [address] 925958 Jun, [facility] [place] [address] [facility] [address] [id number] [place] [address] 309795 Jun, [facility] [place] [address] [facility] [address] [id number] [place] [address] 072840 May, [facility] [place] [address] [facility] [address] [id number] [place] [address] 598463 May, Lymphadenopathy R59.1 and Pharyngitis, acute J02.9 [facility] [place] [address] [place] [address] [address] [id number] [place] [address] 691581 11 May, 2015 Pharyngitis, acute J02.9 and Eczema, unspecified type L30.9 [facility] [place] [address] [facility] [address] [id number] [place] [address] 722392 May, [facility] [place] [address] [facility] [address] [id number] [place] [address] 071146 29 Apr, 2015 [facility] [place] [address] [facility] [address] [id number] [place] [address] 705890 Apr, Neck strain, initial encounter S16.1XXA and Obstructive sleep apnea syndrome G47.33 [facility] [place] [address] [facility] [address] [id number] [place] [address] 178591 15 Apr, 2015 [facility] [place] [address] [facility] [address] [id number] [place] [address] 071752 07 Apr, 2015 [facility] [place] [address] [facility] [address] [id number] [place] [address] 961885 Apr, [facility] [place] [address] [facility] [address] [id number] [place] [address] 733857 Apr, [facility] [place] [address] [facility] [address] [id number] [place] [address] 893777 Mar, [facility] [place] [address] [facility] [address] [id number] [place] [address] 699093 Mar, [facility] [place] [address] [facility] [address] [id number] [place] [address] 425594 Mar, Primary insomnia F51.01 [facility] [place] [address] [facility] [address] [id number] [place] [address] 749454 Mar, Primary insomnia F51.01 [facility] [place] [address] [facility] [address] [id number] [place] [address] 970830 Mar, Gout, unspecified M10.9 ; Other chronic pain G89.29 and Migraine with aura and without status migrainosus, not intractable G43.109 [facility] [place] [address] [facility] [address] [id number] [place] [address] 617039 Mar, [facility] [place] [address] [facility] [address] [id number] [place] [address] 133633 Feb, Restless legs syndrome G25.81 [facility] [place] [address] [facility] [address] [id number] [place] [address] 003750 Feb, [facility] [place] [address] [facility] [address] [id number] [place] [address] 768140 Feb, Gout, unspecified M10.9 ; Other dorsalgia M54.89 ; Restless legs syndrome G25.81 and Encounter for immunization Z23 [facility] [place] [address] [facility] [address] [id number] [place] [address] 582749 Feb, [facility] [place] [address] [facility] [address] [id number] [place] [address] 107559 Jan, Bilateral foot pain 729.5 ; Type 2 diabetes mellitus without complications E11.9 and Gout 274.9 [facility] [place] [address] [facility] [address] [id number] [place] [address] 190315 Jan, [facility] [place] [address] [facility] [address] [id number] [place] [address] 499392 Jan, DM w/o complication type II 250.00 [facility] [place] [address] [place] [address] [address] [id number] [place] [address] 253624 Jan, Right hip pain 719.45 [facility] [place] [address] [place] [address] [address] [id number] [place] [address] 369271 Dec, Insomnia 780.52 [facility] [place] [address] [place] [address] [address] [id number] [place] [address] 177917 Dec, Dysuria 788.1 and Frequency of urination 788.41 [facility] [place] [address] [place] [address] [address] [id number] [place] [address] 668165 Dec, [facility] [place] [address] [place] [address] [address] [id number] [place] [address] 590896 Dec, [facility] [place] [address] [facility] [address] [id number] [place] [address] 962507 Nov, [facility] [place] [address] [facility] [address] [id number] [place] [address] 076686 Nov, [facility] [place] [address] [facility] [address] [id number] [place] [address] 474574 Nov, Neck pain 723.1 [facility] [place] [address] [facility] [address] [id number] [place] [address] 909478 Nov, [facility] [place] [address] [facility] [address] [id number] [place] [address] 162190 Nov, [facility] [place] [address] [facility] [address] [id number] [place], [place] [address] 836355 Nov, GERD (gastroesophageal reflux disease) 530.81 ; Hypertension 401.9 ; Bipolar 1 disorder, manic, moderate 296.42 ; Back pain 724.5 and Gout 274.9 [facility] [place] [address] [facility] [address] [id number] [place] [address] 930126 Oct, Dental examination V72.2 [facility] [place] [address] [facility] [address] [id number] [place] [address] 908609 Oct, Dental examination V72.2 [facility] [place] [address] [facility] [address] [id number] [place] [address] 580192 September, Dental examination V72.2 [facility] [address] [facility] [address] [id number] [place] [address] 394472 Jun, [facility] [address] [facility] [id number] 100KS [place] [address] Jun, IMMUNIZATIONS No Known Immunizations SOCIAL HISTORY Never Assessed REASON FOR VISIT Dm apt, A1C - 6.1 , [facility] PLAN OF CARE Activity Details Follow Up 3 Months Reason: VITAL SIGNS Height 71 in 2017-04-28 Weight 218.4 lbs 2017-04-28 Heart Rate 89 bpm 2017-04-28 Respiratory Rate 18 2017-04-28 BMI 30.46 kg/m2 2017-04-28 Blood pressure systolic 127 mmHg 2017-04-28 Blood pressure diastolic 88 mmHg 2017-04-28 MEDICATIONS Medication Instructions Dosage Frequency Start Date End Date Duration S tatus Phenergan 25 MG 1 tablet May, Un known Seroquel 100 MG Orally Once a day 1 tablet 24h Active Valium 5 mg Orally 2 times a day prn sciatica as directed Unknown Test strips ... as directed 24h Aug, Unknown Dexilant 60 mg Orally Once a day 1 capsule 24h Active Symbyax 12-50 MG Orally Once a day in the evening 1 capsule Unknown Atenolol 25 MG Orally Once a day 1 tablet 24h Active Tizanidine HCl 2 MG TAKE 1 TABLET BY MOUTH 3 TIMES DAILY NEED ED 15 Active Lisinopril 5MG Orally Once a day 1 tablet 24h 90 Unknown Allopurinol 100MG TAKE TWO TABLETS BY MOUTH ONCE DAILY. 30 Active Klonopin 2 MG Orally Twice a day 1 tablet 12h Unknown Imdur 30 MG Orally Once a day 1 tablet 24h U nknown Flonase Allergy Relief 50 MCG/ACT Nasally Once a day 1 spray in each nostril 24h Aug, 30 day(s) Unknown Olanzapine-Fluoxetine HCl 12-50 MG TAKE 1 CAPSULE BY MOUTH IN THE EVENING 30 Unknown Zolpidem Tartrate 10MG TAKE ONE TABLET BY MOUTH ONCE DAILY AT BE DTIME Active Ambien 10 MG Orally Once a day 1 tablet at bedtime 24h May, 30 days Unknown Lancets ... as directed 24h Aug, Unk nown TRUEresult Blood Glucose w/Device as directed 24h Aug, 16 Unknown Cyclobenzaprine HCl 10MG Orally Three times a day 1 tablet 8h 30 Unknown Isosorbide Mononitrate ER 30MG TAKE ONE TABLET BY MOUTH ONCE YARELY LY Active Gabapentin 600MG TAKE ONE TABLET BY MOUTH THREE TIMES DAILY 90 Active Meloxicam 15MG 1 tablet by mouth 1 time a day 90 Active Lamisil AT 1 % Externally Twice a day 1 application to affected are a 12h Apr, May, 14 days Active RESULTS Name Result Date Reference Range A1C (IN HOUSE) 2017-04-28 A1C IN HOUSE 6.1 4.3 - 5.6 % Previous A1c 7.1 Lot [id number] Exp date 02/2018 PROCEDURES Procedure Date Ordered Result Body Site GLYCATED HEMOGLOBIN TEST Apr 28, 2017 [facility] VISIT ESTABLISHED PATIENT Apr 28, 2017 INSTRUCTIONS MEDICATIONS ADMINISTERED No Known Medications MEDICAL (GENERAL) HISTORY Type Description Date Medical History Hypertension Medical History Bipolar 1 disorder, manic, moderate Medical History Gout Medical History Diabetes Medical History GERD (gastroesophageal reflux disease) Surgical History Kidney stone removal Surgical History Nerve ending perera in back Surgical History lymphectomy Hospitalization History DM Hospitalization History Surgery(s)
--- OUTSIDE RECORDS SUMMARY | 2019-09-27 09:14 | XMS REPORT ---
Author Author Henri SINGH Organization [facility] Address [address] [place] [address] Care Team Providers Care Valet Parking Attendant Name Role Phone SAMANTHAZORAIDA Unavailable PROBLEMS Type Condition ICD9-CM Code [id number] Code Onset Dates Condition S tatus SNOMED Code Problem Type 2 diabetes mellitus wit hout complication, without long-term current use of insulin E11.9 Active 014686900 Problem Primary insomnia F51.01 Active 397 2004 Problem Type 2 diabetes mellitus without complications E11 .9 Active 944200786 ALLERGIES Substance Reaction Event Type Date Status PredniSONE aggitation Drug Allergy May, Active SOCIAL HISTORY No smoking Hx information available PLAN OF CARE Activity Details Follow Up prn Reason: VITAL SIGNS Height 71 in 2016-05-17 Weight 229.6 lbs 2016-05-17 Temperature 98.4 degrees Fahrenheit 2016-05-17 Heart Rate 102 bpm 2016-05-17 Respiratory Rate 18 2016-05-17 BMI 32.02 kg/m2 2016-05-17 Blood pressure systolic 128 mmHg 2016-05-17 Blood pressure diastolic 84 mmHg 2016-05-17 MEDICATIONS Medication Instructions Dosage Frequency Start Date End Date Duration S tatus TRUEresult Blood Glucose w/Device as directed 24h Aug, 16 Active Valium 5 mg Orally 2 times a day prn sciatica as directed Active Test strips ... as directed 24h Aug, Active Lancets ... as directed 24h Aug, Act silas Symbyax 12-50 MG Orally Once a day in the evening 1 capsule Active Atenolol 25 MG Orally Once a day 1 tablet 24h Active Flonase Allergy Relief 50 MCG/ACT Nasally Once a day 1 spray in each nostril 24h Aug, 30 day(s) Active Lisinopril 5 mg Orally Once a day 1 tablet 24h Active Flector 1.3 % Transdermal Twice a day 1 patch to skin 12h Dec, 16 Active Imdur 30 MG Orally Once a day 1 tablet 24h A ctive Ambien 5 mg Orally Once a day 1 tablet at bedtime 24h May, Active Dexilant 60 MG Orally Once a day 1 capsule 24h Active Phenergan 25 MG 1 tablet May, Ac tive Meloxicam 15 MG 1 tablet by mouth 1 time a day Active Allopurinol 100MG TAKE TWO TABLETS BY MOUTH ONCE DAILY. 30 Active RESULTS Name Result Date Reference Range A1C (IN HOUSE) 2016-05-17 A1C IN HOUSE 6.2 4.3 - 5.6 % Previous A1c 6.2 Lot [id number] Exp date 02/2018 MICROALBUMIN, URINE (IN HOUSE) 2016-05-17 MICROALBUMIN Normal Lot # [id number] Exp date 06/2017 Clarity Clear Color Dark yellow ALB 30 mg/L CRE 300 mg/dL A:C (IN HOUSE) <30 mg/g Control Control Lot # Exp URIC ACID, SERUM 2016-05-17 Uric Acid, Serum 5.3 3.7-8.6 CMP 2016-05-17 Glucose, Serum 92 65-99 BUN 17 6-20 Creatinine, Serum 0.86 0.76-1.27 eGFR If NonAfricn Am 117 >59 eGFR If Africn Am 135 >59 BUN/Creatinine Ratio 20 8-19 Sodium, Serum 142 134-144 Potassium, Serum 4.2 3.5-5.2 Chloride, Serum 99 96-106 Carbon Dioxide, Total 23 18-29 Calcium, Serum 9.3 8.7-10.2 Protein, Total, Serum 7.0 6.0-8.5 Albumin, Serum 4.5 3.5-5.5 Globulin, Total 2.5 1.5-4.5 A/G Ratio 1.8 1.1-2.5 Bilirubin, Total <0.2 0.0-1.2 Alkaline Phosphatase, S 63 39-117 AST (SGOT) 25 0-40 ALT (SGPT) 25 0-44 PROCEDURES Procedure Date Ordered Related Diagnosis Body Site GLYCATED HEMOGLOBIN TEST May 17, 2016 MICROALBUMIN, SEMIQUANT May 17, 2016 VENIPUNCT, ROUTINE* May 17, 2016 [facility] May [facility], 2016 Office Visit, Est Pt., Level 3 May 17, 2016 [facility] VISIT ESTABLISHED PATIENT May 17, 2016 IMMUNIZATIONS No Known Immunizations
--- OUTSIDE RECORDS SUMMARY | 2019-09-27 09:14 | XMS REPORT ---
Author Author Henri SINGH Organization [facility] Address [address] [place] [address] Care Team Providers Care Compliance Representative Dealer Name Role Phone ZORAIDA SINGH Unavailable PROBLEMS Type Condition ICD9-CM Code [id number] Code Onset Dates Condition S tatus SNOMED Code Problem Type 2 diabetes mellitus wit hout complication, without long-term current use of insulin E11.9 Active 244470935 Problem Primary insomnia F51.01 Active 397 2004 Problem Type 2 diabetes mellitus without complications E11 .9 Active 995457321 ALLERGIES No Information SOCIAL HISTORY Never Assessed PLAN OF CARE VITAL SIGNS MEDICATIONS No Known Medications RESULTS No Results PROCEDURES No Known [...]
--- OUTSIDE RECORDS SUMMARY | 2019-09-27 09:14 | XMS REPORT ---
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 Role Phone ZORAIDA SINGH CP Unavailable Allergies, Adverse Reactions, Alerts Substance Reaction Event Type PredniSONE aggitation Drug Allergy Problems Problem Type Condition Code Onset Dates Condition Statu s Assessment Restless legs syndrome G25.81 Activ e Assessment Gout, unspecified M10.9 Active Assessment Other dorsalgia M54.89 Active Assessment Encounter for immunization Z23 A ctive Problem DM w/o complication type II 250.00 Active Problem GERD (gastroesophageal reflux disease) 530.81 Active Problem Type 2 diabetes mellitus without complications E11.9 Active Problem Back pain 724.5 Active Problem Gout 274.9 Active Problem Hypertension 401.9 Active Problem Bipolar 1 disorder, manic, moderate 296.42 Active Medications Medication Code System Code Instructions Start Date End Date Status Dosage Dexilant [facility] [address]-16 60 MG Orally Once a day 1 capsule Imdur [facility] [address]-31 30 MG Orally Once a day 1 tablet Gabapentin [facility] [address]-51 300 MG Orally Three times a day 1 capsule Allopurinol [facility] [address]-61 100 MG Orally Once a day 2 tablets Ambien [facility] [address]-85 5 MG Orally Once a day 1 tablet at bedtime Lisinopril [facility] [address]-17 5 MG Orally Once a day 1 tablet Flonase [facility] [address]-88 50 MCG/ACT Nasally 2 times a day November 17, 2014 1 spray in each nostril Diclofenac Sodium [facility] [address]-46 75 MG Orally 3 times a day as needed November 21, 2014 1 tablet Ondansetron [facility] [address]-80 4 MG Orally every 8 hrs 1 tablet on the tongue and allow to dissolve Atenolol [facility] [address]-83 25 MG Orally Once a day 1 tablet Symbyax [facility] [address]-91 12-50 MG Orally Once a day in the evening November 25, 2014 1 capsule Sudafed 12 Hour [facility] [address]-91 120 MG Orally every 12 hrs November 1 tablet as needed Meloxicam [facility] [address]-99 15 MG Orally Once a day 1 tablet Cyclobenzaprine HCl [facility] [address]-76 10 MG Orally Three times a day 1 tablet Procedures Procedure Coding System Code Date FLUARIX QUAD (3 & UP)-[facility] CPT-[address] 2014 [facility] VISIT ESTABLISHED PATIENT CPT-[address] 2014 ADMN FLU VAC NO FEE SCHED SAME DAY CPT-4 G0008 Feb 20, 2015 Office Visit, Est Pt., Level 4 CPT-[address] 2014 Vital Signs Date/Time: Feb 20, 2015 Temperature 98.2 F Weight 209.5 lbs Height 71 in BMI 29.22 Index Blood Pressure Diastolic 70 mmHg Blood Pressure Systolic 110 mmHg Cardiac Monitoring Heart Rate 80 bpm Results No Known Results Immunizations Vaccine Administration Date FLUARIX QUAD (3 & UP)-[employer]-2014Feb 20, 2015 Summary Purpose eClinicalWorks Submission
--- OUTSIDE RECORDS SUMMARY | 2019-09-27 09:14 | XMS REPORT ---
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 Role Phone ZORAIDA SINGH Unavailable PROBLEMS Type Condition ICD9-CM Code UWZ59-ML Code Onset Dates Condition S tatus SNOMED Code Problem Type 2 diabetes mellitus wit hout complication, without long-term current use of insulin E11.9 Active 150189319 Problem Primary insomnia F51.01 Active 397 2004 Problem Type 2 diabetes mellitus without complications E11 .9 Active [id number] ALLERGIES No Information SOCIAL HISTORY Never Assessed PLAN OF CARE VITAL SIGNS MEDICATIONS Medication Instructions Dosage Frequency Start Date End Date Duration S tatus Allopurinol 100MG TAKE TWO TABLETS BY MOUTH ONCE DAILY. 30 Active RESULTS No Results PROCEDURES No [...]
--- OUTSIDE RECORDS SUMMARY | 2019-09-27 09:14 | XMS REPORT | Continuity of Care Document ---
Author Organization Unknown Address Unknown Phone Unavailable Allergies Active Description Code Type Severity Reaction Onset Reported/Identified Relationship to Patient Clinical Status Yes predniSONE ##NOMEN##,AL1,ceStr uct,allergy,1237,698 Unknown N/A agitation Yes predniSONE Drug N/A violent behavior Yes prednisone [id number] Drug Allerg y Unknown GETS VIOLENT 09/27/2019 Medications There is no data. Problems Date Dx Coded Attending Type Code Diagnosis Diagnosed By 04/06/1506 FLASH DURÁN MD, Ot J32 .9 CHRONIC SINUSITIS, UNSPECIFIED 04/06/1506 FLASH DURÁN MD Ot J34 .2 DEVIATED NASAL SEPTUM 04/06/1506 FLASH DURÁN MD, Ot J34 .3 HYPERTROPHY OF NASAL TURBINATES 04/06/1506 FLASH DURÁN MD Ot Z01.812 ENCOUNTER FOR PREPROCEDURAL LABORATORY E 04/06/1506 FLASH DURÁN MD Ot Z11.59 ENCOUNTER FOR SCREENING FOR OTHER VIRAL 10/05/2011 Ot 592.1 10/26/2011 Ot 592.1 05/25/2015 Ot 592.1 05/25/2015 Ot 592.1 05/25/2015 Ot V72.63 05/25/2015 Ot V74.8 05/25/2015 FLASH DURÁN MD Ot R59 .0 LOCALIZED ENLARGED LYMPH NODES 05/25/2015 FLASH DURÁN MD Ot Z11 .2 ENCOUNTER FOR SCREENING FOR OTHER BACTER 11/23/2018 CHINEDU SANTOS Reason For Visit M25.511 Pain in right shoulder 12/28/2018 STEPHEN CEDILLO MD Ot F31. 9 BIPOLAR DISORDER, UNSPECIFIED 12/28/2018 STEPHEN CEDILLO MD Ot S43.431A SUPERIOR GLENOID LABRUM LESION OF RIGHT 12/31/2018 STEPHEN CEDILLO MD Ot F31. 9 BIPOLAR DISORDER, UNSPECIFIED 12/31/2018 STEPHEN CEDILLO MD Ot S43.431A SUPERIOR GLENOID LABRUM LESION OF RIGHT 01/17/2019 STEPHEN CEDILLO MD Ot F31. 9 BIPOLAR DISORDER, UNSPECIFIED 01/17/2019 MAMADOU NICOLE, STEPHEN Freire Ot S43.431A SUPERIOR GLENOID LABRUM LESION OF RIGHT 09/11/2019 MAMADOU NICOLE, STEPHEN Freire Ot F31. 9 BIPOLAR DISORDER, UNSPECIFIED 09/11/2019 MAMADOUSTEPHEN HATFIELD MD Ot S43.431A SUPERIOR GLENOID LABRUM LESION OF RIGHT 09/11/2019 MAMADOU NICOLE, STEPHEN Freire Ot F31. 9 BIPOLAR DISORDER, UNSPECIFIED 09/11/2019 MAMADOU MD, STEPHEN Freire Ot S43.431A SUPERIOR GLENOID LABRUM LESION OF RIGHT 09/11/2019 MAMADOU NICOLE, STEPHEN Freire Ot F31. 9 BIPOLAR DISORDER, UNSPECIFIED 09/11/2019 MAMADOUSTEPHEN HATFIELD MD Ot S43.431A SUPERIOR GLENOID LABRUM LESION OF RIGHT 09/11/2019 MAMADOU NICOLE, STEPHEN Freire Ot F31. 9 BIPOLAR DISORDER, UNSPECIFIED 09/11/2019 STEPHEN CEDILLO MD Ot S43.431A SUPERIOR GLENOID LABRUM LESION OF RIGHT 09/13/2019 MAMADOU NICOLE, STEPHEN Freire Ot F31. 9 BIPOLAR DISORDER, UNSPECIFIED 09/13/2019 MAMADOUSTEPHEN HATFIELD MD Ot S43.431A SUPERIOR GLENOID LABRUM LESION OF RIGHT 09/20/2019 STEPHEN CEDILLO MD Ot F31. 9 BIPOLAR DISORDER, UNSPECIFIED 09/20/2019 STEPHEN CEDILLO MD Ot S43.431A SUPERIOR GLENOID LABRUM LESION OF RIGHT 09/20/2019 STEPHEN CEDILLO MD Ot F31. 9 BIPOLAR DISORDER, UNSPECIFIED 09/20/2019 MAMADOUSTEPHEN HATFIELD MD Ot S43.431A SUPERIOR GLENOID LABRUM LESION OF RIGHT 09/20/2019 STEPHEN CEDILLO MD Ot F31. 9 BIPOLAR DISORDER, UNSPECIFIED 09/20/2019 MAMADOUSTEPHEN HATFIELD MD Ot S43.431A SUPERIOR GLENOID LABRUM LESION OF RIGHT 09/20/2019 STEPHEN CEDILLO MD Ot F31. 9 BIPOLAR DISORDER, UNSPECIFIED 09/20/2019 MAMADOUSTEPHEN HATFIELD MD Ot S43.431A SUPERIOR GLENOID LABRUM LESION OF RIGHT 09/23/2019 LEEANNA NICOLE, FLASH Elmore Ot J32 .9 CHRONIC SINUSITIS, UNSPECIFIED 09/23/2019 FLASH DURÁN MD Ot J34 .2 DEVIATED NASAL SEPTUM 09/23/2019 FLASH DURÁN MD, Ot J34 .3 HYPERTROPHY OF NASAL TURBINATES 09/23/2019 FLASH DURÁN MD Ot Z01.812 ENCOUNTER FOR PREPROCEDURAL LABORATORY E 09/23/2019 FLASH DURÁN MD, Ot Z11.59 ENCOUNTER FOR SCREENING FOR OTHER VIRAL 09/24/2019 STEPHEN CEDILLO MD, Ot F31. 9 BIPOLAR DISORDER, UNSPECIFIED 09/24/2019 STEPHEN CEDILLO MD, Ot S43.431A SUPERIOR GLENOID LABRUM LESION OF RIGHT 09/27/2019 STEPHEN CEDILLO MD, Ot F31. 9 BIPOLAR DISORDER, UNSPECIFIED 09/27/2019 STEPHEN CEDILLO MD, Ot S43.431A SUPERIOR GLENOID LABRUM LESION OF RIGHT Procedures There is no data. Results Test Result Range URIC ACID, SERUM - 08/10/17 16:21 URIC ACID 7.0 mg/dL 4.0-8.0 CBC - 08/10/17 16:21 WHITE BLOOD CELL COUNT 5.9 Thousand/uL 3 .8-10.8 RED BLOOD CELL COUNT 5.03 Million/uL 4.2 0-5.80 HEMOGLOBIN 14.0 g/dL 13.2-17.1 HEMATOCRIT 41.0 % 38.5-50.0 MCV 81.5 fL 80.0-100.0 MCH 27.8 pg 27.0-33.0 MCHC 34.1 g/dL 32.0-36.0 RDW 14.4 % 11.0-15.0 PLATELET COUNT 234 Thousand/uL 140-400 MPV 10.1 fL 7.5-12.5 ABSOLUTE NEUTROPHILS 3269 cells/uL 1500- 7800 ABSOLUTE LYMPHOCYTES 2118 cells/uL 850-3 900 ABSOLUTE MONOCYTES 319 cells/uL 200-950 ABSOLUTE EOSINOPHILS 142 cells/uL 15-500 ABSOLUTE BASOPHILS 53 cells/uL 0-200 NEUTROPHILS 55.4 % NRG LYMPHOCYTES 35.9 % NRG MONOCYTES 5.4 % NRG EOSINOPHILS 2.4 % NRG BASOPHILS 0.9 % NRG A1C - 08/10/17 16:21 HEMOGLOBIN A1c 5.9 % of total Hgb <5.7 TSH - 01/04/18 16:31 TSH 2.36 mIU/L 0.40-4.50 A1C - 01/04/18 16:31 HEMOGLOBIN A1c 5.7 % of total Hgb <5.7 TSH w/ FREE T4 - 03/07/18 16:22 TSH 2.78 mIU/L 0.40-4.50 T4, FREE 1.4 ng/dL 0.8-1.8 CBC - 03/07/18 16:22 WHITE BLOOD CELL COUNT 6.3 Thousand/uL 3 .8-10.8 RED BLOOD CELL COUNT 4.84 Million/uL 4.2 0-5.80 HEMOGLOBIN 14.1 g/dL 13.2-17.1 HEMATOCRIT 40.4 % 38.5-50.0 MCV 83.5 fL 80.0-100.0 MCH 29.1 pg 27.0-33.0 MCHC 34.9 g/dL 32.0-36.0 RDW 12.5 % 11.0-15.0 PLATELET COUNT 257 Thousand/uL 140-400 MPV 9.9 fL 7.5-12.5 ABSOLUTE NEUTROPHILS 3629 cells/uL 1500- 7800 ABSOLUTE LYMPHOCYTES 2199 cells/uL 850-3 900 ABSOLUTE MONOCYTES 334 cells/uL 200-950 ABSOLUTE EOSINOPHILS 101 cells/uL 15-500 ABSOLUTE BASOPHILS 38 cells/uL 0-200 NEUTROPHILS 57.6 % NRG LYMPHOCYTES 34.9 % NRG MONOCYTES 5.3 % NRG EOSINOPHILS 1.6 % NRG BASOPHILS 0.6 % NRG CBC - 04/16/19 12:48 WHITE BLOOD CELL COUNT 6.8 Thousand/uL 3 .8-10.8 RED BLOOD CELL COUNT 5.67 Million/uL 4.2 0-5.80 HEMOGLOBIN 16.6 g/dL 13.2-17.1 HEMATOCRIT 47.8 % 38.5-50.0 MCV 84.3 fL 80.0-100.0 MCH 29.3 pg 27.0-33.0 MCHC 34.7 g/dL 32.0-36.0 RDW 12.7 % 11.0-15.0 PLATELET COUNT 250 Thousand/uL 140-400 MPV 10.5 fL 7.5-12.5 ABSOLUTE NEUTROPHILS 4277 cells/uL 1500- 7800 ABSOLUTE LYMPHOCYTES 1931 cells/uL 850-3 900 ABSOLUTE MONOCYTES 422 cells/uL 200-950 ABSOLUTE EOSINOPHILS 102 cells/uL 15-500 ABSOLUTE BASOPHILS 68 cells/uL 0-200 NEUTROPHILS 62.9 % NRG LYMPHOCYTES 28.4 % NRG MONOCYTES 6.2 % NRG EOSINOPHILS 1.5 % NRG BASOPHILS 1.0 % NRG TSH - 04/16/19 12:48 TSH 2.50 mIU/L 0.40-4.50 BNP - 04/16/19 12:49 B TYPE NATRIURETIC PEPTIDE (BNP) 20 pg/mL <100 Coronavirus SARS-CoV-2 SO 2019 - 0 13:05 Coronavirus Ab [Units/volume] in Serum Negative Negative Complete blood count (CBC) with automate d white blood cell (WBC) differential - 09/27/19 07:15 Blood leukocytes automated count (number/volume) 5.0 10*3/uL 4.3-11.0 Blood erythrocytes automated count (number/volume) 5.40 10*6/uL 4.35-5.85 Venous blood hemoglobin measurement (mass/volume) 15.6 g/dL 13.3-17.7 Blood hematocrit (volume fraction) 43 % 40-54 Automated erythrocyte mean corpuscular volume 80 [ foz_us] 80-99 Automated erythrocyte mean corpuscular h emoglobin (mass per erythrocyte) 29 pg 25-34 Automated erythrocyte mean corpuscular h emoglobin concentration measurement (mass/volume) 36 g/dL 32-36 Automated erythrocyte distribution width ratio 13. 1 % 10.0- 14.5 Automated blood platelet count (count/volume) 216 10*3/uL 130-400 Automated blood platelet mean volume measurement 9.8 [foz_us] 7.4-10.4 Automated blood neutrophils/100 leukocytes 47 % 42-75 Automated blood lymphocytes/100 leukocytes 37 % 12-44 Blood monocytes/100 leukocytes 8 % 0-12 Automated blood eosinophils/100 leukocytes 8 % 0-10 Automated blood basophils/100 leukocytes 1 % 0-10 Blood neutrophils automated count (number/volume) 2.3 10*3 1.8-7.8 Blood lymphocytes automated count (number/volume) 1.9 10*3 1.0-4.0 Blood monocytes automated count (number/volume) 0. 4 10*3 0.0-1.0 Automated eosinophil count 0.4 10*3/uL 0 .0-0.3 Automated blood basophil count (count/volume) 0.1 10*3/uL 0.0-0.1 Whole blood basic metabolic panel - 05/2 2/20 07:15 Serum or plasma sodium measurement (moles/volume) 139 mmol/L 135-145 Serum or plasma potassium measurement (moles/volume) 4.1 mmol/L 3.6-5.0 Serum or plasma chloride measurement (moles/volume) 108 mmol/L 98-107 Carbon dioxide 21 mmol/L 21-32 Serum or plasma anion gap determination (moles/volume) 10 mmol/L 5-14 Serum or plasma urea nitrogen measurement (mass/volume ) 13 mg/dL 7-18 Serum or plasma creatinine measurement (mass/volume) 0.93 mg/dL 0.60-1.30 Serum or plasma urea nitrogen/creatinine mass ratio 14 NRG Serum or plasma creatinine measurement w ith calculation of estimated glomerular filtration rate > NRG Serum or plasma glucose measurement (mass/volume) 133 mg/dL 70-105 Serum or plasma calcium measurement (mass/volume) 9.1 mg/dL 8.5-10.1 Capillary blood glucose measurement by g lucometer (mass/volume) - 09/27/19 07:45 Capillary blood glucose measurement by glucometer (mas s/volume) 133 mg/dL 70-110 Encounters ACCT No. Visit Date/Time Discharge Status Pt. Type Provider Facility Loc./Unit Complaint [id number] 09/23/2019 09:41:00 020 15:07:00 DIS Outpatient FLASH DURÁN MD [facility] PREOP CHRONIC SINUS INFECTION S [id number] 12/20/2018 08:40:00 019 23:59:59 CLS Outpatient STEPHEN CEDILLO MD [facility] ORTHO [id number] 05/25/2015 06:28:00 016 12:25:00 DIS Outpatient FLASH DURÁN MD [facility] CERVICAL LYMPHNODE BIOP SY [id number] 09/27/2019 06:51:[address] Outpatient FLASH DURÁN MD [facility] CHRONIC SINUS INFECTIONS [id number] 10/26/2011 06:28:00 Document Registration [id number] 10/04/2011 16:44:00 Document Registration [id number] 09/29/2011 14:50:00 Document Registration [id number] 09/29/2011 12:21:00 Document Registration [id number] 11/27/2017 08:00:00 11/27/2017 23:59 :59 CLS Outpatient Jaquan Woods [facility] [id number] 06/12/2018 14:13:37 Document Registration [id number] 07/04/2019 14:00:00 07/04/2019 23:59:5 9 CLS Outpatient [facility]AIDA RUTH [facility] [address] [id number] 04/16/2019 14:40:00 Document Registration [id number] 03/07/2018 14:40:00 Document Registration [id number] 01/04/2018 14:40:00 Document Registration [id number] 08/10/2017 16:00:00 Document Registration [id number] 11/23/2018 11:00:00 9 23:59:59 DIS Outpatient CHINEDU SANTOS [facility] Ortho
--- OUTSIDE RECORDS SUMMARY | 2019-09-27 09:14 | XMS REPORT ---
Author Author Henri SINGH Organization [facility] [place] Address [address] [place] [address] Care Team Providers Care Siphoner Name Role Phone ZORAIDA SINGH Unavailable PROBLEMS Type Condition ICD9-CM Code RNF75-CC Code Onset Dates Condition S tatus SNOMED Code Problem Type 2 diabetes mellitus wit hout complication, without long-term current use of insulin E11.9 Active 884842339 Problem Primary insomnia F51.01 Active 397 2004 Problem Type 2 diabetes mellitus without complications E11 .9 Active [id number] ALLERGIES No Information ENCOUNTERS Encounter Location Date Diagnosis [facility] [place] [address] [facility] [address] [id number] [place] [address] [id number] Jun, [facility] [place] [address] [facility] [address] [id number] [place] [address] 165909 May, [facility] [place] [address] [facility] [address] [id number] [place] [address] 660412 May, [facility] [place] [address] [facility] [address] [id number] [place] [address] 309513 May, [facility] [place] [address] [facility] [address] [id number] [place] [address] 591689 May, Right anterior shoulder pain M25.511 [facility] [place] [address] [facility] [address] [id number] [place] [address] 965023 May, [facility] [place] [address] [facility] [address] [id number] [place] [address] 278628 May, [facility] [place] [address] [facility] [address] [id number] [place] [address] 676393 Apr, Type 2 diabetes mellitus without complications E11.9 ; Costochondritis, acute M94.0 and Tinea pedis of both feet B35.3 [facility] [place] [address] [facility] [address] [id number] [place] [address] 638388 Mar, [facility] [place] [address] [facility] [address] [id number] [place] [address] 974322 Mar, [facility] [place] [address] [facility] [address] [id number] [place] [address] 238141 Feb, Acute upper respiratory infection, unspecified J06.9 ; Other viral agents as the cause of diseases classified elsewhere B97.89 and Aphthous ulcer of mouth K12.0 [facility] [place] [address] [place] [address] C [id number] [place] [address] 232283 Jan, [facility] [place] [address] [place] [address] C [id number] [place] [address] 973852 Jan, Right hip pain M25.551 [facility] [place] [address] [place] [address] C [id number] [place] [address] 034559 Dec, Ingrown nail L60.0 ; Impetigo L01.00 and Irritant contact dermatitis due to plants, except food L24.7 [facility] [place] [address] [place] [address] C [id number] [place] [address] 623561 Dec, [facility] [place] [address] [place] [address] C [id number] [place] [address] 544576 Dec, Nail abnormality L60.9 and Ingrown nail of fifth toe of right foot L60.0 [facility] [place] [address] [facility] [address] [id number] [place] [address] 930144 Nov, Type 2 diabetes mellitus without complications E11.9 [facility] [place] [address] [place] [address] C [id number] [place] [address] 947770 Nov, Type 2 diabetes mellitus without complication, without long-term current use of insulin E11.9 [facility] [place] [address] [place] [address] C [id number] [place] [address] 706648 Nov, [facility] [place] [address] [facility] [address] [id number] [place] [address] 054313 Nov, [facility] [place] [address] [facility] [address] [id number] [place] [address] 145240 Oct, [facility] [place] [address] [place] [address] C [id number] [place] [address] 376113 September, [facility] [place] [address] [facility] [address] [id number] [place] [address] 151403 Aug, Acute idiopathic gout of foot, unspecified laterality M10.079 [facility] [place] [address] [facility] [address] [id number] [place] [address] 606040 Aug, Acute idiopathic gout of foot, unspecified laterality M10.079 and Primary insomnia F51.01 [facility] [place] [address] [facility] [address] [id number] [place] [address] 488750 Jul, [facility] [place] [address] [place] [address] [address] [id number] [place] [address] 658063 Jul, 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 [facility] [place] [address] [place] [address] [address] [id number] [place] [address] 481032 Jun, [facility] [place] [address] [place] [address] C [id number] [place] [address] 128136 17 Jun, 2016 Acute non-recurrent maxillary sinusitis J01.00 [facility] [place] [address] [place] [address] [address] [id number] [place] [address] 946338 16 Jun, 2016 Acute non-recurrent frontal sinusitis J01.10 [facility] [place] [address] [place] [address] [address] [id number] [place] [address] 920985 15 Jun, 2016 [facility] [place] [address] [place] [address] C [id number] [place] [address] 642732 14 Jun, 2016 Primary insomnia F51.01 [facility] [place] [address] [place] [address] C [id number] [place] [address] 709427 07 Jun, 2016 Acute non-recurrent maxillary sinusitis J01.00 ; Excessive sweating R61 and 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 [facility] [place] [address] [place] [address] [address] [id number] [place] [address] 283749 02 Jun, 2016 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 [facility] [place] [address] [place] [address] C [id number] [place] [address] 568609 10 May, 2016 Type 2 diabetes mellitus without complications E11.9 ; Gout involving toe, unspecified cause, unspecified chronicity, unspecified laterality M10.9 and Primary insomnia F51.01 [facility] [place] [address] [facility] [address] [id number] [place] [address] 581911 27 Jan, 2016 [facility] [place] [address] [facility] [address] [id number] [place] [address] 442843 14 Jan, 2016 [facility] [place] [address] [facility] [address] [id number] [place] [address] 982746 13 Jan, 2016 [facility] [place] [address] [facility] [address] [id number] [place] [address] 740277 30 Dec, 2015 [facility] [place] [address] [facility] [address] [id number] [place] [address] 956248 Dec, [facility] [place] [address] [facility] [address] [id number] [place] [address] 414511 Dec, Sciatica of right side M54.31 and Acute bilateral low back pain without sciatica M54.5 [facility] [place] [address] [facility] [address] [id number] [place] [address] 479957 Dec, Type 2 diabetes mellitus without complications E11.9 [facility] [place] [address] [facility] [address] [id number] [place] [address] 180844 Dec, [facility] [place] [address] [facility] [address] [id number] [place] [address] 806370 Dec, [facility] [place] [address] [facility] [address] [id number] [place] [address] 107179 Dec, Sciatica of right side M54.31 ; Type 2 diabetes mellitus without complication, without long-term current use of insulin E11.9 ; Acute bilateral low back pain without sciatica M54.5 and Neuropathy G62.9 [facility] [place] [address] [facility] [address] [id number] [place] [address] 510509 Dec, Plantar fasciitis, right M72.2 and Sciatica of right side M54.31 [facility] [place] [address] [facility] [address] [id number] [place] [address] 603363 Nov, [facility] [place] [address] [facility] [address] [id number] [place] [address] 081756 Oct, Nail abnormality L60.9 [facility] [place] [address] [facility] [address] [id number] [place] [address] 232036 September, [facility] [place] [address] [facility] [address] [id number] [place] [address] 724232 Aug, [facility] [place] [address] [facility] [address] [id number] [place] [address] 022823 Aug, Vertigo R42 ; Allergic rhinitis, unspecified allergic rhinitis type J30.9 and Anxiety F41.9 [facility] [place] [address] [facility] [address] [id number] [place] [address] 332680 Aug, [facility] [place] [address] [facility] [address] [id number] [place] [address] 506775 Aug, [facility] [place] [address] [facility] [address] [id number] [place] [address] 836967 Aug, [facility] [place] [address] [facility] [address] [id number] [place] [address] 807026 Jul, [facility] [place] [address] [facility] [address] [id number] [place] [address] 773921 Jul, [facility] [place] [address] [facility] [address] [id number] [place] [address] 392444 Jul, [facility] [place] [address] [facility] [address] [id number] [place] [address] 164241 Jul, [facility] [place] [address] [facility] [address] [id number] [place] [address] 311659 Jul, Lymphadenopathy R59.1 ; Type 2 diabetes mellitus without complications E11.9 ; Essential (primary) hypertension I10 and Bipolar disorder, current episode manic without psychotic features, moderate F31.12 [facility] [place] [address] [facility] [address] [id number] [place] [address] 463133 Jun, [facility] [place] [address] [facility] [address] [id number] [place] [address] 868131 Jun, [facility] [place] [address] [facility] [address] [id number] [place] [address] 442749 Jun, [facility] [place] [address] [facility] [address] [id number] [place] [address] 897711 Jun, [facility] [place] [address] [facility] [address] [id number] [place] [address] 326330 May, [facility] [place] [address] [facility] [address] [id number] [place] [address] 382942 14 May, 2015 Lymphadenopathy R59.1 and Pharyngitis, acute J02.9 [facility] [place] [address] [facility] [address] [id number] [place] [address] 178855 11 May, 2015 Pharyngitis, acute J02.9 and Eczema, unspecified type L30.9 [facility] [place] [address] [facility] [address] [id number] [place] [address] 166201 05 May, 2015 [facility] [place] [address] [facility] [address] [id number] [place] [address] 638530 Apr, [facility] [place] [address] [facility] [address] [id number] [place] [address] 045748 Apr, Neck strain, initial encounter S16.1XXA and Obstructive sleep apnea syndrome G47.33 [facility] [place] [address] [facility] [address] [id number] [place] [address] 018723 Apr, [facility] [place] [address] [facility] [address] [id number] [place] [address] 431767 Apr, [facility] [place] [address] [facility] [address] [id number] [place] [address] 314987 Apr, [facility] [place] [address] [place] [address] [address] [id number] [place] [address] 649510 Apr, [facility] [place] [address] [facility] [address] [id number] [place] [address] 985021 Mar, [facility] [place] [address] [facility] [address] [id number] [place] [address] 013617 Mar, [facility] [place] [address] [facility] [address] [id number] [place] [address] 593982 Mar, Primary insomnia F51.01 [facility] [place] [address] [facility] [address] [id number] [place] [address] 104752 Mar, Primary insomnia F51.01 [facility] [place] [address] [facility] [address] [id number] [place] [address] 128665 Mar, Gout, unspecified M10.9 ; Other chronic pain G89.29 and Migraine with aura and without status migrainosus, not intractable G43.109 [facility] [place] [address] [facility] [address] [id number] [place] [address] 683461 Mar, [facility] [place] [address] [facility] [address] [id number] [place] [address] 198476 Feb, Restless legs syndrome G25.81 [facility] [place] [address] [facility] [address] [id number] [place] [address] 251639 Feb, [facility] [place] [address] [place] [address] [address] [id number] [place] [address] 796036 Feb, Gout, unspecified M10.9 ; Other dorsalgia M54.89 ; Restless legs syndrome G25.81 and Encounter for immunization Z23 [facility] [place] [address] [place] [address] [address] [id number] [place] [address] 308876 Feb, [facility] [place] [address] [place] [address] [address] [id number] [place] [address] 497042 Jan, Bilateral foot pain 729.5 ; Type 2 diabetes mellitus without complications E11.9 and Gout 274.9 [facility] [place] [address] [place] [address] [address] [id number] [place] [address] 913850 Jan, [facility] [place] [address] [place] [address] [address] [id number] [place] [address] 095140 Jan, DM w/o complication type II 250.00 [facility] [place] [address] [place] [address] [address] [id number] [place] [address] 288744 Jan, Right hip pain 719.45 [facility] [place] [address] [place] [address] [address] [id number] [place] [address] 647366 Dec, Insomnia 780.52 [facility] [place] [address] [place] [address] [address] [id number] [place] [address] 284548 Dec, Dysuria 788.1 and Frequency of urination 788.41 [facility] [place] [address] [facility] [address] [id number] [place] [address] 650399 Dec, [facility] [place] [address] [facility] [address] [id number] [place] [address] 913015 Dec, [facility] [place] [address] [place] [address] [address] [id number] [place] [address] 940697 Nov, [facility] [place] [address] [facility] [address] [id number] [place] [address] 225866 Nov, [facility] [place] [address] [facility] [address] [id number] [place] [address] 594106 Nov, Neck pain 723.1 [facility] [place] [address] [facility] [address] [id number] [place] [address] 309556 Nov, [facility] [place] [address] [facility] [address] [id number] [place] [address] 560714 Nov, [facility] [place] [address] [facility] [address] [id number] [place] [address] 355421 Nov, GERD (gastroesophageal reflux disease) 530.81 ; Hypertension 401.9 ; Bipolar 1 disorder, manic, moderate 296.42 ; Back pain 724.5 and Gout 274.9 [facility] [place] [address] [facility] [address] [id number] [place] [address] 212002 Oct, Dental examination V72.2 [facility] [place] [address] [facility] [address] [id number] [place] [address] 409442 Oct, Dental examination V72.2 [facility] [place] [address] [facility] [address] [id number] [place] [address] 029096 September, Dental examination V72.2 [facility] [place] [address] [facility] [address] [id number] [place] [address] 517320 Jun, [facility] [address] [facility] [id number] [place] [address] Jun, IMMUNIZATIONS No Known Immunizations SOCIAL HISTORY Never Assessed REASON FOR VISIT PLAN OF CARE VITAL SIGNS MEDICATIONS Unknown Medications RESULTS No Results PROCEDURES Procedure Date Ordered [...]
[2019-09-27] MEDS ORDERED: D5 1/2 NS W/KCL 20 MEQ/L 1,000 ML IV SCH (09:33)
--- NOTE | 2019-09-27 09:33 | Progress Note-Post Operative ---
Post-Operative Progess Note Surgeon (s)/Stabber (s) Surgeon FLASH DURÁN MD Stabber n/a Pre-Operative Diagnosis Bilat Crhonic Sinusitis, Deviated Septum, Bilat Red ofInf Turbs Post-Operative Diagnosis same Post-Op Procedure Note Date of Procedure: September 27, 2019 Name of Procedure Performed: Bilat ESS, Nasal Septoplasty, Bilat Red of Inf Turbs Description & Findings Description and Findings: n/a Anesthesia Type get Estimated Blood Loss minimal Packing none. Specimen(s) collected/removed Bilat Chronic Sinus disease, nasal Septum FLASH DURÁN MD September 27, 2019 09:33
[2019-09-27] MEDS ORDERED: PROMETHAZINE INJ 25 MG/ML (PHENERGAN) AMP IVP PRN (09:45)
[2019-09-27] MEDS ORDERED: HYDROcodone/APAP 5 MG/325 MG (LORTAB) TAB PO PRN (09:45)
[2019-09-27] MEDS ORDERED: ACETAMINOPHEN 325 MG TABLET PO PRN (09:45)
[2019-09-27] MEDS ORDERED: HYDROmorphone 2 MG/ML VIAL (DILAUDID) IV ONE (10:00)
[2019-09-27] MEDS ORDERED: ONDANSETRON 4 MG/2 ML (SDV) Z0FRAN IVP PRN (10:00)
--- NOTE | 2019-09-27 11:45 | NUR ---
PHONED DR. DURÁN OFFICE AND LEFT MESSAGE THAT NEED QUANTITY FOR HYDROCODONE. DR. DURÁN OFFICE PHONED BACK AND INFORMED #[id number]
[2019-09-27] MEDS ORDERED: AMOX-355 PO (12:07)
[2019-09-27] MEDS ORDERED: HYDR-83 PO (12:07)
--- NOTE | 2019-09-27 12:08 | Anesthesia-General Post-Op ---
General Patient Condition Mental Status/LOC: Same as Preop Cardiovascular: Satisfactory Nausea/Vomiting: Absent Respiratory: Satisfactory Pain: Controlled Complications: Absent Post Op Complications Complications None Follow Up Care/Instructions Patient Instructions None needed. Anesthesia/Patient Condition Patient Condition Patient is doing well, no complaints, stable vital signs, no apparent adverse anesthesia problems. No complications reported per nursing. D/C home per [facility] Criteria: Yes GATITO HAMPTON CRNA September 27, 2019 12:08
== END 2019-09-27 12:30 | disposition home or self-care (01) ==
LOC: SDC 06:51
PROVIDERS: ATTEND Otolaryngology Otolaryngology/Facial Plastic Surgery
DX: J32.0 Chronic maxillary sinusitis (principal); J32.2 Chronic ethmoidal sinusitis; J34.2 Deviated nasal septum; J34.89 Other specified disorders of nose and nasal sinuses; J34.3 Hypertrophy of nasal turbinates; R09.81 Nasal congestion; F31.9 Bipolar disorder, unspecified; G47.33 Obstructive sleep apnea (adult) (pediatric); M19.91 Primary osteoarthritis, unspecified site; M54.5 Low back pain; K21.9 Gastro-esophageal reflux disease without esophagitis; E11.9 Type 2 diabetes mellitus without complications; Z88.8 Allergy status to other drugs, medicaments and biological substances; Z79.899 Other long term (current) drug therapy
CPT/HCPCS: 36415; 80048; 82962; 85025; 87081; 88305

== ENCOUNTER 2019-12-16 12:57 | Emergency (ER) | payer MEDICARE, MEDICAID ==
[~2019-12-16] VITALS: Ht 180.3 cm; Wt 104.3 kg
[~2019-12-16 12:57] MED LIST changes: +AMOX-355 PO; +FLUT9.9S NS; +HYDR-3812 PO; +PROM25TA14 PO; +RT-ALBUINH IH
--- NOTE | 2019-12-16 13:12 | ED Back Pain ---
General Stated Complaint: BACK PAIN Source of Information: Patient History of Present Illness Date Seen by Provider: Dec 16, 2019 Time Seen by Provider: 13:12 Initial Comments 34-year-old male presents with low back pain. Patient reports his been gone for about 3 days. Patient reports that he thinks he just twisted or lifted wrong when it happened. He denies any acute trauma or injury. Patient reports that since then he has had pain in his lower mid part of his back. The pain is worse with movement or lifting of his leg. Worse with right lifting the legs and the left. He reports bilateral numbness in his legs and tingling down his toes. Reports since it happened he's had some incontinence at night that is new for him. Patient reports he called his primary care provider who asked him to come MRI for further evaluation and imaging. Patient does not report any issues with bowels. He denies any saddle anesthesia. Allergies and Home Medications Allergies Coded Allergies: prednisone (Unverified Allergy, Unknown, GETS VIOLENT, 09/27/19) Home Medications Albuterol Sulfate 1 Puff Puff, 2 PUFF IH Q6H, (Reported) 1 PUFF = 90 MCG Amoxicillin/Potassium Clav 1 Each Tablet, 1 EACH PO BID Prescribed by: MADDY KNUTSON on 09/27/19 1207 Aripiprazole 30 Mg Tablet, 30 MG PO DAILY, (Reported) Dexlansoprazole 60 Mg , 60 MG PO DAILY, (Reported) Hydrocodone/Acetaminophen 1 Each Tablet, 1 EACH PO Q4H Prescribed by: MADDY KNUTSON on 09/27/19 1207 Pregabalin 150 Mg Capsule, 150 MG PO BID, (Reported) Promethazine HCl 25 Mg Tablet, 12.5 MG PO Q6H PRN for NAUSEA/VOMITING, (Reported) Zolpidem Tartrate 10 Mg Tablet, 20 MG PO HS, (Reported) Patient Home Medication List Home Medication List Reviewed: Yes Review of Systems Constitutional: No chills, No fever Respiratory: No cough, No short of breath Cardiovascular: No chest pain Gastrointestinal: No abdominal pain Genitourinary: nocturia Musculoskeletal: no symptoms reported Skin: no symptoms reported Psychiatric/Neurological: No Symptoms Reported Past Aujrjsk-Ucszlc-Xxfsqe Hx Past Med/Social Hx: Reviewed Nursing Past Med/Soc Hx Patient Social History 2nd Hand Smoke Exposure: No Recent Foreign Travel: No Contact w/Someone Who Travel: No Recent Hopitalizations: No Immunizations Up To Date Date of Pneumonia Vaccine: Feb 05, 2015 Date of Influenza Vaccine: Feb 05, 2019 Seasonal Allergies Seasonal Allergies: Yes Past Medical History Surgeries: Yes (shoulder sx, kidney stone, laryngoscopy) Respiratory: Yes Sleep Apnea, COPD Currently Using CPAP: Yes Cardiac: Yes Hypertension Neurological: No Reproductive Disorders: No Genitourinary: No Gastrointestinal: Yes Gastroesophageal Reflux Musculoskeletal: No Arthritis, Chronic Back Pain, Gout Endocrine: No HEENT: Yes (deviated septum) Cancer: No Psychosocial: Yes Bipolar Integumentary: No Blood Disorders: No Physical Exam Vital Signs Vital Signs - First Documented 12/16/19 13:06 Temp 36.5 Pulse 74 Resp 15 B/P (MAP) 148/83 (104) Pulse Ox 98 O2 Delivery Room Air Capillary Refill : Height, Weight, BMI Height: '" Weight: lbs. oz. kg; 30.76 BMI Method: General Appearance: No Apparent Distress, WD/WN Neck: Non Tender, Supple Cardiovascular: Regular Rate, Rhythm, No Edema Respiratory: Lungs Clear, Normal Breath Sounds Peripheral Pulses: 2+ Dorsalis Pedis (R), 2+ Left Dors-Pedis (L), 2+ Radial Pulses (R), 2+ Radial Pulses (L) Gastrointestinal: Non Tender Back: Other (moderate midline tenderness) Neurologic/Psychiatric: Oriented x3, Normal Mood/Affect; No Motor Weakness, No Sensory Deficit; Other (tingling bilateral lower legs, ) Skin: Normal Color, Warm/Dry Lymphatic: No Adenopathy Progress/Results/Core Measures Results/Orders My Orders Orders - SHA THOMAS DO Mri Lumbar Spine W/O Contrast (12/16/19 13:16) Bladder Scan (12/16/19 13:16) Vital Signs/I&O 12/16/19 13:06 Temp 36.5 Pulse 74 Resp 15 B/P (MAP) 148/83 (104) Pulse Ox 98 O2 Delivery Room Air Progress Progress Note : Time: 15:09 Progress Note MRI was negative for any acute pathology. Patient with likely lumbar muscles brain and spasm. I will discharge him with Naprosyn and Flexeril. He should follow-up with his primary care provider if no improvement in a week. Diagnostic Imaging Diagonstic Imaging: MRI Comments [facility] [place] NAME: RAYMOND PFEIFFER [facility] REC#: [id number] PT STATUS: REG ER : 1985 PHYSICIAN: SHA THOMAS DO ADMIT DATE: 12/16/19/ER Signed Date of Exam:12/16/19 MRI LUMBAR SPINE W/O CONTRAST PROCEDURE: MRI lumbar spine. TECHNIQUE: Multiplanar, multisequence MRI of the lumbar spine was performed without contrast. INDICATION: Back pain and incontinence There is slight left convexity curvature centered at the upper lumbar region. This could be related to positioning or spasm. Vertebral body heights and disc spaces are maintained. There is no evidence of focal disc protrusion. Conus medullaris has a normal appearance. There is no evidence of spinal or neural foraminal stenosis. Bone marrow signal intensities are also unremarkable. IMPRESSION: Unremarkable MRI of the lumbar spine. Departure Impression Primary Impression: Lumbar sprain Qualified Codes: S33.5XXA - Sprain of ligaments of lumbar spine, initial encounter Disposition: 01 HOME, SELF-CARE Condition: Stable Departure-Patient Inst. Referrals: NO,LOCAL PHYSICIAN (PCP) Primary Care Physician Patient Instructions: Lumbar Muscle Strain (DC) Add. Discharge Instructions: Follow-up with your primary care provider if symptoms are not improving over the next week. Use ice and heat to affected area based on which one provides best relief. Scripts Naproxen (Naprosyn) 500 Mg Tablet 500 MG PO BID, #30 TAB 0 Refills Prov: SHA THOMAS DO 12/16/19 Cyclobenzaprine HCl (Cyclobenzaprine HCl) 10 Mg Tablet 10 MG PO Q8H PRN for SPASMS, #15 TAB 0 Refills Prov: SHA THOMAS DO 12/16/19 SHA THOMAS DO Dec 16, 2019 13:12
--- OUTSIDE RECORDS SUMMARY | 2019-12-16 14:28 | XMS REPORT | Continuity of Care Document ---
Author Organization Unknown Address Unknown Phone Unavailable Allergies Active Description Code Type Severity Reaction Onset Reported/Identified Relationship to Patient Clinical Status Yes predniSONE ##NOMEN##,AL1,ceStr uct,allergy,1237,698 Unknown N/A agitation Yes predniSONE Drug N/A violent behavior Yes prednisone [id number] Drug Allerg y Unknown GETS VIOLENT 09/27/2019 [...] .2 DEVIATED NASAL SEPTUM 09/23/2019 FLASH DURÁN MD Ot J34 .3 HYPERTROPHY OF NASAL TURBINATES 09/23/2019 FLASH DURÁN MD Ot Z01.812 ENCOUNTER FOR PREPROCEDURAL LABORATORY E 09/23/2019 FLASH DURÁN MD Ot Z11.59 ENCOUNTER FOR SCREENING FOR OTHER VIRAL 09/24/2019 STEPHEN CEDILLO MD Ot F31. 9 BIPOLAR DISORDER, UNSPECIFIED 09/24/2019 STEPHEN CEDILLO MD Ot S43.431A SUPERIOR GLENOID LABRUM LESION OF RIGHT 09/27/2019 STEPHEN CEDILLO MD, Ot F31. 9 BIPOLAR DISORDER, UNSPECIFIED 09/27/2019 STEPHEN CEDILLO MD Ot S43.431A SUPERIOR GLENOID LABRUM LESION OF RIGHT 09/27/2019 FLASH DURÁN MD Ot E11 .9 TYPE 2 DIABETES MELLITUS WITHOUT COMPLIC 09/27/2019 FLASH DURÁN MD Ot F31 .9 BIPOLAR DISORDER, UNSPECIFIED 09/27/2019 FLASH DURÁN MD Ot G47.33 OBSTRUCTIVE SLEEP APNEA (ADULT) (PEDIATR 09/27/2019 FLASH DURÁN MD Ot J32 .0 CHRONIC MAXILLARY SINUSITIS 09/27/2019 FLASH DURÁN MD Ot J32 .2 CHRONIC ETHMOIDAL SINUSITIS 09/27/2019 FLASH DURÁN MD Ot J34 .2 DEVIATED NASAL SEPTUM 09/27/2019 FLASH DURÁN MD Ot J34 .3 HYPERTROPHY OF NASAL TURBINATES 09/27/2019 FLASH DURÁN MD Ot J34.89 OTHER SPECIFIED DISORDERS OF NOSE AND NA 09/27/2019 FLASH DURÁN MD Ot K21 .9 GASTRO-ESOPHAGEAL REFLUX DISEASE WITHOUT 09/27/2019 FLASH DURÁN MD Ot M19.91 PRIMARY OSTEOARTHRITIS, UNSPECIFIED SITE 09/27/2019 FLASH DURÁN MD Ot M54 .5 LOW BACK PAIN 09/27/2019 FLASH DURÁN MD Ot R09.81 NASAL CONGESTION 09/27/2019 FLASH DURÁN MD Ot 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 09/27/2019 FLASH DURÁN MD Ot Z88 .8 ALLERGY STATUS TO OTH DRUG/MEDS/BIOL SUB 10/03/2019 FLASH DURÁN MD Ot E11 .9 TYPE 2 DIABETES MELLITUS WITHOUT COMPLIC 10/03/2019 FLASH DURÁN MD Ot F31 .9 BIPOLAR DISORDER, UNSPECIFIED 10/03/2019 FLASH DURÁN MD Ot G47.33 OBSTRUCTIVE SLEEP APNEA (ADULT) (PEDIATR 10/03/2019 FLASH DURÁN MD Ot J32 .0 CHRONIC MAXILLARY SINUSITIS 10/03/2019 FLASH DURÁN MD Ot J32 .2 CHRONIC ETHMOIDAL SINUSITIS 10/03/2019 FLASH DURÁN MD Ot J34 .2 DEVIATED NASAL SEPTUM 10/03/2019 FLASH DURÁN MD Ot J34 .3 HYPERTROPHY OF NASAL TURBINATES 10/03/2019 FLASH DURÁN MD Ot J34.89 OTHER SPECIFIED DISORDERS OF NOSE AND NA 10/03/2019 FLASH DURÁN MD Ot K21 .9 GASTRO-ESOPHAGEAL REFLUX DISEASE WITHOUT 10/03/2019 FLASH DURÁN MD Ot M19.91 PRIMARY OSTEOARTHRITIS, UNSPECIFIED SITE 10/03/2019 FLASH DURÁN MD Ot M54 .5 LOW BACK PAIN 10/03/2019 FLASH DURÁN MD Ot R09.81 NASAL CONGESTION 10/03/2019 FLASH DURÁN MD Ot Z79.899 OTHER HALFWAY (CURRENT) DRUG THERAPY 10/03/2019 FLASH DURÁN MD Ot Z88 .8 ALLERGY STATUS TO [facility] DRUG/MEDS/BIOL SUB 12/16/2019 STEPHEN CEDILLO MD, Ot F31. 9 BIPOLAR DISORDER, UNSPECIFIED 12/16/2019 STEPHEN CEDILLO MD, Ot S43.431A SUPERIOR GLENOID [...] 0.0-0.1 Whole blood basic metabolic panel - 09/06 06/27 07:15 Serum or plasma sodium measurement (moles/volume) [...] plasma calcium measurement (mass/volume) 9.1 mg/dL 8.5-10.1 Methicillin resistant Staphylococcus aur eus (MRSA) screening culture - 09/27/19 07:15 Methicillin resistant Staphylococcus aureus (MRSA) scr eening culture NEG NRG Capillary blood glucose measurement by g lucometer (mass/volume) - 09/27/19 07:45 Capillary blood glucose measurement by glucometer (mas s/volume) 133 mg/dL 70-110 Encounters ACCT No. Visit Date/Time Discharge Status Pt. Type Provider Facility Loc./Unit Complaint [id number] 09/27/2019 06:51:00 12:30:00 DIS Outpatient FLASH DURÁN MD [facility] SDC CHRONIC SINUS INFECTION S [id number] 09/23/2019 09:41:00 15:07:00 DIS Outpatient FLASH DURÁN MD [facility] PREOP CHRONIC SINUS INFECTION S [id number] 12/20/2018 08:40:00 019 23:59:59 CLS Outpatient STEPHEN CEDILLO MD [facility] ORTHO [id number] 05/25/2015 06:28:00 016 12:25:00 DIS Outpatient FLASH DURÁN MD [facility] SDC CERVICAL LYMPHNODE BIOP SY [id number] 12/16/2019 12:58:[address] Emergency THOMAS DO SHA L [facility] ER BACK PAIN [id number] 10/26/2011 06:28:00 Document Registration [id number] 10/04/2011 16:44:00 Document Registration [id number] 09/29/2011 14:50:00 Document Registration [id number] 09/29/2011 12:21:00 Document Registration [id number] 11/27/2017 08:00:00 11/27/2017 23:59 :59 CLS Outpatient Jaquan Woods [facility] [id number] 06/12/2018 14:13:37 Document Registration [id number] 12/12/2019 15:20:00 12/12/2019 23:59:5 9 [facility] [address] [id number] 04/16/2019 14:40:00 Document Registration [id number] 03/07/2018 14:40:00 Document Registration [id number] 01/04/2018 14:40:00 Document Registration [id number] 08/10/2017 16:00:00 Document Registration [id number] 11/23/2018 11:00:00 9 23:59:59 DIS Outpatient CHINEDU SANTOS [facility] Ortho
--- NOTE | 2019-12-16 14:38 | Diagnostic Imaging Report ---
PROCEDURE: MRI lumbar spine. TECHNIQUE: Multiplanar, multisequence MRI of the lumbar spine was performed without contrast. INDICATION: Back pain and incontinence There is slight left convexity curvature centered at the upper lumbar region. This could be related to positioning or spasm. Vertebral body heights and disc spaces are maintained. There is no evidence of focal disc protrusion. Conus medullaris has a normal appearance. There is no evidence of spinal or neural foraminal stenosis. Bone marrow signal intensities are also unremarkable. IMPRESSION: Unremarkable MRI of the lumbar spine. Dictated by: Dictated on workstation # [id number]
[2019-12-16] MEDS ORDERED: CYCL10TA9 PO (15:11)
[2019-12-16] MEDS ORDERED: NAPR-1071 PO (15:11)
[2019-12-16 15:55] VITALS: BP 148/83
== END 2019-12-16 15:55 | disposition home or self-care (01) ==
LOC: EDUNIT# 12:57 → ER 12:58
DX: S33.5XXA Sprain of ligaments of lumbar spine, initial encounter (principal); J44.9 Chronic obstructive pulmonary disease, unspecified; K21.9 Gastro-esophageal reflux disease without esophagitis; F31.9 Bipolar disorder, unspecified; G89.29 Other chronic pain; M54.9 Dorsalgia, unspecified; Z88.8 Allergy status to other drugs, medicaments and biological substances; Z79.52 Long term (current) use of systemic steroids; Z79.891 Long term (current) use of opiate analgesic; X50.1XXA Overexertion from prolonged static or awkward postures, initial encounter
CPT/HCPCS: 72148

== ENCOUNTER 2021-06-10 05:35 | Outpatient (RCR) | payer MEDICARE, MEDICAID ==
[~2021-06-10] VITALS: Ht 180.3 cm; Wt 95.5 kg
[~2021-06-10 05:35] MED LIST changes: +ACHD5005 PO; +CYCL10TA25 PO; -HYDR-3812 PO; -LISI-556 PO; +LISI5TAB20 PO; +NAPR-1071 PO
[2021-06-15] MEDS ORDERED: METF-397 PO (09:38)
== END 2021-06-15 10:13 | disposition home or self-care (01) ==
LOC: PREOP 05:35 → EDSTATUS 09:00 → PREOP 06-15 10:13
PROVIDERS: ATTEND Otolaryngology Otolaryngology/Facial Plastic Surgery
DX: Z01.818 Encounter for other preprocedural examination (principal)

== ENCOUNTER 2021-06-17 07:16 | Day surgery (SDC) | payer MEDICARE, MEDICAID ==
[~2021-06-17] VITALS: Ht 180.3 cm; Wt 95.5 kg
[2021-06-17] VITALS (11 sets, daily range): BP systolic 108–141; BP diastolic 71–96
[~2021-06-17 07:16] MED LIST changes: +METF-397 PO
[2021-06-17] MEDS ORDERED: LACTATED RINGERS 1,000 ML IV PRN (07:30)
[2021-06-17] MEDS ORDERED: AMPICILLIN/SULBACTAM INJECTION 1.5 GM in NS (IVPB) 100 ML IV ONE (07:30)
[2021-06-17] MEDS ORDERED: INDO25OR2 PO (07:44)
[2021-06-17] MEDS ORDERED: TOPI50TA37 PO (07:44)
[2021-06-17] MEDS ORDERED: DIVA125T2 PO (07:44)
[2021-06-17] MEDS ORDERED: BUDE10.2 IH (07:44)
[2021-06-17] MEDS ORDERED: LIDOCAINE/EPI 1%-1:200,000 (XYLOCAINE) 30 ML VIAL ONE (08:06)
[2021-06-17] MEDS ORDERED: BSS 15 ML ONE (08:06)
[2021-06-17] MEDS ORDERED: COCAINE HCL 4% 2 ML SYR ONE (08:06)
[2021-06-17] MEDS ORDERED: PHENYLEPHRINE 0.5% NASAL SPR (NEO-SYNEPHRINE) REG ONE (08:06)
[2021-06-17] MEDS ORDERED: fentaNYL INJ 100 MCG/2 ML AMP ONE (08:18)
[2021-06-17] MEDS ORDERED: SEVOFLURANE (ULTANE) 15 ML INHAL SOLN ONE ×2 (08:18→09:25)
[2021-06-17] MEDS ORDERED: MIDAZOLAM 2 MG/2 ML (VERSED) VIAL ONE (08:18)
[2021-06-17] MEDS ORDERED: proPOfol 200 MG/20 ML (DIPRIVAN) VIAL IV ONE (08:18)
[2021-06-17] MEDS ORDERED: LIDOCAINE PF 2% 5 ML (XYLOCAINE) VIAL ONE (08:18)
[2021-06-17] MEDS ORDERED: ONDANSETRON 4 MG/2 ML (SDV) Z0FRAN ONE (08:18)
--- NOTE | 2021-06-17 08:53 | Progress Note-Pre Operative ---
Pre-Operative Progress Note H&P Reviewed The H&P was reviewed, patient examined and no changes noted. 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
--- NOTE | 2021-06-17 08:54 | Progress Note-Post Operative ---
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 Specimen(s) collected/removed Bilat Chronic Sinus Disease FLASH DURÁN MD Jun 17, 2021 08:54
[2021-06-17] MEDS ORDERED: HYDROcodone/APAP 5 MG/325 MG (LORTAB) TAB PO PRN (09:00)
[2021-06-17] MEDS ORDERED: D5 1/2 NS W/KCL 20 MEQ/L 1,000 ML IV SCH (09:00)
[2021-06-17] MEDS ORDERED: PROMETHAZINE INJ 25 MG/ML (PHENERGAN) AMP IVP PRN (09:00)
[2021-06-17] MEDS ORDERED: ROCURONIUM 50 MG/5 ML (ZEMURON) VIAL IV ONE (09:42)
--- NOTE | 2021-06-17 09:56 | Anesthesia-General Post-Op ---
General Patient Condition Mental Status/LOC: Same as Preop Cardiovascular: Satisfactory Nausea/Vomiting: Absent Respiratory: Satisfactory Pain: Controlled Complications: Absent Post Op Complications Complications None Follow Up Care/Instructions Patient Instructions None needed. Anesthesia/Patient Condition Patient Condition Patient is doing well, no complaints, stable vital signs, no apparent adverse anesthesia problems. No complications reported per nursing. SUMMER GAMEZ CRNA Jun 17, 2021 09:55
[2021-06-17] MEDS ORDERED: AMOX-355 PO (09:59)
[2021-06-17] MEDS ORDERED: ACHD5005 PO (09:59)
[2021-06-17] MEDS ORDERED: morphine INJ 10 MG/ML 1ML (SYR OR VIAL) IVP ONE ×2 (10:00)
[2021-06-17] MEDS ORDERED: MEPERIDINE (DEMEROL) INJ 50 MG/ML IVP ONE ×2 (10:00)
[2021-06-17] MEDS ORDERED: fentaNYL INJ 100 MCG/2 ML AMP IVP ONE ×2 (10:00)
[2021-06-17] MEDS ORDERED: ONDANSETRON 4 MG/2 ML (SDV) Z0FRAN IVP PRN ×2 (10:00)
== END 2021-06-17 11:55 | disposition home or self-care (01) ==
LOC: SDC 07:16
PROVIDERS: ATTEND Otolaryngology Otolaryngology/Facial Plastic Surgery
DX: J32.9 Chronic sinusitis, unspecified (principal); J34.3 Hypertrophy of nasal turbinates; J33.9 Nasal polyp, unspecified; J44.9 Chronic obstructive pulmonary disease, unspecified; Z99.81 Dependence on supplemental oxygen; E11.9 Type 2 diabetes mellitus without complications; Z86.16 Personal history of COVID-19; G43.909 Migraine, unspecified, not intractable, without status migrainosus; F32.A Depression, unspecified; F17.210 Nicotine dependence, cigarettes, uncomplicated; I10 Essential (primary) hypertension; K21.9 Gastro-esophageal reflux disease without esophagitis; Z79.899 Other long term (current) drug therapy; Z79.84 Long term (current) use of oral hypoglycemic drugs
CPT/HCPCS: 82947; 87081